=== PATIENT | male | born 1935 | race Caucasian/White ===

== ENCOUNTER 2017-04-13 10:42 | Inpatient (IN) | payer MEDICARE, OTHER ==
[2017-04-13 11:32] LABS: Lactic Acid - Sepsis 0.9 mmol/L (0.5-2.2)
[2017-04-13 11:37] LABS: Band 5 % (5-11); Hematocrit 33.8 % (42.0-52.0); Mean Platelet Volume 5.9 fL (7.4-10.4); Neutrophil 17 % (42-75); Reactive Lymphocytes 2 % (0-10); Red Blood Cell (RBC) Count 3.83 mill/uL (4.70-6.10); White Blood Cell (WBC) Count 4.5 thou/uL (4.8-10.8)
[2017-04-13 11:38] LABS: ALT (SGPT) 15 U/L (8-55); AST (SGOT) 18 U/L (5-34); Alkaline Phosphatase 76 U/L (40-150); Anion Gap 10 mmol/L (10-20); BUN (Urea Nitrogen) 19 mg/dL (8.4-25.7); Bilirubin, Total 0.4 mg/dL (0.2-1.2); CK (CPK) 60 U/L (30-200); Calc. Creatinine Clearance 0 mL/min (70-130); Calcium 9.1 mg/dL (7.8-10.44); Carbon Dioxide 27 mmol/L (23-31); Chloride 105 mmol/L (98-107); Estimated GFR-MDRD 70; Globulin 2.7 g/dL (2.4-3.5); Protein, Total 6.2 g/dL (5.8-8.1)
[2017-04-13 11:41] LABS: Troponin I Less than 0.010 ng/mL (< 0.028)
[2017-04-13] MEDS ORDERED: Furosemide 40 MG/4 ML VIAL ONE (12:07)
--- NOTE | 2017-04-13 13:02 | RAD ---
PORTABLE UPRIGHT FRONTAL CHEST RADIOGRAPH: DATE: 04/13/17. COMPARISON: 01/21/16. HISTORY: Shortness of breath and pain. FINDINGS: There has been interval development of pulmonary vascular congestion. There are increased new linear interstitial densities in bilateral perihilar regions and both lung bases. In addition, there is ne w bibasilar airspace disease and new bilateral pleural effusions. Postsurgical clips overlie the nec k on the right. Midline sternotomy wires are present. There is atherosclerotic calcification in the aortic arch. IMPRESSION: Findings most consistent with interval development of pulmonary edema. Infectious pneumonitis or asp iration in the lung bases cannot be excluded. Followup imaging following treatment advised. POS: FRANSISCA
[2017-04-13] MEDS ORDERED: HumaLOG 300 UNITS/3 ML VIAL SC PRN (14:57)
[2017-04-13] MEDS ORDERED: Calcium Carbonate 500 MG ChewTAB PO PRN (14:57)
[2017-04-13] MEDS ORDERED: HYDROcodone/Acetaminophen 5/325 mg Tablet PO PRN (14:57)
[2017-04-13] MEDS ORDERED: Bisacodyl 5 MG TAB PO PRN (14:57)
[2017-04-13] MEDS ORDERED: Nitroglycerin 0.4 MG TAB (25 Tab Bottle) SL PRN (14:57)
[2017-04-13] MEDS ORDERED: Ondansetron HCl/PF 4 MG/2 ML Vial IVP PRN (14:57)
[2017-04-13] MEDS ORDERED: cloNIDine 0.1 MG TAB PO PRN (14:57)
[2017-04-13] MEDS ORDERED: Senokot 8.6 MG TAB PO PRN (14:57)
[2017-04-13] MEDS ORDERED: Benzonatate 100 MG CAP PO PRN (14:57)
[2017-04-13] MEDS ORDERED: hydrALAZINE 20 MG/ML VIAL SLOW IVP PRN (14:57)
[2017-04-13] MEDS ORDERED: Mag-Al 1200 mg/1200 mg/30 ML UDCUP PO PRN (14:57)
[2017-04-13] MEDS ORDERED: Dextrose 50% Abboject 50 ML SYRINGE SLOW IVP PRN (14:57)
[2017-04-13] MEDS ORDERED: Dextrose 5% in Water 1,000 ML IV PRN (14:57)
[2017-04-13] MEDS ORDERED: Loratadine 10 MG TAB PO PRN (14:57)
[2017-04-13] MEDS ORDERED: Diabetic Tussin 200 MG/10 ML UDCUP PO PRN (14:57)
[2017-04-13] MEDS ORDERED: traMADol HCl 50 MG TAB PO PRN (14:57)
[2017-04-13 14:59] VITALS: BMI 25.7
[2017-04-13] MEDS ORDERED: Furosemide 40 MG/4 ML VIAL SLOW IVP SCH (15:15)
--- NOTE | 2017-04-13 16:06 | HP ---
DATE OF ADMISSION: 04/13/2017. PRIMARY CARE PHYSICIAN: SHARAD. CHIEF COMPLAINT: Shortness of breath. HISTORY OF PRESENT ILLNESS: Mr. Sanchez is a pleasant 82-year-old male with known history of acute di astolic congestive heart failure as well as coronary artery disease, diabetes, and hypertension, who presented to the ER with the above-mentioned complaints. History is mainly obtained by the patient h imself. Case has been discussed with the admitting ER physician. Electronic medical records have be en reviewed. The patient was last admitted to our facility in 01/2016, at which time, he was treated for acute hypoxic respiratory failure due to acute CHF and community-acquired pneumonia. Today, he presented to the emergency room with complaints of worsening shortness of breath starting f or the last 2 or 3 days. He tried his home medications for his asthma, but that did not help and he presented to the ER. He did not have any chest pain. He did not have any fever, chills, cough or an y other recent illnesses. He has not noticed any edema in his legs, but he reports difficulty with l gray flat. He did reveal that the Thanksgiving being 3 days ago, he did possibly eat almost 6 Thanksgiving meals . He feels that he is at least 6 pounds overweight. Upon presentation to the emergency room, he was found to be in severe respiratory distress with oxyge n saturation of 76% on room air. He was found to be tripoding with pursed lip breathing. His immedi ate chest x-ray suggested significant pulmonary congestion and his exam was also consistent with CHF. His 12-lead EKG showed sinus bradycardia at 50 with left atrial enlargement. He was found to have significant pitting edema as well. He was given one dose of IV Lasix along with nebulizer and aspiri n full dose in the ER and was started on nonrebreather, but was later transitioned down to nasal deepali michelle. He was able to maintain his oxygen saturations in the high 90s on nasal cannula. He is now being admitted with a presumptive diagnosis of acute respiratory failure secondary to acute CHF exacerbation. The patient has not followed up with his terrestrial ecologist in many years and he has stopped going to a [facility] physician as his primary care physician pass away. He is currently not on any diuretics to his knowledge. He seemed rather surprised to learn that he needs to have dietary discretion to prev ent fluid overload. PAST MEDICAL HISTORY: 1. Chronic diastolic congestive heart failure. 2. Coronary artery disease status post CABG in the past. 3. Mild persistent asthma. 4. Hypertension. 5. Chronic anemia. PAST SURGICAL HISTORY: 1. Coronary artery bypass grafting. 2. Cholecystectomy. ALLERGIES: No known medication allergies. CURRENT HOME MEDICATIONS: As listed in the emergency room record, 1. Amlodipine 10 mg daily. 2. Atorvastatin 20 mg daily. 3. Coreg 6.25 mg daily. 4. Flomax unknown dose. 5. Flonase nasal spray. 6. Albuterol inhaler. 7. Synthroid 137 mcg daily. 8. Protonix 40 mg daily. SOCIAL HISTORY: He is a former smoker. No history of drug or alcohol abuse. He is and live s with his family. FAMILY HISTORY: Significant for heart disease. REVIEW OF SYSTEMS: The following complete review of systems was negative, unless otherwise mentioned in the HPI or below: Constitutional: Weight loss or gain, ability to conduct usual activities. Skin: Rash, itching. Eyes: Double vision, pain. ENT/Mouth: Nose bleeding, neck stiffness, pain, tenderness. Cardiovascular: Palpitations, dyspnea on exertion, orthopnea. Respiratory: Wheezing, cough, hemoptysis, fever or night sweats. Shortness of breath, orthopnea, PN D. Gastrointestinal: Poor appetite, abdominal pain, heartburn, nausea, vomiting, constipation, or diarr hea. Genitourinary: Urgency, frequency, dysuria, nocturia. Musculoskeletal: Pain, swelling. Neurologic/Psychiatric: Anxiety, depression. Allergy/Immunologic: Skin rash, bleeding tendency. LABORATORY DATA: His lab examination shows CBC with WBC 4.5 with 17% neutrophils and 58% lymphocytes . Hemoglobin is 11.2, hematocrit 33.8. Serum chemistry is unremarkable. Cardiac enzymes within nor mal limits. BNP is elevated to 497.4. Chest x-ray by my review shows severe cardiomegaly and pulmon chalino vascular congestion. Infiltrate cannot be ruled out. A 12-lead EKG by my review showed sinus br adycardia with left atrial enlargement. Normal ST segment and T waves. PHYSICAL EXAMINATION: VITAL SIGNS: Most recent vital signs include temperature 98.2, pulse of 54, respirations 18, saturat ing 94% on 2 liters, blood pressure 179/84. GENERAL: No acute distress, awake, alert, oriented x3. He does get easily winded with long sentence s, but in no acute respiratory distress at this time. HEENT: Mucous membrane is moist and pink. No oropharyngeal exudate or erythema. Head is normocepha lic, atraumatic. Pupils equal, reactive to light and accommodation. Extraocular movements intact. NECK: Supple without any lymphadenopathy, JVD or bruit. CHEST: Clear to auscultation without any wheezing, rales or rhonchi. Rhythm is regular without any murmur, rubs or gallops. ABDOMEN: Soft, nontender, nondistended, obese. No guarding, rebound or rigidity. EXTREMITIES: Show pitting edema bilaterally extending from his ankle to mid wahl. NEUROLOGIC: Nonfocal. SKIN: Free of any rashes or bruises. PSYCHIATRIC: Normal affect. IMPRESSION AND PLAN: 1. Acute respiratory failure. This is secondary to acute diastolic heart failure. The patient has over eaten at the Thanksgiving meal and is resultantly is in acute fluid overload. He will be diures ed with IV Lasix and we will repeat the echocardiogram. His last echocardiogram done in our facility was in 01/2016 which showed findings consistent with diastolic dysfunction with preserved ejection f raction at 65%. He does have moderate aortic stenosis which is known to him. At this time, we will monitor his renal function with diuresis closely. We will put him on fluid restriction and check str ict I's and O's and daily weights. Heart Failure Clinic set up should be made prior to his discharge . We will also consult cardiac rehabilitation. The patient needs to be educated about heart failure disease process. We will consult dietitian for the same. We will consult his terrestrial ecologist, Dr. Yina tavarez in the morning. We will also add nebulizer on a scheduled basis given his history of asthma a nd presentation with acute dyspnea and hypoxia. Restart his home medications. 2. History of coronary artery disease, status post coronary bypass grafting. We will restart his me toprolol with monitoring of his heart rate as it is on the lower side. He will be started and contin ued on aspirin for now. Echocardiogram has been reordered for him. For some reason, the patient shaikh s not seem to be on any NANCY inhibitor. We will start him on low dose lisinopril if his renal functio n and blood pressure allows. 3. Diabetes mellitus type 2. The patient's blood sugar will be monitored. He will be started on in sulin sliding scale. We will avoid metformin while in the hospital to avoid acidosis and renal failu re. 4. Hypertension. We will restart his home medications as the dosages are confirmed. Continue amlod ipine, Coreg and clonidine for now. 5. Dyslipidemia. We will restart atorvastatin 20 mg daily. 6. Hypothyroidism. Restart Synthroid 137 mcg daily. 7. History of asthma and we will re-start his Flonase and add nebulizers unscheduled and p.r.n. basi s. 8. Chronic anemia. 9. CODE STATUS: FULL CODE. Discussed with the patient. Deep venous thrombosis and gastrointestina l prophylaxis. 10. Add p.r.n. medications. DISPOSITION: The patient is currently being admitted for acute respiratory distress and congestive h eart failure exacerbation. Further management will depend upon his clinical course. Estimated lengt h of stay is at least 2-3 midnights.
[2017-04-13] MEDS: Carvedilol 6.25 MG TAB PO SCH (16:17)
[2017-04-13] MEDS: cloNIDine 0.1 MG TAB PO SCH (20:11)
[2017-04-13] MEDS: Famotidine 20 MG TAB PO SCH (20:11)
[2017-04-13] MEDS: Atorvastatin Calcium 20 MG TAB PO SCH (20:12)
--- NOTE | 2017-04-13 20:47 | CON ---
DATE OF CONSULTATION: 04/13/2017 REASON FOR CONSULTATION: Heart failure. PRIMARY FLOOR FINISHER HELPER: Ignacio Elam M.D. HISTORY OF PRESENT ILLNESS: Mr. Sanchez is a very pleasant 82-year-old white gentleman who comes to the hospital for shortness of breath. He has a normal LV function with diastolic dysfunction. Three days ago, on , he ate a lot of food and felt he has gained about 6 pounds probably in just fluid, since then he became short of breath. He came in as his shortness of breath was severe, oxygen saturation was 76% on admission, so he was started on oxygen supplementation given a dose of IV Lasix. He has urinated about 2-3 liters so far and he is feeling much better. His breathing is much better. He also received nebulizer treatment and an aspirin. On my evaluation, he is on nasal cannula. He is comfortable. He is having dinner. PAST MEDICAL HISTORY: 1. Chronic diastolic heart failure. 2. Coronary artery disease, status post bypass grafting in the past. 3. Mild persistent asthma. 4. Hypertension. 5. Chronic anemia. PAST SURGICAL HISTORY: 1. Coronary artery disease, status post CABG as above. 2. Cholecystectomy. OUTPATIENT MEDICATIONS: 1. Metformin 500 mg twice a day. 2. Carvedilol 6.25 mg twice a day. 3. Tamsulosin 0.4 mg daily. 4. Fluticasone 50 mcg each nostril. 5. Iron 325 mg twice a day. 6. Loratadine. 7. Amlodipine 10 mg a day. 8. Simvastatin 40 mg a day. 9. Synthroid 25 mcg daily. 10. Albuterol inhaler p.r.n. 11. Clonidine 0.1 mg twice a day. 12. Hydroxyzine daily. 13. Pantoprazole 40 mg a day. SOCIAL HISTORY: Former smoker. No alcohol or drug use, no more tobacco use for some years now. FAMILY HISTORY: Noncontributory. ALLERGIES: No known drug allergies. REVIEW OF SYSTEMS: As 12-point review of systems was done and is all negative unless stated the history of present illness. PHYSICAL EXAMINATION: VITAL SIGNS: Temperature 97.7, pulse 59, respiratory rate 19, satting 92% on 2 liters, blood pressure 203/79. GENERAL: Awake, alert, oriented x3, in no distress. HEENT: Normocephalic, atraumatic. NECK: Supple. LUNGS: Have mild crackles at bilateral bases. CARDIOVASCULAR: S1, S2, no S3 or S4, no murmurs or rubs. ABDOMEN: Soft, positive bowel sounds. EXTREMITIES: 1+ edema bilaterally. SKIN: Warm and dry. LABORATORY WORK: Reviewed. White count of 4.5, hemoglobin 11, hematocrit 33, platelet count 223. Chemistries were unremarkable. Glucose of 120. Troponin is negative x1. BNP was 497, albumin of 3.5, normal BUN and creatinine. EKG was reviewed. Chest x-ray was reviewed and was consistent with heart failure. ASSESSMENT AND PLAN: 1. Acute on chronic diastolic heart failure. 2. Volume overload. 3. Hypertension emergency. PLAN: 1. We will restart his home medications for blood pressure control. I agree with p.r.n. clonidine. He needs a dose right now. We will continue IV Lasix at 40 mg IV b.i.d. should suffice, he has already put out almost a liter and a half while he has been up on the floor. 2. We will repeat echocardiogram to make sure this LV function remains the same and there is no major valvular abnormalities. Thank you for letting us participate in the care of your patient. Dr. Elam is the primary slicing machine operator. We will follow in the morning. DEIRDRE
[2017-04-13] MEDS: Melatonin 3 MG TAB PO PRN (23:06)
[2017-04-13] MEDS: Acetaminophen 325 MG TAB PO PRN (23:06)
[2017-04-14] MEDS: Levothyroxine Sodium 112 MCG TAB PO SCH (05:23)
[2017-04-14] MEDS: Furosemide 40 MG/4 ML VIAL SLOW IVP SCH ×2 (05:23→13:48)
[2017-04-14] MEDS: Levothyroxine Sodium 25 MCG TAB PO SCH (05:23)
[2017-04-14 05:42] LABS: Anion Gap 12 mmol/L (10-20); BUN (Urea Nitrogen) 18 mg/dL (8.4-25.7); Calc. Creatinine Clearance 59 mL/min (70-130); Calcium 8.8 mg/dL (7.8-10.44); Carbon Dioxide 30 mmol/L (23-31); Chloride 102 mmol/L (98-107); Estimated GFR-MDRD 72
[2017-04-14 05:49] LABS: Band 5 % (5-11); Hematocrit 32.4 % (42.0-52.0); Mean Platelet Volume 5.8 fL (7.4-10.4); Myelocyte 3 % (0-0); Neutrophil 18 % (42-75); Reactive Lymphocytes 3 % (0-10); Red Blood Cell (RBC) Count 3.66 mill/uL (4.70-6.10); White Blood Cell (WBC) Count 3.7 thou/uL (4.8-10.8)
[2017-04-14] MEDS ORDERED: Levothyroxine Sodium 125 MCG TAB PO SCH (06:00)
[2017-04-14] MEDS ORDERED: (Albuterol Sulfate [Proair Respiclick] 90 MCG) INH PRN (08:28)
[2017-04-14] MEDS: Enoxaparin Sodium 40 MG/0.4 ML SYRINGE SC SCH (08:33)
[2017-04-14] MEDS: cloNIDine 0.1 MG TAB PO SCH ×2 (08:34→20:31)
[2017-04-14] MEDS: Carvedilol 6.25 MG TAB PO SCH ×2 (08:34→18:01)
[2017-04-14] MEDS: Famotidine 20 MG TAB PO SCH ×2 (08:35→20:32)
[2017-04-14] MEDS: Aspirin 81 mg Enteric Coated Tablet PO SCH (08:35)
[2017-04-14] MEDS: Amlodipine 10 MG TAB PO SCH (08:35)
[2017-04-14] MEDS ORDERED: Lisinopril 5 MG TAB PO SCH (09:00)
[2017-04-14] MEDS ORDERED: UBIDECARENONE 10 MG PO SCH (09:00)
[2017-04-14] MEDS ORDERED: CLONIDINE HCL 0.1 MG PO SCH (09:00)
[2017-04-14] MEDS ORDERED: (Fluticasone Propionate [Flovent Diskus] 50 MCG) INH SCH (09:00)
--- NOTE | 2017-04-14 09:06 | RAD ---
PORTABLE CHEST: Date: 04/14/17 HISTORY: CHF. Pneumonia. COMPARISON: 04/13/17. FINDINGS: Bibasilar infiltrates. Mild cardiomegaly and mild vascular engorgement. Dense aortic calcification. P ostop sternotomy changes. IMPRESSION: Bibasilar infiltrates not significantly changed from yesterday. POS: RENUKA
--- NOTE | 2017-04-14 09:36 | PRG ---
DATE OF SERVICE: 04/14/2017 HISTORY: Mr. Sanchez is doing better today. He has less shortness of breath. Mr. Sanchez's last echo in the office dated 03/25/2016. His LVEF at that time was 55-60% with concent mireya LVH, moderate mitral annular calcification and mild aortic stenosis. PHYSICAL EXAMINATION: VITAL SIGNS: Blood pressure 181/81, pulse 66, temperature 97.8. LUNGS: Crackles bilaterally. CARDIAC: Regular rate and rhythm with a 2/6 systolic ejection murmur. ABDOMEN: Soft, nontender, nondistended. EXTREMITIES: No edema. IMPRESSION: Acute onset shortness of breath. RECOMMENDATIONS: Differential diagnosis includes diastolic dysfunction in addition to worsening aort ic stenosis. Echo has been ordered. At this point, would continue atorvastatin in addition to aspir in. Increase lisinopril to 10 mg q.a.m. Would consider adding low dose Norvasc if blood pressure co ntinues to be elevated.
[2017-04-14] MEDS: Ferrous Sulfate 325 MG TAB PO SCH ×2 (10:11→20:32)
[2017-04-14] MEDS: hydrOXYzine 10 MG TAB PO SCH (10:11)
[2017-04-14] MEDS: Tamsulosin HCl 0.4 MG CAP PO SCH (10:11)
[2017-04-14] MEDS: Ascorbic Acid 500 mg Chewable Tablet PO SCH (10:11)
--- NOTE | 2017-04-14 12:18 | PDOC.PN ---
- Subjective Encounter Start Date: 04/14/17 Encounter Start Time: 12:16 Subjective: feels much better. no more SOB.no chest pain -: no F/C.no cough - Objective MAR Reviewed: Yes Vital Signs & Weight: Vital Signs (12 hours) Temp Pulse Pulse Pulse Resp BP BP 04/14/17 11:40 56 L 20 04/14/17 11:10 57 L 57 L 167/73 H 04/14/17 08:35 56 L 04/14/17 08:34 181/81 H 04/14/17 07:25 97.8 F 56 L 18 04/14/17 07:07 60 14 04/14/17 04:00 98.7 F 52 L 18 BP BP Pulse Ox Pulse Ox Pulse Ox 04/14/17 11:40 164/87 H 96 04/14/17 11:10 187/87 H 95 94 L 04/14/17 08:35 04/14/17 08:34 04/14/17 07:25 181/81 H 94 L 04/14/17 07:07 04/14/17 04:00 164/74 H 94 L Weight Weight 166 lb 8 oz I&O: 04/13/17 04/14/17 04/15/17 06:59 06:59 06:59 Intake Total 490 Output Total 3955 Balance -3465 Result Diagrams: 04/14/17 04:14 04/14/17 04:14 Additional Labs: Accuchecks 04/14/17 04/14/17 04/13/17 11:14 05:48 20:19 POC Glucose 134 H 100 115 H 04/13/17 17:00 POC Glucose 135 H Microbiology 04/13/17 11:18 Venous blood - Right Hand Blood Culture - Preliminary Specimen has been received and culture in progress. No Growth to date. 04/13/17 11:05 Venous blood - Left Arm Blood Culture - Preliminary Specimen has been received and culture in progress. No Growth to date. Radiology Reviewed by me: Yes (cxr- b/l infiltrates) Phys Exam - Physical Examination Constitutional: NAD HEENT: PERRLA, moist MMs, sclera anicteric, oral pharynx no lesions Neck: no nodes, no JVD, supple, full ROM Respiratory: no wheezing, no rales, no rhonchi, clear to auscultation bilateral Cardiovascular: RRR systolic murmur Gastrointestinal: soft, non-tender, no distention, positive bowel sounds Musculoskeletal: no edema, pulses present Neurological: non-focal, normal sensation, moves all 4 limbs Dx/Plan (1) Acute hypoxemic respiratory failure Code(s): J96.01 - ACUTE RESPIRATORY FAILURE WITH HYPOXIA Status: Acute (2) Acute on chronic diastolic (congestive) heart failure Code(s): I50.33 - ACUTE ON CHRONIC DIASTOLIC (CONGESTIVE) HEART FAILURE Status : Acute (3) Pneumonia, organism unspecified Code(s): J18.9 - PNEUMONIA, UNSPECIFIED ORGANISM Status: Acute (4) Hypothyroidism Code(s): E03.9 - HYPOTHYROIDISM, UNSPECIFIED Status: Acute (5) CAD (coronary artery disease) Code(s): I25.10 - ATHSCL HEART DISEASE OF [place] CORONARY ARTERY W/O ANG PCTRS Status: Chronic (6) HLD (hyperlipidemia) Code(s): E78.5 - HYPERLIPIDEMIA, UNSPECIFIED Status: Chronic (7) HTN (hypertension) Code(s): I10 - ESSENTIAL (PRIMARY) HYPERTENSION Status: Chronic - Plan DVT proph w/SCDs symptoms much improved. cont diuresis.good repsonse. cardiology following -: cont ASA,statin,BB. not on NANCY-I.will add as BP also high. -: repeat ECHO .h/o Moderate stenosis w easy fatigue. -: pt educated multiple times about CHF,diet ,meds,F/U etc. -: CR and HF clinic f/u on DC.Herat healthy diet w fluid restriction * . Review of Systems - Review of Systems Constitutional: negative: Fever, Chills, Sweats, Weakness, Malaise, Other Respiratory: negative: Cough, Dry, Shortness of Breath, Hemoptysis, SOB with Excertion, Pleuritic Pain, Sputum, Wheezing Cardiovascular: Edema. negative: Chest Pain, Palpitations, Orthopnea, Paroxysmal Noc. Dyspnea, Light Headedness, Other Gastrointestinal: negative: Nausea, Vomiting, Abdominal Pain, Diarrhea, Constipation, Melena, Hematochezia, Other Genitourinary: negative: Dysuria, Frequency, Incontinence, Hematuria, Retention , Other Musculoskeletal: negative: Neck Pain, Shoulder Pain, Arm Pain, Back Pain, Hand Pain, Leg Pain, Foot Pain, Other Neurological: negative: Weakness, Numbness, Incoordination, Change in Speech, Confusion, Seizures, Other - Medications/Allergies Allergies/Adverse Reactions: Allergies Allergy/AdvReac Type Severity Reaction Status Date / Time Latex, Natural Rubber Allergy Verified 06/25/14 09:08 milk Allergy Verified 04/13/17 15:30 niacin Allergy Verified 04/13/17 15:30 Penicillins Allergy Verified 06/25/14 09:08 Medications: Current Medications Acetaminophen (Tylenol) 650 mg PO Q4H PRN PRN Reason: Headache/Fever or Pain Last Admin: 04/13/17 23:06 Dose: 650 mg Hydrocodone Bitart/Acetaminophen ([place] 5/325) 1 tab PO Q4H PRN PRN Reason: Moderate Pain (4-6) Al Hydroxide/Mg Hydroxide (Maalox) 30 ml PO Q6H PRN PRN Reason: Heartburn or Indigestion Albuterol/Ipratropium (Duoneb) 3 ml NEB [id number] [facility] Last Admin: 04/14/17 07:07 Dose: 3 ml Albuterol/Ipratropium (Duoneb) 3 ml NEB [id number] PRN PRN Reason: SOB &/or Wheezing Amlodipine Besylate (Norvasc) 10 mg PO DAILY [facility] Last Admin: 04/14/17 08:35 Dose: 10 mg Ascorbic Acid (Vitamin C) 500 mg PO DAILY [facility] Last Admin: 04/14/17 10:11 Dose: 500 mg Aspirin (Ecotrin) 81 mg PO DAILY [facility] Last Admin: 04/14/17 08:35 Dose: 81 mg Atorvastatin Calcium (Lipitor) 20 mg PO [facility] Last Admin: 04/13/17 20:12 Dose: 20 mg Benzonatate (Tessalon) 100 mg PO Q4H PRN PRN Reason: Cough Bisacodyl (Dulcolax) 10 mg PO DAILYPRN PRN PRN Reason: Constipation Calcium Carbonate (Tums) 1,000 mg PO Q4H PRN PRN Reason: Heartburn or Indigestion Carvedilol (Coreg) 6.25 mg PO BID-[facility] Last Admin: 04/14/17 08:34 Dose: 6.25 mg Clonidine (Catapres) 0.1 mg PO Q4H PRN PRN Reason: Systolic BP > 160 Last Admin: 04/13/17 18:49 Dose: 0.1 mg Clonidine (Catapres) 0.1 mg PO BID [facility] Last Admin: 04/14/17 08:34 Dose: 0.1 mg Dextrose/Water (Dextrose 50%) 25 gm SLOW IVP PRN PRN PRN Reason: Hypoglycemia Enoxaparin Sodium (Lovenox) 40 mg SC 0900 [facility] Last Admin: 04/14/17 08:33 Dose: 40 mg Famotidine (Pepcid) 20 mg PO BID [facility] Last Admin: 04/14/17 08:35 Dose: 20 mg Ferrous Sulfate (Feosol) 325 mg PO BID [facility] Last Admin: 04/14/17 10:11 Dose: 325 mg Furosemide (Lasix) 40 mg SLOW IVP 0600,1400 [facility] Last Admin: 04/14/17 05:23 Dose: 40 mg Glucagon (Glucagon) 1 mg IM PRN PRN PRN Reason: Hypoglycemia Guaifenesin (Robitussin Sf) 200 mg PO Q4H PRN PRN Reason: Cough Hydralazine HCl (Apresoline) 10 mg SLOW IVP Q4H PRN PRN Reason: Systolic BP > 170 Last Admin: 04/13/17 17:43 Dose: 10 mg Hydroxyzine HCl (Atarax) 10 mg PO DAILY [facility] Last Admin: 04/14/17 10:11 Dose: 10 mg Dextrose/Water (D5w) 1,000 mls @ 0 mls/hr IV .Q0M PRN; As Directed PRN Reason: Hypoglycemia Insulin Human Lispro (Humalog) 0 units SC .MODERATE SLIDING SC PRN PRN Reason: Moderate Correctional Scale Insulin Human Lispro (Humalog) 0 units SC .BEDTIME SLIDING SC PRN PRN Reason: Bedtime Correctional Scale Levothyroxine Sodium (Synthroid) 112 mcg PO 0600 [facility] Last Admin: 04/14/17 05:23 Dose: 112 mcg Levothyroxine Sodium (Synthroid) 25 mcg PO 0600 [facility] Last Admin: 04/14/17 05:23 Dose: 25 mcg Lisinopril (Zestril) 10 mg PO DAILY [facility] Loratadine (Claritin) 10 mg PO DAILYPRN PRN PRN Reason: Sinus Symptoms Melatonin (Melatonin) 3 mg PO HSPRN PRN PRN Reason: Insomnia Last Admin: 04/13/17 23:06 Dose: 3 mg Nitroglycerin (Nitrostat) 0.4 mg SL Q5MIN PRN PRN Reason: Chest Pain Ondansetron HCl (Zofran) 4 mg IVP Q6H PRN PRN Reason: Nausea/Vomiting Pantoprazole Sodium (Protonix) 40 mg PO DAILY [facility]DRA (Albuterol Sulfate [ Proair Respiclick] 90 Mcg) 0 each INH Q4H PRN PRN Reason: SOB &/or Wheezing (Clonidine Hcl [ Clonidine Hcl Er] 0. 1 Mg) 0 each PO BID SANDRA (Fluticasone Propionate [Flovent Diskus] 50 Mcg) 0 each INH BID-RT SANDRA (Ubidecarenone [ (Coenzyme Q10] 10 Mg)) 0 each PO DAILY [facility] Senna (Senokot) 2 tab PO HSPRN PRN PRN Reason: Constipation Tamsulosin HCl (Flomax) 0.4 mg PO DAILY [facility] Last Admin: 04/14/17 10:11 Dose: 0.4 mg Tramadol HCl (Ultram) 50 mg PO Q4H PRN PRN Reason: Moderate Pain (4-6)
[2017-04-14] MEDS: Atorvastatin Calcium 20 MG TAB PO SCH (20:31)
[2017-04-14] MEDS: Acetaminophen 325 MG TAB PO PRN (20:38)
[2017-04-14] MEDS: Melatonin 3 MG TAB PO PRN (20:38)
[2017-04-15] MEDS: Levothyroxine Sodium 112 MCG TAB PO SCH (05:26)
[2017-04-15] MEDS: Levothyroxine Sodium 25 MCG TAB PO SCH (05:26)
[2017-04-15] MEDS: Furosemide 40 MG/4 ML VIAL SLOW IVP SCH ×2 (05:26→12:51)
[2017-04-15] MEDS: Carvedilol 6.25 MG TAB PO SCH ×2 (08:55→16:44)
[2017-04-15] MEDS ORDERED: Lisinopril 10 MG TAB PO SCH (09:00)
[2017-04-15] MEDS: Famotidine 20 MG TAB PO SCH (09:45)
[2017-04-15] MEDS: Ascorbic Acid 500 mg Chewable Tablet PO SCH (09:45)
[2017-04-15] MEDS: Ferrous Sulfate 325 MG TAB PO SCH ×2 (09:45→21:19)
[2017-04-15] MEDS: Tamsulosin HCl 0.4 MG CAP PO SCH (09:45)
[2017-04-15] MEDS: Aspirin 81 mg Enteric Coated Tablet PO SCH (09:46)
[2017-04-15] MEDS: Amlodipine 10 MG TAB PO SCH (09:46)
[2017-04-15] MEDS: hydrOXYzine 10 MG TAB PO SCH (09:46)
[2017-04-15] MEDS: cloNIDine 0.1 MG TAB PO SCH ×2 (09:46→21:19)
[2017-04-15] MEDS: Enoxaparin Sodium 40 MG/0.4 ML SYRINGE SC SCH (09:49)
[2017-04-15] MEDS ORDERED: Polyethylene Glycol 3350 17 GM Packet PO PRN (13:27)
--- NOTE | 2017-04-15 13:29 | PDOC.PN ---
- Subjective Encounter Start Date: 04/15/17 Encounter Start Time: 13:28 Subjective: feels better. no SOB/CP/palpitations.no Cough,fever or chills. -: constipated - Objective MAR Reviewed: Yes Vital Signs & Weight: Vital Signs (12 hours) Temp Pulse Resp BP BP BP Pulse Ox 04/15/17 12:00 98.1 F 63 15 167/73 H 94 L 04/15/17 09:46 60 170/73 H 04/15/17 08:55 170/73 H 04/15/17 08:00 97.7 F 60 18 93 L 04/15/17 07:57 97.7 F 60 18 187/76 H 93 L 04/15/17 07:08 60 12 04/15/17 04:00 98.2 F 80 20 174/73 H 90 L 04/15/17 03:44 92 L Weight Weight 156 lb 9.6 oz I&O: 04/14/17 04/15/17 04/16/17 06:59 06:59 06:59 Intake Total 490 540 Output Total 3955 3025 Balance -7525 -5884 Result Diagrams: 04/14/17 04:14 04/14/17 04:14 Additional Labs: Accuchecks 04/15/17 04/15/17 04/14/17 11:50 05:09 19:57 POC Glucose 143 H 100 188 H 04/14/17 15:57 POC Glucose 105 Microbiology 04/13/17 11:18 Venous blood - Right Hand Blood Culture - Preliminary Specimen has been received and culture in progress. No Growth to date. 04/13/17 11:05 Venous blood - Left Arm Blood Culture - Preliminary Specimen has been received and culture in progress. No Growth to date. Radiology Reviewed by me: Yes (ECHO-diastolic dysfunction.EF 55%) Phys Exam - Physical Examination Constitutional: NAD HEENT: PERRLA, moist MMs, sclera anicteric, oral pharynx no lesions Neck: no nodes, no JVD, supple, full ROM Respiratory: no wheezing, no rales, no rhonchi, clear to auscultation bilateral Cardiovascular: RRR, no significant murmur Gastrointestinal: soft, non-tender, no distention, positive bowel sounds Musculoskeletal: no edema, pulses present Psychiatric: normal affect, A&O x 3 Skin: no rash Dx/Plan (1) Acute hypoxemic respiratory failure Code(s): J96.01 - ACUTE RESPIRATORY FAILURE WITH HYPOXIA Status: Acute (2) Acute on chronic diastolic (congestive) heart failure Code(s): I50.33 - ACUTE ON CHRONIC DIASTOLIC (CONGESTIVE) HEART FAILURE Status : Acute (3) Pneumonia, organism unspecified Code(s): J18.9 - PNEUMONIA, UNSPECIFIED ORGANISM Status: Acute (4) Hypothyroidism Code(s): E03.9 - HYPOTHYROIDISM, UNSPECIFIED Status: Acute (5) CAD (coronary artery disease) Code(s): I25.10 - ATHSCL HEART DISEASE OF [place] CORONARY ARTERY W/O ANG PCTRS Status: Chronic (6) HLD (hyperlipidemia) Code(s): E78.5 - HYPERLIPIDEMIA, UNSPECIFIED Status: Chronic (7) HTN (hypertension) Code(s): I10 - ESSENTIAL (PRIMARY) HYPERTENSION Status: Chronic - Plan continue antibiotics, PT/OT, respiratory therapy, incentive spirometry, out of bed/ambulate, DVT proph w/SCDs Was hypoxic this am and was put on O2 PNC.will try to wean off -: on ABx empirically for possible CAP. -: cont diuresis.10 lbs fluid weight loss.change to PO -: cont to monitor Cr.cont home meds.increase lisinopril to BID as BP high -: likley home tomorrow if O2 sats good & BP better controlled * .cardiology following.appreciate input. * am labs * CR and HF clinic f/u Review of Systems - Review of Systems Constitutional: negative: Fever, Chills, Sweats, Weakness, Malaise, Other Respiratory: negative: Cough, Dry, Shortness of Breath, Hemoptysis, SOB with Excertion, Pleuritic Pain, Sputum, Wheezing Cardiovascular: negative: Chest Pain, Palpitations, Orthopnea, Paroxysmal Noc. Dyspnea, Edema, Light Headedness, Other Gastrointestinal: Constipation. negative: Nausea, Vomiting, Abdominal Pain, Diarrhea, Melena, Hematochezia, Other Genitourinary: negative: Dysuria, Frequency, Incontinence, Hematuria, Retention , Other Musculoskeletal: negative: Neck Pain, Shoulder Pain, Arm Pain, Back Pain, Hand Pain, Leg Pain, Foot Pain, Other Neurological: negative: Weakness, Numbness, Incoordination, Change in Speech, Confusion, Seizures, Other - Medications/Allergies Allergies/Adverse Reactions: Allergies Allergy/AdvReac Type Severity Reaction Status Date / Time Latex, Natural Rubber Allergy Verified 06/25/14 09:08 milk Allergy Verified 04/13/17 15:30 niacin Allergy Verified 04/13/17 15:30 Penicillins Allergy Verified 06/25/14 09:08 Medications: Current Medications Acetaminophen (Tylenol) 650 mg PO Q4H PRN PRN Reason: Headache/Fever or Pain Last Admin: 04/14/17 20:38 Dose: 650 mg Hydrocodone Bitart/Acetaminophen ([place] 5/325) 1 tab PO Q4H PRN PRN Reason: Moderate Pain (4-6) Al Hydroxide/Mg Hydroxide (Maalox) 30 ml PO Q6H PRN PRN Reason: Heartburn or Indigestion Albuterol/Ipratropium (Duoneb) 3 ml NEB [id number] [facility] Last Admin: 04/15/17 07:08 Dose: 3 ml Albuterol/Ipratropium (Duoneb) 3 ml NEB [id number] PRN PRN Reason: SOB &/or Wheezing Amlodipine Besylate (Norvasc) 10 mg PO DAILY [facility] Last Admin: 04/15/17 09:46 Dose: 10 mg Ascorbic Acid (Vitamin C) 500 mg PO DAILY [facility] Last Admin: 04/15/17 09:45 Dose: 500 mg Aspirin (Ecotrin) 81 mg PO DAILY [facility] Last Admin: 04/15/17 09:46 Dose: 81 mg Atorvastatin Calcium (Lipitor) 20 mg PO [facility] Last Admin: 04/14/17 20:31 Dose: 20 mg Benzonatate (Tessalon) 100 mg PO Q4H PRN PRN Reason: Cough Bisacodyl (Dulcolax) 10 mg PO DAILYPRN PRN PRN Reason: Constipation Last Admin: 04/15/17 09:46 Dose: 10 mg Calcium Carbonate (Tums) 1,000 mg PO Q4H PRN PRN Reason: Heartburn or Indigestion Carvedilol (Coreg) 6.25 mg PO BID-[facility] Last Admin: 04/15/17 08:55 Dose: 6.25 mg Clonidine (Catapres) 0.1 mg PO Q4H PRN PRN Reason: Systolic BP > 160 Last Admin: 04/13/17 18:49 Dose: 0.1 mg Clonidine (Catapres) 0.1 mg PO BID [facility] Last Admin: 04/15/17 09:46 Dose: 0.1 mg Dextrose/Water (Dextrose 50%) 25 gm SLOW IVP PRN PRN PRN Reason: Hypoglycemia Enoxaparin Sodium (Lovenox) 40 mg SC 0900 [facility] Last Admin: 04/15/17 09:49 Dose: 40 mg Famotidine (Pepcid) 20 mg PO BID [facility] Last Admin: 04/15/17 09:45 Dose: 20 mg Ferrous Sulfate (Feosol) 325 mg PO BID [facility] Last Admin: 04/15/17 09:45 Dose: 325 mg Furosemide (Lasix) 40 mg PO 0900,1400 [facility] Glucagon (Glucagon) 1 mg IM PRN PRN PRN Reason: Hypoglycemia Guaifenesin (Robitussin Sf) 200 mg PO Q4H PRN PRN Reason: Cough Hydralazine HCl (Apresoline) 10 mg SLOW IVP Q4H PRN PRN Reason: Systolic BP > 170 Last Admin: 04/13/17 17:43 Dose: 10 mg Hydroxyzine HCl (Atarax) 10 mg PO DAILY [facility] Last Admin: 04/15/17 09:46 Dose: 10 mg Dextrose/Water (D5w) 1,000 mls @ 0 mls/hr IV .Q0M PRN; As Directed PRN Reason: Hypoglycemia Levofloxacin 750 mg/ Device 150 mls @ 100 mls/hr IVPB Q24HR [facility] Last Admin: 04/15/17 12:50 Dose: 150 mls Insulin Human Lispro (Humalog) 0 units SC .MODERATE SLIDING SC PRN PRN Reason: Moderate Correctional Scale Insulin Human Lispro (Humalog) 0 units SC .BEDTIME SLIDING SC PRN PRN Reason: Bedtime Correctional Scale Lisinopril (Zestril) 10 mg PO BID [facility] Loratadine (Claritin) 10 mg PO DAILYPRN PRN PRN Reason: Sinus Symptoms Melatonin (Melatonin) 3 mg PO HSPRN PRN PRN Reason: Insomnia Last Admin: 04/14/17 20:38 Dose: 3 mg Nitroglycerin (Nitrostat) 0.4 mg SL Q5MIN PRN PRN Reason: Chest Pain Ondansetron HCl (Zofran) 4 mg IVP Q6H PRN PRN Reason: Nausea/Vomiting Pantoprazole Sodium (Protonix) 40 mg PO DAILY [facility] Last Admin: 04/15/17 09:46 Dose: 40 mg (Albuterol Sulfate [ Proair Respiclick] 90 Mcg) 0 each INH Q4H PRN PRN Reason: SOB &/or Wheezing (Clonidine Hcl [ Clonidine Hcl Er] 0. 1 Mg) 0 each PO BID [facility] (Fluticasone Propionate [Flovent Diskus] 50 Mcg) 0 each INH BID-RT SANDRA (Ubidecarenone [ (Coenzyme Q10] 10 Mg)) 0 each PO DAILY [facility] Polyethylene Glycol (Miralax) 17 gm PO DAILYPRN PRN PRN Reason: Constipation Senna (Senokot) 2 tab PO HSPRN PRN PRN Reason: Constipation Sodium Chloride (Flush - Normal Saline) 10 ml IVF Q12HR [facility] Sodium Chloride (Flush - Normal Saline) 10 ml IVF PRN PRN PRN Reason: Saline Flush Tamsulosin HCl (Flomax) 0.4 mg PO DAILY [facility] Last Admin: 04/15/17 09:45 Dose: 0.4 mg Tramadol HCl (Ultram) 50 mg PO Q4H PRN PRN Reason: Moderate Pain (4-6)
[2017-04-15] MEDS: Furosemide 40 MG TAB PO SCH (13:55)
[2017-04-15] MEDS: HumaLOG 300 UNITS/3 ML VIAL SC PRN (18:06)
--- NOTE | 2017-04-15 20:14 | PRG ---
DATE OF SERVICE: 04/15/2017 SUBJECTIVE: Mr. Sanchez today feels better. He is near to his baseline. LVEF on recent echo with es timated at 45%-50%. No significant valvular dysfunction present. OBJECTIVE: VITAL SIGNS: BP 167/73, pulse 63, temperature 98.1. LUNGS: Clear to auscultation. CARDIAC: Regular rate and rhythm. ABDOMEN: Soft, nontender, nondistended. EXTREMITIES: No edema. PERTINENT LABORATORY DATA: Hemoglobin 10.6. IMPRESSION: 1. Pneumonia. 2. Acute on chronic systolic and diastolic heart failure. RECOMMENDATIONS: He has diuresed and has done very well. Continue antibiotic therapy. From a CV st andpoint, I have no further recommendations.
[2017-04-15] MEDS: Atorvastatin Calcium 20 MG TAB PO SCH (21:19)
[2017-04-15] MEDS: Lisinopril 10 MG TAB PO SCH (21:19)
[2017-04-15] MEDS: Acetaminophen 325 MG TAB PO PRN (23:07)
[2017-04-16 05:23] LABS: Anion Gap 13 mmol/L (10-20); BUN (Urea Nitrogen) 26 mg/dL (8.4-25.7); Calc. Creatinine Clearance 37 mL/min (70-130); Calcium 8.9 mg/dL (7.8-10.44); Carbon Dioxide 31 mmol/L (23-31); Chloride 98 mmol/L (98-107); Estimated GFR-MDRD 47
[2017-04-16] MEDS: Carvedilol 6.25 MG TAB PO SCH (08:12)
[2017-04-16] MEDS: Ascorbic Acid 500 mg Chewable Tablet PO SCH (08:12)
[2017-04-16] MEDS: Lisinopril 10 MG TAB PO SCH (08:13)
[2017-04-16] MEDS: hydrOXYzine 10 MG TAB PO SCH (08:13)
[2017-04-16] MEDS: Furosemide 40 MG TAB PO SCH (08:13)
[2017-04-16] MEDS: Enoxaparin Sodium 40 MG/0.4 ML SYRINGE SC SCH (08:14)
[2017-04-16] MEDS: Tamsulosin HCl 0.4 MG CAP PO SCH (08:14)
[2017-04-16] MEDS: Amlodipine 10 MG TAB PO SCH (08:14)
[2017-04-16] MEDS: Aspirin 81 mg Enteric Coated Tablet PO SCH (08:14)
[2017-04-16] MEDS: Ferrous Sulfate 325 MG TAB PO SCH (08:14)
[2017-04-16] MEDS: cloNIDine 0.1 MG TAB PO SCH (08:15)
[2017-04-16] MEDS ORDERED: guaiFENesin ER 600 MG TAB PO SCH ×2 (11:30→21:00)
[2017-04-16] MEDS: HumaLOG 300 UNITS/3 ML VIAL SC PRN (11:42)
[2017-04-16 12:16] VITALS: TEMP 98
[2017-04-16 13:55] VITALS: BP 138/63
--- NOTE | 2017-04-16 13:56 | PDOC.CTH ---
Cardiology Progress Note - Subjective Patient seen and examined. Continues with productive cough, however reports feeling much better. He currently denies any CP, pressure or SOB. Would like to go home. - Objective Vital Signs Temp Pulse Pulse Pulse Resp BP BP 04/16/17 13:27 62 16 04/16/17 12:14 98.0 F 65 16 04/16/17 10:58 70 57 L 138/63 128/56 L 04/16/17 09:05 98.3 F 63 12 04/16/17 08:43 98.3 F 63 12 04/16/17 06:55 58 L 16 04/16/17 04:00 98 F 72 20 BP Pulse Ox Pulse Ox Pulse Ox 04/16/17 13:27 96 04/16/17 12:14 133/64 100 04/16/17 10:58 91 L 94 L 04/16/17 09:05 98 04/16/17 08:43 144/67 H 98 04/16/17 06:55 98 04/16/17 04:00 160/71 H 93 L Weight 153 lb 04/15/17 04/16/17 04/17/17 06:59 06:59 06:59 Intake Total 540 1070 Output Total 3025 1625 Balance -0275 -555 - Physical Examination General/Neuro: alert & oriented x3, NAD Neck: no JVD present Lungs: unlabored respirations Heart: RRR Abdomen: soft Extremities: other: (no edema) - Telemetry Telemetry Rhythm: sinus donald, 1st deg AVB - Labs Result Diagrams: 04/14/17 04:14 04/16/17 04:41 Troponin/CKMB CK-MB (CK-2) 1.8 ng/mL (0-6.6) 04/13/17 11:05 Troponin I Less than 0.010 ng/mL (< 0.028) 04/13/17 11:05 - Assessment/Plan Assessment: 1. Pneumonia 2. A/C Diastolic Heart Failure Plan: The patient denies any SOB today. He has diuresed well and weight is down 3lbs. 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 Recommend recheck color shop helper in am or with close follow up as outpatient.Otherwise he is stable for discharge from a CV standpoint.
[2017-04-16 15:07] LABS: Bilirubin Negative (Negative); Blood, Urine Negative (Negative); Glucose, Urine (Dipstick) Negative (Negative); Ketone, Urine Negative (Negative); Nitrite Negative (Negative); Protein, Urine (Dipstick) 30 mg/dL (Neg-Trace); Urobilinogen 0.2 mg/dL (0.2-1.0)
[2017-04-16 15:12] LABS: Bacteria/HPF None Seen HPF (None Seen); Hyaline Casts/LPF 0-3 HYALINE CAST LPF (0-3 Hyaline); RBC/HPF 0-3 HPF (0-3); Squamous Epithelial None Seen HPF (0-3); WBC/HPF None Seen HPF (0-3)
[2017-04-16] MEDS ORDERED: (Fluticasone Propionate [Flovent Diskus] 50 MCG) INH SCH (18:30)
--- NOTE | 2017-04-16 21:57 | DIS ---
DATE OF ADMISSION: 04/13/2017 DATE OF DISCHARGE: 04/16/2017 CONDITION AT THE TIME OF DISCHARGE: Stable and improved. DISCHARGE DIAGNOSES: 1. Acute hypoxemic respiratory failure. 2. Acute on chronic diastolic congestive heart failure. 3. Community-acquired pneumonia. 4. Hypothyroidism. 5. Coronary artery disease. 6. Dyslipidemia. 7. Hypertension. DISCHARGE MEDICATIONS: Clonidine 0.1 mg p.o. b.i.d., Flovent Diskus 50 mcg daily, Coreg 6.25 b.i.d., atorvastatin 20 mg daily, amlodipine 10 mg daily, metformin 500 b.i.d., hydroxyzine as needed, CoQ10 daily, Flomax 0.4 mg daily, Protonix 40 mg daily, levothyroxine unknown dose restarted the home dosa ges, ferrous sulfate 325 mg p.o. b.i.d., ascorbic acid 500 mg daily, albuterol as needed, Mucinex 600 mg p.o. b.i.d., Florastor 250 mg daily for 7 days, nebulizers, DuoNebs as needed q.4 hours, lisinopr il 10 mg p.o. b.i.d., this is a new medication for the patient, levofloxacin 500 mg p.o. daily for 7 days. PRIMARY CARE PHYSICIAN: Dr. Hilliard at [facility] DISCHARGE FOLLOWUP: With Cardiology and primary care physician in [facility]. DISCHARGE DISPOSITION: Home with home health. PROCEDURES DONE IN THE HOSPITAL: Include transthoracic echocardiogram which showed EF of 60% to 65% and flow reversal consistent with diastolic dysfunction. Mild to moderate mitral regurgitation, raul rely thickened trileaflet aortic valve seen. CONSULTATION: Cardiology. ADMISSION HISTORY: Mr. Sanchez is an 82-year-old, very pleasant male with past medical hist ory of chronic diastolic congestive heart failure and coronary artery disease, hypertension, asthma a nd anemia, who presented to the emergency room with complaints of acute shortness of breath. He also gave a history of 6-pound weight gain after having a heavy Thanksgiving meal. He was found to be in acute hypoxic respiratory distress with oxygen saturation of 79% on room air upon presentation. He was found to be in close fluid overload and was started on IV diuretics and was admitted to the telem etry unit for further evaluation and care. Please see admission history and physical dictated by marcela medina for further details. HOSPITAL COURSE: The patient was diuresed with very good response. Echocardiogram was done with the above-mentioned results. 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 Cardiology was consulted in-house as well as Dr. [place] and Omid Elam saw the patient. He was continued with diuresis, which was eventually stopped and his r enal function started to worsen. By the time of discharge, his oxygenation has improved to the point where he was not using any supplemental oxygen. His chest x-ray was repeated and was consistent with possible infiltrate, so he was started empirical ly on antibiotics. He will finish the course of oral antibiotics as an outpatient. His cultures wer e obtained and blood cultures remain till date. He has a urinalysis that was collected, but the culture is pending and he is instructed to follow up with his primary care physician with the results of the same. He was seen and examined on the day of discharge and is feeling very well and is eager to go home. e is cleared by Cardiology for discharge as well. PHYSICAL EXAMINATION: This morning include, VITAL SIGNS: Temperature 98, pulse of 62, respirations 16, saturating 100% on room air, blood pressu re 133/64. GENERAL: No acute distress, awake, alert, oriented x3. CHEST: Clear to auscultation without any wheezing, rales or rhonchi. Rate and rhythm is regular wit hout any murmur, rubs or gallops. He was started on lisinopril as he was found to have some uncontrolled hypertension while in the hosp ital. It was initially started 10 mg daily, which was increased to 10 mg b.i.d. with improved blood pressure control. Otherwise, he will resume his home medications as above. He did have some mild worsening of his renal function with creatinine of 1.44 prior to discharge due to diuresis. Diuretics have been discontinued and he is instructed to follow [facility] with repeat BMP in 3 days of time. He verbalized understanding. Total time spent in the discharge of this patient 32 minutes.
== END 2017-04-16 16:24 | disposition home health service (06) | DRG 291 ==
LOC: ERS 10:42 → 2NO 14:54
PROVIDERS: ADMIT Internal Medicine; ATTEND Internal Medicine
DX: I11.0 Hypertensive heart disease with heart failure (principal); J18.9 Pneumonia, unspecified organism; J96.01 Acute respiratory failure with hypoxia; E11.9 Type 2 diabetes mellitus without complications; D64.9 Anemia, unspecified; I16.1 Hypertensive emergency; Z95.1 Presence of aortocoronary bypass graft; I50.43 Acute on chronic combined systolic (congestive) and diastolic (congestive) heart failure; F32.9 Major depressive disorder, single episode, unspecified; E78.5 Hyperlipidemia, unspecified; E03.9 Hypothyroidism, unspecified; I25.10 Atherosclerotic heart disease of native coronary artery without angina pectoris; J45.30 Mild persistent asthma, uncomplicated; F41.9 Anxiety disorder, unspecified; Z87.891 Personal history of nicotine dependence; Z82.49 Family history of ischemic heart disease and other diseases of the circulatory system
CPT/HCPCS: 36415; 36416; 71010; 80048; 80053; 81003; 81015; 82553; 83605; 83880; 84484; 85025; 87040; 87086; 93005; 93306; 93798; 94760; 96374; A4216; J0360; J1650; J1940; J1956; J7620

== ENCOUNTER 2017-04-21 10:53 | Observation (INO) | payer MEDICARE, OTHER ==
--- NOTE | 2017-04-21 12:44 | ULT ---
DOPPLER VENOUS ULTRASOUND OF THE LEFT LOWER EXTREMITY: INDICATIONS: Left lower extremity pain. TECHNIQUE: Bates scale, color Doppler, and vascular duplex with spectral analysis was performed of the deep venou s structures of both lower extremities. The common femoral vein, superficial femoral vein, popliteal vein, posterior tibial vein, proximal greater saphenous, and proximal profunda veins were assessed bi laterally. FINDINGS: There is normal compression, flow, and augmentation seen within the deep venous structures of the lef t lower extremity. IMPRESSION: No evidence of deep venous thrombosis within the left lower extremity. POS: [facility]
--- NOTE | 2017-04-21 12:59 | RAD ---
LEFT ANKLE THREE VIEWS: HISTORY: Left ankle pain and swelling. FINDINGS: The ankle mortise is maintained. No acute fracture, dislocation, or bony destruction is seen. Vascu lar calcifications are present. POS: [facility]
--- NOTE | 2017-04-21 13:03 | RAD ---
THREE VIEWS OF THE LEFT FOOT: INDICATION: Left foot pain. IMPRESSION: No acute fracture or subluxation is evident. There is scattered full-thickness mid foot osteoarthros is. Lisfranc alignment is preserved. Enthesopathic change is seen off the calcaneus. [place] ca lcifications are seen within the soft tissues. POS: [facility]
[2017-04-21 14:04] LABS: Hematocrit 34.9 % (42.0-52.0); Mean Platelet Volume 6.7 fL (7.4-10.4); Red Blood Cell (RBC) Count 3.96 mill/uL (4.70-6.10); White Blood Cell (WBC) Count 3.4 thou/uL (4.8-10.8)
[2017-04-21 14:29] LABS: ALT (SGPT) 14 U/L (8-55); AST (SGOT) 16 U/L (5-34); Alkaline Phosphatase 68 U/L (40-150); Anion Gap 10 mmol/L (10-20); BUN (Urea Nitrogen) 31 mg/dL (8.4-25.7); Bilirubin, Total 0.5 mg/dL (0.2-1.2); Calc. Creatinine Clearance 0 mL/min (70-130); Calcium 10.4 mg/dL (7.8-10.44); Carbon Dioxide 28 mmol/L (23-31); Chloride 102 mmol/L (98-107); Estimated GFR-MDRD 37; Globulin 2.6 g/dL (2.4-3.5); Protein, Total 6.2 g/dL (5.8-8.1); Uric Acid 14.4 mg/dL (3.5-7.2)
[2017-04-21 14:45] LABS: Band 8 % (5-11); Neutrophil 29 % (42-75); Ovalocytes SLIGHT = 2-5 cells (100X) (0-1/hpf); Polychromasia SLIGHT = 2-3 cells (100X) (0-2/hpf); Reactive Lymphocytes 19 % (0-10)
[2017-04-21] MEDS ORDERED: Insulin Regular 300 UNITS/3 ML VIAL ONE (15:53)
[2017-04-21] MEDS ORDERED: Dextrose 50% Abboject 50 ML SYRINGE ONE (15:53)
[2017-04-21] MEDS ORDERED: Acetaminophen 500 MG TAB ONE (15:53)
[2017-04-21] MEDS ORDERED: Calcium Gluc 4.6 MEQ/10 ML (100 MG/ML) ONE (15:55)
[2017-04-21] MEDS ORDERED: Ondansetron HCl/PF 4 MG/2 ML Vial IVP PRN (20:38)
[2017-04-21] MEDS ORDERED: Acetaminophen 325 MG TAB PO PRN (20:38)
[2017-04-21] MEDS ORDERED: Ondansetron ODT 4 MG TAB SL PRN (20:38)
[2017-04-21 23:43] VITALS: BMI 23.0
--- NOTE | 2017-04-22 01:45 | PDOC.EVN ---
Event Note - Event Note Event Note: [id number] 1. Left foot pain, possible gout flare up 2. HTN 3. nish 4. Asthma plan: see orders
[2017-04-22] MEDS ORDERED: PROVENTIL INHALER 6.7 G (200 INHALATIONS) INH PRN (01:51)
[2017-04-22] MEDS ORDERED: Colchicine 0.3 MG TAB PO SCH ×2 (02:00→09:00)
[2017-04-22] MEDS ORDERED: methylPREDNISolone 4 mg Tablet PO SCH ×5 (02:00→08:00)
[2017-04-22] MEDS: HYDROcodone/Acetaminophen 5/325 mg Tablet PO PRN ×2 (02:16→14:25)
[2017-04-22 05:22] LABS: ALT (SGPT) 13 U/L (8-55); AST (SGOT) 14 U/L (5-34); Alkaline Phosphatase 64 U/L (40-150); Anion Gap 11 mmol/L (10-20); BUN (Urea Nitrogen) 29 mg/dL (8.4-25.7); Bilirubin, Total 0.3 mg/dL (0.2-1.2); Calc. Creatinine Clearance 34 mL/min (70-130); Carbon Dioxide 29 mmol/L (23-31); Chloride 102 mmol/L (98-107); Estimated GFR-MDRD 41; Globulin 2.5 g/dL (2.4-3.5); Protein, Total 5.9 g/dL (5.8-8.1)
[2017-04-22 05:29] LABS: Band 1 % (5-11); Hematocrit 34.2 % (42.0-52.0); Mean Platelet Volume 6.6 fL (7.4-10.4); Neutrophil 31 % (42-75); Red Blood Cell (RBC) Count 3.89 mill/uL (4.70-6.10); White Blood Cell (WBC) Count 3.5 thou/uL (4.8-10.8)
[2017-04-22] MEDS ORDERED: Levothyroxine Sodium 25 MCG TAB PO SCH (06:00)
[2017-04-22] MEDS ORDERED: Levothyroxine Sodium 112 MCG TAB PO SCH (06:00)
[2017-04-22] MEDS ORDERED: CONFIRM ALL DAY 1 DOSES ARE TIMED FOR DAY 1 FS SCH (07:30)
[2017-04-22] MEDS: Ferrous Sulfate 325 MG TAB PO SCH ×2 (08:40→16:23)
[2017-04-22] MEDS: Heparin 5,000 UNITS/ML VIAL SC SCH ×2 (08:42→15:07)
--- NOTE | 2017-04-22 08:53 | HP ---
DATE OF ADMISSION: 04/22/2017 CHIEF COMPLAINT: Left foot pain. HISTORY OF PRESENT ILLNESS: The patient is 82 years old male with past medical history of diastolic heart failure, congestive heart failure, coronary artery disease, hypertension, anemia, asthma, just got discharged from the hospital on last week now came to the ER because of left foot pain. The rashel ent said he woke up on Friday morning and started having fever and left foot pain. Pain is mainly at the left ankle, worsens with movement, 10/10, moderate in intensity. Denies any fever, denies any chills, denies any radiation. Denies any nausea, denies any vomiting, denies any chest pain. The p atient's pain got persisted that is why he came to the ER. Denies any other complaints at this time. PAST MEDICAL HISTORY: As above. PAST SURGICAL HISTORY: CABG, cholecystectomy. SOCIAL HISTORY: Positive for smoking, denies alcohol, denies any drugs. MEDICATIONS: Reviewed. ALLERGIES: Reviewed. REVIEW OF SYSTEMS: Constitutional: Denies any fever, denies any chills. Eyes: Denies any vision p roblems. Ears: Denies any hearing loss. Neck: Denies any neck pain. Cardiovascular system: Mahin es any chest pain. Respiratory system: Denies any cough, denies any sputum production. Gastrointes tinal: Denies any nausea, vomiting. Musculoskeletal: Positive for left ankle pain. Cranial nerve system: Denies syncope. Psychiatric: Denies anxiety. Integument: Denies any rash. All other rev iew of systems are reviewed and are negative. PHYSICAL EXAMINATION: CONSTITUTIONAL/VITAL SIGNS: At the time of H and P performed, temperature 98.3, heart rate 54, respi rations 16, blood pressure is 154/69. GENERAL: The patient appears comfortable. HEENT: Pupils equal, round, and reactive to light. Anterior nares patent. Teeth intact. Tongue is moist. NECK: Supple, no JVD. CARDIOVASCULAR SYSTEM: S1, S2 present. Regular rate and rhythm. RESPIRATORY SYSTEM: No wheezing, no rhonchi. Breath sounds bilaterally. GASTROINTESTINAL: Abdomen is soft, nontender, no guarding, no organomegaly, no masses felt. MUSCULOSKELETAL: Left ankle , warm to touch. CRANIAL NERVE SYSTEM: Intact, follows commands. PSYCHIATRIC: Mood is appropriate at this time. GENITOURINARY: No suprapubic tenderness. No angle tenderness. LABORATORY DATA: At the time of H and P performed, sodium of 135, potassium 5.3, chloride 102, CO2 o f 28, BUN of 31, creatinine 1.77, baseline creatinine is around 0.9, creatinine at the time of discha rge is 1.4. Uric acid 14.4, calcium 10.5. White count 3.4, hemoglobin 11.6, platelet count 161. ASSESSMENT AND PLAN: The patient is an 82 years old male. 1. Left foot pain, possibly . Plan to start patient on Medrol Dosepak. Plan to start patient on colchicine p.o. daily and we will follow the patient. 2. Acute kidney injury. Baseline creatinine is around 1.9 . We will hold diuretics. Repeat B MP in a.m. If creatinine trend, we will start IV fluids. 3. Hypertension. Monitor blood pressures. Continue home blood pressure medications. 4. Chronic congestive heart failure. Continue strict I's and O's. Hold diuretics for now. 5. Diabetes type 2. Monitor blood sugars. 6. History of anemia and asthma. Monitor hemoglobin closely. Continue breathing treatments. The case was discussed in detail with the patient.
[2017-04-22] MEDS ORDERED: Tamsulosin HCl 0.4 MG CAP PO SCH (09:00)
[2017-04-22] MEDS ORDERED: Carvedilol 6.25 MG TAB PO SCH (09:00)
[2017-04-22] MEDS ORDERED: cloNIDine 0.1 MG TAB PO SCH (09:00)
[2017-04-22] MEDS ORDERED: Furosemide 20 MG TAB PO SCH (09:00)
[2017-04-22] MEDS ORDERED: Famotidine 20 MG TAB PO SCH ×2 (09:00)
[2017-04-22] MEDS ORDERED: Amlodipine 10 MG TAB PO SCH (09:00)
[2017-04-22] MEDS: methylPREDNISolone 4 mg Tablet PO SCH ×2 (12:03→16:22)
[2017-04-22 12:42] VITALS: TEMP 98.4
[2017-04-22 16:37] VITALS: BP 166/72
[2017-04-22] MEDS ORDERED: Mometasone Furoate 120 PUFF 220 MCG INH SCH (18:30)
[2017-04-22] MEDS ORDERED: Atorvastatin Calcium 20 MG TAB PO SCH (21:00)
[2017-04-23] MEDS ORDERED: methylPREDNISolone 4 mg Tablet PO SCH ×4 (08:00→21:00)
[2017-04-24] MEDS ORDERED: methylPREDNISolone 4 mg Tablet PO SCH (08:00)
[2017-04-25] MEDS ORDERED: methylPREDNISolone 4 mg Tablet PO SCH (08:00)
[2017-04-26] MEDS ORDERED: methylPREDNISolone 4 mg Tablet PO SCH (08:00)
[2017-04-27] MEDS ORDERED: methylPREDNISolone 4 mg Tablet PO SCH ×2 (08:00)
== END 2017-04-22 17:09 | disposition home or self-care (01) ==
LOC: ERS 10:53 → ERHOLD 16:26 → 2SW 20:13
PROVIDERS: ADMIT Internal Medicine; ATTEND Internal Medicine
DX: M79.672 Pain in left foot (principal); N17.9 Acute kidney failure, unspecified; I11.0 Hypertensive heart disease with heart failure; I50.32 Chronic diastolic (congestive) heart failure; I25.10 Atherosclerotic heart disease of native coronary artery without angina pectoris; D64.9 Anemia, unspecified; F17.200 Nicotine dependence, unspecified, uncomplicated; J45.909 Unspecified asthma, uncomplicated; Z79.899 Other long term (current) drug therapy; Z79.52 Long term (current) use of systemic steroids; Z79.51 Long term (current) use of inhaled steroids; Z79.84 Long term (current) use of oral hypoglycemic drugs; Z88.0 Allergy status to penicillin; Z91.040 Latex allergy status; Z91.011 Allergy to milk products; Z95.1 Presence of aortocoronary bypass graft; Z90.49 Acquired absence of other specified parts of digestive tract
CPT/HCPCS: 73610; 73630; 80053 ×2; 82962 ×2; 84550; 85025 ×2; 93005; 93971; 96374; 96375; 99285; G0378; 36415; 36416; J1644; J1815

== ENCOUNTER 2017-07-18 09:19 | Emergency (ER) | payer MEDICARE, OTHER ==
[2017-07-18 10:31] LABS: Hemoglobin 11.9 g/dL (14.0-18.0); Mean Corpuscular Hemoglobin 29.6 pg (27.0-31.0); Mean Corpuscular Volume 87.2 fl (80.0-94.0); Mean Platelet Volume 5.9 fL (7.4-10.4); Platelet Count 170 thou/uL (130-400); RBC Distribution Width 13.7 % (11.5-14.5); White Blood Cell (WBC) Count 2.9 thou/uL (4.8-10.8)
[2017-07-18 10:48] LABS: Band 16 % (5-11); Eosinophils 7 % (0-10); Lymphocytes 24 % (21-51); MDiff Complete? YES; Metamyelocyte 1 % (0-0); Monocytes 24 % (0-10); Neutrophil 14 % (42-75); PLT Morphology Comment Appears Adequate; Polychromasia SLIGHT = 2-3 cells (100X) (0-2/hpf); Reactive Lymphocytes 12 % (0-10)
[2017-07-18 10:49] LABS: ALT (SGPT) 13 U/L (8-55); AST (SGOT) 14 U/L (5-34); Albumin 3.7 g/dL (3.4-4.8); Alkaline Phosphatase 81 U/L (40-150); Anion Gap 11 mmol/L (10-20); BUN (Urea Nitrogen) 32 mg/dL (8.4-25.7); Bilirubin, Total 0.6 mg/dL (0.2-1.2); Calc. Creatinine Clearance 0 mL/min (70-130); Calcium 9.4 mg/dL (7.8-10.44); Carbon Dioxide 29 mmol/L (23-31); Chloride 99 mmol/L (98-107); Estimated GFR-MDRD 53; Globulin 2.7 g/dL (2.4-3.5); Glucose 206 mg/dL (83-110); Potassium 4.3 mmol/L (3.5-5.1); Protein, Total 6.4 g/dL (5.8-8.1); Sodium 135 mmol/L (136-145)
[2017-07-18 10:56] LABS: Bilirubin Negative (Negative); Blood, Urine Negative (Negative); Clarity CLEAR (Clear); Glucose, Urine (Dipstick) Negative (Negative); Leukocyte Negative (Negative); Nitrite Negative (Negative); Protein, Urine (Dipstick) 100 mg/dL (Neg-Trace); Specific Gravity, Urine 1.021 (1.002-1.036); Urobilinogen 0.2 mg/dL (0.2-1.0); pH, Urine 5.5 (5.0-9.0)
[2017-07-18 10:59] LABS: Bacteria/HPF None Seen HPF (None Seen); Hyaline Casts/LPF 0-3 HYALINE CAST LPF (0-3 Hyaline); RBC/HPF 0-3 HPF (0-3); Squamous Epithelial 0-3 HPF (0-3); WBC/HPF None Seen HPF (0-3)
--- NOTE | 2017-07-18 11:21 | RAD ---
CHEST 1 VIEW: HISTORY: Fever. COMPARISON: 07/18/07. FINDINGS: Cardiac silhouette is magnified by projection. Pulmonary vasculature is unremarkable. Mediastinum i s midline with aortic calcification and postoperative changes. No lobar consolidation or evidence of pneumothorax. Minimal scarring is present at the left base. per diem physical therapist assistant leads overlie the ches t. IMPRESSION: Chronic-type findings. No active cardiopulmonary abnormalities are demonstrated. POS: [facility]
== END 2017-07-18 11:45 | disposition home or self-care (01) ==
LOC: ERS 09:19
DX: R50.9 Fever, unspecified (principal); E86.0 Dehydration; E11.9 Type 2 diabetes mellitus without complications; I25.10 Atherosclerotic heart disease of native coronary artery without angina pectoris; E78.5 Hyperlipidemia, unspecified; I10 Essential (primary) hypertension; J45.909 Unspecified asthma, uncomplicated; Z87.891 Personal history of nicotine dependence; Z79.84 Long term (current) use of oral hypoglycemic drugs; Z79.899 Other long term (current) drug therapy
CPT/HCPCS: 36415; 71045; 80053; 81003; 81015; 83605; 85025; 87040; 93005; 96360

== ENCOUNTER 2018-05-28 15:59 | Inpatient (IN) | payer MEDICARE, OTHER ==
[~2018-05-28 15:59] MED LIST: ISOVUE-370 76%-LOCM 1 ML ONE
[2018-05-28 16:43] LABS: Hemoglobin 11.2 g/dL (14.0-18.0); Mean Corpuscular HGB CONC 32.8 g/dL (32.0-36.0); Mean Corpuscular Volume 88.4 fL (78.0-98.0); Mean Platelet Volume 6.4 fL (7.4-10.4); Platelet Count 130 thou/uL (130-400); RBC Distribution Width 12.9 % (11.5-14.5); Red Blood Cell (RBC) Count 3.88 mill/uL (4.70-6.10); White Blood Cell (WBC) Count 4.7 thou/uL (4.8-10.8)
[2018-05-28 16:58] LABS: ALT (SGPT) 17 U/L (8-55); AST (SGOT) 21 U/L (5-34); Albumin 3.8 g/dL (3.4-4.8); Alkaline Phosphatase 98 U/L (40-150); Anion Gap 14 mmol/L (10-20); BUN (Urea Nitrogen) 23 mg/dL (8.4-25.7); Bilirubin, Total 0.4 mg/dL (0.2-1.2); Calc. Creatinine Clearance 0 mL/min (70-130); Calcium 8.6 mg/dL (7.8-10.44); Carbon Dioxide 24 mmol/L (23-31); Chloride 101 mmol/L (98-107); Estimated GFR-MDRD 59; Globulin 2.5 g/dL (2.4-3.5); Glucose 111 mg/dL (83-110); Lipase 31 U/L (8-78); Potassium 4.4 mmol/L (3.5-5.1); Protein, Total 6.3 g/dL (5.8-8.1); Sodium 135 mmol/L (136-145)
[2018-05-28 17:08] LABS: Band 2 % (5-11); Eosinophils 1 % (0-10); Lymphocytes 63 % (21-51); MDiff Complete? YES; Monocytes 7 % (0-10); Neutrophil 7 % (42-75); Ovalocytes SLIGHT = 2-5 cells (100X) (0-1/hpf); Platelet Morphology Comment Appears Adequate; Polychromasia SLIGHT = 2-3 cells (100X) (0-2/hpf); Reactive Lymphocytes 20 % (0-10)
--- NOTE | 2018-05-28 17:47 | RAD ---
AP CHEST: 05/28/18 HISTORY: Chest pain. COMPARISON: 07/18/17. Lungs appear clear. Heart size is upper normal with postop sternotomy change. Aortic calcifications a gain noted. Vascular markings within normal range. Scattered tiny pulmonary nodular density appears s table and may represent small granuloma. IMPRESSION: No acute abnormality. POS: [facility]
--- NOTE | 2018-05-28 19:23 | CT ---
CT PULMONARY ANGIOGRAM WITH IV CONTRAST AND 3D MIP RECONSTRUCTIONS 05/28/18 PROVIDED CLINICAL HISTORY: Hemoptysis. FINDINGS: There is a 1.6 cm spiculated pulmonary nodule in the right lower lobe posteriorly. This is adjacent t o a 2.6 cm peribronchial vascular mass. This larger mass mildly narrows the associated bronchial. Thi s narrows an adjacent pulmonary arterial branch. The lungs are otherwise free of significant parenchymal opacity. The airway appears otherwise patent and of normal caliber. There is a small left pleural effusion. There is no evidence for thoracic lymph node enlargement. Extensive vascular calcification including coronary calcium is noted. There is no evidence for central or segmental pulmonary embolus. There is potentially hemodynamically significant calcified stenosis involving the proximal left common carotid artery. The visualized portions of the upper abdomen demonstrate partially visualized splenomegaly with a tra nsverse dimension of the spleen measuring at least 18.6 cm. Mildly prominent gastrosplenic lymph node . The osseous structures demonstrate no concerning lytic or blastic lesions. IMPRESSION: 1. No evidence for central or segmental pulmonary embolus. 2. Right lower lobe pulmonary nodule suspicious for neoplasm. 3. Small left pleural effusions. 4. Conspicuous atherosclerosis as above. 5. Partially visualized splenomegaly. POS: [facility]
[2018-05-28 20:37] LABS: Troponin I Less than 0.010 ng/mL (< 0.028)
[2018-05-28] MEDS ORDERED: Dextrose 5% in Water 1,000 ML IV PRN (21:10)
[2018-05-28] MEDS ORDERED: Acetaminophen 650 MG Suppository PR PRN (21:10)
[2018-05-28] MEDS ORDERED: Ondansetron ODT 4 MG TAB PO PRN (21:10)
[2018-05-28] MEDS ORDERED: Ondansetron PF 4 MG/2 ML Vial IVP PRN (21:10)
[2018-05-28] MEDS ORDERED: Senokot S 8.6-50 MG TAB PO PRN (21:10)
[2018-05-28] MEDS ORDERED: HumaLOG 300 UNITS/3 ML VIAL SC PRN (21:10)
[2018-05-28] MEDS ORDERED: Dextrose 50% Abboject 50 ML SYRINGE SLOW IVP PRN (21:10)
[2018-05-28] MEDS: cloNIDine 0.1 MG TAB PO SCH (21:58)
[2018-05-28] MEDS: Famotidine 20 MG TAB PO SCH (21:58)
[2018-05-28] MEDS: Atorvastatin Calcium 20 MG TAB PO SCH (21:58)
[2018-05-28] MEDS: Carvedilol 6.25 MG TAB PO SCH (21:59)
[2018-05-28 23:13] LABS: Troponin I Less than 0.010 ng/mL (< 0.028)
[2018-05-28] MEDS: Acetaminophen 325 MG TAB PO PRN (23:59)
--- NOTE | 2018-05-29 02:52 | HP ---
PRIMARY CARE PHYSICIAN: Jason Betancourt DO CHIEF COMPLAINT: Hemoptysis. HISTORY OF PRESENT ILLNESS: This is an 83-year-old white male with a known history of congestive heart failure, on unknown blood thinner, who reports that he was in his normal state of health until about 2 or 3 o'clock this afternoon. At that time, he laid down and he started to feel something in the back of his throat. He started coughing, had multiple violent coughing fits, and then coughed up about a half of a cup of bright red blood. The coughing persisted for a while and then eventually it calmed down about the time he got to the emergency room. He has had no more coughing since. The patient has never had this symptom before. He has had no other associated symptoms. In the emergency room, there was a CT angio done, which showed a spiculated lung mass, 1.6 cm in the right lower posterior lobe and a 2.6 cm peribronchiolar vascular mass, which is narrowing the associated bronchial. The patient was typed and screened in the emergency room. He is is being admitted for stabilization and further workup of this mass. PAST MEDICAL HISTORY: 1. Chronic diastolic congestive heart failure. 2. Coronary artery disease, status post CABG in the past. 3. Mild persistent asthma. 4. Hypertension. 5. Chronic anemia. PAST SURGICAL HISTORY: 1. Coronary artery bypass grafting. 2. Cholecystectomy. SOCIAL HISTORY: The patient is a former smoker, quit 30 years ago. No history of drug or alcohol abuse. He is . His about 3 months ago. 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 FAMILY HISTORY: Father had diabetes and emphysema. Mom had multiple medical problems including hypertension and there is heart disease in the family. ALLERGIES: 1. PENICILLIN CAUSES RASH. 2. LATEX. CURRENT MEDICATIONS: 1. Amlodipine 10 mg daily. 2. Atorvastatin 20 mg at nighttime. 3. Carvedilol 6.25 mg twice a day. 4. Clonidine 0.1 mg twice a day. 5. Metformin 500 mg daily. 6. Pantoprazole 40 mg daily. 7. Tamsulosin 0.4 mg daily. 8. Unknown blood thinner once a day. REVIEW OF SYSTEMS: CONSTITUTIONAL: No fevers, no chills. EYES: No double vision or blurred vision. ENT: No congestion, drainage, or sore throat. PULMONARY: See HPI. CARDIOVASCULAR: No chest pain. No palpitations or racing heart. GASTROINTESTINAL: No abdominal pain. No nausea or vomiting. No diarrhea or constipation. GENITOURINARY: No dysuria or hematuria. MUSCULOSKELETAL: No muscle aches or joint pain. The patient has some chronic pain in his left knee and foot that has progressed over the last 5-6 years and give him trouble walking. SKIN: No rashes or lesions noted. 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 He said it feels like he is walking on mush all the time, but no other neurologic symptoms. PHYSICAL EXAMINATION: VITAL SIGNS: Blood pressure 193/93, pulse 63, respirations 18, temperature 98.7, O2 saturation 94% on room air. GENERAL: This is a well-developed, well-nourished male, who appears his stated age and development. No acute distress. HEENT: Pupils equal, round, and reactive to light. Oropharynx clear without lesions, erythema, or exudate. No blood visible. NECK: Supple. No lymphadenopathy. No thyroid nodules or enlargement. No JVD. HEART: Regular rate and rhythm. No murmurs, rubs, or gallops. LUNGS: He has some mild crackles at his left base. Lungs are otherwise clear to auscultation. No increased work of breathing. ABDOMEN: Soft, nontender to palpation. Normoactive bowel sounds. No hepatosplenomegaly or other masses. EXTREMITIES: No clubbing, cyanosis, or edema. SKIN: No rashes or lesions noted. NEUROLOGIC: Intact strength and sensation in all extremities. No facial droop. DIAGNOSTIC STUDIES: Lab; CBC with a white blood cell count of 4.7, hemoglobin of 11.2, hematocrit 34.3, platelet count 130. He actually has a neutropenia, neutrophils are only 7% giving him only about 300 neutrophils. Coagulation profile has a normal PT normal and normal INR. Complete metabolic panel was notable for a sodium of 135 and a glucose of 111. His troponin was negative x1. X-ray; I did review the chest x-ray along with the radiologist's report. This shows scattered tiny pulmonary nodular density, which appear stable and may represent small granuloma. CTA of chest and thorax reveals no evidence for pulmonary embolism, but he has a right lower lobe pulmonary nodule suspicious for neoplasm and small left pleural effusion, and partially visualized splenomegaly. ASSESSMENT: 1. Hemoptysis with a spiculated lung mass and vascular mass, peribronchiolar mass. This is suspicious for lung cancer. The patient has not been vomiting or coughing up any more blood. Hopefully, the bleeding has stopped. He has been typed and screened. We will only watch him watching closely for any evidence of massive hemoptysis. We will hold his blood thinners for now. We will consult Dr. Rodriguez in the morning and the patient will likely need a biopsy to diagnose what type a cancer this is, so he can formulate a plan of action for treatment. 2. Neutropenia, uncertain source at this time; however, looking back for his previous records, it looks like he has had neutropenia for sometime now and specifically bad over the last couple of years. No evidence of infection at this point. 3. Diastolic congestive heart failure. Currently not in exacerbation. We will resume the patient's diuretics and blood pressure medications, and we will put him on a fluid-restricted diet. 4. Diabetes mellitus type 2. The patient states that his blood sugar is well controlled and he actually is weaned down to just 1 metformin a day since he has had a significant weight loss years ago when he was diagnosed with diabetes and told that it would get worse if he did not lose weight. We will check fingerstick blood sugars and put him on light insulin sliding scale while he is in the hospital. 5. Hypertension, currently elevated. We will resume the patient's home blood pressure medications and give him p.r.n. hydralazine. 6. Gastrointestinal prophylaxis. We will put the patient on Pepcid twice a day. 7. Deep venous thrombosis prophylaxis. We will put the patient on SCDs while in bed. We cannot give him any blood thinners with his bleeding at this point. 8. Code status. I did discuss this with the patient. He is a full code. Should he be incapacitated, he states that his son would be his medical decision maker; his name is Thomas Sanchez. Job ID: [id number]
[2018-05-29] MEDS: hydrALAZINE 20 MG/ML VIAL SLOW IVP PRN (03:06)
[2018-05-29] MEDS ORDERED: LEVOTHYROXINE SODIUM 13 MCG PO SCH (06:00)
[2018-05-29 06:49] LABS: Anion Gap 13 mmol/L (10-20); BUN (Urea Nitrogen) 24 mg/dL (8.4-25.7); Calc. Creatinine Clearance 53 mL/min (70-130); Calcium 8.7 mg/dL (7.8-10.44); Carbon Dioxide 25 mmol/L (23-31); Chloride 104 mmol/L (98-107); Estimated GFR-MDRD 69; Glucose 109 mg/dL (83-110); Potassium 4.5 mmol/L (3.5-5.1); Sodium 137 mmol/L (136-145)
[2018-05-29 06:59] LABS: Hemoglobin 10.3 g/dL (14.0-18.0); Mean Corpuscular HGB CONC 33.6 g/dL (32.0-36.0); Mean Corpuscular Hemoglobin 29.4 pg (27.0-31.0); Mean Corpuscular Volume 87.4 fL (78.0-98.0); Mean Platelet Volume 6.6 fL (7.4-10.4); Platelet Count 126 thou/uL (130-400); RBC Distribution Width 12.8 % (11.5-14.5); Red Blood Cell (RBC) Count 3.52 mill/uL (4.70-6.10); White Blood Cell (WBC) Count 4.6 thou/uL (4.8-10.8)
[2018-05-29 08:38] LABS: Band 4 % (5-11); Eosinophils 1 % (0-10); Lymphocytes 73 % (21-51); MDiff Complete? YES; Monocytes 8 % (0-10); Neutrophil 2 % (42-75); Platelet Morphology Comment Appears Decreased; Polychromasia SLIGHT = 2-3 cells (100X) (0-2/hpf); Reactive Lymphocytes 12 % (0-10)
[2018-05-29] MEDS: cloNIDine 0.1 MG TAB PO SCH ×2 (09:17→21:05)
[2018-05-29] MEDS: metFORMIN 500 MG TAB PO SCH (09:17)
[2018-05-29] MEDS: Amlodipine 10 MG TAB PO SCH (09:18)
[2018-05-29] MEDS: Tamsulosin HCl 0.4 MG CAP PO SCH (09:18)
[2018-05-29] MEDS: Furosemide 20 MG TAB PO SCH (09:18)
[2018-05-29] MEDS: Carvedilol 6.25 MG TAB PO SCH ×2 (09:18→21:06)
[2018-05-29] MEDS: Famotidine 20 MG TAB PO SCH ×2 (09:18→21:06)
[2018-05-29] MEDS ORDERED: Lidocaine 4% PF 5 ML AMP NEB SCH (11:30)
--- NOTE | 2018-05-29 12:47 | CON ---
DATE OF CONSULTATION: HISTORY OF PRESENT ILLNESS: Alberto Sanchez is an 83-year-old gentleman, who presented with hemoptysis. He says he coughed about 2 cups of bright red/dark blood. This morning, he is still coughing some blood according to his son. He is a former smoker, 2 packs a day for 30 years, quit smoking many years ago. Denies any previous history of TB, pneumonia, or bronchial asthma. PAST MEDICAL HISTORY: Pertinent for apparently CHF, diabetes, hypertension, carotid disease, hyperlipidemia, presumed asthma. PAST SURGICAL HISTORY: Appendix, bypass in 2003, cholecystectomy, cardiac stents, renal failure, diastolic dysfunction. HOME MEDICATIONS: Include: 1. Prednisone. 2. Metformin 500. 3. Atarax. 4. Guaifenesin. 5. Clonidine 0.1 twice a day. 6. CoQ10. 7. Flomax 0.4. 8. Protonix 40. 9. Synthroid . 10. DuoNeb. 11. Lasix 20. 12. Coreg 6.25. 13. Norvasc 10. ALLERGIES: PENICILLIN. SOCIAL HISTORY: Tobacco as noted. Alcohol, minimal. REVIEW OF SYSTEMS: Otherwise, 10-point negative. PHYSICAL EXAMINATION: VITAL SIGNS: Sats are 96% on 2 L, temperature 99, blood pressure 152/69, respiratory rate 18. CHEST: Decreased breath sounds. No wheezing. CARDIAC: Normal S1 and S2. ABDOMEN: No masses. LABORATORY DATA: White count 4.6, H and H 10 and 30, platelets 126,000, and 73 segs. His lytes are normal. Glucose 188. Initial chest x-ray did not show any acute infiltrates, but CT scan of his chest shows what appears to be a right lower lung nodule or density without any obvious masses. No evidence of pulmonary emboli. IMPRESSION: Moderate hemoptysis in a former smoker, abnormal CT, hypertension, coronary artery disease, congestive heart failure, presumed asthma. PLAN: Continue present treatment. Empiric antibiotics, neb treatments, supportive care. Diagnostic bronchoscopy will be performed. Consultation note, 70 minutes, 50% direct patient care. Job ID: [id number]
[2018-05-29] MEDS: Sodium Chloride 0.9% 1,000 ML IV SCH (12:48)
[2018-05-29] MEDS ORDERED: Midazolam HCl 2 mg/2 ml Vial ONE (14:33)
[2018-05-29] MEDS ORDERED: Benzocaine 20% Spray 60 ML CAN ONE (14:33)
[2018-05-29] MEDS ORDERED: Lidocaine 2% Jelly 5 ML TUBE ONE ×2 (14:33→16:24)
[2018-05-29] MEDS ORDERED: Lidocaine 1% (PF) 30 ML VIAL ONE (14:33)
[2018-05-29] MEDS ORDERED: Fentanyl 100 MCG/2 ML VIAL ONE (14:33)
[2018-05-29] MEDS ORDERED: EPINEPHrine 1 MG/ML AMP ONE (14:36)
[2018-05-29] MEDS ORDERED: EPINEPHrine 1 MG/10 ML Abboject SYRINGE ONE (14:36)
--- NOTE | 2018-05-29 18:11 | PDOC.PN ---
- Subjective Encounter Start Date: 05/29/18 Encounter Start Time: 17:45 Patient now back from bronchoscopy. States he felt a little woozy during anesthesia induction and just after, but is generally feeling better now. Intermittent low volume hemotysis throughout the day today. Denies pain/nausea/ dizziness presently - Objective Resuscitation Status - Order Detail: 05/28/18 20:10 Resuscitation Status Routine Resuscitation Status: FULL: Full Resuscitation Discussed with: Patient Vital Signs & Weight: Vital Signs (12 hours) Temp Pulse Pulse Pulse Resp BP BP 05/29/18 16:06 89 16 05/29/18 15:08 99.1 F 68 16 05/29/18 14:47 64 68 183/75 H 145/64 H 05/29/18 13:39 91 16 05/29/18 11:33 99.7 F H 60 18 05/29/18 09:53 94 79 166/72 H 183/76 H 05/29/18 08:50 05/29/18 07:35 99.0 F 74 16 BP Pulse Ox Pulse Ox Pulse Ox 05/29/18 16:06 97 05/29/18 15:08 145/64 H 96 05/29/18 14:47 93 L 96 05/29/18 13:39 96 05/29/18 11:33 134/63 96 05/29/18 09:53 74 L 95 05/29/18 08:50 96 05/29/18 07:35 152/69 H 96 Weight Weight 155 lb 8 oz I&O: 05/28/18 05/29/18 05/30/18 06:59 06:59 06:59 Intake Total 400 Output Total 225 Balance 175 Result Diagrams: 05/29/18 06:10 05/29/18 06:10 Additional Labs: Accuchecks 05/29/18 05/29/18 10:31 05:22 POC Glucose 189 H 112 H Phys Exam - Physical Examination Constitutional: NAD Sitting up, speaking in full sentences HEENT: PERRLA, moist MMs Neck: supple, full ROM Mlid basilar wheeze present Cardiovascular: RRR Gastrointestinal: soft, non-tender Musculoskeletal: no edema Neurological: non-focal, moves all 4 limbs Poor hearing, does not have hearing aids in presently Psychiatric: normal affect, A&O x 3 Skin: no rash Dx/Plan (1) Hemoptysis Code(s): R04.2 - HEMOPTYSIS Status: Acute Comment: s/p bronchoscopy, blood thinners on hold. Solumedrol/levaquin added per Dr Geller care appreciated (2) Lung mass Code(s): R91.8 - OTHER NONSPECIFIC ABNORMAL FINDING OF LUNG FIELD Status: Acute Comment: f/u path (3) Neutropenia Code(s): D70.9 - NEUTROPENIA, UNSPECIFIED Status: Chronic Comment: Chronic, unchanged, mild (4) Acute on chronic diastolic (congestive) heart failure Code(s): I50.33 - ACUTE ON CHRONIC DIASTOLIC (CONGESTIVE) HEART FAILURE Status : Chronic Comment: Compensated presently (5) HTN (hypertension) Code(s): I10 - ESSENTIAL (PRIMARY) HYPERTENSION Status: Chronic (6) Normocytic anemia Code(s): D64.9 - ANEMIA, UNSPECIFIED Status: Chronic (7) Diabetes mellitus Code(s): E11.9 - TYPE 2 DIABETES MELLITUS WITHOUT COMPLICATIONS Status: Acute Qualifiers: Diabetes mellitus type: type 2 Diabetes mellitus complication status: without complication Comment: Controlled - Plan cont current plan of care, continue antibiotics * Please see above for specifics * Disposition will pend clinical course as remains at risk for hemorrhage * Appreciate pulmonary care * Am lab and watchful waiting
[2018-05-29] MEDS: Atorvastatin Calcium 20 MG TAB PO SCH (21:05)
[2018-05-29] MEDS: Acetaminophen 325 MG TAB PO PRN (21:10)
[2018-05-30] MEDS: Acetaminophen 325 MG TAB PO PRN ×2 (04:52→10:18)
[2018-05-30] MEDS ORDERED: TIROSINT 13 MCG PO SCH (06:00)
[2018-05-30 06:47] LABS: Anion Gap 12 mmol/L (10-20); BUN (Urea Nitrogen) 31 mg/dL (8.4-25.7); Calc. Creatinine Clearance 46 mL/min (70-130); Calcium 8.9 mg/dL (7.8-10.44); Carbon Dioxide 24 mmol/L (23-31); Chloride 103 mmol/L (98-107); Estimated GFR-MDRD 59; Glucose 182 mg/dL (83-110); Potassium 4.3 mmol/L (3.5-5.1); Sodium 135 mmol/L (136-145)
[2018-05-30 06:59] LABS: Hemoglobin 10.2 g/dL (14.0-18.0); Hypochromia SLIGHT = 6-15 cells (100X) (0-5/hpf); Lymphocytes 56 % (21-51); MDiff Complete? YES; Mean Corpuscular HGB CONC 33.9 g/dL (32.0-36.0); Mean Corpuscular Hemoglobin 29.9 pg (27.0-31.0); Mean Corpuscular Volume 88.1 fL (78.0-98.0); Mean Platelet Volume 6.9 fL (7.4-10.4); Monocytes 8 % (0-10); Neutrophil 28 % (42-75); Platelet Count 110 thou/uL (130-400); Platelet Morphology Comment Appears Decreased; RBC Distribution Width 12.7 % (11.5-14.5); Reactive Lymphocytes 8 % (0-10); Red Blood Cell (RBC) Count 3.43 mill/uL (4.70-6.10); White Blood Cell (WBC) Count 2.9 thou/uL (4.8-10.8)
[2018-05-30] MEDS: Sodium Chloride 0.9% 1,000 ML IV SCH (08:06)
[2018-05-30] MEDS: Carvedilol 6.25 MG TAB PO SCH (08:12)
[2018-05-30] MEDS: Amlodipine 10 MG TAB PO SCH (08:12)
[2018-05-30] MEDS: cloNIDine 0.1 MG TAB PO SCH (08:12)
[2018-05-30] MEDS: Tamsulosin HCl 0.4 MG CAP PO SCH (08:13)
[2018-05-30] MEDS: metFORMIN 500 MG TAB PO SCH (08:13)
[2018-05-30] MEDS: Famotidine 20 MG TAB PO SCH (08:13)
[2018-05-30] MEDS: Furosemide 20 MG TAB PO SCH (08:13)
--- NOTE | 2018-05-30 09:46 | PDOC.PN ---
- Subjective Encounter Start Date: 05/30/18 (f/u DM) Encounter Start Time: 09:45 Subjective: Pt c/o chest tightness, pain and small amounts of hemoptysis. He is -: requesting Cardiology evaluation here - sees Dr. Elam as an OP. -: Was NPO from procedure yesterday - this was changed, has not received bkfst - Objective Resuscitation Status - Order Detail: 05/28/18 20:10 Resuscitation Status Routine Resuscitation Status: FULL: Full Resuscitation Discussed with: Patient Vital Signs & Weight: Vital Signs (12 hours) Temp Pulse Resp BP Pulse Ox 05/30/18 08:00 98.2 F 71 16 168/79 H 96 05/30/18 06:23 65 16 98 05/30/18 04:02 94 L 05/30/18 04:00 98.0 F 73 18 176/74 H 94 L 05/30/18 00:05 97 05/29/18 23:45 61 16 96 05/29/18 23:25 98.8 F 64 18 168/77 H 97 Weight Weight 155 lb 8 oz I&O: 05/29/18 05/30/18 05/31/18 06:59 06:59 06:59 Intake Total 400 900 Output Total 225 275 Balance 175 625 Result Diagrams: 05/30/18 05:49 05/30/18 05:49 Additional Labs: Accuchecks 05/30/18 05/29/18 05/29/18 00:00 20:17 10:31 POC Glucose 240 H 219 H 189 H 05/29/18 05:22 POC Glucose 112 H EKG Reviewed by me: Yes (tele - sinus 70's) Phys Exam - Physical Examination Constitutional: NAD Respiratory: no wheezing, no rales, no rhonchi fair air movement Cardiovascular: RRR 3/6 MICHELL Gastrointestinal: soft, non-tender, no distention, positive bowel sounds Neurological: non-focal, moves all 4 limbs Psychiatric: normal affect, A&O x 3 Skin: no rash Dx/Plan (1) Pancytopenia Code(s): D61.818 - OTHER PANCYTOPENIA Status: Acute (2) Chronic diastolic heart failure Code(s): I50.32 - CHRONIC DIASTOLIC (CONGESTIVE) HEART FAILURE Status: Acute (3) Anemia Code(s): D64.9 - ANEMIA, UNSPECIFIED Status: Acute Qualifiers: Anemia type: unspecified type Qualified Code(s): D64.9 - Anemia, unspecified (4) Diabetes mellitus Code(s): E11.9 - TYPE 2 DIABETES MELLITUS WITHOUT COMPLICATIONS Status: Acute Qualifiers: Diabetes mellitus type: type 2 Diabetes mellitus complication status: without complication Comment: Controlled (5) Hemoptysis Code(s): R04.2 - HEMOPTYSIS Status: Acute Comment: s/p bronchoscopy 05/29, blood thinners on hold. (6) Lung mass Code(s): R91.8 - OTHER NONSPECIFIC ABNORMAL FINDING OF LUNG FIELD Status: Acute Comment: f/u path (7) HTN (hypertension) Code(s): I10 - ESSENTIAL (PRIMARY) HYPERTENSION Status: Chronic Qualifiers: Hypertension type: essential hypertension Qualified Code(s): I10 - Essential (primary) hypertension - Plan * Appreciate Pulm consult - s/p bronch yesteday and on steroids, nebs, and antibiotics. Will add albuterol prn * wean oxygen as tolerated * continue to hold oral anticoagulant that pt takes at home - [facility] * DM - controlled - continue SSI and metformin * htn - continue home meds * D/c IVF as pt can take PO * pancytopenia - worse today. Pt is on a PPi at home, will d/c pepcid and continue to monitor. If worsening, anticipate hematology consult * cardiology consult placed per patient request - diastolic HF hx appears compensated. Pt advised that due to cardiology patient volume, he may not be seen today. * * dvt prophy - scd's * gi prophy - not indicated, pt on ppi at home which is ordered * code status full * * reviewed plan of care with patient, no qeustions or further needs at end of eval
[2018-05-30] MEDS ORDERED: Albuterol Sulfate 1.25 MG/3 ML NEB NEB PRN (10:03)
[2018-05-30] MEDS ORDERED: Albuterol Sulfate 1.25 MG/3 ML NEB NEB SCH (11:00)
--- NOTE | 2018-05-30 12:52 | PRG ---
DATE OF SERVICE: 05/30/2018 SUBJECTIVE: This morning, he is awake, alert, responsive, and doing better. He has had some more bloody cough. OBJECTIVE: VITAL SIGNS: Saturations are 91% on 1 L, temperature 98, pulse 80, respiratory rate 18, and blood pressure 174/81. CHEST: Crackles in the right base, otherwise unremarkable. CARDIAC: Normal S1 and S2. No gallops. ABDOMEN: No masses. LABORATORY DATA: H and H are 10 and 30 and white count 2.9. Lytes are normal. IMPRESSION: Right lower lung nodule, hemoptysis, and status post bronchoscopy. PLAN: The patient would like to go home. We will switch him over to oral antibiotics and steroids. Follow up in the office. Job ID: [id number]
[2018-05-30] MEDS: hydrALAZINE 20 MG/ML VIAL SLOW IVP PRN (13:44)
[2018-05-30 14:48] VITALS: BMI 24.3
[2018-05-30 15:27] VITALS: TEMP 98.5
[2018-05-30 15:31] VITALS: BP 171/73
--- NOTE | 2018-05-31 04:02 | DIS ---
DATE OF ADMISSION: 05/28/2018 DATE OF DISCHARGE: 05/30/2018 CONSULTS: Dr. Geller of Pulmonology. MEDICATIONS: Medications are reconciled at discharge. New medications; 1. Prednisone 10 mg one p.o. daily for 5 days. 2. Levaquin 500 mg one p.o. daily for 5 days. Prescriptions both provided by Dr. Geller. Medications to continue; 1. Albuterol 1 inhalation every 4 hours as needed. 2. Amlodipine 10 mg daily. 3. Atorvastatin 20 mg at bedtime. 4. Carvedilol 6.25 mg b.i.d. 5. Ferrous sulfate 325 mg b.i.d. 6. Flovent 50 mcg inhaled b.i.d. 7. Lasix 20 mg daily. 8. DuoNeb 4 times daily as needed. 9. Levothyroxine 13 mcg daily. 10. Pantoprazole 40 mg daily. 11. Florastor 250 mg daily. 12. Flomax 0.4 mg daily. 13. Coenzyme Q10 of 10 mg daily. 14. Clonidine 0.1 mg 1 tablet twice daily. 15. Mucinex 600 mg b.i.d. 16. Hydroxyzine 10 mg daily. 17. Metformin 500 mg b.i.d. with meals. FINAL DIAGNOSES: 1. Hemoptysis, resolved with new diagnosis of lung mass, status post bronchoscopy. 2. Pancytopenia of uncertain etiology. SECONDARY DIAGNOSES: 1. Diastolic congestive heart failure, stable. 2. Diabetes mellitus type 2. 3. Hypertension. 4. BPH. 5. Mild persistent asthma, stable. 6. Coronary artery disease with history of coronary artery bypass grafting. HISTORY OF PRESENT ILLNESS: Mr. Sanchez is an 83-year-old male with the above medical problems, who presented to the emergency room with a complaint of coughing up blood. He was evaluated there, found to have a new 1.6 cm spiculated lung mass and a 2.6 cm vascular mass and was admitted to the hospital. HOSPITAL COURSE: The patient was admitted, and underwent bronchoscopy with Dr. Geller yesterday. The patient has remained stable, very small amounts of hemoptysis since then. He has been weaned off oxygen, and is overall feeling well. During this hospitalization, he was managed with steroids and antibiotics by IV which are transitioned to oral antibiotics for discharge to home. The patient is overall feeling well and does meet criteria for discharge to home. His usual medications will be continued. Of note, the patient reports that he is on a blood thinner, but is unable to tell us which one. We contacted the pharmacy he thinks that he fills it at ([facility] in [place]) however, they have no record of this. I discussed with him as well as his daughter and son-in -law that there are no blood thinners until he receives his results from Dr. Geller and follows up with the prescriber of that blood thinner. The patient [facility] that [facility] is [facility], and we will direct him to the [facility] for discussion. In the meantime, no blood thinners and no aspirin. The patient is also advised to follow up with Dr. Elam if needed. On admission, the patient with neutropenia and anemia, both mild. On day of discharge, his white blood cell count is 2.9, and the anemia is stable compared to yesterday. He has also developed a very mild thrombocytopenia. I am uncertain of the etiology of this, and we will direct the patient to follow up with Dr. Betancourt in 2 days for re-evaluation. The patient is again advised to avoid any aspirin or blood thinners. His platelet level at discharge is 110. He was on Pepcid while here and this was discontinued prior to discharge, which may be contributing. PHYSICAL EXAMINATION: On the day of discharge, please see daily note. MUSE FINDINGS AND TEST RESULTS: CBC today 2.9, 10.2, 30.2, 110. On admission, CBC; 4.7, 11.2, 130. INR 1.0. Chemistry; 135, 4.3, 103, 24, 31, 1.18, 182. Blood sugars have ranged from [address] angiogram on May 28 shows no evidence for PE, right lower lobe pulmonary nodule suspicious for neoplasm, 1.6 cm spiculated nodule, and 2.6 cm vascular mass which narrows the associated bronchial, small left pleural effusion, conspicuous atherosclerosis, and partially visualized splenomegaly. Bronchial washing for AFB is negative, the AFB culture is pending. Bronchial washing with respiratory culture, rare white blood cells, many red blood cells, no epithelial cells, and culture is pending. Blood type is A positive. Antibody negative. Chest x-ray on May 28, no acute abnormality. DIET: Heart healthy, diabetic, consistent carbohydrate. ACTIVITY: As tolerated. Reviewed with the patient, his daughter and son-in-law at this hospitalization, the need for followup and specifics for each one, the importance of avoiding any blood thinners including aspirin for now, and return for care precautions. They demonstrate understanding. Total time coordinating discharge is 40 minutes. Job ID: [id number] [email or web address]
--- NOTE | 2018-06-01 07:12 | OP ---
DATE OF PROCEDURE: 05/29/2018 INDICATIONS: Persistent hemoptysis, right lower lung mass. Rule out TB, fungus, malignancy. PROCEDURE: Emergency bronchoscopy, diagnostic. POSTBRONCHOSCOPY DIAGNOSES: Persistent hemoptysis, right lower lung mass. Rule out TB, fungus, malignancy. DESCRIPTION OF PROCEDURE: After informed consent from the patient, he was given DuoNeb with 4 mL of 4% lidocaine. He has been monitored. His posterior pharynx was sprayed with Cetacaine spray. His left nostril was prepped with lidocaine jelly. The flexible video Olympus bronchoscope was then passed via the left nostril. Pharynx and hypopharynx and vocal cords were visualized, which were normal. Entering the trachea, this was normal. Tina was sharp. There was fresh bright red blood coming from the right lower lung, which was suction lavaged with normal saline. The anterior lateral basal segment had blood oozing out from that area. A total of 10 mL of 1:10,000 epinephrine was instilled to decrease the quantity of pulmonary hemorrhage. Thereafter, we were able to visualize the mucosa to the anterolateral basilar segments, some were nodular thickened, but no obvious endobronchial disease was seen. His air was lavaged. The rest of the basilar segments. The right middle lobe and right upper lobe were normal. The left lung was inspected thereafter, some blood spillover from the right side, but no endobronchial obstruction or any bleeding was seen. The area of the right lung was lavaged numerous times. Thereafter, a brush was passed corresponding to the nodular infiltrate in the right lower lung anterolateral basilar segment. Further bleeding required additional 6 mL of 1:10,000 epinephrine to control the bleeding. The patient otherwise tolerated the procedure well. Washings were sent for cytology, AFB smear and culture, fungal smear and culture, routine Gram stain, C and S. Several brushing slices were obtained from the same area. The patient tolerated the procedure. Job ID: [id number]
[2018-06-02 09:21] LABS: Fungus Stain Final report (.)
== END 2018-05-30 16:43 | disposition home or self-care (01) | DRG 204 ==
LOC: ERS 15:59 → ERHOLD 19:03 → 2NO 19:03
PROVIDERS: ADMIT Emergency Medicine; ATTEND Emergency Medicine
PROC: 0BJ08ZZ Inspection of Tracheobronchial Tree, Via Natural or Artificial Opening Endoscopic (ICD-10-PCS; principal; 2018-05-28)
DX: R04.2 Hemoptysis (principal); I50.33 Acute on chronic diastolic (congestive) heart failure; D61.818 Other pancytopenia; D70.9 Neutropenia, unspecified; I11.0 Hypertensive heart disease with heart failure; I25.10 Atherosclerotic heart disease of native coronary artery without angina pectoris; Z95.1 Presence of aortocoronary bypass graft; J45.30 Mild persistent asthma, uncomplicated; Z87.891 Personal history of nicotine dependence; N40.0 Benign prostatic hyperplasia without lower urinary tract symptoms
CPT/HCPCS: 36415; 36416; 71045; 71275; 80048; 80053; 83690; 84484; 85025; 85610; 86850; 86900; 86901; 87070; 87102; 87116; 87205; 87206; 88104; 88112; 88305; 93005; 94640; 99152; 99213; G0463; J0171; J0360; J1956; J2001; J2250; J2920; J3010; J7620

== ENCOUNTER 2018-08-26 13:19 | Outpatient (CLI) | payer MEDICARE, OTHER ==
--- NOTE | 2018-08-26 14:06 | CT ---
EXAM: CT Chest W Con PROVIDED CLINICAL HISTORY: Pulmonary nodule COMPARISON: 05/28/2018 FINDINGS: The previously described peribronchovascular mass involving the right lower lobe is redemonstrated, a ppearing enlarged with respect to the prior examination. On the current study, this measures about 3. 7 x 3.5 x 3.1 cm in transverse by AP by cc (as compared with 1.7 x 2.6 x 1.6 cm on the prior study). Adjacent spiculated mass is also again seen, increased in size from 1.6 cm on the prior examination t o 2.1 cm on the current study. The peribronchovascular mass infiltrates the inferior hilar blood vess els and produces attenuation of several segmental pulmonary vessels and subsegmental bronchi. The heart, pericardium and great vessels demonstrate a stable CT appearance. No evidence for thoracic lymph node enlargement. Trace left pleural fluid. No evidence for pneumothorax. The airway appears patent. The visualized por tions of the upper abdomen redemonstrates splenomegaly. The osseous structures demonstrate no concern ing lytic or blastic lesions. IMPRESSION: 1. Interval increase in size of right infrahilar peribronchial mass and adjacent spiculated nodule, s uspicious for malignancy. 2. Other findings as above.
== END 2018-08-26 13:20 | disposition home or self-care (01) ==
LOC: BICCT 13:19
PROVIDERS: ATTEND Internal Medicine Pulmonary Disease
DX: R91.1 Solitary pulmonary nodule (principal); R16.1 Splenomegaly, not elsewhere classified
CPT/HCPCS: 71260; 82565

== ENCOUNTER 2018-08-28 07:15 | Day surgery (SDC) | payer MEDICARE, OTHER ==
[2018-08-27 13:15] VITALS: BMI 25.0
[~2018-08-28 07:15] MED LIST changes: +Fentanyl 100 MCG/2 ML VIAL ONE; -ISOVUE-370 76%-LOCM 1 ML ONE; +Lidocaine 1% (PF) 30 ML VIAL ONE; +Midazolam HCl 2 mg/2 ml Vial ONE
[2018-08-28] MEDS ORDERED: Benzocaine 20% Spray 60 ML CAN ONE (07:19)
[2018-08-28] MEDS ORDERED: EPINEPHrine 1 MG/10 ML Abboject SYRINGE ONE (08:38)
--- NOTE | 2018-08-28 08:58 | HP ---
SUBJECTIVE: Alberto Sanchez is an 83-year-old gentleman who was seen in the office on 08/26/[address] of his chest. He had a previous CT done two months ago, which showed a small right lung nodule. Surprisingly, CT now showed the lesion substantially bigger, measuring at 3 cm x 7 cm x 3.5 cm in the right lower lobe. He is coughing some blood. He has lost some weight. He feels poorly. He denies any chest pain, chills, or sweats. During his previous admissions, he was admitted for hemoptysis. Bronchoscopy showed atypical cells. PAST MEDICAL HISTORY: Pertinent otherwise for COPD, CHF, diabetes, hypertension, peripheral vascular disease, asthma, and lipidemia. PAST SURGICAL HISTORY: Bypass 2004, cholecystectomy, multiple stents, renal failure, diastolic dysfunction, and appendix. HOME MEDICATIONS: Includes metformin 500, guaifenesin, Catapres 0.1 twice a day, Flomax 0.4, Protonix 40, Synthroid 1000 mcg, Lasix 20, Coreg 6.25 and Norvasc. ALLERGIES: PENICILLIN. SOCIAL HISTORY: Tobacco, as noted. Alcohol, none. REVIEW OF SYSTEMS: Ten-point negative. PHYSICAL EXAMINATION: VITAL SIGNS: His saturations 98% on room air, pulse 80, respiratory rate 18, blood pressure 130/80. CHEST: Decreased breath sounds. No wheezing. CARDIAC: Normal S1, S2. No gallops. ABDOMEN: No masses. IMPRESSION: Enlarging right lower lung mass, hemoptysis, former smoker, heart disease, and mild azotemia. PLAN: Outpatient bronchoscopy is performed today. Further recommendations as above. Job ID: [id number]
--- NOTE | 2018-08-28 09:41 | OP ---
DATE OF PROCEDURE: 08/28/2018 PROCEDURE PERFORMED: Bronchoscopy with biopsy. INDICATIONS: Hemoptysis, right lower lung mass. POSTBRONCHOSCOPY DIAGNOSES: Marked narrowing and rugosity disease involving the right lower lobe bronchus, not able to visualize much of the subsegments. Finding consistent with right lower lobe carcinoma. DESCRIPTION OF PROCEDURE: After informed consent, the patient received DuoNeb with 4 mL of 4% lidocaine. Left nostril was prepped with lidocaine. Cetacaine spray was used. During the procedure, he received 2 of Versed and 50 of fentanyl. The flexible video bronchoscope was then passed via the left nostril. Pharynx and hypopharynx and vocal cords were visualized and unremarkable. Entering the trachea, this was normal. Tina was sharp. The left lung was inspected initially. Left upper and left lower lobe visualized. No endobronchial obstruction or blood was seen. Entering the left lung, left upper lung was normal. The bronchus intermedius was unremarkable. Entering the right lower lobe, there was marked narrowing of the entire right lower lobe bronchus. The middle lobe appeared to be normal. There were thickening and nodularity of the mucosa to the right lower lobe bronchus. The subsegments were not clearly delineated. Endobronchial nodular mass was seen in the lateral anteroposterior segment. This was bleeding to touch. This area was lavaged with normal saline. Multiple biopsies x4 and brushings were obtained from the same area, requiring 12 mL of 1:10,000 epinephrine to be instilled into the area to control the bleeding. The patient otherwise tolerated the procedure well. The biopsy will be sent for histopathology. Brushing was sent for cytology. Washing was sent for AFB smear and culture, fungal smear and culture, routine Gram stain, C and S. The patient tolerated the bronchoscopy well. Results of the bronchoscopy and biopsy will be available to the patient's family. Further recommendations as above. Job ID: [id number]
[2018-09-01 09:15] LABS: Fungus Stain Final report (.)
== END 2018-08-28 10:08 | disposition home or self-care (01) ==
LOC: SDC 07:15
PROVIDERS: ATTEND Internal Medicine Pulmonary Disease
PROC: 0B9F8ZX Drainage of Right Lower Lung Lobe, Via Natural or Artificial Opening Endoscopic, Diagnostic (ICD-10-PCS; principal; 2018-08-28)
PROC: 0BB38ZX Excision of Right Main Bronchus, Via Natural or Artificial Opening Endoscopic, Diagnostic (ICD-10-PCS; 2018-08-28)
PROC: 0BD38ZX Extraction of Right Main Bronchus, Via Natural or Artificial Opening Endoscopic, Diagnostic (ICD-10-PCS; 2018-08-28)
DX: C34.31 Malignant neoplasm of lower lobe, right bronchus or lung (principal); J44.9 Chronic obstructive pulmonary disease, unspecified; I25.10 Atherosclerotic heart disease of native coronary artery without angina pectoris; I11.0 Hypertensive heart disease with heart failure; I50.9 Heart failure, unspecified; E11.51 Type 2 diabetes mellitus with diabetic peripheral angiopathy without gangrene; Z87.891 Personal history of nicotine dependence; Z79.51 Long term (current) use of inhaled steroids; Z79.52 Long term (current) use of systemic steroids; Z79.84 Long term (current) use of oral hypoglycemic drugs; Z79.899 Other long term (current) drug therapy; Z88.0 Allergy status to penicillin; Z91.011 Allergy to milk products; Z91.040 Latex allergy status; Z95.1 Presence of aortocoronary bypass graft; Z95.5 Presence of coronary angioplasty implant and graft
CPT/HCPCS: 87070; 87102; 87116; 87205; 87206; 88104; 88112; 88305; 88313; 88341; 88342; 99152; 99153; J0171; J2001; J2250; J3010; J7620

== ENCOUNTER 2018-08-31 14:12 | Emergency (ER) | payer MEDICARE, OTHER ==
--- NOTE | 2018-08-31 15:01 | RAD ---
PORTABLE CHEST 1 VIEW: Date: 08/31/18 Time: 1440 hours HISTORY: Cough, shortness of breath. FINDINGS/IMPRESSION: Comparison made with exam of 06/18/18. Changes of median sternotomy are again seen. The heart size is normal. The lungs are well expanded wi thout lobar consolidation, pneumothoraces, or pleural effusions. Right infrahilar mass appears more p rominent than the previous study. This would be better evaluated with CT scan. POS: [facility]
[2018-08-31 15:04] LABS: Hemoglobin 11.6 g/dL (14.0-18.0); Mean Corpuscular HGB CONC 32.9 g/dL (32.0-36.0); Mean Corpuscular Hemoglobin 28.2 pg (27.0-31.0); Mean Corpuscular Volume 85.8 fL (78.0-98.0); Platelet Count 155 thou/uL (130-400); RBC Distribution Width 13.7 % (11.5-14.5); Red Blood Cell (RBC) Count 4.11 mill/uL (4.70-6.10); White Blood Cell (WBC) Count 6.3 thou/uL (4.8-10.8)
[2018-08-31 15:14] LABS: ALT (SGPT) 12 U/L (8-55); AST (SGOT) 21 U/L (5-34); Albumin 3.8 g/dL (3.4-4.8); Alkaline Phosphatase 92 U/L (40-150); Anion Gap 13 mmol/L (10-20); BUN (Urea Nitrogen) 23 mg/dL (8.4-25.7); Bilirubin, Total 0.5 mg/dL (0.2-1.2); Calc. Creatinine Clearance 0 mL/min (70-130); Calcium 9.5 mg/dL (7.8-10.44); Carbon Dioxide 28 mmol/L (23-31); Chloride 93 mmol/L (98-107); Estimated GFR-MDRD 66; Globulin 2.7 g/dL (2.4-3.5); Glucose 103 mg/dL (83-110); Potassium 4.7 mmol/L (3.5-5.1); Protein, Total 6.5 g/dL (5.8-8.1); Sodium 129 mmol/L (136-145)
[2018-08-31] MEDS ORDERED: Magnesium 2 GM/50 ML BAG (IN WATER) ONE (15:16)
[2018-08-31] MEDS ORDERED: Dexamethasone 10 MG/ML VIAL ONE (15:16)
[2018-08-31] MEDS ORDERED: Albuterol Sulfate 2.5 mg/0.5 ml Neb ONE ×2 (15:17)
[2018-08-31 15:26] LABS: Actual Bicarbonate (HCO3a) 28.9 mEq/L (22-28); Analyzer IN Cardio ER; Base Excess (BEa) 3.3 mEq/L (-2.0 to +3.0); CO2 Tension 48.1 mmHg (35.0-45.0); Calcium, Ionized 1.19 mmol/L (1.12-1.30); Carboxyhemoglobin (COHb) 0.8 gm% (0.0-3.0); Hemoglobin (Hb) 11.7 g/dL (14.0-18.0); O2 Tension (PaO2) 62.7 mmHg (> 60.0)
[2018-08-31 15:28] LABS: Puncture Site RRA
[2018-08-31 15:29] LABS: Band 6 % (5-11); Differential Comment Immature Cell(s); Eosinophils 1 % (0-10); Lymphocytes 69 % (21-51); MDiff Complete? YES; Metamyelocyte 1 % (0-0); Monocytes 4 % (0-10); Neutrophil 4 % (42-75); Platelet Morphology Comment Appears Adequate; Reactive Lymphocytes 8 % (0-10)
[2018-08-31 15:29] LABS: ALV-art Gradient 26.905 (0-20)
[2018-08-31 15:57] LABS: CK (CPK) 64 U/L (30-200); Lipase 18 U/L (8-78)
== END 2018-08-31 17:05 | disposition home or self-care (01) ==
LOC: ERS 14:12
DX: J44.1 Chronic obstructive pulmonary disease with (acute) exacerbation (principal); E11.9 Type 2 diabetes mellitus without complications; I25.10 Atherosclerotic heart disease of native coronary artery without angina pectoris; E78.5 Hyperlipidemia, unspecified; I10 Essential (primary) hypertension; Z87.891 Personal history of nicotine dependence
CPT/HCPCS: 36415; 71045; 80053; 82550; 82805; 83605; 83690; 83880; 84484; 85025; 85060; 87040; 88184; 93005; 94640; 96365; 96375; J1100; J3475; J7611; J7620

== ENCOUNTER 2018-09-03 07:38 | Outpatient (CLI) | payer MEDICARE, OTHER ==
--- NOTE | 2018-09-03 10:07 | PET ---
EXAM: PET/CT HISTORY: Right lung mass TECHNIQUE: PET scanning with CT attenuation correction was performed from the base of the brain to the proximal thighs following the intravenous administration of 10.8 millicuries [id number]. COMPARISON: CT of the thorax dated August 26, 2018 and CTA examination of the thorax dated May 28, 2018 CORRELATION: None FINDINGS: Bilateral distribution:The biodistribution for the exam appears acceptable. Head and neck: There is appropriate background activity within the brain. No hypermetabolic lymphaden opathy or masses identified. There is increased metabolic activity involving the anterior to mid aspect of the tongue which is lik vinh related to muscular contraction. The peak activity associated with this region is 5.99 and a mean activity level of 5.48. Thorax: The 3.7 cm right infrahilar mass is again demonstrated on this PET/CT with a peak activity at 27.5 and a mean activity of 16.65. There is an adjacent intraparenchymal pulmonary nodule within the superior segment of the right lower lobe measuring 2.2 cm that has a peak activity is 9.27 and a mean activity of 8.33. No additional hypermetabolic lymph node or pulmonary nodules demonstrated. No hypermetabolic pleural effusion is noted. Abdomen and pelvis: There is expected background activity within the GI and systems. No hypermetab olic mass, lymphadenopathy or ascites is present. There is moderate splenomegaly measuring 18.37 cm. Osseous structures and skin: No hypermetabolic skin or osseous lesion is identified. IMPRESSION: Abnormal PET scan 1. There is a hyper metabolic lung mass seen within the right infrahilar region consistent with malig daniel. There is regional metastatic nodule seen within the superior segment of the right lower lobe adjacent to the right infrahilar mass. 2. No distant metastatic disease demonstrated. 3. Hypermetabolic activity within the tongue is likely related to muscular contraction. Recommend cor relation with the clinical examination and direct visualization for possible tongue lesion.
== END 2018-09-03 07:39 | disposition home or self-care (01) ==
LOC: PET 07:38
PROVIDERS: ATTEND Internal Medicine Pulmonary Disease
DX: R91.8 Other nonspecific abnormal finding of lung field (principal)
CPT/HCPCS: 78815; A9552

== ENCOUNTER 2018-09-16 09:08 | Outpatient (CLI) | payer MEDICARE, OTHER ==
--- NOTE | 2018-09-16 11:04 | MRI ---
Exam: Brain MRI with and without contrast HISTORY: Malignant neoplasm of the upper lobe. Right bronchus/lung. Monocytosis. COMPARISON: None FINDINGS: Gradient echo sequence: No hemorrhage Calvarium: Appropriate T1 marrow signal intensity Midline brain parenchyma: Unremarkable Cerebrum:No parenchymal mass, mass effect or midline shift. Age-appropriate atrophy. Cortical horn-wh ite matter differentiation is preserved. T2 and FLAIR white matter hyperintensities, compatible with chronic small vessel ischemic change. Ventricles: No evidence of hydrocephalus. Sinuses and mastoid air cells: Adequate aeration Diffusion: Central arterial flow is maintained. Absent restricted diffusion. Postcontrast images: No pathologic enhancement of the brain parenchyma. IMPRESSION: 1. No pathologic enhancement the brain parenchyma 2. Age-appropriate atrophy. 3. Chronic small vessel ischemic changes white matter.
[2018-09-16] MEDS ORDERED: Gadobenate Dimeglumine 529 MG/1 ML (20ML VIAL) ONE (14:42)
== END 2018-09-16 09:09 | disposition home or self-care (01) ==
LOC: MRI 09:08
PROVIDERS: ATTEND Internal Medicine Hematology & Oncology
DX: D72.821 Monocytosis (symptomatic) (principal); C34.11 Malignant neoplasm of upper lobe, right bronchus or lung; I67.82 Cerebral ischemia
CPT/HCPCS: 70553; A9577

== ENCOUNTER 2018-09-18 10:41 | Day surgery (SDC) | payer MEDICARE, OTHER ==
[2018-09-17 14:07] VITALS: BMI 24.3
--- NOTE | 2018-09-18 07:25 | HP ---
SERVICE: Pulmonary Medicine. REASON FOR VISIT: Mediastinal lymphadenopathy. HISTORY OF PRESENT ILLNESS: The patient is an 83-year-old white male with past medical history significant for recently diagnosed squamous cell lung cancer. He underwent a PET scan. There was no distal metastatic disease, though he did have mediastinal lymphadenopathy. He has been having cough and sputum production. He is fairly easy for him to get the phlegm up. Once he does, his breathing improves a little bit. He denies any current fevers, chills, nausea, or vomiting. He is currently in his usual state of health. He was referred initially for a mediastinoscopy. That being said, because of his frailty and other comorbidities, it was felt that it perhaps was more appropriate for us to proceed with an endoscopic bronchial ultrasound prior to putting him through a slightly more invasive procedure. As such, he is here for evaluation for this procedure. PAST MEDICAL HISTORY: 1. COPD. 2. Chronic diastolic heart failure. 3. Type 2 diabetes mellitus. 4. Hypertension. 5. Peripheral vascular disease. 6. Asthma. 7. Dyslipidemia. PAST SURGICAL HISTORY: 1. Coronary artery bypass graft in 2003. 2. Cholecystectomy. 3. Percutaneous coronary interventions. 4. Appendectomy. ALLERGIES: PENICILLIN. MEDICATIONS: List of his medications are reviewed. Of note, he takes: 1. Metformin. 2. Guaifenesin. 3. Catapres. 4. Flomax. 5. Synthroid. 6. Protonix. 7. Lasix. 8. Coreg. 9. Norvasc. SOCIAL HISTORY: Negative for alcohol, tobacco, or illicit drug use. He has a remote history of smoking. He has no exposure to chemicals, dust, asbestos, or tuberculosis otherwise. FAMILY HISTORY: Noncontributory. REVIEW OF SYSTEMS: General, head, ears, eyes, nose, throat, cardiovascular, respiratory, GI, , musculoskeletal, neurologic, and skin are negative, except as mentioned in the HPI. PHYSICAL EXAMINATION: VITAL SIGNS: Afebrile. Pulse 80, respirations 14, and saturation 97% on room air. GENERAL: The patient is awake and alert, in no apparent distress. LUNGS: Excellent air entry. There is no prolonged expiratory phase, wheezing, crackles, or rhonchi present. HEART: Normal rate and regular. ABDOMEN: Soft, nontender, and nondistended. Bowel sounds are positive. MUSCULOSKELETAL: No cyanosis or clubbing. No pitting in the bilateral lower extremities. NEUROLOGIC: Grossly nonfocal. LABORATORY DATA: Recent pathology on bronchoscopy was consistent with squamous cell carcinoma. This was moderately to poorly differentiated. Recent white count was normal, hemoglobin 11.6, and platelets 155,000. The pH of 7.40, with pCO2 of 48 , pO2 is 62, corresponding to saturation 91% on room air. Comprehensive metabolic profile was completely unremarkable. IMAGING STUDIES: MRI of the brain demonstrates no evidence of metastatic disease to the brain. PET scan demonstrates no acute abnormality outside of the thoracic region. Hypermetabolic lung mass is identified as well as a separate hypermetabolic nodule. The mediastinal lymphadenopathy identified was not overtly hypermetabolic. ASSESSMENT: 1. Squamous cell carcinoma of the lung. 2. Mediastinal lymphadenopathy. 3. Chronic diastolic heart failure. 4. Peripheral vascular disease. DISCUSSION AND PLAN: We will proceed with endoscopic bronchial sampling of the mediastinal lymph nodes. We will start at level [address] our way down to 7 and 10 and even 11, if we can identify those lymph nodes. If along the way, we have positive cytology, we will abort our procedure. The patient will follow up with Dr. Yuen on Friday as already scheduled. He will return to clinic with Dr. Geller as previously directed. Job ID: [id number] [facility]
[2018-09-18] MEDS ORDERED: Fentanyl 100 MCG/2 ML VIAL ONE (12:35)
[2018-09-18] MEDS ORDERED: Rocuronium Bromide 10 MG/ML (10ML VIAL) ONE (16:00)
[2018-09-18] MEDS ORDERED: Lidocaine 1% PF 5 ML VIAL ONE (16:00)
[2018-09-18] MEDS ORDERED: Ondansetron PF 4 MG/2 ML Vial ONE (16:00)
[2018-09-18] MEDS ORDERED: PROPOFOL 200 MG/20 ML VIAL ONE (16:00)
[2018-09-18] MEDS ORDERED: Glycopyrrolate 0.2 MG/ML 5 ML SYRINGE ONE (16:00)
--- NOTE | 2018-09-18 16:52 | OP ---
DATE OF PROCEDURE: 09/18/2018 SERVICE: Pulmonary Medicine. PROCEDURE PERFORMED: Fiberoptic bronchoscopy with, 1. Limited airway evaluation. 2. Endoscopic bronchial ultrasound-guided transbronchial needle aspiration of station R4, 7, R10. PREPROCEDURE DIAGNOSES: 1. Squamous cell lung cancer. 2. Mediastinal lymphadenopathy. POSTPROCEDURE DIAGNOSES: 1. Squamous cell lung cancer. 2. Mediastinal lymphadenopathy. STAFF PHYSICIAN: Moisés Balderas MD. PREANESTHESIA ASSESSMENT: Please refer to Anesthesia documentation for list of medications administered during this procedure. H and P had been performed. The patient's medications and allergies were reviewed. Informed consent was obtained after discussing the rationale, benefits, and risks of the procedure. Alternative options for sample collection were discussed. TIME-OUT: The patient was positively identified with name and date of . The proposed procedure was verified. DESCRIPTION OF PROCEDURE: After induction of anesthesia, the curvilinear endoscopic bronchial ultrasound Olympus bronchoscope was introduced through the 8.0 endotracheal tube and into the tracheobronchial tree. Limited visual airway inspection was performed and no obvious abnormality was identified in the trachea or mainstem bronchi. The bronchoscope was then withdrawn into the trachea and a roseline survey was performed. Endoscopic bronchial ultrasound-guided transbronchial needle aspiration of R4, 7, and R10 was completed. There was no significant postop bleeding. The patient had stable vital signs throughout the entire procedure without significant desaturation. FINDINGS: 1. No obvious endobronchial disease of the trachea or proximal right or left mainstem bronchus. 2. Tina appeared blunted. 3. Mediastinal lymphadenopathy of R4 (sub-centimeter), 7 (2 centimeters), and R10 (1.5 centimeter) 3. Rapid on-site pathology was negative for obvious malignancy, though the high-powered lens on the portable microscope was not functioning correctly. A separate conical for cell block on station 7 is currently pending. SPECIMENS OBTAINED: 1. Fine-needle aspiration of R4 at 2 separate nodes for cytology. 2. Fine-needle aspiration of 7 for cytology and cell block. 3. Fine-needle aspiration of R10 at 2 separate nodes for cytology. COMPLICATIONS: None. ESTIMATED BLOOD LOSS: 2 mL. DISPOSITION: The patient will be discharged home once he meets criteria in postanesthesia care unit. Job ID: [id number] [facility]
== END 2018-09-18 15:55 | disposition home or self-care (01) ==
LOC: SDC 10:41
PROVIDERS: ATTEND Internal Medicine
PROC: 07D78ZX Extraction of Thorax Lymphatic, Via Natural or Artificial Opening Endoscopic, Diagnostic (ICD-10-PCS; principal; 2018-09-18)
DX: C34.90 Malignant neoplasm of unspecified part of unspecified bronchus or lung (principal); R59.0 Localized enlarged lymph nodes; J44.9 Chronic obstructive pulmonary disease, unspecified; I11.0 Hypertensive heart disease with heart failure; I50.32 Chronic diastolic (congestive) heart failure; E78.5 Hyperlipidemia, unspecified; E11.51 Type 2 diabetes mellitus with diabetic peripheral angiopathy without gangrene; Z79.84 Long term (current) use of oral hypoglycemic drugs; Z79.899 Other long term (current) drug therapy; Z88.0 Allergy status to penicillin; Z91.040 Latex allergy status; Z91.011 Allergy to milk products; Z95.1 Presence of aortocoronary bypass graft; Z95.5 Presence of coronary angioplasty implant and graft
CPT/HCPCS: 88172; 88173; 88177; 88305; J2001; J2405; J2704; J3010; J7620

== ENCOUNTER 2018-09-24 16:03 | Emergency (ER) | payer MEDICARE, OTHER ==
[2018-09-24 16:44] LABS: Hemoglobin 10.7 g/dL (14.0-18.0); Mean Corpuscular HGB CONC 32.4 g/dL (32.0-36.0); Mean Corpuscular Hemoglobin 28.2 pg (27.0-31.0); Mean Platelet Volume 5.9 fL (7.4-10.4); Platelet Count 210 thou/uL (130-400); RBC Distribution Width 14.3 % (11.5-14.5); Red Blood Cell (RBC) Count 3.79 mill/uL (4.70-6.10)
--- NOTE | 2018-09-24 16:58 | RAD ---
TWO VIEW CHEST: 09/24/18 INDICATIONS: Dyspnea. Shortness of breath. COMPARISON: Comparison made to two view chest of 06/18/18 and a portable chest of 08/31/18. Correlation to CT chest of 08/26/18. A right infrahilar mass has been described. FINDINGS: The mass density in the right infrahilar region is again noted, this appears more prominent when comp ared to 08/31/18. The lungs are otherwise clear. Vasculature is normal. Heart size is upper normal and stable. Aortic calcifications are prominent. Postop sternotomy change. IMPRESSION: The right infrahilar mass lesion appears more prominent. No acute infiltrate identified. POS: [facility]
[2018-09-24 17:06] LABS: ALT (SGPT) 10 U/L (8-55); AST (SGOT) 16 U/L (5-34); Albumin 3.5 g/dL (3.4-4.8); Alkaline Phosphatase 94 U/L (40-150); Anion Gap 14 mmol/L (10-20); BUN (Urea Nitrogen) 29 mg/dL (8.4-25.7); Bilirubin, Total 0.4 mg/dL (0.2-1.2); CK (CPK) 27 U/L (30-200); Calc. Creatinine Clearance 0 mL/min (70-130); Calcium 9.6 mg/dL (7.8-10.44); Carbon Dioxide 30 mmol/L (23-31); Chloride 98 mmol/L (98-107); Estimated GFR-MDRD 42; Globulin 2.8 g/dL (2.4-3.5); Glucose 110 mg/dL (83-110); Lipase 20 U/L (8-78); Potassium 5.8 mmol/L (3.5-5.1); Protein, Total 6.3 g/dL (5.8-8.1); Sodium 136 mmol/L (136-145)
[2018-09-24 17:11] LABS: Band 1 % (5-11); Eosinophils 1 % (0-10); Lymphocytes 95 % (21-51); MDiff Complete? YES; Monocytes 1 % (0-10); Neutrophil 1 % (42-75); Platelet Morphology Comment Appears Adequate; Reactive Lymphocytes 1 % (0-10)
== END 2018-09-24 20:35 | disposition home or self-care (01) ==
LOC: ERS 16:03
DX: J20.9 Acute bronchitis, unspecified (principal); E86.0 Dehydration; J45.909 Unspecified asthma, uncomplicated; E78.5 Hyperlipidemia, unspecified; E11.9 Type 2 diabetes mellitus without complications; I25.10 Atherosclerotic heart disease of native coronary artery without angina pectoris; I10 Essential (primary) hypertension; Z87.891 Personal history of nicotine dependence
CPT/HCPCS: 36415; 71046; 80053; 82550; 83690; 83880; 84484; 85025; 93005; 96360; 99213; G0463; J7620

== ENCOUNTER 2018-09-29 21:06 | Inpatient (IN) | payer MEDICARE, OTHER ==
[2018-09-29] MEDS ORDERED: Acetaminophen 500 MG TAB ONE (21:22)
[2018-09-29 21:52] LABS: Hemoglobin 10.1 g/dL (14.0-18.0); Mean Corpuscular HGB CONC 33.8 g/dL (32.0-36.0); Mean Corpuscular Hemoglobin 28.1 pg (27.0-31.0); Mean Corpuscular Volume 83.3 fL (78.0-98.0); Mean Platelet Volume 6.2 fL (7.4-10.4); Platelet Count 173 thou/uL (130-400); RBC Distribution Width 14.3 % (11.5-14.5); Red Blood Cell (RBC) Count 3.58 mill/uL (4.70-6.10); White Blood Cell (WBC) Count 4.5 thou/uL (4.8-10.8)
--- NOTE | 2018-09-29 21:52 | RAD ---
RADIOGRAPH CHEST 1 VIEW: DATE: 09/29/2018 TIME: 9:41 PM HISTORY: 83-year-old male with cough and fever COMPARISON: 09/24/2018 FINDINGS: The previously demonstrated right infrahilar infiltrate has become much broader involving a greater p ortion of the right lower lobe. The right hemidiaphragm has become slightly indistinct. Minimal blunting of the right lateral costophrenic angle. No consolidation visualized The rest of the lung ryan bilaterally. Sternotomy wires. No cardiomegaly. IMPRESSION: Interval worsening of right lower lobe pneumonia. Questionable new right small parapneumonic pleural effusion
[2018-09-29 22:09] LABS: Band 8 % (5-11); Eosinophils 3 % (0-10); Lymphocytes 50 % (21-51); MDiff Complete? YES; Monocytes 15 % (0-10); Myelocyte 1 % (0-0); Neutrophil 15 % (42-75); Platelet Morphology Comment Appears Adequate; Reactive Lymphocytes 8 % (0-10)
[2018-09-29 22:12] LABS: ALT (SGPT) 11 U/L (8-55); AST (SGOT) 19 U/L (5-34); Albumin 3.2 g/dL (3.4-4.8); Alkaline Phosphatase 85 U/L (40-150); Anion Gap 11 mmol/L (10-20); BUN (Urea Nitrogen) 21 mg/dL (8.4-25.7); Bilirubin, Total 0.4 mg/dL (0.2-1.2); Calc. Creatinine Clearance 0 mL/min (70-130); Calcium 9.1 mg/dL (7.8-10.44); Carbon Dioxide 30 mmol/L (23-31); Chloride 90 mmol/L (98-107); Estimated GFR-MDRD 64; Globulin 2.9 g/dL (2.4-3.5); Glucose 118 mg/dL (83-110); Potassium 4.9 mmol/L (3.5-5.1); Protein, Total 6.1 g/dL (5.8-8.1); Sodium 126 mmol/L (136-145)
[2018-09-29 22:19] LABS: Bilirubin Negative (Negative); Blood, Urine Negative (Negative); Clarity CLEAR (Clear); Glucose, Urine (Dipstick) Negative (Negative); Leukocyte Negative (Negative); Nitrite Negative (Negative); Protein, Urine (Dipstick) 300 mg/dL (Neg-Trace); Specific Gravity, Urine 1.014 (1.002-1.036); pH, Urine 6.5 (5.0-9.0)
[2018-09-29 22:21] LABS: Bacteria/HPF None Seen HPF (None Seen); Hyaline Casts/LPF 0-3 HYALINE CAST LPF (0-3 Hyaline); Pathc Cast-AUWi Flag 0.13 (0-2.49); RBC/HPF 0-3 HPF (0-3); Squamous Epithelial None Seen HPF (0-3); WBC/HPF None Seen HPF (0-3)
[2018-09-29] MEDS ORDERED: Cefepime 2 GM VIAL ONE (23:53)
[2018-09-30] MEDS ORDERED: Sodium Chloride 0.9% 1,000 ML IV SCH (00:48)
[2018-09-30] MEDS ORDERED: Ondansetron ODT 4 MG TAB SL PRN (00:48)
[2018-09-30] MEDS ORDERED: Acetaminophen 325 MG TAB PO PRN (00:48)
[2018-09-30] MEDS ORDERED: Ondansetron PF 4 MG/2 ML Vial IVP PRN (00:48)
[2018-09-30 01:18] VITALS: BMI 23.3
[2018-09-30] MEDS ORDERED: Melatonin 3 MG TAB PO SCH (04:00)
[2018-09-30] MEDS ORDERED: Dextrose 50% Abboject 50 ML SYRINGE SLOW IVP PRN (05:09)
[2018-09-30] MEDS ORDERED: Dextrose 5% in Water 1,000 ML IV PRN (05:09)
[2018-09-30] MEDS ORDERED: Non-Formulary Item 1 EACH (Nebulizer Accessories [Aeroneb Go] 1 EACH) MC SCH (05:15)
[2018-09-30] MEDS: Sodium Chloride 0.9% 1,000 ML IV SCH ×2 (05:25→18:29)
--- NOTE | 2018-09-30 06:19 | HP ---
PRIMARY CARE DOCTOR: The patient has no reported PCP. CODE STATUS: DNR/DNI as stated by himself. TIME OF EVALUATION: 5:00 a.m. CHIEF COMPLAINT: Fever and cough. HISTORY OF PRESENT ILLNESS: This is an 83-year-old male patient with past medical history of recently diagnosed lung cancer. The patient presented with fever of 103, cough productive of green sputum. The patient reported he has been getting antibiotics in the past few weeks due to symptoms of "bronchitis" associated with generalized weakness. Dr. Yuen has been following this patient. There is plan for cancer treatment, also probably is going to be chemoradiation, not surgical. REVIEW OF SYSTEMS: CONSTITUTIONAL: The patient had fever, chills, generalized weakness. RESPIRATORY: Cough, sputum production, shortness of breath. CARDIOVASCULAR: No chest pain or palpitation. GASTROINTESTINAL: No nausea, no vomiting, diarrhea, or abdominal pain. 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 GENITOURINARY: No burning on urination. EXTREMITIES: No leg swelling. All other systems were reviewed and negative except for the findings mentioned above. PAST MEDICAL HISTORY: Positive for diabetes type 2, hyperlipidemia, hypertension, lung cancer diagnosed in August. FAMILY HISTORY: Reviewed, noncontributory for current presentation. PAST SURGICAL HISTORY: Appendectomy, coronary artery bypass graft surgery, cholecystectomy. No previous psych history. SOCIAL HISTORY: The patient lives at home alone. No alcohol. No drugs. No smoking history. Quit smoking more than 10 years ago. ALLERGIES: TO LATEX, NATURAL RUBBER, PENICILLIN. REPORTED MEDICATIONS: Zithromax. PHYSICAL EXAMINATION: VITAL SIGNS: On presentation, blood pressure 179/66, heart rate 95, respiratory rate was 24, temperature 103.1, oxygen saturation 94%. GENERAL APPEARANCE: The patient is alert, in mild distress due to fever, oriented. HEENT: Eyes, normal conjunctiva. Moist oral mucosa. Anicteric. NECK: No JVD, hyperthermic. RESPIRATORY: Bilateral air entry is decreased. No rales. No wheezes. Symmetric expansion. CARDIOVASCULAR: The patient is tachycardic, hypertensive, regular rhythm. No murmurs. No gallop. No edema. ABDOMEN: Soft. Normal bowel sounds. MUSCULOSKELETAL: Baseline range of motion and strength. No tenderness. SKIN: Warm, intact. No pallor. No rash. No redness. Patient is hyperthermic. Peripheral pulses are present. Capillary refill seems to be intact. NEUROLOGIC: No evidence of any new focal weakness. Baseline speech. Cranial nerves seem to be intact. PSYCHIATRIC: Patient is in good mood. No anxiety. Optimal judgment. EKG was reviewed. The patient has complete RBBB, sinus rhythm with a rate of 87. The patient was given cefepime and vancomycin in ER, to continue for now. Chest x-ray was done. The patient has interval worsening of the right lower lobe pneumonia, questionable new right small parapneumonic pleural effusion. LABORATORY DATA: Reviewed. The patient has white count 4.5, hemoglobin 10.1, platelet count 273 with bands of 8, neutrophils 15. Chemistry; sodium 126, potassium 4.9, chloride 90, carbon dioxide 30, anion gap 11, BUN 21, creatinine 1.1, GFR 64, glucose 118. Lactic acid 0.8. LFTs were negative. Beta-natriuretic peptide 243. Serum total protein 6.1, albumin 3.2, globulin 2.9, albumin to globulin ratio is 1.1. UA was done and was negative. ASSESSMENT AND PLAN: The patient will be placed in the hospital with following medical problems: 1. Sepsis. The patient has neutropenia. The patient has pneumonia. The patient has fever, tachycardia. The patient will be placed on broad-spectrum antibiotics, especially because the patient was in the hospital recently and there is a risk for healthcare-associated pneumonia. We will follow cultures. We will adjust treatment as per sensitivity. Also, the patient was seen recently by Dr. Geller. Pulmonary might need to be consulted in case bronch is indicated in this patient. 2. Normocytic anemia. Hemoglobin around 10. Several values seem less than before. We will monitor. No need for any acute intervention at this point. 3. Hyponatremia with sodium 126, initially was 129. The patient will receive some hydration, could be a case of SIADH. We will order electrolytes. If sodium decrease after hydration, then fluid restriction is to be started since might be a case of SIADH secondary to malignancy and Nephro consultation if no improvement. 4. Controlled diabetes which was 118. We will place the patient on sliding scale, low carb diet. 5. Deep venous thrombosis prophylaxis. 6. Hyperlipidemia. Low-cholesterol diet is advised. 7. History of coronary artery disease, status post coronary artery bypass graft. This problem is chronic, seems to be stable, reconcile home medications. 8. Uncontrolled hypertension. We will reconcile home medications. We will not treat aggressively since patient is septic and high risk of hemodynamic instability and hypotension. Job ID: [id number]
[2018-09-30] MEDS: Levothyroxine Sodium 25 MCG TAB PO SCH (07:34)
[2018-09-30 07:46] LABS: Creatinine, Urine 62.62 mg/dL (63-166); Potassium, Urine 23.8 mmol/L
[2018-09-30] MEDS: Ferrous Sulfate 325 MG TAB PO SCH ×2 (08:57→18:21)
[2018-09-30] MEDS: Ubidecarenone 50 MG CAP PO SCH (08:57)
[2018-09-30] MEDS: hydrOXYzine 10 MG TAB PO SCH (08:57)
[2018-09-30] MEDS: guaiFENesin ER 600 MG TAB PO SCH ×2 (08:57→20:42)
[2018-09-30] MEDS: Tamsulosin HCl 0.4 MG CAP PO SCH (08:57)
[2018-09-30] MEDS: Saccharomyces boulardii 250 MG CAP PO SCH (08:57)
[2018-09-30] MEDS: Cefepime 1 GM in Sodium Chloride 0.9% 100 ML IVPB SCH ×2 (12:08→23:51)
[2018-09-30] MEDS: methylPREDNISolone Sod Succ 40 MG VIAL IVP SCH ×3 (12:09→23:49)
--- NOTE | 2018-09-30 12:12 | CON ---
DATE OF CONSULTATION: HISTORY OF PRESENT ILLNESS: An 83-year-old gentleman admitted to the hospital after he felt markedly weak. He underwent an ultrasound-guided fine-needle aspiration of lymph node on 09/18/2018. Pathology was negative. He is due to start chemo and radiation, but because he was markedly weak, he called 911, came to the hospital. He got a cough productive of relatively clear sputum. He denies any chills or sweats. His temperature was 103 in the ER. He has squamous cell carcinoma involving the right lower lung, which in the PET scan was pretty much localized to the right chest. He is a former smoker. He has lost considerable weight since the loss of his . PAST MEDICAL HISTORY: Pertinent for COPD, asthma, diabetes, coronary artery disease, high cholesterol, hypertension. PAST SURGICAL HISTORY: Appendix, bypass, cholecystectomy. HOME MEDICATIONS: Includes, 1. Albuterol. 2. Flovent. 3. Coreg 6.25. 4. Atorvastatin. 5. Amlodipine 10. 6. Synthroid (Tirosint) 13. 7. Neb treatment. 8. Lasix 20. 9. Protonix 40. 10. Catapres 0.1. 11. Flomax. 12. Metformin 500 a day. 13. Atarax p.r.n. 14. He is now started on vancomycin and Maxipime. ALLERGIES: PENICILLIN. REVIEW OF SYSTEMS: Otherwise 10-point negative. PHYSICAL EXAMINATION: VITAL SIGNS: His O2 saturation is 97 on 2 L, 24, temperature 99, blood pressure 173/76. CHEST: Decreased breath sounds without any wheezing. CARDIAC: Normal S1 and S2. No gallops. ABDOMEN: No masses. LABORATORY DATA: White count 4000, H and H 10 and 29, platelet count is normal. Lytes are normal. Sodium 126. BNP is mildly elevated. IMAGING STUDIES: X-ray shows right lower lung mass. IMPRESSION: 1. Squamous cell carcinoma, right lung. 2. Chronic obstructive pulmonary disease. 3. Coronary artery disease. 4. Hyponatremia. PLAN: Hold diuretics. Continue antibiotics. Steroids are initiated, deescalate when I get cultures back. We will follow. Consultation note, 70 minutes, 50% direct patient care. Job ID: [id number]
--- NOTE | 2018-09-30 13:24 | PDOC.PN ---
- Subjective Encounter Start Date: 09/30/18 Encounter Start Time: 12:00 Subjective: awake, feels weak and tired -: son at bedside -: has sob - Objective Resuscitation Status - Order Detail: 09/30/18 05:13 Resuscitation Status Routine Resuscitation Status: DNAR: NO Resuscitation Discussed with: as stated by pt MAR Reviewed: Yes Vital Signs & Weight: Vital Signs (12 hours) Temp Pulse Resp BP Pulse Ox 09/30/18 12:15 99.2 F 85 22 H 188/79 H 98 09/30/18 12:07 24 H 2 L 09/30/18 07:51 99.3 F 91 24 H 173/76 H 97 09/30/18 04:00 101.8 F H 92 20 178/74 H 95 Weight Weight 149 lb 7 oz I&O: 09/29/18 09/30/18 10/01/18 06:59 06:59 06:59 Intake Total 550 Balance 550 Result Diagrams: 09/29/18 21:26 09/29/18 21:26 Additional Labs: Accuchecks 09/30/18 09/30/18 12:11 05:25 POC Glucose 131 H 180 H Phys Exam - Physical Examination HEENT: PERRLA, moist MMs Neck: no JVD, supple Respiratory: no rales, wheezing present Cardiovascular: RRR, no significant murmur Gastrointestinal: soft, non-tender, no distention, positive bowel sounds Musculoskeletal: no edema, pulses present Neurological: non-focal, moves all 4 limbs Dx/Plan (1) Squamous cell carcinoma of lung Code(s): C34.90 - MALIGNANT NEOPLASM OF UNSP PART OF UNSP BRONCHUS OR LUNG Status: Acute Qualifiers: Laterality: right Qualified Code(s): C34.91 - Malignant neoplasm of unspecified part of right bronchus or lung (2) PNA (pneumonia) Code(s): J18.9 - PNEUMONIA, UNSPECIFIED ORGANISM Status: Acute Qualifiers: Laterality: right Lung location: lower lobe of lung (3) Anemia Code(s): D64.9 - ANEMIA, UNSPECIFIED Status: Chronic Qualifiers: Anemia type: unspecified type (4) Chronic diastolic heart failure Code(s): I50.32 - CHRONIC DIASTOLIC (CONGESTIVE) HEART FAILURE Status: Chronic (5) CAD (coronary artery disease) Code(s): I25.10 - ATHSCL HEART DISEASE OF [place] CORONARY ARTERY W/O ANG PCTRS Status: Chronic Qualifiers: Coronary Disease-Associated Artery/Lesion type: bypass graft Tribe vs. transplanted heart: [place] heart Associated angina: without angina Qualified Code(s): I25.810 - Atherosclerosis of coronary artery bypass graft(s) without angina pectoris (6) HLD (hyperlipidemia) Code(s): E78.5 - HYPERLIPIDEMIA, UNSPECIFIED Status: Chronic Qualifiers: Hyperlipidemia type: unspecified Qualified Code(s): E78.5 - Hyperlipidemia , unspecified (7) HTN (hypertension) Code(s): I10 - ESSENTIAL (PRIMARY) HYPERTENSION Status: Chronic Qualifiers: - Plan is on cefepime and vanc, nebs -: for mediport in am, to initiate chemo and rad therapy -: d/w son and pt at bedside -: continue gentle iv hydration, flomax, lipitor, levothyroxine -: to mobilize from am, PT eval in am * . Review of Systems - Medications/Allergies Allergies/Adverse Reactions: Allergies Allergy/AdvReac Type Severity Reaction Status Date / Time Latex, Natural Rubber Allergy Verified 09/17/18 14:02 milk Allergy Verified 09/17/18 14:02 Penicillins Allergy Verified 09/30/18 02:11 Medications: Current Medications Albuterol/Ipratropium (Duoneb) 3 ml NEB [id number] [facility] Last Admin: 09/30/18 12:07 Dose: 3 ml Albuterol/Ipratropium (Duoneb) 3 ml NEB [id number] PRN PRN Reason: SOB &/or Wheezing Atorvastatin Calcium (Lipitor) 20 mg PO [facility] Coenzyme Q10 (Coenzyme Q10) 50 mg PO DAILY [facility] Last Admin: 09/30/18 08:57 Dose: 50 mg Dextrose/Water (Dextrose 50%) 25 gm SLOW IVP PRN PRN PRN Reason: Hypoglycemia Ferrous Sulfate (Feosol) 325 mg PO BID-[facility] Last Admin: 09/30/18 08:57 Dose: 325 mg Glucagon (Glucagon) 1 mg IM PRN PRN PRN Reason: Hypoglycemia Guaifenesin (Mucinex) 600 mg PO BID [facility] Last Admin: 09/30/18 08:57 Dose: 600 mg Hydroxyzine HCl (Atarax) 10 mg PO DAILY [facility] Last Admin: 09/30/18 08:57 Dose: 10 mg Cefepime HCl 1 gm/ Sodium (Chloride) 100 mls @ 200 mls/hr IVPB 1200,2359 [facility] Last Admin: 09/30/18 12:08 Dose: 100 mls Dextrose/Water (D5w) 1,000 mls @ 0 mls/hr IV .Q0M PRN PRN Reason: Hypoglycemia Vancomycin HCl 1.25 gm/ Sodium (Chloride) 250 mls @ 166.667 mls/hr IVPB 2100 [facility] Sodium Chloride (Normal Saline 0.9%) 1,000 mls @ 75 mls/hr IV .[id number] [facility] Stop: 10/04/18 10:50 Last Admin: 09/30/18 05:25 Dose: Not Given Insulin Human Lispro (Humalog) 0 units SC .MILD SLIDING SCALE PRN PRN Reason: Mild Correctional Scale Levothyroxine Sodium (Synthroid) 12.5 mcg PO 0600 [facility] Last Admin: 09/30/18 07:34 Dose: 12.5 mcg Melatonin (Melatonin) 6 mg PO HS [facility] Methylprednisolone Sodium Succinate (Solu-Medrol) 40 mg IVP Q6HR [facility] Last Admin: 09/30/18 12:09 Dose: 40 mg Miscellaneous Medication (Pharmacy To Dose) 1 each IVPB ONE [facility] Stop: 10/30/18 05:31 Mometasone Furoate/Formoterol Fumar (Dulera 200 Mcg/5 Mcg Inhaler) 2 puff INH BID-RT [facility] Ondansetron HCl (Zofran) 4 mg IVP Q6H PRN PRN Reason: Nausea/Vomiting Stop: 10/04/18 10:50 Pantoprazole Sodium (Protonix) 40 mg PO DAILY [facility] Last Admin: 09/30/18 08:57 Dose: 40 mg Saccharomyces Boulardii (Florastor) 250 mg PO DAILY [facility] Last Admin: 09/30/18 08:57 Dose: 250 mg Tamsulosin HCl (Flomax) 0.4 mg PO DAILY [facility] Last Admin: 09/30/18 08:57 Dose: 0.4 mg
--- NOTE | 2018-09-30 16:47 | CON ---
DATE OF CONSULTATION: REASON FOR CONSULT: Lung cancer. HISTORY OF PRESENT ILLNESS: Mr. 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 He has a history of COPD and a [id number] of smoking. He was diagnosed in August. He has a solitary mass, so was referred to Dr. Tomlin for possible surgery. Unfortunately, due to his poor pulmonary function, he was not a surgical candidate. It was discussed at the Tumor Board and the decision was made to have a combined modality treatment with chemotherapy and radiation. He has an appointment with Dr. Hunt this week. He has been treated for bronchitis and has been on antibiotics for several days. He presented last night to the emergency room with complaints of a fever of 103. He had a chest x-ray done, which showed right lower lobe pneumonia. He was admitted for sepsis and started on antibiotics. The patient has a history of anemia, neutropenia, and monocytosis, felt likely secondary to a myelodysplastic syndrome, although he has never had a bone marrow. His white count on admission was 4.5. He had 15% neutrophils, 8% bands, 50% lymphocytes, and 15% monocytes. Currently, he complains of weakness and fatigue. No chest pain, shortness of breath, abdominal discomfort, or diarrhea. PAST MEDICAL HISTORY: 1. 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 2. 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 3. Type 2 diabetes. 4. Hypertension. 5. Coronary artery disease. 6. Congestive heart failure. 7. Hyperlipidemia. 8. Arthritis. 9. Asthma. 10. Hypothyroidism. 11. Peptic ulcer disease. 12. Degenerative disk disease. 13. Lumbar spondylosis. 14. Gout. 15. BPH. PAST SURGICAL HISTORY: 1. Appendectomy. 2. CABG. 3. Cholecystectomy. 4. Knee replacement. 5. Carotid endarterectomy. 6. Stents in his lower extremities. 7. TURP. ALLERGIES: TO LATEX, RUBBER MAT, AND PENICILLIN. HOME MEDICATIONS: 1. Amlodipine 10 mg daily. 2. Atorvastatin 10 mg daily. 3. Coreg 6.25 mg b.i.d. 4. Clonidine 0.1 mg daily. 5. Iron. 6. Hydroxyzine 10 mg p.r.n. 7. Levothyroxine 137 mcg tablet. 8. Metformin ER 500 mg daily. 9. Protonix 40 mg daily. 10. Flomax 0.4 mg daily. FAMILY HISTORY: No family history of blood disorder or malignancy. SOCIAL HISTORY: , has 4 children. Former smoker, quit in 1990. No alcohol or illicit drug use. REVIEW OF SYSTEMS: Ten-point review of systems is negative except for noted in HPI. PHYSICAL EXAMINATION: VITAL SIGNS: Temperature is 99.3 with a T-max of 101.8, heart rate is 91, respiratory rate 24, and blood pressure is 173/76. He is 97% on 2 L. GENERAL: This is a chronically ill-appearing male, in no acute distress. HEENT: Normocephalic and atraumatic. Pupils are equal and reactive to light. He has poor dentition. NECK: Supple. CARDIOVASCULAR: regular rate and rhythm. Does have a 2/6 murmur. LUNGS: Clear anterior. ABDOMEN: Soft and nontender. Bowel sounds are positive. EXTREMITIES: No clubbing, cyanosis, or edema. SKIN: No rash. HEMATOLOGICAL: No petechiae or purpura. NEUROLOGIC: Nonfocal. PSYCH: He is alert and oriented. PERTINENT LABORATORY AND X-RAYS: Current WBCs are 4.5, hemoglobin 10.1, hematocrit 29.9, platelet count is 273,000, 15% neutrophils, 8% bands, 50% lymphocytes, 8% reactive lymphocytes, and 15% monocytes. Sodium is 126, potassium 4.9, chloride 90, CO2 is 30, BUN is 21, creatinine 1.1, lactic acid 0.8, calcium 9.1, bilirubin is 0.4, AST is 19, ALT is 11, alkaline phosphatase is 85. BNP is 243. Serum total protein 6.1, albumin 3.2, and globulin 2.9. ASSESSMENT: 1. Stage II squamous cell carcinoma of the right lung. 2. Fever with bronchitis versus pneumonia. 3. Probable myelodysplastic syndrome. 4. Chronic obstructive pulmonary disease. DISCUSSION: The patient has been started on empiric antibiotics. Dr. Geller has seen the patient. This morning, the plan was for combined chemoradiation. We will ask Dr. Hunt to see the patient while he is in the hospital. He has a MediPort scheduled with Dr. Tomlin tomorrow. We will continue supportive care. Dr. Yuen will follow. The case was discussed with her. Thank you for the consult. Job ID: [id number]
[2018-09-30] MEDS ORDERED: Mometasone Furoate 120 PUFF 220 MCG INH SCH (18:30)
[2018-09-30] MEDS: Mometasone/Formoterol 120 PUFF INHALER INH SCH (18:55)
[2018-09-30] MEDS: Melatonin 3 MG TAB PO SCH (20:42)
[2018-09-30] MEDS: Atorvastatin Calcium 20 MG TAB PO SCH (20:42)
[2018-09-30] MEDS: Vancomycin HCl 1.25 GM in Sodium Chloride 0.9% 250 ML 250 ML IVPB SCH (20:43)
[2018-09-30] MEDS ORDERED: Vancomycin HCl 1.25 GM in Sodium Chloride 0.9% 250 ML 250 ML IVPB SCH (21:00)
[2018-09-30] MEDS: HumaLOG 300 UNITS/3 ML VIAL SC PRN (21:37)
[2018-10-01 04:39] LABS: Anion Gap 12 mmol/L (10-20); BUN (Urea Nitrogen) 18 mg/dL (8.4-25.7); Calc. Creatinine Clearance 52 mL/min (70-130); Calcium 8.9 mg/dL (7.8-10.44); Carbon Dioxide 24 mmol/L (23-31); Chloride 100 mmol/L (98-107); Estimated GFR-MDRD 71; Glucose 182 mg/dL (83-110); Potassium 4.4 mmol/L (3.5-5.1); Sodium 132 mmol/L (136-145)
[2018-10-01 05:02] LABS: Band 11 % (5-11); Hemoglobin 9.2 g/dL (14.0-18.0); Lymphocytes 51 % (21-51); MDiff Complete? YES; Mean Corpuscular HGB CONC 31.4 g/dL (32.0-36.0); Mean Corpuscular Hemoglobin 26.9 pg (27.0-31.0); Mean Corpuscular Volume 85.7 fL (78.0-98.0); Mean Platelet Volume 5.9 fL (7.4-10.4); Metamyelocyte 1 % (0-0); Monocytes 11 % (0-10); Myelocyte 1 % (0-0); Neutrophil 25 % (42-75); Platelet Count 177 thou/uL (130-400); RBC Distribution Width 14.3 % (11.5-14.5); Red Blood Cell (RBC) Count 3.42 mill/uL (4.70-6.10); White Blood Cell (WBC) Count 3.8 thou/uL (4.8-10.8)
[2018-10-01] MEDS: Carvedilol 6.25 MG TAB PO SCH ×2 (05:25→15:49)
[2018-10-01] MEDS: Levothyroxine Sodium 25 MCG TAB PO SCH (05:25)
[2018-10-01] MEDS: methylPREDNISolone Sod Succ 40 MG VIAL IVP SCH ×3 (05:26→20:26)
[2018-10-01] MEDS: Mometasone/Formoterol 120 PUFF INHALER INH SCH ×2 (07:08→19:41)
[2018-10-01] MEDS: Ubidecarenone 50 MG CAP PO SCH (07:55)
[2018-10-01] MEDS: Saccharomyces boulardii 250 MG CAP PO SCH (07:55)
[2018-10-01] MEDS: hydrOXYzine 10 MG TAB PO SCH (07:55)
[2018-10-01] MEDS: Amlodipine 10 MG TAB PO SCH (07:55)
[2018-10-01] MEDS ORDERED: cloNIDine 0.1 MG TAB PO SCH (09:00)
[2018-10-01] MEDS ORDERED: Lidocaine 1% w/Epinephrine 1:100K 20 ML VIAL ONE (10:00)
[2018-10-01] MEDS ORDERED: Midazolam HCl 2 mg/2 ml Vial ONE (10:24)
[2018-10-01] MEDS ORDERED: Fentanyl 100 MCG/2 ML VIAL ONE (10:24)
[2018-10-01] MEDS ORDERED: Ondansetron HCl/PF 4 MG/2 ML Vial IVP PRN (11:18)
[2018-10-01] MEDS: Ferrous Sulfate 325 MG TAB PO SCH ×2 (11:20→15:50)
[2018-10-01] MEDS ORDERED: Ibuprofen 600 MG TAB PO PRN (12:28)
[2018-10-01] MEDS ORDERED: traMADol HCl 50 MG TAB PO PRN (12:28)
[2018-10-01] MEDS: Enoxaparin Sodium 40 MG/0.4 ML SYRINGE SC SCH (12:30)
[2018-10-01] MEDS: Cefepime 1 GM in Sodium Chloride 0.9% 100 ML IVPB SCH (12:30)
[2018-10-01] MEDS: Sodium Chloride 0.9% 1,000 ML IV SCH (12:33)
[2018-10-01] MEDS ORDERED: Morphine 2 MG/ML SYRINGE SLOW IVP PRN (12:37)
[2018-10-01] MEDS ORDERED: Ibuprofen 200 MG TAB PO PRN (12:37)
[2018-10-01] MEDS: guaiFENesin ER 600 MG TAB PO SCH ×2 (12:38→20:27)
--- NOTE | 2018-10-01 13:07 | PRG ---
DATE OF SERVICE: 10/01/2018 SUBJECTIVE: He is back from the MediPort insertion. His cough is better. Still short of breath. He is weak. OBJECTIVE: VITAL SIGNS: Temperature 97, pulse 66, respirations 16, saturations are 96% on 1 L, blood pressure 171/74. CHEST: No wheezing, crackles. CARDIAC: Normal S1, S2. No gallops. ABDOMEN: No masses. LABORATORY DATA: His white count 3.8, platelet count is normal. He had some abnormal smear, which shows metamyelocytes. He is due for a bone marrow as per Oncology. His chest x-ray post MediPort insertion shows stable findings with the right mid chest density and infiltrate. IMPRESSION: Chronic obstructive pulmonary disease, small-cell carcinoma, neutropenia, abnormal cells, severe deconditioning, weight loss. PLAN: Await input from oncology. Otherwise, continue antibiotics, neb treatment. If cultures are negative, would discontinue vancomycin. Continue Maxipime. Deescalate antibiotics. We will follow. Job ID: [id number]
[2018-10-01 13:08] LABS: INR-International Normal Ratio 1.1; PTT 30.6 SEC (22.9-36.1); Prothrombin Time 14.4 SEC (12.0-14.7)
--- NOTE | 2018-10-01 13:17 | RAD ---
PORTABLE CHEST: Date: 10/01/18 PROVIDED CLINICAL HISTORY: MediPort placement. COMPARISON: 09/29/18. FINDINGS: Interval placement of left IJ implanted port, the tip of which projects over the expected location of the right atrium. Additional significant interval change with respect to the prior examination is no t apparent. IMPRESSION: As above. POS: OFF
--- NOTE | 2018-10-01 13:45 | OP ---
DATE OF PROCEDURE: 10/01/2018 PREOPERATIVE DIAGNOSIS: Lung cancer. POSTOPERATIVE DIAGNOSIS: Lung cancer. PROCEDURE PERFORMED: Insertion of MediPort, left internal jugular vein. ANESTHESIA: Sedation with local. FLUOROSCOPY TIME: 1 minute and 2 seconds. DESCRIPTION OF PROCEDURE: After adequate sedation, the patient was prepped and draped. Lidocaine was used to infiltrate the neck, where ultrasound-guided puncture of the internal jugular vein was performed and a walker was inserted and confirmed by fluoroscopy. Following this, a separate incision was made on the anterior chest wall after lidocaine administration and then a tunnel created bringing the catheter through the tunnel. Tunnel was then passed through the peel-away sheath, which had been inserted over the wire and fluoroscopy and the catheter positioned in the superior vena cava. Peel-away sheath was removed, and catheter connected to the port, which was then placed in its tunnel. It was then flushed through the can and the wound closed in layers. The patient tolerated the procedure. Job ID: [id number]
[2018-10-01] MEDS ORDERED: Sodium Bicarbonate 2.5 MEQ/5 ML VIAL ONE (13:46)
--- NOTE | 2018-10-01 14:30 | CT ---
CT Deep Bone Perc Biopsy History: [Pancytopenia and neutropenia] Comparison: None. Findings: Patient was brought to the CT suite. All questions were answered. Informed consent was obta ined. Timeout performed. The patient's posterior pelvis was prepped and draped in normal sterile fashion. 20 mL of lidocaine w as instilled into the superficial and deep soft tissues. Using a drill kit, 10 mL of bone marrow was aspirated and a 2 cm core was obtained of the right iliac bone. Patient tolerated the procedure well without complication. Impression: Technically successful CT-guided bone marrow biopsy.
[2018-10-01] MEDS: Tamsulosin HCl 0.4 MG CAP PO SCH (15:46)
[2018-10-01] MEDS ORDERED: PROPOFOL 200 MG/20 ML VIAL ONE (17:09)
[2018-10-01] MEDS: HumaLOG 300 UNITS/3 ML VIAL SC PRN ×2 (17:40→20:25)
[2018-10-01] MEDS ORDERED: Fleet Enema 133 ML BOT PR PRN (18:00)
[2018-10-01] MEDS: cloNIDine 0.1 MG TAB PO SCH (20:26)
[2018-10-01] MEDS: Melatonin 3 MG TAB PO SCH (20:27)
[2018-10-01] MEDS: Atorvastatin Calcium 20 MG TAB PO SCH (20:27)
[2018-10-01] MEDS: Docusate 100 MG CAP PO SCH (20:27)
[2018-10-01 20:35] LABS: Vancomycin, Trough 7.7 ug/mL
[2018-10-01] MEDS: Vancomycin HCl 1.25 GM in Sodium Chloride 0.9% 250 ML 250 ML IVPB SCH (22:01)
[2018-10-01] MEDS: Vancomycin HCl 750 MG in Sodium Chloride 0.9% 250 ML 250 ML IVPB SCH (22:02)
--- NOTE | 2018-10-02 00:16 | CON ---
DATE OF CONSULTATION: 10/01/2018 REASON FOR CONSULTATION: Mr. Sanchez is an 83-year-old gentleman, who has been diagnosed with what appears to be a clinical stage IIB, T1 N1 M0 squamous cell carcinoma of the right lower lobe of the lung. HISTORY OF PRESENT ILLNESS: Mr. Vergara apparently came to the emergency room in May for not feeling well and shortness of breath. A CT angiogram which suggested a mass in the right lower lobe with the lung and infrahilar area. The nodule in the right lower lobe measures 1.6 cm and the peribronchial vascular mass measured 2.6 cm. There was no evidence of mediastinal lymphadenopathy. He had a repeat CT scan of the chest on 08/26/[address] Geller and it showed that the right lower lobe nodule has increased to 2.1 cm and the perivascular mass had increased to 3.7 cm. Subsequently, he underwent bronchoscopy, which returned a diagnosis of squamous cell carcinoma. He had a PET scan which showed hypermetabolic activity in the right lower lobe lung mass and in the perivascular mass, which were adjacent to each other. There was no evidence of mediastinal adenopathy or distant metastatic disease. He had some activity on the tongue of unknown significance, although muscle contraction could not be ruled out. He then underwent an endobronchial ultrasound and had fine-needle aspirate of an R4 lymph node, station 7 lymph node, and R10 lymph node. These were all negative for metastatic disease. He did see Dr. Tomlin, who initially felt he might be a candidate for resection, but then ultimately decided because of his age and pulmonary function status that he was not a candidate for surgical resection. He has seen Dr. Yuen and his case was discussed at our Multimodality Cancer Conference. We were considering performing chemotherapy and radiation. However, yesterday, the patient was admitted to the hospital because of increased problems with his breathing and fever and was felt to have a right lower lobe pneumonia. He has been started on antibiotics and feels much improved. He had a pretty significant cough, which has also improved in the past 24 hours. He has no hemoptysis. I have been asked to see the patient for consideration of radiation therapy. It was noted on admission that he had a decreased white blood cell count as well as anemia and therefore earlier today, he underwent bone marrow biopsy. The results of this are currently pending. He has had an MRI of the brain, which was negative. Again, he is feeling much improved since his hospitalization with improvement in his breathing and less cough. He does report about 5 pounds weight loss here in the last several months. He has no trouble with sore throat or swallowing prior to admission, although today he is feeling some sore throat since undergoing his procedure and MediPort placement. He denies any pain and voices no other complaints. PAST MEDICAL HISTORY: 1. Lung cancer as mentioned above. 2. Chronic obstructive pulmonary disease. 3. Diabetes. 4. Coronary artery disease status post CABG and status post stent placement. 5. Hypertension. 6. Hypercholesterolemia. 7. Peripheral vascular disease with stent placement in his legs. 8. Status post appendectomy. 9. Status post cholecystectomy. MEDICATIONS: 1. Albuterol. 2. Norvasc. 3. Lipitor. 4. Coreg. 5. Cefepime. 6. Lovenox. 7. Synthroid. 8. Solu-Medrol. 9. Pantoprazole. 10. Flomax. 11. Insulin. 12. Tramadol. ALLERGIES: PENICILLIN AND LATEX GLOVES. SOCIAL HISTORY: He lives in [facility] by himself. He is a recent with his passing away in May. He has not smoked cigarettes for 27 years. Prior to that, he smoked up to two packs per day. He has no alcohol use at the present time. FAMILY HISTORY: His mother at age 78 from heart disease. His father at age 76 from diabetes and COPD. There is no family history of lung cancer. REVIEW OF SYSTEMS: A 12-system review of systems is otherwise negative. PHYSICAL EXAMINATION: VITAL SIGNS: Height 5 feet 7 inches, weight 149 pounds. Blood pressure is 172/76, pulse is 66, respirations are 18, temperature is 97.6, and O2 saturation is 95% on room air. CONSTITUTIONAL: He is alert and oriented, and in no apparent distress. He is well developed and well nourished. He does appear stated age. Karnofsky performance status is 80%. EYES: Pupils equal, round, and reactive to light. Extraocular movements are intact. ENT: Oral cavity and oropharynx revealed no lesion or erythema. Palate elevates symmetrically. 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 Gingiva is intact. I see no lesion on the oral tongue. NECK: Supple without preauricular, submandibular, cervical, supraclavicular adenopathy. No thyromegaly. Larynx midline. LUNGS: Breathing nonlabored. Clear to auscultation and percussion. CARDIOVASCULAR: Heart, regular rate and rhythm without murmur. No lower extremity edema. BACK: No tenderness on fist percussion of the spine. LYMPHATIC: No axillary inguinal adenopathy. ABDOMEN: Soft, nontender, and nondistended without mass or hepatosplenomegaly. Liver percusses to normal size. SKIN: Without rash or purpura. NEUROLOGIC: Cranial nerves 2 through 12 are grossly intact. Motor strength is 5/5 in both upper and lower extremities in all muscle groups tested. Reflexes are normal and symmetrical. Gait was not tested. LABORATORY DATA: Pathology from his lung biopsy showed squamous cell carcinoma. His fine-needle aspirate from lymph nodes from R4, station 7, and R10 were all negative. CBC reveals a white blood cell count of 3800 with a hemoglobin of 9.2, hematocrit of 29.3, and platelet count 177,000. Chemistry group showed sodium 132. Creatinine was 1.0. GFR was 71. Calcium was 8.9. Liver function tests were normal. BNP was elevated at 243. Albumin was 3.2. Blood sugar is elevated at 241. RADIOLOGY DATA: Chest x-ray on admission showed infiltrate in the right lower lobe consistent with pneumonia. I did personally review a CT scan of the chest from August, PET scan from August, and CT angiogram from May. Again, he has a right lower lobe nodule with an adjacent perivascular mass, which is possibly hilar adenopathy. These have increased in size since May. They now measure 2.1 cm in size and 3.7 cm in size. These were the only areas of hypermetabolic activity. There was no evidence of distant metastatic disease. He had some hypermetabolic activity on the tongue of unknown significance. ASSESSMENT: Mr. Vergara is an 83-year-old gentleman, who has a clinical stage IIB, T1 N1 M0 squamous cell carcinoma of the right lower lobe of the lung. He was felt by Dr. Tomlin not to be a surgical candidate. PLAN: His case was discussed for multimodality cancer conference. I did have a discussion today with Mr. Vergara regarding his diagnosis, prognosis, prognostic factors, treatment options. Dr. Yuen and I are in agreement that we should treat him with chemotherapy and radiation to try and control his disease and potentially cure his lung cancer. The logistics of radiation, as well as the benefits and risk of treatment were discussed. The simulation and daily treatment procedure were discussed. Side effects would include but not be limited to skin reaction, fatigue, lower blood counts, difficulty or pain with swallowing, weight loss, possible need for PEG tube for nutritional support, small risk of radiation pneumonitis, and small risk of damage to any other structure which receives radiation therapy. He is tentatively agreeable to proceed with radiations recommended to him. He does understand that he will need to recover from his pneumonia before we can start his treatment. Hopefully, we will be able to do a simulation next week and begin his treatment shortly thereafter. I will coordinate the delivery of his radiation therapy with Dr. Yuen and I have discussed the case with her. We are waiting the results of his bone marrow biopsy. This could impact his decision in regard to chemotherapy. Thank you for this interesting consultation. Sincerely, Job ID: [id number]
[2018-10-02] MEDS: Cefepime 1 GM in Sodium Chloride 0.9% 100 ML IVPB SCH (00:29)
[2018-10-02] MEDS: HumaLOG 300 UNITS/3 ML VIAL SC PRN ×3 (05:45→21:09)
[2018-10-02] MEDS: Levothyroxine Sodium 25 MCG TAB PO SCH (05:45)
[2018-10-02] MEDS: Mometasone/Formoterol 120 PUFF INHALER INH SCH ×2 (08:00→18:56)
[2018-10-02] MEDS: methylPREDNISolone Sod Succ 40 MG VIAL IVP SCH (08:35)
[2018-10-02] MEDS: Amlodipine 10 MG TAB PO SCH (08:35)
[2018-10-02] MEDS: guaiFENesin ER 600 MG TAB PO SCH ×2 (08:35→21:09)
[2018-10-02] MEDS: Enoxaparin Sodium 40 MG/0.4 ML SYRINGE SC SCH (08:35)
[2018-10-02] MEDS: cloNIDine 0.1 MG TAB PO SCH ×3 (08:36→21:08)
[2018-10-02] MEDS: Furosemide 20 MG TAB PO SCH (08:36)
[2018-10-02] MEDS: Ferrous Sulfate 325 MG TAB PO SCH ×2 (08:36→16:09)
[2018-10-02] MEDS: Ubidecarenone 50 MG CAP PO SCH (08:36)
[2018-10-02] MEDS: Tamsulosin HCl 0.4 MG CAP PO SCH (08:37)
[2018-10-02] MEDS: Saccharomyces boulardii 250 MG CAP PO SCH (08:37)
[2018-10-02] MEDS: Carvedilol 6.25 MG TAB PO SCH ×2 (08:37→16:08)
[2018-10-02] MEDS: Docusate 100 MG CAP PO SCH ×2 (08:37→21:08)
[2018-10-02] MEDS: Polyethylene Glycol 3350 17 GM Packet PO SCH (08:38)
[2018-10-02] MEDS: hydrOXYzine 10 MG TAB PO SCH (08:45)
--- NOTE | 2018-10-02 09:24 | PRG ---
DATE OF SERVICE: 10/02/2018 SUBJECTIVE: This morning, he is doing better. He is weak. OBJECTIVE: VITAL SIGNS: His blood pressure is 172/73, pulse 75, saturations 98% on 1 L, respirations 18. CHEST: Reveals no wheezing. CARDIAC: Normal S1 and S2. No gallop. ABDOMEN: No masses. IMPRESSION: Chronic obstructive pulmonary disease, right lung squamous cell carcinoma, neutropenia, status post bone marrow. PLAN: Await information regarding the bone marrow. Continue PT, supportive care. Disposition as per Oncology. Job ID: [id number]
[2018-10-02] MEDS: Vancomycin HCl 750 MG in Sodium Chloride 0.9% 250 ML 250 ML IVPB SCH (09:59)
--- NOTE | 2018-10-02 11:30 | PDOC.PN ---
- Subjective Encounter Start Date: 10/02/18 Encounter Start Time: 11:15 Subjective: feels better, is eating better as well -: no sob but feels weak - Objective Resuscitation Status - Order Detail: 09/30/18 05:13 Resuscitation Status Routine Resuscitation Status: DNAR: NO Resuscitation Discussed with: as stated by pt MAR Reviewed: Yes Vital Signs & Weight: Vital Signs (12 hours) Temp Pulse Resp BP BP BP Pulse Ox 10/02/18 08:37 172/73 H 10/02/18 08:36 172/73 H 10/02/18 08:35 75 10/02/18 08:20 98.0 F 85 20 182/77 H 92 L 10/02/18 08:04 94 L 10/02/18 08:03 75 16 92 L 10/02/18 08:00 75 16 92 L 10/02/18 05:30 172/60 H 10/02/18 04:42 97.4 F L 86 18 188/79 H 95 10/02/18 01:35 95 10/02/18 00:38 97.7 F 72 18 179/70 H 95 Weight Admit Weight 149 lb 7 oz Weight 149 lb 7 oz I&O: 10/01/18 10/02/18 10/03/18 06:59 06:59 06:59 Intake Total 8 1959 Output Total 250 Balance 1668 1959 Result Diagrams: 10/01/18 04:06 10/01/18 04:06 Additional Labs: Accuchecks 10/02/18 10/02/18 10/01/18 11:04 05:44 20:04 POC Glucose 278 H 210 H 246 H 10/01/18 16:56 POC Glucose 241 H Phys Exam - Physical Examination HEENT: PERRLA, moist MMs Neck: no JVD, supple Respiratory: no wheezing, no rales Cardiovascular: RRR, no significant murmur Gastrointestinal: soft, non-tender, positive bowel sounds Musculoskeletal: no edema, pulses present Neurological: non-focal, moves all 4 limbs Psychiatric: normal affect, A&O x 3 Dx/Plan (1) Squamous cell carcinoma of lung Code(s): C34.90 - MALIGNANT NEOPLASM OF UNSP PART OF UNSP BRONCHUS OR LUNG Status: Acute Qualifiers: Laterality: right Qualified Code(s): C34.91 - Malignant neoplasm of unspecified part of right bronchus or lung (2) PNA (pneumonia) Code(s): J18.9 - PNEUMONIA, UNSPECIFIED ORGANISM Status: Acute Qualifiers: Laterality: right Lung location: lower lobe of lung (3) Anemia Code(s): D64.9 - ANEMIA, UNSPECIFIED Status: Chronic Qualifiers: Anemia type: unspecified type (4) Chronic diastolic heart failure Code(s): I50.32 - CHRONIC DIASTOLIC (CONGESTIVE) HEART FAILURE Status: Chronic (5) CAD (coronary artery disease) Code(s): I25.10 - ATHSCL HEART DISEASE OF [place] CORONARY ARTERY W/O ANG PCTRS Status: Chronic Qualifiers: Coronary Disease-Associated Artery/Lesion type: bypass graft [place] vs. transplanted heart: [place] heart Associated angina: without angina Qualified Code(s): I25.810 - Atherosclerosis of coronary artery bypass graft(s) without angina pectoris (6) HLD (hyperlipidemia) Code(s): E78.5 - HYPERLIPIDEMIA, UNSPECIFIED Status: Chronic Qualifiers: Hyperlipidemia type: unspecified Qualified Code(s): E78.5 - Hyperlipidemia , unspecified (7) HTN (hypertension) Code(s): I10 - ESSENTIAL (PRIMARY) HYPERTENSION Status: Chronic Qualifiers: - Plan switch antibiotics to omnicef, cultures are -ve -: nebs, steroids -: has been afebrile since admission -: is on coreg and clonidine increased dose now, norvasc, lasix -: PT to mobilize as tolerated. * . Review of Systems - Medications/Allergies Allergies/Adverse Reactions: Allergies Allergy/AdvReac Type Severity Reaction Status Date / Time Latex, Natural Rubber Allergy Verified 09/17/18 14:02 milk Allergy Verified 09/17/18 14:02 Penicillins Allergy Verified 09/30/18 02:11 Medications: Current Medications Acetaminophen (Tylenol) 650 mg PO Q4H PRN PRN Reason: Headache/Fever or Pain Albuterol/Ipratropium (Duoneb) 3 ml NEB [id number] [facility] Last Admin: 10/02/18 08:03 Dose: 3 ml Albuterol/Ipratropium (Duoneb) 3 ml NEB [id number] PRN PRN Reason: SOB &/or Wheezing Amlodipine Besylate (Norvasc) 10 mg PO DAILY [facility] Last Admin: 10/02/18 08:35 Dose: 10 mg Atorvastatin Calcium (Lipitor) 20 mg PO [facility] Last Admin: 10/01/18 20:27 Dose: 20 mg [facility] ([facility] Last Admin: 10/02/18 08:37 Dose: 12.5 mg Cefdinir (Omnicef) 300 mg PO BID [facility] Clonidine (Catapres) 0.1 mg PO TID [facility] Last Admin: 10/02/18 08:36 Dose: 0.1 mg Coenzyme Q10 (Coenzyme Q10) 50 mg PO DAILY [facility] Last Admin: 10/02/18 08:36 Dose: 50 mg Dextrose/Water (Dextrose 50%) 25 gm SLOW IVP PRN PRN PRN Reason: Hypoglycemia Docusate Sodium (Colace) 100 mg PO BID [facility] Last Admin: 10/02/18 08:37 Dose: 100 mg Enoxaparin Sodium (Lovenox) 40 mg SC 0900 [facility] Last Admin: 10/02/18 08:35 Dose: 40 mg Ferrous Sulfate (Feosol) [facility] Last Admin: 10/02/18 08:36 Dose: 325 mg Furosemide (Lasix) 20 mg PO DAILY [facility] Last Admin: 10/02/18 08:36 Dose: 20 mg Glucagon (Glucagon) 1 mg IM PRN PRN PRN Reason: Hypoglycemia Guaifenesin (Mucinex) 600 mg PO BID [facility] Last Admin: 10/02/18 08:35 Dose: 600 mg Hydroxyzine HCl (Atarax) 10 mg PO DAILY [facility] Last Admin: 10/02/18 08:45 Dose: 10 mg Dextrose/Water (D5w) 1,000 mls @ 0 mls/hr IV .Q0M PRN PRN Reason: Hypoglycemia Ibuprofen (Motrin) 400 mg PO Q6H PRN PRN Reason: Pain Insulin Human Lispro (Humalog) 0 units SC .MILD SLIDING SCALE PRN PRN Reason: Mild Correctional Scale Last Admin: 10/02/18 05:45 Dose: 3 unit Levothyroxine Sodium (Synthroid) 12.5 mcg PO 0600 [facility] Last Admin: 10/02/18 05:45 Dose: 12.5 mcg Melatonin (Melatonin) 6 mg PO [facility] Last Admin: 10/01/18 20:27 Dose: 6 mg Miscellaneous Medication (Pharmacy To Dose) 1 each IVPB ONE [facility] Stop: 10/30/18 05:31 Mometasone Furoate/Formoterol Fumar (Dulera 200 Mcg/5 Mcg Inhaler) 2 puff INH BID-RT [facility] Last Admin: 10/02/18 08:00 Dose: 2 puff Morphine Sulfate (Morphine) 2 mg SLOW IVP Q4H PRN PRN Reason: Severe Pain (7-10) Ondansetron HCl (Zofran) 4 mg IVP Q6H PRN PRN Reason: Nausea/Vomiting Stop: 10/04/18 10:50 Pantoprazole Sodium (Protonix) 40 mg PO DAILY [facility] Last Admin: 10/02/18 08:37 Dose: 40 mg Polyethylene Glycol (Miralax) 17 gm PO DAILY [facility] Last Admin: 10/02/18 08:38 Dose: 17 gm Prednisone (Prednisone) 20 mg PO [facility] Saccharomyces Boulardii (Florastor) 250 mg PO DAILY [facility] Last Admin: 10/02/18 08:37 Dose: 250 mg Sodium Biphosphate/Sodium Phosphate (Fleet Enema) 133 ml [place] 1800 PRN PRN Reason: Constipation Sodium Chloride (Flush - Normal Saline) 10 ml IVF Q12HR [facility] Last Admin: 10/02/18 08:38 Dose: 10 ml Sodium Chloride (Flush - Normal Saline) 10 ml IVF PRN PRN PRN Reason: Saline Flush Last Admin: 10/02/18 00:29 Dose: 10 ml Tamsulosin HCl (Flomax) 0.4 mg PO DAILY [facility] Last Admin: 10/02/18 08:37 Dose: 0.4 mg Tramadol HCl (Ultram) 100 mg PO Q6H PRN PRN Reason: Pain
[2018-10-02] MEDS: Melatonin 3 MG TAB PO SCH (21:07)
[2018-10-02] MEDS: Atorvastatin Calcium 20 MG TAB PO SCH (21:09)
[2018-10-02] MEDS: Cefdinir 300 MG CAP PO SCH (21:09)
[2018-10-03] MEDS: Levothyroxine Sodium 25 MCG TAB PO SCH (06:20)
[2018-10-03] MEDS: Mometasone/Formoterol 120 PUFF INHALER INH SCH ×2 (08:01→19:28)
[2018-10-03] MEDS ORDERED: cloNIDine 0.1 MG TAB PO SCH (08:15)
[2018-10-03] MEDS: Ferrous Sulfate 325 MG TAB PO SCH ×2 (08:32→16:38)
[2018-10-03] MEDS: Tamsulosin HCl 0.4 MG CAP PO SCH (08:32)
[2018-10-03] MEDS: guaiFENesin ER 600 MG TAB PO SCH ×2 (08:32→21:07)
[2018-10-03] MEDS: Polyethylene Glycol 3350 17 GM Packet PO SCH (08:32)
[2018-10-03] MEDS: Docusate 100 MG CAP PO SCH ×2 (08:32→21:07)
[2018-10-03] MEDS: Ubidecarenone 50 MG CAP PO SCH (08:32)
[2018-10-03] MEDS: Saccharomyces boulardii 250 MG CAP PO SCH (08:32)
[2018-10-03] MEDS: Enoxaparin Sodium 40 MG/0.4 ML SYRINGE SC SCH (08:32)
[2018-10-03] MEDS: Furosemide 20 MG TAB PO SCH (08:32)
[2018-10-03] MEDS: Cefdinir 300 MG CAP PO SCH ×2 (08:33→21:08)
[2018-10-03] MEDS: predniSONE 20 MG TAB PO SCH (08:33)
[2018-10-03] MEDS: Amlodipine 10 MG TAB PO SCH (08:34)
[2018-10-03] MEDS: cloNIDine 0.1 MG TAB PO SCH ×2 (08:35→21:07)
[2018-10-03] MEDS: Carvedilol 6.25 MG TAB PO SCH ×3 (08:37→21:08)
[2018-10-03] MEDS: hydrOXYzine 10 MG TAB PO SCH (08:38)
[2018-10-03] MEDS ORDERED: CLONIDINE HCL 0.1 MG PO SCH (09:00)
--- NOTE | 2018-10-03 10:34 | EKG ---
Test Reason : SEPSIS Blood Pressure : / mmHG Vent. Rate : 087 BPM Atrial Rate : 087 BPM P-R Int : 180 ms QRS Dur : 140 ms QT Int : 372 ms P-R-T Axes : 068 099 028 degrees QTc Int : 447 ms Normal sinus rhythm Possible Left atrial enlargement Right bundle branch block Abnormal ECG Confirmed by CARTER ORTIZ ([id number]), editor book ALBERT KURTZ ([id number]) on 10/03/2018 10:34:04 AM Referred By: Confirmed By:CARTER ORTIZ
--- NOTE | 2018-10-03 11:19 | PDOC.PN ---
- Subjective Encounter Start Date: 10/03/18 Encounter Start Time: 11:17 Patient seen and examined, no new issues or complaints. All questions answered. - Objective Resuscitation Status - Order Detail: 09/30/18 05:13 Resuscitation Status Routine Resuscitation Status: DNAR: NO Resuscitation Discussed with: as stated by pt Vital Signs & Weight: Vital Signs (12 hours) Temp Pulse Resp BP BP BP Pulse Ox 10/03/18 09:30 175/65 H 10/03/18 08:37 190/77 H 10/03/18 08:35 190/77 H 10/03/18 08:34 64 190/77 H 10/03/18 08:33 190/77 H 10/03/18 08:04 91 L 10/03/18 08:01 66 18 91 L 10/03/18 08:00 93 L 10/03/18 07:59 62 20 91 L 10/03/18 07:35 97.4 F L 64 20 190/77 H 93 L 10/03/18 00:57 97.6 F 93 L Weight Admit Weight 149 lb 7 oz Weight 149 lb 7 oz I&O: 10/02/18 10/03/18 10/04/18 06:59 06:59 06:59 Intake Total 1960 630 Balance 1960 630 Result Diagrams: 10/01/18 04:06 10/01/18 04:06 Additional Labs: Accuchecks 10/03/18 10/02/18 10/02/18 05:45 20:18 16:04 POC Glucose 151 H 266 H 197 H 10/02/18 11:04 POC Glucose 278 H Phys Exam - Physical Examination Constitutional: NAD HEENT: PERRLA, moist MMs, sclera anicteric Neck: no nodes, no JVD, supple Respiratory: no wheezing, no rales, no rhonchi Cardiovascular: RRR, no significant murmur, no rub Gastrointestinal: soft, non-tender, no distention Musculoskeletal: no edema, pulses present Dx/Plan (1) Squamous cell carcinoma of lung Code(s): C34.90 - MALIGNANT NEOPLASM OF UNSP PART OF UNSP BRONCHUS OR LUNG Status: Acute Qualifiers: Laterality: right Qualified Code(s): C34.91 - Malignant neoplasm of unspecified part of right bronchus or lung (2) SONIYA (acute kidney injury) Code(s): N17.9 - ACUTE KIDNEY FAILURE, UNSPECIFIED Status: Acute (3) Diabetes mellitus Code(s): E11.9 - TYPE 2 DIABETES MELLITUS WITHOUT COMPLICATIONS Status: Acute Qualifiers: Diabetes mellitus type: type 2 Diabetes mellitus complication status: without complication Comment: Controlled (4) Hypothyroidism Code(s): E03.9 - HYPOTHYROIDISM, UNSPECIFIED Status: Acute (5) Anemia Code(s): D64.9 - ANEMIA, UNSPECIFIED Status: Chronic Qualifiers: Anemia type: unspecified type (6) CAD (coronary artery disease) Code(s): I25.10 - ATHSCL HEART DISEASE OF [place] CORONARY ARTERY W/O ANG PCTRS Status: Chronic Qualifiers: Coronary Disease-Associated Artery/Lesion type: bypass graft [place] vs. transplanted heart: [place] heart Associated angina: without angina Qualified Code(s): I25.810 - Atherosclerosis of coronary artery bypass graft(s) without angina pectoris (7) HLD (hyperlipidemia) Code(s): E78.5 - HYPERLIPIDEMIA, UNSPECIFIED Status: Chronic Qualifiers: Hyperlipidemia type: unspecified Qualified Code(s): E78.5 - Hyperlipidemia , unspecified - Plan * Pending bone marrow bx results * radiation + chemo depending on bx results * cont current plan of care for now * oncology and radiation oncology following * labs in AM * case and plan d/w patient at length, he understood and agreed with this plan.
[2018-10-03] MEDS: HumaLOG 300 UNITS/3 ML VIAL SC PRN ×2 (11:52→16:38)
--- NOTE | 2018-10-03 13:18 | PRG ---
DATE OF SERVICE: 10/03/2018 SUBJECTIVE: The patient is having difficulty with cough, and congestion. OBJECTIVE: VITAL SIGNS: On exam; temperature 97.5, pulse 61, respirations 20, O2 saturation 95% on 2 L, and blood pressure 166/50. HEENT: Unremarkable. NECK: No JVD. LUNGS: He has diminished breath sounds at both bases, more so on the left than the right. CARDIAC: Regular. ABDOMEN: Soft. EXTREMITIES: No edema. DIAGNOSTIC DATA: His chest x-ray from several days ago showed a right pleural effusion. LABORATORY DATA: White blood cell count 3.8, hemoglobin 9.2, hematocrit 29.3, and platelet count 177 with 25% neutrophils. Chemistry was not done. ASSESSMENT: 1. Chronic obstructive pulmonary disease. 2. Right lung squamous cell carcinoma. 3. Neutropenia. 4. Small left effusion by exam. PLAN: Awaiting biopsy results. Pulmonary status seems stable at this time. Increase activity as tolerated. Job ID: [id number]
[2018-10-03] MEDS: hydrALAZINE 20 MG/ML VIAL SLOW IVP PRN (17:15)
[2018-10-03] MEDS: Atorvastatin Calcium 20 MG TAB PO SCH (21:07)
[2018-10-03] MEDS: Melatonin 3 MG TAB PO SCH (21:08)
[2018-10-03] MEDS: Acetaminophen 325 MG TAB PO PRN (23:53)
[2018-10-04] MEDS: Levothyroxine Sodium 25 MCG TAB PO SCH (05:47)
[2018-10-04] MEDS: Mometasone/Formoterol 120 PUFF INHALER INH SCH ×2 (08:30→19:35)
[2018-10-04] MEDS: Enoxaparin Sodium 40 MG/0.4 ML SYRINGE SC SCH (08:30)
[2018-10-04] MEDS: Carvedilol 6.25 MG TAB PO SCH ×2 (08:31→21:11)
[2018-10-04] MEDS: cloNIDine 0.1 MG TAB PO SCH ×2 (08:31→21:10)
[2018-10-04] MEDS: Cefdinir 300 MG CAP PO SCH ×2 (08:31→21:10)
[2018-10-04] MEDS: hydrOXYzine 10 MG TAB PO SCH (08:31)
[2018-10-04] MEDS: Saccharomyces boulardii 250 MG CAP PO SCH (08:31)
[2018-10-04] MEDS: Tamsulosin HCl 0.4 MG CAP PO SCH (08:31)
[2018-10-04] MEDS: guaiFENesin ER 600 MG TAB PO SCH (08:32)
[2018-10-04] MEDS: Docusate 100 MG CAP PO SCH ×2 (08:32→21:11)
[2018-10-04] MEDS: Ubidecarenone 50 MG CAP PO SCH (08:33)
[2018-10-04] MEDS: Amlodipine 10 MG TAB PO SCH (08:33)
[2018-10-04] MEDS: Furosemide 20 MG TAB PO SCH (08:33)
[2018-10-04] MEDS: Ferrous Sulfate 325 MG TAB PO SCH ×2 (08:33→16:45)
[2018-10-04] MEDS: predniSONE 20 MG TAB PO SCH (08:33)
[2018-10-04] MEDS: Polyethylene Glycol 3350 17 GM Packet PO SCH (08:34)
--- NOTE | 2018-10-04 13:17 | PRG ---
DATE OF SERVICE: 10/04/2018 SUBJECTIVE: The patient is in good spirits. No complaints. OBJECTIVE: VITAL SIGNS: Temperature 97.7, pulse 66, blood pressure 182/83, and O2 saturation 96%. HEENT: Unremarkable. NECK: No JVD. CHEST: Clear to auscultation. CARDIAC: S1 and S2. Regular. ABDOMEN: Soft. EXTREMITIES: No edema. LABORATORY DATA: No labs were obtained today. ASSESSMENT: 1. Chronic obstructive pulmonary disease - clinically stable. 2. Right lung squamous cell carcinoma. 3. Neutropenia. 4. Small left pleural effusion. PLAN: Awaiting biopsy results. His pulmonary status is currently stable. Job ID: [id number]
--- NOTE | 2018-10-04 14:10 | PDOC.PN ---
- Subjective Encounter Start Date: 10/04/18 Encounter Start Time: 14:04 Patient seen and examined, no new issues or complaints. - Objective Resuscitation Status - Order Detail: 09/30/18 05:13 Resuscitation Status Routine Resuscitation Status: DNAR: NO Resuscitation Discussed with: as stated by pt Vital Signs & Weight: Vital Signs (12 hours) Temp Pulse Pulse Pulse Resp BP BP 10/04/18 12:00 98.3 F 68 16 10/04/18 10:24 76 72 182/83 H 10/04/18 08:33 66 10/04/18 08:31 168/64 H 10/04/18 08:30 66 16 10/04/18 08:00 10/04/18 07:50 97.7 F 70 16 BP BP BP BP Pulse Ox Pulse Ox Pulse Ox 10/04/18 12:00 172/58 H 91 L 10/04/18 10:24 160/73 H 182/72 H 95 88 L 10/04/18 08:33 10/04/18 08:31 10/04/18 08:30 92 L 10/04/18 08:00 90 L 10/04/18 07:50 180/58 H 90 L Pulse Ox 10/04/18 12:00 10/04/18 10:24 96 10/04/18 08:33 10/04/18 08:31 10/04/18 08:30 10/04/18 08:00 10/04/18 07:50 Weight Admit Weight 149 lb 7 oz Weight 149 lb 7 oz I&O: 10/03/18 10/04/18 10/05/18 06:59 06:59 06:59 Intake Total 630 610 Balance 630 610 Result Diagrams: 10/01/18 04:06 10/01/18 04:06 Additional Labs: Accuchecks 10/04/18 10/04/18 10/03/18 10:59 05:48 21:07 POC Glucose 192 H 114 H 179 H 10/03/18 16:10 POC Glucose 210 H Phys Exam - Physical Examination Constitutional: NAD HEENT: PERRLA, moist MMs Neck: no nodes, no JVD, supple Respiratory: no wheezing, no rales, no rhonchi Cardiovascular: RRR, no significant murmur, no rub Gastrointestinal: soft, non-tender, no distention Musculoskeletal: no edema, pulses present Dx/Plan (1) Squamous cell carcinoma of lung Code(s): C34.90 - MALIGNANT NEOPLASM OF UNSP PART OF UNSP BRONCHUS OR LUNG Status: Acute Qualifiers: Laterality: right Qualified Code(s): C34.91 - Malignant neoplasm of unspecified part of right bronchus or lung (2) SONIYA (acute kidney injury) Code(s): N17.9 - ACUTE KIDNEY FAILURE, UNSPECIFIED Status: Acute (3) Diabetes mellitus Code(s): E11.9 - TYPE 2 DIABETES MELLITUS WITHOUT COMPLICATIONS Status: Acute Qualifiers: Diabetes mellitus type: type 2 Diabetes mellitus complication status: without complication Comment: Controlled (4) Hypothyroidism Code(s): E03.9 - HYPOTHYROIDISM, UNSPECIFIED Status: Acute (5) Anemia Code(s): D64.9 - ANEMIA, UNSPECIFIED Status: Chronic Qualifiers: Anemia type: unspecified type (6) CAD (coronary artery disease) Code(s): I25.10 - ATHSCL HEART DISEASE OF [place] CORONARY ARTERY W/O ANG PCTRS Status: Chronic Qualifiers: Coronary Disease-Associated Artery/Lesion type: bypass graft [place] vs. transplanted heart: [place] heart Associated angina: without angina Qualified Code(s): I25.810 - Atherosclerosis of coronary artery bypass graft(s) without angina pectoris (7) HLD (hyperlipidemia) Code(s): E78.5 - HYPERLIPIDEMIA, UNSPECIFIED Status: Chronic Qualifiers: Hyperlipidemia type: unspecified Qualified Code(s): E78.5 - Hyperlipidemia , unspecified - Plan * Awaiting bone marrow bx * radiation + chemo will be determined based on bone marrow bx results * patient wants his mucinex stopped, will oblige * labs in AM * pulmonary and oncology following * case and plan d/w patient at length, he understood and agreed with this plan.
[2018-10-04] MEDS: HumaLOG 300 UNITS/3 ML VIAL SC PRN ×2 (16:44→21:11)
[2018-10-04] MEDS: Melatonin 3 MG TAB PO SCH (21:09)
[2018-10-04] MEDS: Atorvastatin Calcium 20 MG TAB PO SCH (21:10)
[2018-10-05] MEDS: Acetaminophen 325 MG TAB PO PRN (02:07)
[2018-10-05] MEDS: hydrALAZINE 20 MG/ML VIAL SLOW IVP PRN (04:06)
[2018-10-05] MEDS: Levothyroxine Sodium 25 MCG TAB PO SCH (05:13)
[2018-10-05] MEDS: Mometasone/Formoterol 120 PUFF INHALER INH SCH ×2 (07:49→19:19)
[2018-10-05] MEDS: Ferrous Sulfate 325 MG TAB PO SCH ×2 (08:47→17:05)
[2018-10-05] MEDS: Carvedilol 6.25 MG TAB PO SCH ×2 (08:47→20:05)
[2018-10-05] MEDS: Amlodipine 10 MG TAB PO SCH (08:47)
[2018-10-05] MEDS: Cefdinir 300 MG CAP PO SCH ×2 (08:47→20:05)
[2018-10-05] MEDS: predniSONE 20 MG TAB PO SCH (08:47)
[2018-10-05] MEDS: cloNIDine 0.1 MG TAB PO SCH ×2 (08:48→20:05)
[2018-10-05] MEDS: Docusate 100 MG CAP PO SCH ×2 (08:48→20:05)
[2018-10-05] MEDS: hydrOXYzine 10 MG TAB PO SCH (08:48)
[2018-10-05] MEDS: Enoxaparin Sodium 40 MG/0.4 ML SYRINGE SC SCH (08:48)
[2018-10-05] MEDS: Furosemide 20 MG TAB PO SCH (08:48)
[2018-10-05] MEDS: Ubidecarenone 50 MG CAP PO SCH (08:49)
[2018-10-05] MEDS: Polyethylene Glycol 3350 17 GM Packet PO SCH (08:49)
[2018-10-05] MEDS: Tamsulosin HCl 0.4 MG CAP PO SCH (08:49)
[2018-10-05] MEDS: Saccharomyces boulardii 250 MG CAP PO SCH (08:49)
--- NOTE | 2018-10-05 10:43 | PRG ---
DATE OF SERVICE: 10/05/2018 SUBJECTIVE: This morning he is better. OBJECTIVE: VITAL SIGNS: Blood pressure 170/56, pulse 65, sats 95%_ respiratory rate 18. CHEST: Minimal wheezing, right greater than left. CARDIAC: Normal S1 and S2. No gallops. ABDOMEN: No masses. IMPRESSION: 1. Right lung squamous cell carcinoma with marked narrowing. 2. Chronic obstructive pulmonary disease. 3. Severe deconditioning. 4. Abnormal WBC. Awaiting final bone marrow results. Disposition as per Oncology. Probably, he is going to need home health following his discharge. Continue PT, supportive care. We will follow. Job ID: [id number] MTDD
--- NOTE | 2018-10-05 15:32 | PDOC.PN ---
- Subjective Encounter Start Date: 10/05/18 Encounter Start Time: 15:31 Subjective: feels weak and SOB w minimal exertion - Objective Resuscitation Status - Order Detail: 09/30/18 05:13 Resuscitation Status Routine Resuscitation Status: DNAR: NO Resuscitation Discussed with: as stated by pt MAR Reviewed: Yes Vital Signs & Weight: Vital Signs (12 hours) Temp Pulse Resp BP BP BP Pulse Ox 10/05/18 13:16 65 16 90 L 10/05/18 11:45 98.3 F 70 18 168/54 H 93 L 10/05/18 10:17 93 L 10/05/18 10:15 84 L 10/05/18 08:48 170/56 H 10/05/18 08:47 65 170/56 H 10/05/18 08:00 92 L 10/05/18 07:52 92 L 10/05/18 07:51 65 16 92 L 10/05/18 07:50 97.6 F 65 20 170/56 H 92 L 10/05/18 07:49 65 6 L 92 L 10/05/18 05:18 66 16 166/52 H 10/05/18 04:06 65 195/81 H 10/05/18 03:56 98.2 F 69 20 186/60 H 91 L Weight Admit Weight 149 lb 7 oz Weight 149 lb I&O: 10/04/18 10/05/18 10/06/18 06:59 06:59 06:59 Intake Total 610 160 Balance 610 160 Result Diagrams: 10/01/18 04:06 10/01/18 04:06 Additional Labs: Accuchecks 10/05/18 10/05/18 10/04/18 11:21 05:42 19:28 POC Glucose 117 H 98 264 H 10/04/18 15:52 POC Glucose 195 H Microbiology 09/30/18 17:39 Sputum - Natural Respiratory Culture - Final 09/29/18 22:02 Urine Straight Catheter Urine Culture - Final NO GROWTH AT 36 HOURS 09/29/18 21:26 Venous blood - Right Arm Blood Culture - Final NO GROWTH IN 5 DAYS 09/29/18 21:26 Venous blood - Left Arm Blood Culture - Final Coagulase Neg Staphylococcus Laboratory Tests 04/13/17 04/14/17 04/16/17 11:05 04:14 04:41 Creatinine 1.02 0.99 1.44 H Phys Exam - Physical Examination Constitutional: NAD HEENT: PERRLA, moist MMs, sclera anicteric, oral pharynx no lesions Neck: no nodes, no JVD, supple, full ROM Respiratory: no wheezing, no rales, no rhonchi, clear to auscultation bilateral Cardiovascular: RRR, no significant murmur Gastrointestinal: soft, non-tender, no distention, positive bowel sounds Musculoskeletal: no edema, pulses present Neurological: non-focal, normal sensation, moves all 4 limbs Psychiatric: normal affect, A&O x 3 Skin: no rash Dx/Plan (1) PNA (pneumonia) Code(s): J18.9 - PNEUMONIA, UNSPECIFIED ORGANISM Status: Acute Qualifiers: Laterality: right Lung location: lower lobe of lung Comment: on Omnicef now. s/p IV ABx.al Cx negative (2) Squamous cell carcinoma of lung Code(s): C34.90 - MALIGNANT NEOPLASM OF UNSP PART OF UNSP BRONCHUS OR LUNG Status: Acute Qualifiers: Laterality: right Qualified Code(s): C34.91 - Malignant neoplasm of unspecified part of right bronchus or lung Comment: Awaiting BM Bx results to plan Rx for [place].Oncology and Rad Onc following (3) Diabetes mellitus Code(s): E11.9 - TYPE 2 DIABETES MELLITUS WITHOUT COMPLICATIONS Status: Chronic Qualifiers: Diabetes mellitus type: type 2 Diabetes mellitus complication status: without complication Comment: Controlled.metformin on hold. cont IS. accuchecks (4) Hypothyroidism Code(s): E03.9 - HYPOTHYROIDISM, UNSPECIFIED Status: Chronic Comment: cont levothyroxine (5) CAD (coronary artery disease) Code(s): I25.10 - ATHSCL HEART DISEASE OF [place] CORONARY ARTERY W/O ANG PCTRS Status: Chronic Qualifiers: Coronary Disease-Associated Artery/Lesion type: bypass graft [place] vs. transplanted heart: [place] heart Associated angina: without angina Qualified Code(s): I25.810 - Atherosclerosis of coronary artery bypass graft(s) without angina pectoris Comment: cont Coreg,statin,lasix (6) Chronic diastolic heart failure Code(s): I50.32 - CHRONIC DIASTOLIC (CONGESTIVE) HEART FAILURE Status: Chronic Comment: compensated. cont lasix,BB,ASA (7) HLD (hyperlipidemia) Code(s): E78.5 - HYPERLIPIDEMIA, UNSPECIFIED Status: Chronic Qualifiers: Hyperlipidemia type: unspecified Qualified Code(s): E78.5 - Hyperlipidemia , unspecified Comment: cont statin.stable (8) HTN (hypertension) Code(s): I10 - ESSENTIAL (PRIMARY) HYPERTENSION Status: Chronic Qualifiers: Comment: uncontrolled. Increase Clonidine to TID today.monitor - Plan cont current plan of care, continue antibiotics, PT/OT, DVT proph w/SCDs BM Flow ZCytometry shows ? CLL. Pathology poending -: Hd stable but feels poorly. will monitor Inpt -: cont Po Abx and PO steroids -: BM uncontrolled. increae clinidine.cont amlodipine, coreg -: am labs * . Review of Systems - Review of Systems Constitutional: weakness, malaise. negative: fever, chills, sweats, other Respiratory: Cough, Dry, Shortness of Breath, SOB with Excertion Cardiovascular: negative: chest pain, palpitations, orthopnea, paroxysmal nocturnal dyspnea, edema, light headedness, other Gastrointestinal: negative: Nausea, Vomiting, Abdominal Pain, Diarrhea, Constipation, Melena, Hematochezia, Other Genitourinary: negative: Dysuria, Frequency, Incontinence, Hematuria, Retention , Other Musculoskeletal: negative: Neck Pain, Shoulder Pain, Arm Pain, Back Pain, Hand Pain, Leg Pain, Foot Pain, Other Neurological: negative: Weakness, Numbness, Incoordination, Change in Speech, Confusion, Seizures, Other - Medications/Allergies Allergies/Adverse Reactions: Allergies Allergy/AdvReac Type Severity Reaction Status Date / Time Latex, Natural Rubber Allergy Verified 09/17/18 14:02 milk Allergy Verified 09/17/18 14:02 Penicillins Allergy Verified 09/30/18 02:11 Medications: Current Medications Acetaminophen (Tylenol) 650 mg PO Q4H PRN PRN Reason: Headache/Fever or Pain Last Admin: 10/05/18 02:07 Dose: 650 mg Albuterol/Ipratropium (Duoneb) 3 ml NEB [id number] Last Admin: 10/05/18 13:16 Dose: 3 ml Albuterol/Ipratropium (Duoneb) 3 ml NEB [id number] PRN PRN Reason: SOB &/or Wheezing Amlodipine Besylate (Norvasc) 10 mg PO DAILY [facility] Last Admin: 10/05/18 08:47 Dose: 10 mg Atorvastatin Calcium (Lipitor) 20 mg PO [facility] Last Admin: 10/04/18 21:10 Dose: 20 mg Carvedilol (Coreg) 6.25 mg PO BID [facility] Last Admin: 10/05/18 08:47 Dose: 6.25 mg Cefdinir (Omnicef) 300 mg PO BID [facility] Last Admin: 10/05/18 08:47 Dose: 300 mg Clonidine (Catapres) 0.1 mg PO BID [facility] Last Admin: 10/05/18 08:48 Dose: 0.1 mg Coenzyme Q10 (Coenzyme Q10) 50 mg PO DAILY [facility] Last Admin: 10/05/18 08:49 Dose: 50 mg Dextrose/Water (Dextrose 50%) 25 gm SLOW IVP PRN PRN PRN Reason: Hypoglycemia Docusate Sodium (Colace) 100 mg PO BID [facility] Last Admin: 10/05/18 08:48 Dose: 100 mg Enoxaparin Sodium (Lovenox) 40 mg SC 0900 [facility] Last Admin: 10/05/18 08:48 Dose: 40 mg Ferrous Sulfate (Feosol) 325 mg PO BID-[facility] Last Admin: 10/05/18 08:47 Dose: 325 mg Furosemide (Lasix) 20 mg PO DAILY [facility] Last Admin: 10/05/18 08:48 Dose: 20 mg Glucagon (Glucagon) 1 mg IM PRN PRN PRN Reason: Hypoglycemia Hydralazine HCl (Apresoline) 5 mg SLOW IVP Q15MIN PRN PRN Reason: FOR SBP > 170mmHg Last Admin: 10/05/18 04:06 Dose: 5 mg Hydroxyzine HCl (Atarax) 10 mg PO DAILY [facility] Last Admin: 10/05/18 08:48 Dose: 10 mg Dextrose/Water (D5w) 1,000 mls @ 0 mls/hr IV .Q0M PRN PRN Reason: Hypoglycemia Insulin Human Lispro (Humalog) 0 units SC .MILD SLIDING SCALE PRN PRN Reason: Mild Correctional Scale Last Admin: 10/04/18 21:11 Dose: 4 unit Levothyroxine Sodium (Synthroid) 12.5 mcg PO 0600 [facility] Last Admin: 10/05/18 05:13 Dose: 12.5 mcg Melatonin (Melatonin) 6 mg PO [facility] Last Admin: 10/04/18 21:09 Dose: 6 mg Mometasone Furoate/Formoterol Fumar (Dulera 200 Mcg/5 Mcg Inhaler) 2 puff INH BID-RT [facility] Last Admin: 10/05/18 07:49 Dose: 2 puff Morphine Sulfate (Morphine) 2 mg SLOW IVP Q4H PRN PRN Reason: Severe Pain (7-10) Pantoprazole Sodium (Protonix) 40 mg PO DAILY [facility] Last Admin: 10/05/18 08:49 Dose: 40 mg Polyethylene Glycol (Miralax) 17 gm PO DAILY [facility] Last Admin: 10/05/18 08:49 Dose: Not Given Prednisone (Prednisone) 20 mg PO QAM-WM [facility] Last Admin: 10/05/18 08:47 Dose: 20 mg Saccharomyces Boulardii (Florastor) 250 mg PO DAILY [facility] Last Admin: 10/05/18 08:49 Dose: 250 mg Sodium Biphosphate/Sodium Phosphate (Fleet Enema) 133 ml [place] 1800 PRN PRN Reason: Constipation Sodium Chloride (Flush - Normal Saline) 10 ml IVF Q12HR [facility] Last Admin: 10/05/18 08:49 Dose: 10 ml Sodium Chloride (Flush - Normal Saline) 10 ml IVF PRN PRN PRN Reason: Saline Flush Last Admin: 10/05/18 04:06 Dose: 10 ml Tamsulosin HCl (Flomax) 0.4 mg PO DAILY [facility] Last Admin: 10/05/18 08:49 Dose: 0.4 mg Tramadol HCl (Ultram) 100 mg PO Q6H PRN PRN Reason: Pain
[2018-10-05] MEDS: HumaLOG 300 UNITS/3 ML VIAL SC PRN (17:03)
[2018-10-05] MEDS: Melatonin 3 MG TAB PO SCH (20:04)
[2018-10-05] MEDS: Atorvastatin Calcium 20 MG TAB PO SCH (20:05)
[2018-10-06] MEDS: Levothyroxine Sodium 25 MCG TAB PO SCH (04:59)
[2018-10-06 05:30] LABS: Anion Gap 11 mmol/L (10-20); BUN (Urea Nitrogen) 31 mg/dL (8.4-25.7); Calc. Creatinine Clearance 62 mL/min (70-130); Calcium 8.7 mg/dL (7.8-10.44); Carbon Dioxide 30 mmol/L (23-31); Chloride 97 mmol/L (98-107); Estimated GFR-MDRD 88; Glucose 100 mg/dL (83-110); Potassium 5.4 mmol/L (3.5-5.1); Sodium 133 mmol/L (136-145)
[2018-10-06 05:47] LABS: Band 1 % (5-11); Hemoglobin 8.7 g/dL (14.0-18.0); Hypochromia SLIGHT = 6-15 cells (100X) (0-5/hpf); Lymphocytes 46 % (21-51); MDiff Complete? YES; Mean Corpuscular HGB CONC 31.6 g/dL (32.0-36.0); Mean Corpuscular Volume 85.6 fL (78.0-98.0); Mean Platelet Volume 5.7 fL (7.4-10.4); Metamyelocyte 3 % (0-0); Monocytes 8 % (0-10); Neutrophil 40 % (42-75); Platelet Count 209 thou/uL (130-400); Platelet Morphology Comment Appears Adequate; RBC Distribution Width 14.7 % (11.5-14.5); Reactive Lymphocytes 2 % (0-10); White Blood Cell (WBC) Count 20.8 thou/uL (4.8-10.8)
[2018-10-06] MEDS: Mometasone/Formoterol 120 PUFF INHALER INH SCH ×2 (07:49→18:10)
[2018-10-06] MEDS: Ferrous Sulfate 325 MG TAB PO SCH ×2 (08:57→16:39)
[2018-10-06] MEDS: Cefdinir 300 MG CAP PO SCH ×2 (08:58→20:13)
[2018-10-06] MEDS: Amlodipine 10 MG TAB PO SCH (08:58)
[2018-10-06] MEDS: predniSONE 20 MG TAB PO SCH (08:58)
[2018-10-06] MEDS: Enoxaparin Sodium 40 MG/0.4 ML SYRINGE SC SCH (08:59)
[2018-10-06] MEDS: Docusate 100 MG CAP PO SCH ×2 (08:59→20:13)
[2018-10-06] MEDS: cloNIDine 0.1 MG TAB PO SCH ×3 (08:59→20:13)
[2018-10-06] MEDS: Furosemide 20 MG TAB PO SCH (09:00)
[2018-10-06] MEDS: hydrOXYzine 10 MG TAB PO SCH (09:00)
[2018-10-06] MEDS: Sodium Chloride 0.9% 1,000 ML IV SCH ×2 (09:00→21:51)
[2018-10-06] MEDS: Polyethylene Glycol 3350 17 GM Packet PO SCH (09:01)
[2018-10-06] MEDS: Ubidecarenone 50 MG CAP PO SCH (09:01)
[2018-10-06] MEDS: Tamsulosin HCl 0.4 MG CAP PO SCH (09:01)
[2018-10-06] MEDS: Saccharomyces boulardii 250 MG CAP PO SCH (09:01)
--- NOTE | 2018-10-06 09:54 | PRG ---
DATE OF SERVICE: 10/06/2018 SUBJECTIVE: This morning, he is awake, alert, and responsive. He is weak. There was still short of breath. His bone marrow showed presumably some form of lymphoma. OBJECTIVE: VITAL SIGNS: Blood pressure 170/62, pulse 68, sats are 92% on 2 L, and respirations 18. CHEST: Decreased breath sounds. No wheezing. CARDIAC: Normal S1 and S2. No gallops. ABDOMEN: No masses. LABORATORY DATA: Creatinine is normal. Sodium 133, white count 20,000. IMPRESSION: 1. Squamous cell carcinoma, right chest. 2. No evidence of pneumonia. 3. Presumed lymphoma. 4. Hypertension, severe deconditioning, weight loss, chronic obstructive pulmonary disease, and hypoxemia. PLAN: Low-flow O2, portable nocturnal was given at 2 L per minute. Disposition as per Oncology. Start treatment as soon as possible. We will follow. Job ID: [id number]
[2018-10-06] MEDS: Carvedilol 6.25 MG TAB PO SCH ×2 (10:00→20:13)
[2018-10-06] MEDS: HumaLOG 300 UNITS/3 ML VIAL SC PRN ×2 (12:25→16:33)
[2018-10-06] MEDS: hydrALAZINE 20 MG/ML VIAL SLOW IVP PRN (12:26)
--- NOTE | 2018-10-06 13:47 | PDOC.PN ---
- Subjective Encounter Start Date: 10/06/18 Encounter Start Time: 13:45 Subjective: better but still considerable SOB w exertion - Objective Resuscitation Status - Order Detail: 09/30/18 05:13 Resuscitation Status Routine Resuscitation Status: DNAR: NO Resuscitation Discussed with: as stated by pt MAR Reviewed: Yes Vital Signs & Weight: Vital Signs (12 hours) Temp Pulse Resp BP BP BP Pulse Ox 10/06/18 12:26 62 175/60 H 10/06/18 12:10 97.7 F 62 18 175/60 H 92 L 10/06/18 10:00 170/62 H 10/06/18 08:59 170/62 H 10/06/18 08:58 68 170/62 H 10/06/18 08:00 91 L 10/06/18 07:52 92 L 10/06/18 07:51 68 16 91 L 10/06/18 07:49 68 16 91 L 10/06/18 07:37 97.6 F 75 20 170/62 H 91 L Weight Admit Weight 149 lb 7 oz Weight 149 lb I&O: 10/05/18 10/06/18 10/07/18 06:59 06:59 06:59 Intake Total 160 1260 Balance 160 1260 Result Diagrams: 10/06/18 05:00 10/06/18 03:30 Additional Labs: Accuchecks 10/06/18 10/05/18 10/05/18 05:01 20:19 17:04 POC Glucose 109 236 H 180 H Laboratory Tests 09/29/18 09/29/18 10/01/18 21:26 21:26 04:06 WBC 4.5 L Neutrophils % (Manual) 15 L BUN 21 18 10/01/18 10/06/18 10/06/18 04:06 03:30 05:00 WBC 3.8 L 20.8 H Neutrophils % (Manual) 25 L 40 L BUN 31 H Radiology Reviewed by me: Yes (BM pathology-Small B cell lymphoma) Phys Exam - Physical Examination Constitutional: NAD HEENT: PERRLA, moist MMs, sclera anicteric, oral pharynx no lesions Neck: no nodes, no JVD, supple, full ROM Respiratory: no wheezing, no rales, no rhonchi, clear to auscultation bilateral Cardiovascular: RRR, no significant murmur Gastrointestinal: soft, non-tender, no distention, positive bowel sounds Musculoskeletal: no edema, pulses present Neurological: non-focal, normal sensation, moves all 4 limbs Psychiatric: normal affect, A&O x 3 Skin: no rash Dx/Plan (1) PNA (pneumonia) Code(s): J18.9 - PNEUMONIA, UNSPECIFIED ORGANISM Status: Acute Qualifiers: Laterality: right Lung location: lower lobe of lung Comment: on Omnicef now. s/p IV ABx.al Cx negative (2) Squamous cell carcinoma of lung Code(s): C34.90 - MALIGNANT NEOPLASM OF UNSP PART OF UNSP BRONCHUS OR LUNG Status: Acute Qualifiers: Laterality: right Qualified Code(s): C34.91 - Malignant neoplasm of unspecified part of right bronchus or lung Comment: BM Bx results show B cell lymphoma. plan Rx for Lung CA per Oncology and Rad Onc Plans for markings for XRT tomorrow (3) SONIYA (acute kidney injury) Code(s): N17.9 - ACUTE KIDNEY FAILURE, UNSPECIFIED Status: Acute (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 - SMALL CELL B-CELL LYMPHOMA, UNSPECIFIED SITE Status: Acute Qualifiers: Lymphoma site: unspecified region Qualified Code(s): C83.00 - Small cell B- cell lymphoma, unspecified site Comment: New finding. (5) Diabetes mellitus Code(s): E11.9 - TYPE 2 DIABETES MELLITUS WITHOUT COMPLICATIONS Status: Chronic Qualifiers: Diabetes mellitus type: type 2 Diabetes mellitus complication status: without complication Comment: Controlled.metformin on hold. cont IS. accuchecks (6) Hypothyroidism Code(s): E03.9 - HYPOTHYROIDISM, UNSPECIFIED Status: Chronic Comment: cont levothyroxine (7) CAD (coronary artery disease) Code(s): I25.10 - ATHSCL HEART DISEASE OF [place] CORONARY ARTERY W/O ANG PCTRS Status: Chronic Qualifiers: Coronary Disease-Associated Artery/Lesion type: bypass graft [place] vs. transplanted heart: [place] heart Associated angina: without angina Qualified Code(s): I25.810 - Atherosclerosis of coronary artery bypass graft(s) without angina pectoris Comment: cont Coreg,statin,lasix (8) Chronic diastolic heart failure Code(s): I50.32 - CHRONIC DIASTOLIC (CONGESTIVE) HEART FAILURE Status: Chronic Comment: compensated. cont lasix,BB,ASA (9) HLD (hyperlipidemia) Code(s): E78.5 - HYPERLIPIDEMIA, UNSPECIFIED Status: Chronic Qualifiers: Hyperlipidemia type: unspecified Qualified Code(s): E78.5 - Hyperlipidemia , unspecified Comment: cont statin.stable (10) HTN (hypertension) Code(s): I10 - ESSENTIAL (PRIMARY) HYPERTENSION Status: Chronic Qualifiers: Comment: uncontrolled. Increase Clonidine to TID today.monitor - Plan plan discussed w/ family, PT/OT, social work administrator, DVT proph w/SCDs care discussed w son at bedside. -: Home O2 eval.SNIF/rehab eval -: Cancer care ,treatment plan per Onc and rad Onc. -: leucopenia improved post Granix yesterday.monitor -: BUN higher w low sodium/chloride-deydartion.start gentle IVF * . HD stable am labs Review of Systems - Review of Systems Constitutional: weakness, malaise. negative: fever, chills, sweats, other ENT: negative: Ear Pain, Ear Discharge, Nose Pain, Nose Discharge, Nose Congestion, Mouth Pain, Mouth Swelling, Throat Pain, Throat Swelling, Other Respiratory: negative: Cough, Dry, Shortness of Breath, Hemoptysis, SOB with Excertion, Pleuritic Pain, Sputum, Wheezing Cardiovascular: negative: chest pain, palpitations, orthopnea, paroxysmal nocturnal dyspnea, edema, light headedness, other Gastrointestinal: negative: Nausea, Vomiting, Abdominal Pain, Diarrhea, Constipation, Melena, Hematochezia, Other Genitourinary: negative: Dysuria, Frequency, Incontinence, Hematuria, Retention , Other Musculoskeletal: negative: Neck Pain, Shoulder Pain, Arm Pain, Back Pain, Hand Pain, Leg Pain, Foot Pain, Other Neurological: negative: Weakness, Numbness, Incoordination, Change in Speech, Confusion, Seizures, Other - Medications/Allergies Allergies/Adverse Reactions: Allergies Allergy/AdvReac Type Severity Reaction Status Date / Time Latex, Natural Rubber Allergy Verified 09/17/18 14:02 milk Allergy Verified 09/17/18 14:02 Penicillins Allergy Verified 09/30/18 02:11 Medications: Current Medications Acetaminophen (Tylenol) 650 mg PO Q4H PRN PRN Reason: Headache/Fever or Pain Last Admin: 10/05/18 02:07 Dose: 650 mg Albuterol/Ipratropium (Duoneb) 3 ml NEB [id number] [facility] Last Admin: 10/06/18 07:51 Dose: 3 ml Albuterol/Ipratropium (Duoneb) 3 ml NEB [id number] PRN PRN Reason: SOB &/or Wheezing Amlodipine Besylate (Norvasc) 10 mg PO DAILY [facility] Last Admin: 10/06/18 08:58 Dose: 10 mg Atorvastatin Calcium (Lipitor) 20 mg PO HS [facility] Last Admin: 10/05/18 20:05 Dose: 20 mg Carvedilol (Coreg) 12.5 mg PO BID [facility] Last Admin: 10/06/18 10:00 Dose: 12.5 mg Cefdinir (Omnicef) 300 mg PO BID [facility] Last Admin: 10/06/18 08:58 Dose: 300 mg Clonidine (Catapres) 0.1 mg PO TID [facility] Last Admin: 10/06/18 08:59 Dose: 0.1 mg Coenzyme Q10 (Coenzyme Q10) 50 mg PO DAILY [facility] Last Admin: 10/06/18 09:01 Dose: 50 mg Dextrose/Water (Dextrose 50%) 25 gm SLOW IVP PRN PRN PRN Reason: Hypoglycemia Docusate Sodium (Colace) 100 mg PO BID [facility] Last Admin: 10/06/18 08:59 Dose: 100 mg Enoxaparin Sodium (Lovenox) 40 mg SC 0900 [facility] Last Admin: 10/06/18 08:59 Dose: 40 mg Ferrous Sulfate (Feosol) 325 mg PO BID-[facility] Last Admin: 10/06/18 08:57 Dose: 325 mg Furosemide (Lasix) 20 mg PO DAILY [facility] Last Admin: 10/06/18 09:00 Dose: 20 mg Glucagon (Glucagon) 1 mg IM PRN PRN PRN Reason: Hypoglycemia Hydralazine HCl (Apresoline) 5 mg SLOW IVP Q15MIN PRN PRN Reason: FOR SBP > 170mmHg Last Admin: 10/06/18 12:26 Dose: 5 mg Hydroxyzine HCl (Atarax) 10 mg PO DAILY [facility] Last Admin: 10/06/18 09:00 Dose: 10 mg Dextrose/Water (D5w) 1,000 mls @ 0 mls/hr IV .Q0M PRN PRN Reason: Hypoglycemia Sodium Chloride (Normal Saline 0.9%) 1,000 mls @ 70 mls/hr IV .[id number] [facility] Last Admin: 10/06/18 09:00 Dose: 1,000 mls Insulin Human Lispro (Humalog) 0 units SC .MILD SLIDING SCALE PRN PRN Reason: Mild Correctional Scale Last Admin: 10/06/18 12:25 Dose: 3 unit Levothyroxine Sodium (Synthroid) 12.5 mcg PO 0600 [facility] Last Admin: 10/06/18 04:59 Dose: 12.5 mcg Melatonin (Melatonin) 6 mg PO HS [facility] Last Admin: 10/05/18 20:04 Dose: 6 mg Mometasone Furoate/Formoterol Fumar (Dulera 200 Mcg/5 Mcg Inhaler) 2 puff INH BID-RT [facility] Last Admin: 10/06/18 07:49 Dose: 2 puff Morphine Sulfate (Morphine) 2 mg SLOW IVP Q4H PRN PRN Reason: Severe Pain (7-10) Pantoprazole Sodium (Protonix) 40 mg PO DAILY [facility] Last Admin: 10/06/18 09:00 Dose: 40 mg Polyethylene Glycol (Miralax) 17 gm PO DAILY [facility] Last Admin: 10/06/18 09:01 Dose: Not Given Prednisone (Prednisone) 20 mg PO QAM-WM [facility] Last Admin: 10/06/18 08:58 Dose: 20 mg Saccharomyces Boulardii (Florastor) 250 mg PO DAILY [facility] Last Admin: 10/06/18 09:01 Dose: 250 mg Sodium Biphosphate/Sodium Phosphate (Fleet Enema) 133 ml [place] 1800 PRN PRN Reason: Constipation Sodium Chloride (Flush - Normal Saline) 10 ml IVF Q12HR [facility] Last Admin: 10/06/18 09:01 Dose: 10 ml Sodium Chloride (Flush - Normal Saline) 10 ml IVF PRN PRN PRN Reason: Saline Flush Last Admin: 10/05/18 04:06 Dose: 10 ml Tamsulosin HCl (Flomax) 0.4 mg PO DAILY [facility] Last Admin: 10/06/18 09:01 Dose: 0.4 mg Tramadol HCl (Ultram) 100 mg PO Q6H PRN PRN Reason: Pain
[2018-10-06] MEDS: Melatonin 3 MG TAB PO SCH (20:13)
[2018-10-06] MEDS: Atorvastatin Calcium 20 MG TAB PO SCH (20:13)
[2018-10-07] MEDS: Levothyroxine Sodium 25 MCG TAB PO SCH (05:19)
[2018-10-07 06:00] LABS: #Eosinphils 0.1 thou/uL (0.0-0.7); #Lymphocytes 5.6 thou/uL (1.20-3.40); #Monocytes 0.6 thou/uL (0.11-0.59); #Neutrophils 6.6 thou/uL (1.40-6.50); %Basophils 0.3 % (0.0-1.0); %Eosinophils 0.7 % (0.0-10.0); %Lymphocytes 43.4 % (21.0-51.0); %Monocytes 4.5 % (0.0-10.0); %Neutrophils 51.1 % (42.0-75.0); Hemoglobin 8.2 g/dL (14.0-18.0); Mean Corpuscular HGB CONC 32.3 g/dL (32.0-36.0); Mean Corpuscular Hemoglobin 27.6 pg (27.0-31.0); Mean Corpuscular Volume 85.6 fL (78.0-98.0); Mean Platelet Volume 5.9 fL (7.4-10.4); Platelet Count 192 thou/uL (130-400); RBC Distribution Width 15.1 % (11.5-14.5); Red Blood Cell (RBC) Count 2.96 mill/uL (4.70-6.10); White Blood Cell (WBC) Count 12.8 thou/uL (4.8-10.8)
[2018-10-07] MEDS: Mometasone/Formoterol 120 PUFF INHALER INH SCH ×2 (07:42→18:44)
--- NOTE | 2018-10-07 09:46 | PRG ---
DATE OF SERVICE: 10/07/2018 SUBJECTIVE: This morning, he is awake, alert, responsive, doing better, less short of breath, walking in the halls without difficulty breathing. His white count 13710, hemoglobin and hematocrit 8 and 25, platelet count is normal. OBJECTIVE: VITAL SIGNS: His sats were 92 on 2 L, respiratory rate 18, pulse 72, blood pressure 130/80. CHEST: Decreased breath sounds. No wheezing. CARDIAC: Normal S1 and S2. No gallops. ABDOMEN: No masses. IMPRESSION: 1. Right lower lung squamous cell carcinoma. 2. Lymphoma. 3. Chronic obstructive pulmonary disease. 4. Respiratory failure. 5. Severe deconditioning. 6. Weight loss. PLAN: I understand the patient is going to an assisted living from the hospital after he had chemo. He has O2 neb treatments and low-dose steroids as prescribed. Job ID: [id number]
[2018-10-07] MEDS: Enoxaparin Sodium 40 MG/0.4 ML SYRINGE SC SCH (10:02)
[2018-10-07] MEDS: Tamsulosin HCl 0.4 MG CAP PO SCH (10:03)
[2018-10-07] MEDS: Polyethylene Glycol 3350 17 GM Packet PO SCH (10:03)
[2018-10-07] MEDS: Carvedilol 6.25 MG TAB PO SCH ×2 (10:03→20:41)
[2018-10-07] MEDS: Cefdinir 300 MG CAP PO SCH ×2 (10:04→20:42)
[2018-10-07] MEDS: cloNIDine 0.1 MG TAB PO SCH ×3 (10:04→20:45)
[2018-10-07] MEDS: Docusate 100 MG CAP PO SCH ×2 (10:04→20:42)
[2018-10-07] MEDS: Saccharomyces boulardii 250 MG CAP PO SCH (10:04)
[2018-10-07] MEDS: Ferrous Sulfate 325 MG TAB PO SCH ×2 (10:04→16:14)
[2018-10-07] MEDS: Ubidecarenone 50 MG CAP PO SCH (10:04)
[2018-10-07] MEDS: Amlodipine 10 MG TAB PO SCH (10:04)
[2018-10-07] MEDS: predniSONE 20 MG TAB PO SCH (10:05)
[2018-10-07] MEDS: Furosemide 20 MG TAB PO SCH (10:05)
[2018-10-07] MEDS: hydrOXYzine 10 MG TAB PO SCH (10:21)
[2018-10-07 10:57] LABS: Anion Gap 9 mmol/L (10-20); BUN (Urea Nitrogen) 24 mg/dL (8.4-25.7); Calc. Creatinine Clearance 61 mL/min (70-130); Calcium 8.4 mg/dL (7.8-10.44); Carbon Dioxide 31 mmol/L (23-31); Chloride 100 mmol/L (98-107); Estimated GFR-MDRD 86; Glucose 147 mg/dL (83-110); Potassium 4.8 mmol/L (3.5-5.1); Sodium 135 mmol/L (136-145)
[2018-10-07] MEDS ORDERED: Iopamidol 370 76% 100 ML VIAL ONE (11:42)
--- NOTE | 2018-10-07 11:58 | PDOC.PN ---
- Subjective Encounter Start Date: 10/07/18 Encounter Start Time: 11:56 Subjective: feels well. no new complaints -: care discussed w son Mr Guzman at bedside - Objective Resuscitation Status - Order Detail: 09/30/18 05:13 Resuscitation Status Routine Resuscitation Status: DNAR: NO Resuscitation Discussed with: as stated by pt MAR Reviewed: Yes Vital Signs & Weight: Vital Signs (12 hours) Temp Pulse Resp BP BP Pulse Ox 10/07/18 10:04 58 L 10/07/18 10:03 168/50 H 10/07/18 08:00 98.3 F 58 L 18 168/50 H 94 L 10/07/18 07:46 72 18 92 L 10/07/18 07:42 72 16 92 L 10/07/18 00:17 16 Weight Admit Weight 149 lb 7 oz Weight 149 lb I&O: 10/06/18 10/07/18 10/08/18 06:59 06:59 06:59 Intake Total 1260 2790 Output Total 650 Balance 1260 2140 Result Diagrams: 10/07/18 05:24 10/07/18 10:10 Additional Labs: Accuchecks 10/07/18 10/07/18 10/06/18 10:59 05:24 20:24 POC Glucose 173 H 99 283 H 10/06/18 10/06/18 16:20 12:13 POC Glucose 259 H 219 H Phys Exam - Physical Examination Constitutional: NAD HEENT: PERRLA, moist MMs, sclera anicteric, oral pharynx no lesions Neck: no nodes, no JVD, supple, full ROM Respiratory: no wheezing, no rales, no rhonchi, clear to auscultation bilateral Cardiovascular: RRR, no significant murmur, no rub Gastrointestinal: soft, non-tender, no distention, positive bowel sounds Musculoskeletal: no edema, pulses present Neurological: non-focal, normal sensation, moves all 4 limbs Psychiatric: normal affect, A&O x 3 Dx/Plan (1) PNA (pneumonia) Code(s): J18.9 - PNEUMONIA, UNSPECIFIED ORGANISM Status: Acute Qualifiers: Laterality: right Lung location: lower lobe of lung Comment: on Omnicef now. s/p IV ABx.al Cx negative (2) Squamous cell carcinoma of lung Code(s): C34.90 - MALIGNANT NEOPLASM OF UNSP PART OF UNSP BRONCHUS OR LUNG Status: Acute Qualifiers: Laterality: right Qualified Code(s): C34.91 - Malignant neoplasm of unspecified part of right bronchus or lung Comment: BM Bx results show B cell lymphoma. plan Rx for Lung CA per Oncology and Rad Onc Plans for markings for XRT tomorrow (3) SONIYA (acute kidney injury) Code(s): N17.9 - ACUTE KIDNEY FAILURE, UNSPECIFIED Status: Acute (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 - SMALL CELL B-CELL LYMPHOMA, UNSPECIFIED SITE Status: Acute Qualifiers: Lymphoma site: unspecified region Qualified Code(s): C83.00 - Small cell B- cell lymphoma, unspecified site Comment: New finding.Defer to Oncology (5) Diabetes mellitus Code(s): E11.9 - TYPE 2 DIABETES MELLITUS WITHOUT COMPLICATIONS Status: Chronic Qualifiers: Diabetes mellitus type: type 2 Diabetes mellitus complication status: without complication Comment: Controlled.metformin on hold. cont IS. accuchecks (6) Hypothyroidism Code(s): E03.9 - HYPOTHYROIDISM, UNSPECIFIED Status: Chronic Comment: cont levothyroxine (7) CAD (coronary artery disease) Code(s): I25.10 - ATHSCL HEART DISEASE OF [place] CORONARY ARTERY W/O ANG PCTRS Status: Chronic Qualifiers: Coronary Disease-Associated Artery/Lesion type: bypass graft [place] vs. transplanted heart: [place] heart Associated angina: without angina Qualified Code(s): I25.810 - Atherosclerosis of coronary artery bypass graft(s) without angina pectoris Comment: cont Coreg,statin,lasix (8) Chronic diastolic heart failure Code(s): I50.32 - CHRONIC DIASTOLIC (CONGESTIVE) HEART FAILURE Status: Chronic Comment: compensated. cont lasix,BB,ASA (9) HLD (hyperlipidemia) Code(s): E78.5 - HYPERLIPIDEMIA, UNSPECIFIED Status: Chronic Qualifiers: Hyperlipidemia type: unspecified Qualified Code(s): E78.5 - Hyperlipidemia , unspecified Comment: cont statin.stable (10) HTN (hypertension) Code(s): I10 - ESSENTIAL (PRIMARY) HYPERTENSION Status: Chronic Qualifiers: Comment: uncontrolled. Increase Clonidine to TID today.monitor - Plan respiratory therapy, incentive spirometry, DVT proph w/SCDs XRT markings to be done today -: home O2 eval.still dyspneic when ambulates -: HD stable. -: Rehab eval in process. -: DC when cleared by Oncology and Rad Onc.Unsure about Rx plan * .Blood sugar better controlled. cont ISS w acucellens Review of Systems - Review of Systems Constitutional: weakness, malaise. negative: fever, chills, sweats, other Respiratory: SOB with Excertion. negative: Cough, Dry, Shortness of Breath, Hemoptysis, Pleuritic Pain, Sputum, Wheezing Cardiovascular: negative: chest pain, palpitations, orthopnea, paroxysmal nocturnal dyspnea, edema, light headedness, other Gastrointestinal: negative: Nausea, Vomiting, Abdominal Pain, Diarrhea, Constipation, Melena, Hematochezia, Other Genitourinary: negative: Dysuria, Frequency, Incontinence, Hematuria, Retention , Other Musculoskeletal: negative: Neck Pain, Shoulder Pain, Arm Pain, Back Pain, Hand Pain, Leg Pain, Foot Pain, Other Skin: negative: Rash, Lesions, Jmaes, Bruising, Other Neurological: negative: Weakness, Numbness, Incoordination, Change in Speech, Confusion, Seizures, Other - Medications/Allergies Allergies/Adverse Reactions: Allergies Allergy/AdvReac Type Severity Reaction Status Date / Time Latex, Natural Rubber Allergy Verified 09/17/18 14:02 milk Allergy Verified 09/17/18 14:02 Penicillins Allergy Verified 09/30/18 02:11 Medications: Current Medications Acetaminophen (Tylenol) 650 mg PO Q4H PRN PRN Reason: Headache/Fever or Pain Last Admin: 10/05/18 02:07 Dose: 650 mg Albuterol/Ipratropium (Duoneb) 3 ml NEB [id number] [facility] Last Admin: 10/07/18 07:46 Dose: 3 ml Albuterol/Ipratropium (Duoneb) 3 ml NEB [id number] PRN PRN Reason: SOB &/or Wheezing Amlodipine Besylate (Norvasc) 10 mg PO DAILY [facility] Last Admin: 10/07/18 10:04 Dose: 10 mg Atorvastatin Calcium (Lipitor) 20 mg PO HS [facility] Last Admin: 10/06/18 20:13 Dose: 20 mg Carvedilol (Coreg) 12.5 mg PO BID [facility] Last Admin: 10/07/18 10:03 Dose: 12.5 mg Cefdinir (Omnicef) 300 mg PO BID [facility] Last Admin: 10/07/18 10:04 Dose: 300 mg Clonidine (Catapres) 0.1 mg PO TID [facility] Last Admin: 10/07/18 10:04 Dose: 0.1 mg Coenzyme Q10 (Coenzyme Q10) 50 mg PO DAILY [facility] Last Admin: 10/07/18 10:04 Dose: 50 mg Dextrose/Water (Dextrose 50%) 25 gm SLOW IVP PRN PRN PRN Reason: Hypoglycemia Docusate Sodium (Colace) 100 mg PO BID [facility] Last Admin: 10/07/18 10:04 Dose: 100 mg Enoxaparin Sodium (Lovenox) 40 mg SC 0900 [facility] Last Admin: 10/07/18 10:02 Dose: 40 mg Ferrous Sulfate (Feosol) 325 mg PO BID-[facility] Last Admin: 10/07/18 10:04 Dose: 325 mg Furosemide (Lasix) 20 mg PO DAILY [facility] Last Admin: 10/07/18 10:05 Dose: 20 mg Glucagon (Glucagon) 1 mg IM PRN PRN PRN Reason: Hypoglycemia Hydralazine HCl (Apresoline) 5 mg SLOW IVP Q15MIN PRN PRN Reason: FOR SBP > 170mmHg Last Admin: 10/06/18 12:26 Dose: 5 mg Hydroxyzine HCl (Atarax) 10 mg PO DAILY [facility] Last Admin: 10/07/18 10:21 Dose: 10 mg Dextrose/Water (D5w) 1,000 mls @ 0 mls/hr IV .Q0M PRN PRN Reason: Hypoglycemia Sodium Chloride (Normal Saline 0.9%) 1,000 mls @ 70 mls/hr IV .[id number] [facility] Last Admin: 10/06/18 21:51 Dose: Not Given Insulin Human Lispro (Humalog) 0 units SC .MILD SLIDING SCALE PRN PRN Reason: Mild Correctional Scale Last Admin: 10/06/18 16:33 Dose: 4 unit Levothyroxine Sodium (Synthroid) 12.5 mcg PO 0600 [facility] Last Admin: 10/07/18 05:19 Dose: 12.5 mcg Melatonin (Melatonin) 6 mg PO HS [facility] Last Admin: 10/06/18 20:13 Dose: 6 mg Mometasone Furoate/Formoterol Fumar (Dulera 200 Mcg/5 Mcg Inhaler) 2 puff INH BID-RT [facility] Last Admin: 10/07/18 07:42 Dose: 2 puff Morphine Sulfate (Morphine) 2 mg SLOW IVP Q4H PRN PRN Reason: Severe Pain (7-10) Pantoprazole Sodium (Protonix) 40 mg PO DAILY [facility] Last Admin: 10/07/18 10:04 Dose: 40 mg Polyethylene Glycol (Miralax) 17 gm PO DAILY [facility] Last Admin: 10/07/18 10:03 Dose: 17 gm Prednisone (Prednisone) 20 mg PO QAM-WM [facility] Last Admin: 10/07/18 10:05 Dose: 20 mg Saccharomyces Boulardii (Florastor) 250 mg PO DAILY [facility] Last Admin: 10/07/18 10:04 Dose: 250 mg Sodium Biphosphate/Sodium Phosphate (Fleet Enema) 133 ml [place] 1800 PRN PRN Reason: Constipation Sodium Chloride (Flush - Normal Saline) 10 ml IVF Q12HR [facility] Last Admin: 10/07/18 10:05 Dose: 10 ml Sodium Chloride (Flush - Normal Saline) 10 ml IVF PRN PRN PRN Reason: Saline Flush Last Admin: 10/05/18 04:06 Dose: 10 ml Tamsulosin HCl (Flomax) 0.4 mg PO DAILY [facility] Last Admin: 10/07/18 10:03 Dose: 0.4 mg Tramadol HCl (Ultram) 100 mg PO Q6H PRN PRN Reason: Pain
[2018-10-07] MEDS: Sodium Chloride 0.9% 1,000 ML IV SCH (13:02)
[2018-10-07] MEDS: hydrALAZINE 20 MG/ML VIAL SLOW IVP PRN (13:02)
[2018-10-07] MEDS: Atorvastatin Calcium 20 MG TAB PO SCH (20:41)
[2018-10-07] MEDS: Melatonin 3 MG TAB PO SCH (20:42)
[2018-10-07] MEDS: HumaLOG 300 UNITS/3 ML VIAL SC PRN (20:57)
[2018-10-08] MEDS: Sodium Chloride 0.9% 1,000 ML IV SCH (04:47)
[2018-10-08] MEDS: Levothyroxine Sodium 25 MCG TAB PO SCH (05:58)
[2018-10-08] MEDS: Mometasone/Formoterol 120 PUFF INHALER INH SCH ×2 (06:20→18:02)
[2018-10-08] MEDS: Polyethylene Glycol 3350 17 GM Packet PO SCH (09:02)
[2018-10-08] MEDS: Enoxaparin Sodium 40 MG/0.4 ML SYRINGE SC SCH (09:02)
[2018-10-08] MEDS: Docusate 100 MG CAP PO SCH ×2 (09:03→21:34)
[2018-10-08] MEDS: Ferrous Sulfate 325 MG TAB PO SCH ×2 (09:03→17:10)
[2018-10-08] MEDS: cloNIDine 0.1 MG TAB PO SCH ×3 (09:03→21:25)
[2018-10-08] MEDS: hydrOXYzine 10 MG TAB PO SCH (09:03)
[2018-10-08] MEDS: Carvedilol 6.25 MG TAB PO SCH ×2 (09:03→21:25)
[2018-10-08] MEDS: Cefdinir 300 MG CAP PO SCH ×2 (09:04→21:31)
[2018-10-08] MEDS: Furosemide 20 MG TAB PO SCH ×2 (09:04→21:31)
[2018-10-08] MEDS: Ubidecarenone 50 MG CAP PO SCH (09:04)
[2018-10-08] MEDS: predniSONE 20 MG TAB PO SCH (09:04)
[2018-10-08] MEDS: Amlodipine 10 MG TAB PO SCH ×2 (09:04→21:30)
[2018-10-08] MEDS: Saccharomyces boulardii 250 MG CAP PO SCH (09:04)
[2018-10-08] MEDS: Tamsulosin HCl 0.4 MG CAP PO SCH (09:04)
--- NOTE | 2018-10-08 09:15 | PRG ---
DATE OF SERVICE: 10/08/2018 SUBJECTIVE: This morning, he is awake, alert, and responsive. I was told that he had pleural effusion on his imaging study yesterday in the process of trying to get a regular chest x-ray, PA and lateral, to assess whether he has significant effusion. If he has, he will undergo thoracentesis. OBJECTIVE: VITAL SIGNS: His sats are 95% on 2 L, respiratory rate 18, temperature 98, pulse 68, and blood pressure 160/58. CHEST: Decreased breath sounds in right lung. Left unremarkable. CARDIAC: Normal S1 and S2. No gallops. ABDOMEN: No masses. IMPRESSION: Squamous cell carcinoma, lymphoma, possibly pleural effusion, coronary artery disease, hypertension, and weight loss. PLAN: Disposition as per Oncology. We will try and get an x-ray. Further disposition thereafter. Job ID: [id number]
--- NOTE | 2018-10-08 09:47 | RAD ---
Exam: Chest 2 views: HISTORY: Lung cancer COMPARISON: 10/01/2018 Postop midline sternotomy. Left central line injection port. Pleural and parenchymal opacity changes in the right base more focally dense than when compared study. Left chest remains stable. IMPRESSION: Abnormal pleural and parenchymal opacity changes in the right base becoming somewhat more dense and m ore well-defined than on the prior study. No significant new process.
--- NOTE | 2018-10-08 11:37 | OP ---
DATE OF PROCEDURE: 10/08/2018 PROCEDURE PERFORMED: Thoracentesis. INDICATIONS: Pleural effusion. DESCRIPTION OF PROCEDURE: After informed consent, the left posterior thorax was cleaned with chlorhexidine, and 1% lidocaine was infiltrated into the right 9th intercostal space in the midscapular area. The pleural cavity was entered in and about 20 mL of slightly turbid yellow fluid was removed. Thereafter, using 8-Vincentian catheter, a total of 1400 mL was removed without any difficulty. Pleural effusion was sent for appropriate studies including cytology and culture. Job ID: [id number]
--- NOTE | 2018-10-08 12:02 | RAD ---
Upright portable chest one view: HISTORY: Follow-up pleural effusion COMPARISON: 10/01/2018. Stable appearing right pleural effusion and bilateral vascular congestion. Postop midline sternotomy and left central line. IMPRESSION: Overall stable appearing right pleural effusion and bilateral vascular congestion. Continued short-te rm follow-up.
[2018-10-08 12:29] LABS: BF Color Yellow; BF RBC Count - Manual 308 /cumm; BF WBC/Nonhematics Ct. - Manua 148 /cumm; Body Fluid Source Thoracentesis Fluid; Clarity Hazy (Clear); Tube # 3
[2018-10-08 12:36] LABS: Pleural Fluid, Amylase Less than 30 U/L (Not Available)
[2018-10-08 12:38] LABS: Pleural Fluid, Glucose 125 mg/dL
[2018-10-08 12:39] LABS: Fluid, Triglycerides Less than 11 mg/dL (Not Available)
[2018-10-08 12:42] LABS: Pleural Fluid, LDH 97 U/L (Not Available)
[2018-10-08 13:17] LABS: BF Segmented Neutrophils 11 %; Cell Count Non Hematic 23 %; Lymphocytes 66 %
--- NOTE | 2018-10-08 14:13 | PDOC.PN ---
- Subjective Encounter Start Date: 10/08/18 Encounter Start Time: 14:11 Subjective: feels well. no chest pain or SOB. still quite weak - Objective Resuscitation Status - Order Detail: 09/30/18 05:13 Resuscitation Status Routine Resuscitation Status: DNAR: NO Resuscitation Discussed with: as stated by pt MAR Reviewed: Yes Vital Signs & Weight: Vital Signs (12 hours) Temp Pulse Resp BP BP BP Pulse Ox 10/08/18 12:10 96.7 F L 61 18 164/55 H 91 L 10/08/18 11:42 58 L 20 94 L 10/08/18 09:04 68 10/08/18 09:03 161/58 H 10/08/18 08:00 92 L 10/08/18 07:55 98.4 F 68 18 161/58 H 92 L 10/08/18 06:19 64 20 94 L Weight Admit Weight 149 lb 7 oz Weight 149 lb I&O: 10/07/18 10/08/18 10/09/18 06:59 06:59 06:59 Intake Total 2790 240 770 Output Total 650 800 Balance 2140 -560 770 Result Diagrams: 10/07/18 05:24 10/07/18 10:10 Additional Labs: Accuchecks 10/08/18 10/07/18 10/07/18 06:01 20:49 16:05 POC Glucose 113 H 254 H 169 H Microbiology 09/30/18 17:39 Sputum - Natural Respiratory Culture - Final 09/29/18 22:02 Urine Straight Catheter Urine Culture - Final NO GROWTH AT 36 HOURS 09/29/18 21:26 Venous blood - Right Arm Blood Culture - Final NO GROWTH IN 5 DAYS 09/29/18 21:26 Venous blood - Left Arm Blood Culture - Final Coagulase Neg Staphylococcus 10/08/18 11:21 Pleural fluid Body Fluid Culture - Preliminary Phys Exam - Physical Examination Constitutional: NAD HEENT: PERRLA, moist MMs, sclera anicteric, oral pharynx no lesions Neck: no nodes, no JVD, supple, full ROM Respiratory: no wheezing, no rales, no rhonchi, clear to auscultation bilateral Cardiovascular: RRR, no significant murmur, no rub Gastrointestinal: soft, non-tender, no distention, positive bowel sounds Musculoskeletal: no edema, pulses present Neurological: non-focal, normal sensation, moves all 4 limbs Psychiatric: normal affect, A&O x 3 Skin: no rash Dx/Plan (1) PNA (pneumonia) Code(s): J18.9 - PNEUMONIA, UNSPECIFIED ORGANISM Status: Acute Qualifiers: Laterality: right Lung location: lower lobe of lung Comment: on Omnicef now. s/p IV ABx.al Cx negative (2) Pleural effusion Code(s): J90 - PLEURAL EFFUSION, NOT ELSEWHERE CLASSIFIED Status: Acute Comment: s/p left thoracentesis with removal of 1400 ml .Fluid sent for ytology and Cx (3) Squamous cell carcinoma of lung Code(s): C34.90 - MALIGNANT NEOPLASM OF UNSP PART OF UNSP BRONCHUS OR LUNG Status: Acute Qualifiers: Laterality: right Qualified Code(s): C34.91 - Malignant neoplasm of unspecified part of right bronchus or lung Comment: BM Bx results show B cell lymphoma. plan Rx for Lung CA per Oncology and Rad Onc Plans for markings for XRT tomorrow (4) SONIYA (acute kidney injury) Code(s): N17.9 - ACUTE KIDNEY FAILURE, UNSPECIFIED Status: Acute Comment: Improved. stop IVF (5) Small B-cell lymphoma Code(s): C83.00 - SMALL CELL B-CELL LYMPHOMA, UNSPECIFIED SITE Status: Acute Qualifiers: Lymphoma site: unspecified region Qualified Code(s): C83.00 - Small cell B- cell lymphoma, unspecified site Comment: New finding.Defer to Oncology (6) Diabetes mellitus Code(s): E11.9 - TYPE 2 DIABETES MELLITUS WITHOUT COMPLICATIONS Status: Chronic Qualifiers: Diabetes mellitus type: type 2 Diabetes mellitus complication status: without complication Comment: Controlled.metformin on hold. cont IS. accuchecks (7) Hypothyroidism Code(s): E03.9 - HYPOTHYROIDISM, UNSPECIFIED Status: Chronic Comment: cont levothyroxine (8) CAD (coronary artery disease) Code(s): I25.10 - ATHSCL HEART DISEASE OF [place] CORONARY ARTERY W/O ANG PCTRS Status: Chronic Qualifiers: Coronary Disease-Associated Artery/Lesion type: bypass graft [place] vs. transplanted heart: [place] heart Associated angina: without angina Qualified Code(s): I25.810 - Atherosclerosis of coronary artery bypass graft(s) without angina pectoris Comment: cont Coreg,statin,lasix (9) Chronic diastolic heart failure Code(s): I50.32 - CHRONIC DIASTOLIC (CONGESTIVE) HEART FAILURE Status: Chronic Comment: compensated. cont lasix,BB,ASA (10) HLD (hyperlipidemia) Code(s): E78.5 - HYPERLIPIDEMIA, UNSPECIFIED Status: Chronic Qualifiers: Hyperlipidemia type: unspecified Qualified Code(s): E78.5 - Hyperlipidemia , unspecified Comment: cont statin.stable (11) HTN (hypertension) Code(s): I10 - ESSENTIAL (PRIMARY) HYPERTENSION Status: Chronic Qualifiers: Comment: uncontrolled. Increase Clonidine to TID today.monitor - Plan PT/OT, respiratory therapy, incentive spirometry, out of bed/ambulate, DVT proph w/SCDs Discussed w Oncology.OK to DC w OP set up for Chemo and XRT -: Rehab placement pending -: .follow Fluid Cx and cytology. -: DC when Ok w PCCM -: am labs.BP still high-increase amlodipine to BID & monitor * . Review of Systems - Review of Systems Constitutional: weakness, malaise. negative: fever, chills, sweats, other ENT: negative: Ear Pain, Ear Discharge, Nose Pain, Nose Discharge, Nose Congestion, Mouth Pain, Mouth Swelling, Throat Pain, Throat Swelling, Other Respiratory: SOB with Excertion. negative: Cough, Dry, Shortness of Breath, Hemoptysis, Pleuritic Pain, Sputum, Wheezing Cardiovascular: negative: chest pain, palpitations, orthopnea, paroxysmal nocturnal dyspnea, edema, light headedness, other Gastrointestinal: negative: Nausea, Vomiting, Abdominal Pain, Diarrhea, Constipation, Melena, Hematochezia, Other Genitourinary: negative: Dysuria, Frequency, Incontinence, Hematuria, Retention , Other Musculoskeletal: negative: Neck Pain, Shoulder Pain, Arm Pain, Back Pain, Hand Pain, Leg Pain, Foot Pain, Other Neurological: negative: Weakness, Numbness, Incoordination, Change in Speech, Confusion, Seizures, Other - Medications/Allergies Allergies/Adverse Reactions: Allergies Allergy/AdvReac Type Severity Reaction Status Date / Time Latex, Natural Rubber Allergy Verified 09/17/18 14:02 milk Allergy Verified 09/17/18 14:02 Penicillins Allergy Verified 09/30/18 02:11 Medications: Current Medications Acetaminophen (Tylenol) 650 mg PO Q4H PRN PRN Reason: Headache/Fever or Pain Last Admin: 10/05/18 02:07 Dose: 650 mg Albuterol/Ipratropium (Duoneb) 3 ml NEB [id number] [facility] Last Admin: 10/08/18 11:42 Dose: 3 ml Albuterol/Ipratropium (Duoneb) 3 ml NEB [id number] PRN PRN Reason: SOB &/or Wheezing Amlodipine Besylate (Norvasc) 10 mg PO BID [facility] Atorvastatin Calcium (Lipitor) 20 mg PO HS [facility] Last Admin: 10/07/18 20:41 Dose: 20 mg Carvedilol (Coreg) 12.5 mg PO BID [facility] Last Admin: 10/08/18 09:03 Dose: 12.5 mg Cefdinir (Omnicef) 300 mg PO BID [facility] Last Admin: 10/08/18 09:04 Dose: 300 mg Clonidine (Catapres) 0.1 mg PO TID [facility] Last Admin: 10/08/18 09:03 Dose: 0.1 mg Coenzyme Q10 (Coenzyme Q10) 50 mg PO DAILY [facility] Last Admin: 10/08/18 09:04 Dose: 50 mg Dextrose/Water (Dextrose 50%) 25 gm SLOW IVP PRN PRN PRN Reason: Hypoglycemia Docusate Sodium (Colace) 100 mg PO BID [facility] Last Admin: 10/08/18 09:03 Dose: 100 mg Enoxaparin Sodium (Lovenox) 40 mg SC 0900 [facility] Last Admin: 10/08/18 09:02 Dose: 40 mg Ferrous Sulfate (Feosol) 325 mg PO BID[facility] Last Admin: 10/08/18 09:03 Dose: 325 mg Furosemide (Lasix) 20 mg PO DAILY [facility] Last Admin: 10/08/18 09:04 Dose: 20 mg Glucagon (Glucagon) 1 mg IM PRN PRN PRN Reason: Hypoglycemia Hydralazine HCl (Apresoline) 5 mg SLOW IVP Q15MIN PRN PRN Reason: FOR SBP > 170mmHg Last Admin: 10/07/18 13:02 Dose: 5 mg Hydroxyzine HCl (Atarax) 10 mg PO DAILY [facility] Last Admin: 10/08/18 09:03 Dose: 10 mg Dextrose/Water (D5w) 1,000 mls @ 0 mls/hr IV .Q0M PRN PRN Reason: Hypoglycemia Insulin Human Lispro (Humalog) 0 units SC .MILD SLIDING SCALE PRN PRN Reason: Mild Correctional Scale Last Admin: 10/07/18 20:57 Dose: 4 unit Levothyroxine Sodium (Synthroid) 12.5 mcg PO 0600 [facility] Last Admin: 10/08/18 05:58 Dose: 12.5 mcg Melatonin (Melatonin) 6 mg PO HS [facility] Last Admin: 10/07/18 20:42 Dose: 6 mg Mometasone Furoate/Formoterol Fumar (Dulera 200 Mcg/5 Mcg Inhaler) 2 puff INH BID-RT [facility] Last Admin: 10/08/18 06:20 Dose: 2 puff Morphine Sulfate (Morphine) 2 mg SLOW IVP Q4H PRN PRN Reason: Severe Pain (7-10) Pantoprazole Sodium (Protonix) 40 mg PO DAILY [facility] Last Admin: 10/08/18 09:03 Dose: 40 mg Polyethylene Glycol (Miralax) 17 gm PO DAILY [facility] Last Admin: 10/08/18 09:02 Dose: 17 gm Prednisone (Prednisone) 20 mg PO QAM-WM [facility] Last Admin: 10/08/18 09:04 Dose: 20 mg Saccharomyces Boulardii (Florastor) 250 mg PO DAILY [facility] Last Admin: 10/08/18 09:04 Dose: 250 mg Sodium Biphosphate/Sodium Phosphate (Fleet Enema) 133 ml HI 1800 PRN PRN Reason: Constipation Sodium Chloride (Flush - Normal Saline) 10 ml IVF Q12HR [facility] Last Admin: 10/08/18 09:04 Dose: 10 ml Sodium Chloride (Flush - Normal Saline) 10 ml IVF PRN PRN PRN Reason: Saline Flush Last Admin: 10/05/18 04:06 Dose: 10 ml Tamsulosin HCl (Flomax) 0.4 mg PO DAILY [facility] Last Admin: 10/08/18 09:04 Dose: 0.4 mg Tramadol HCl (Ultram) 100 mg PO Q6H PRN PRN Reason: Pain
[2018-10-08] MEDS: Melatonin 3 MG TAB PO SCH (21:30)
[2018-10-08] MEDS: Atorvastatin Calcium 20 MG TAB PO SCH (21:31)
[2018-10-09 04:24] LABS: Anion Gap 8 mmol/L (10-20); BUN (Urea Nitrogen) 27 mg/dL (8.4-25.7); Calc. Creatinine Clearance 63 mL/min (70-130); Calcium 8.5 mg/dL (7.8-10.44); Carbon Dioxide 32 mmol/L (23-31); Chloride 99 mmol/L (98-107); Estimated GFR-MDRD 89; Glucose 105 mg/dL (83-110); Potassium 4.9 mmol/L (3.5-5.1); Sodium 134 mmol/L (136-145)
[2018-10-09 05:08] LABS: Band 4 % (5-11); Hemoglobin 7.8 g/dL (14.0-18.0); Lymphocytes 54 % (21-51); MDiff Complete? YES; Mean Corpuscular HGB CONC 31.4 g/dL (32.0-36.0); Mean Corpuscular Hemoglobin 27.6 pg (27.0-31.0); Mean Corpuscular Volume 87.9 fL (78.0-98.0); Monocytes 4 % (0-10); Neutrophil 38 % (42-75); Platelet Count 183 thou/uL (130-400); RBC Distribution Width 15.2 % (11.5-14.5); Red Blood Cell (RBC) Count 2.82 mill/uL (4.70-6.10); White Blood Cell (WBC) Count 8.4 thou/uL (4.8-10.8)
[2018-10-09] MEDS: Levothyroxine Sodium 25 MCG TAB PO SCH (06:24)
[2018-10-09] MEDS: Mometasone/Formoterol 120 PUFF INHALER INH SCH ×2 (08:00→19:15)
--- NOTE | 2018-10-09 08:10 | PDOC.PN ---
- Subjective Encounter Start Date: 10/09/18 Encounter Start Time: 08:10 Subjective: feels good. no ne wcomplinats -: mild LEWIS.no CP - Objective Resuscitation Status - Order Detail: 09/30/18 05:13 Resuscitation Status Routine Resuscitation Status: DNAR: NO Resuscitation Discussed with: as stated by pt MAR Reviewed: Yes Vital Signs & Weight: Vital Signs (12 hours) Temp Pulse Resp BP BP BP Pulse Ox 10/09/18 04:19 97.5 F L 64 18 173/58 H 97 10/09/18 00:08 98.0 F 67 20 160/52 H 98 10/08/18 23:00 62 16 97 10/08/18 21:30 58 L 160/66 H 10/08/18 21:25 160/66 H Weight Admit Weight 149 lb 7 oz Weight 149 lb I&O: 10/08/18 10/09/18 10/10/18 06:59 06:59 06:59 Intake Total 240 2390 Output Total 800 400 Balance -560 1989 Result Diagrams: 10/09/18 03:40 10/09/18 03:40 Additional Labs: Accuchecks 10/09/18 10/08/18 10/08/18 05:27 20:20 16:58 POC Glucose 102 200 H 185 H 10/08/18 12:11 POC Glucose 205 H Microbiology 10/08/18 11:21 Pleural fluid Acid Fast Bacilli Smear - Final 09/30/18 17:39 Sputum - Natural Respiratory Culture - Final 09/29/18 22:02 Urine Straight Catheter Urine Culture - Final NO GROWTH AT 36 HOURS 09/29/18 21:26 Venous blood - Right Arm Blood Culture - Final NO GROWTH IN 5 DAYS 09/29/18 21:26 Venous blood - Left Arm Blood Culture - Final Coagulase Neg Staphylococcus 10/08/18 11:21 Pleural fluid Body Fluid Culture - Preliminary Phys Exam - Physical Examination Constitutional: NAD HEENT: PERRLA, moist MMs, sclera anicteric, oral pharynx no lesions Neck: no nodes, no JVD, supple, full ROM Respiratory: no wheezing, no rales, no rhonchi, clear to auscultation bilateral reduced at bases Cardiovascular: RRR, no significant murmur Gastrointestinal: soft, non-tender, no distention, positive bowel sounds Musculoskeletal: no edema, pulses present Neurological: non-focal, normal sensation, moves all 4 limbs Psychiatric: normal affect, A&O x 3 Skin: no rash Dx/Plan (1) PNA (pneumonia) Code(s): J18.9 - PNEUMONIA, UNSPECIFIED ORGANISM Status: Acute Qualifiers: Laterality: right Lung location: lower lobe of lung Comment: on Omnicef now. s/p IV ABx.al Cx negative (2) Pleural effusion Code(s): J90 - PLEURAL EFFUSION, NOT ELSEWHERE CLASSIFIED Status: Acute Comment: s/p left thoracentesis with removal of 1400 ml .Fluid sent for Cytology and Cx (3) Squamous cell carcinoma of lung Code(s): C34.90 - MALIGNANT NEOPLASM OF UNSP PART OF UNSP BRONCHUS OR LUNG Status: Acute Qualifiers: Laterality: right Qualified Code(s): C34.91 - Malignant neoplasm of unspecified part of right bronchus or lung Comment: BM Bx results show B cell lymphoma. plan Rx for Lung CA per Oncology and Rad Onc Plans for markings for XRT tomorrow (4) SONIYA (acute kidney injury) Code(s): N17.9 - ACUTE KIDNEY FAILURE, UNSPECIFIED Status: Acute Comment: Improved. stop IVF (5) Small B-cell lymphoma Code(s): C83.00 - SMALL CELL B-CELL LYMPHOMA, UNSPECIFIED SITE Status: Acute Qualifiers: Lymphoma site: unspecified region Qualified Code(s): C83.00 - Small cell B- cell lymphoma, unspecified site Comment: New finding.Defer to Oncology (6) Diabetes mellitus Code(s): E11.9 - TYPE 2 DIABETES MELLITUS WITHOUT COMPLICATIONS Status: Chronic Qualifiers: Diabetes mellitus type: type 2 Diabetes mellitus complication status: without complication Comment: Controlled.metformin on hold. cont IS. accuchecks (7) Hypothyroidism Code(s): E03.9 - HYPOTHYROIDISM, UNSPECIFIED Status: Chronic Comment: cont levothyroxine (8) CAD (coronary artery disease) Code(s): I25.10 - ATHSCL HEART DISEASE OF [place] CORONARY ARTERY W/O ANG PCTRS Status: Chronic Qualifiers: Coronary Disease-Associated Artery/Lesion type: bypass graft [place] vs. transplanted heart: [place] heart Associated angina: without angina Qualified Code(s): I25.810 - Atherosclerosis of coronary artery bypass graft(s) without angina pectoris Comment: cont Coreg,statin,lasix (9) Chronic diastolic heart failure Code(s): I50.32 - CHRONIC DIASTOLIC (CONGESTIVE) HEART FAILURE Status: Chronic Comment: compensated. cont lasix,BB,ASA (10) HLD (hyperlipidemia) Code(s): E78.5 - HYPERLIPIDEMIA, UNSPECIFIED Status: Chronic Qualifiers: Hyperlipidemia type: unspecified Qualified Code(s): E78.5 - Hyperlipidemia , unspecified Comment: cont statin.stable (11) HTN (hypertension) Code(s): I10 - ESSENTIAL (PRIMARY) HYPERTENSION Status: Chronic Qualifiers: Comment: uncontrolled. Increase Clonidine to TID today.monitor - Plan continue antibiotics, PT/OT, respiratory therapy, incentive spirometry, out of bed/ambulate, DVT proph w/SCDs Bp still high.monitor. -: BNP high w pleural effusion.Will check ECHO.last in 2017 had diastolic dysf -: Awaiting rehab placement. -: Likley DC over the weekend if ECHO stable and BP better -: Discussed w Oncology yesterday & cleared for DC .HD stable * . Review of Systems - Medications/Allergies Allergies/Adverse Reactions: Allergies Allergy/AdvReac Type Severity Reaction Status Date / Time Latex, Natural Rubber Allergy Verified 09/17/18 14:02 milk Allergy Verified 09/17/18 14:02 Penicillins Allergy Verified 09/30/18 02:11 Medications: Current Medications Acetaminophen (Tylenol) 650 mg PO Q4H PRN PRN Reason: Headache/Fever or Pain Last Admin: 10/05/18 02:07 Dose: 650 mg Albuterol/Ipratropium (Duoneb) 3 ml NEB [id number] [facility] Last Admin: 10/08/18 23:00 Dose: 3 ml Albuterol/Ipratropium (Duoneb) 3 ml NEB [id number] PRN PRN Reason: SOB &/or Wheezing Amlodipine Besylate (Norvasc) 10 mg PO BID [facility] Last Admin: 10/08/18 21:30 Dose: 10 mg Atorvastatin Calcium (Lipitor) 20 mg PO HS [facility] Last Admin: 10/08/18 21:31 Dose: 20 mg Carvedilol (Coreg) 12.5 mg PO BID [facility] Last Admin: 10/08/18 21:25 Dose: Not Given Cefdinir (Omnicef) 300 mg PO BID [facility] Last Admin: 10/08/18 21:31 Dose: 300 mg Clonidine (Catapres) 0.1 mg PO TID [facility] Last Admin: 10/08/18 21:25 Dose: Not Given Coenzyme Q10 (Coenzyme Q10) 50 mg PO DAILY [facility] Last Admin: 10/08/18 09:04 Dose: 50 mg Dextrose/Water (Dextrose 50%) 25 gm SLOW IVP PRN PRN PRN Reason: Hypoglycemia Docusate Sodium (Colace) 100 mg PO BID [facility] Last Admin: 10/08/18 21:34 Dose: Not Given Enoxaparin Sodium (Lovenox) 40 mg SC 0900 [facility] Last Admin: 10/08/18 09:02 Dose: 40 mg Ferrous Sulfate (Feosol) 325 mg PO BID-WM [facility] Last Admin: 10/08/18 17:10 Dose: 325 mg Furosemide (Lasix) 20 mg PO BID [facility] Last Admin: 10/08/18 21:31 Dose: 20 mg Glucagon (Glucagon) 1 mg IM PRN PRN PRN Reason: Hypoglycemia Hydralazine HCl (Apresoline) 5 mg SLOW IVP Q15MIN PRN PRN Reason: FOR SBP > 170mmHg Last Admin: 10/07/18 13:02 Dose: 5 mg Hydroxyzine HCl (Atarax) 10 mg PO DAILY [facility] Last Admin: 10/08/18 09:03 Dose: 10 mg Dextrose/Water (D5w) 1,000 mls @ 0 mls/hr IV .Q0M PRN PRN Reason: Hypoglycemia Insulin Human Lispro (Humalog) 0 units SC .MILD SLIDING SCALE PRN PRN Reason: Mild Correctional Scale Last Admin: 10/07/18 20:57 Dose: 4 unit Levothyroxine Sodium (Synthroid) 12.5 mcg PO 0600 [facility] Last Admin: 10/09/18 06:24 Dose: 12.5 mcg Melatonin (Melatonin) 6 mg PO HS [facility] Last Admin: 10/08/18 21:30 Dose: 6 mg Mometasone Furoate/Formoterol Fumar (Dulera 200 Mcg/5 Mcg Inhaler) 2 puff INH BID-RT [facility] Last Admin: 10/08/18 18:02 Dose: 2 puff Morphine Sulfate (Morphine) 2 mg SLOW IVP Q4H PRN PRN Reason: Severe Pain (7-10) Pantoprazole Sodium (Protonix) 40 mg PO DAILY [facility] Last Admin: 10/08/18 09:03 Dose: 40 mg Polyethylene Glycol (Miralax) 17 gm PO DAILY [facility] Last Admin: 10/08/18 09:02 Dose: 17 gm Prednisone (Prednisone) 20 mg PO QAM-WM [facility] Last Admin: 10/08/18 09:04 Dose: 20 mg Saccharomyces Boulardii (Florastor) 250 mg PO DAILY [facility] Last Admin: 10/08/18 09:04 Dose: 250 mg Sodium Biphosphate/Sodium Phosphate (Fleet Enema) 133 ml ME 1800 PRN PRN Reason: Constipation Sodium Chloride (Flush - Normal Saline) 10 ml IVF Q12HR [facility] Last Admin: 10/08/18 21:31 Dose: 10 ml Sodium Chloride (Flush - Normal Saline) 10 ml IVF PRN PRN PRN Reason: Saline Flush Last Admin: 10/05/18 04:06 Dose: 10 ml Tamsulosin HCl (Flomax) 0.4 mg PO DAILY [facility] Last Admin: 10/08/18 09:04 Dose: 0.4 mg Tramadol HCl (Ultram) 100 mg PO Q6H PRN PRN Reason: Pain
--- NOTE | 2018-10-09 09:01 | PRG ---
DATE OF SERVICE: 10/09/2018 SUBJECTIVE: This morning, he is doing better. OBJECTIVE: VITAL SIGNS: Saturations are 95% on 2 L, respiratory rate 18, temperature 97, blood pressure 180/62. CHEST: Bilateral crackles without any wheezing. CARDIAC: Normal S1, S2. No gallops. ABDOMEN: No masses. LABORATORY DATA: Unremarkable. IMPRESSIONS: 1. Squamous cell carcinoma, right lower lung. 2. Pleural effusion, maybe a transudate from congestive heart failure. BNP was elevated at 621. 3. Chronic obstructive pulmonary disease. 4. Severe deconditioning. 5. Lymphoma. PLAN: Disposition as per Oncology. Await cytology. Job ID: [id number]
[2018-10-09] MEDS: Furosemide 20 MG TAB PO SCH ×2 (09:42→21:38)
[2018-10-09] MEDS: Saccharomyces boulardii 250 MG CAP PO SCH (09:42)
[2018-10-09] MEDS: Carvedilol 6.25 MG TAB PO SCH ×2 (09:42→21:37)
[2018-10-09] MEDS: Ubidecarenone 50 MG CAP PO SCH (09:42)
[2018-10-09] MEDS: Cefdinir 300 MG CAP PO SCH ×2 (09:42→21:35)
[2018-10-09] MEDS: Amlodipine 10 MG TAB PO SCH ×2 (09:42→21:36)
[2018-10-09] MEDS: Tamsulosin HCl 0.4 MG CAP PO SCH (09:42)
[2018-10-09] MEDS: cloNIDine 0.1 MG TAB PO SCH ×3 (09:42→21:38)
[2018-10-09] MEDS: predniSONE 20 MG TAB PO SCH (09:43)
[2018-10-09] MEDS: Polyethylene Glycol 3350 17 GM Packet PO SCH (09:43)
[2018-10-09] MEDS: Docusate 100 MG CAP PO SCH ×2 (09:43→21:41)
[2018-10-09] MEDS: Enoxaparin Sodium 40 MG/0.4 ML SYRINGE SC SCH (09:43)
[2018-10-09] MEDS: Ferrous Sulfate 325 MG TAB PO SCH ×2 (09:43→16:36)
[2018-10-09] MEDS: hydrOXYzine 10 MG TAB PO SCH (10:46)
[2018-10-09] MEDS: HumaLOG 300 UNITS/3 ML VIAL SC PRN (16:36)
[2018-10-09] MEDS: Melatonin 3 MG TAB PO SCH (21:35)
[2018-10-09] MEDS: Atorvastatin Calcium 20 MG TAB PO SCH (21:37)
[2018-10-10] MEDS: Levothyroxine Sodium 25 MCG TAB PO SCH (05:32)
[2018-10-10] MEDS: Mometasone/Formoterol 120 PUFF INHALER INH SCH ×2 (06:45→18:54)
[2018-10-10] MEDS: Polyethylene Glycol 3350 17 GM Packet PO SCH (09:07)
[2018-10-10] MEDS: Enoxaparin Sodium 40 MG/0.4 ML SYRINGE SC SCH (09:08)
[2018-10-10] MEDS: Carvedilol 6.25 MG TAB PO SCH ×2 (09:08→20:56)
[2018-10-10] MEDS: Docusate 100 MG CAP PO SCH ×2 (09:09→20:57)
[2018-10-10] MEDS: Amlodipine 10 MG TAB PO SCH ×2 (09:09→20:57)
[2018-10-10] MEDS: Tamsulosin HCl 0.4 MG CAP PO SCH (09:09)
[2018-10-10] MEDS: Furosemide 20 MG TAB PO SCH (09:09)
[2018-10-10] MEDS: Saccharomyces boulardii 250 MG CAP PO SCH (09:09)
[2018-10-10] MEDS: Ferrous Sulfate 325 MG TAB PO SCH ×2 (09:10→18:02)
[2018-10-10] MEDS: predniSONE 20 MG TAB PO SCH (09:10)
[2018-10-10] MEDS: cloNIDine 0.1 MG TAB PO SCH ×3 (09:10→20:57)
[2018-10-10] MEDS: hydrOXYzine 10 MG TAB PO SCH (09:11)
[2018-10-10] MEDS: Ubidecarenone 50 MG CAP PO SCH (09:11)
[2018-10-10] MEDS: Cefdinir 300 MG CAP PO SCH ×2 (09:11→20:57)
--- NOTE | 2018-10-10 10:50 | PDOC.PN ---
- Subjective Encounter Start Date: 10/10/18 Encounter Start Time: 10:50 Patient seen and examined, no new issues or complaints. - Objective Resuscitation Status - Order Detail: 09/30/18 05:13 Resuscitation Status Routine Resuscitation Status: DNAR: NO Resuscitation Discussed with: as stated by pt Vital Signs & Weight: Vital Signs (12 hours) Temp Pulse Resp BP BP Pulse Ox 10/10/18 09:10 140/68 10/10/18 09:09 62 10/10/18 09:08 140/68 10/10/18 08:11 92 L 10/10/18 07:21 97.8 F 62 16 165/55 H 96 10/10/18 06:47 64 16 92 L 10/10/18 06:45 65 20 94 L 10/10/18 00:47 57 L 16 97 Weight Admit Weight 149 lb 7 oz Weight 149 lb I&O: 10/09/18 10/10/18 10/11/18 06:59 06:59 06:59 Intake Total 2390 Output Total 400 Balance 1989 Result Diagrams: 10/10/18 05:38 10/09/18 03:40 Additional Labs: Accuchecks 10/10/18 10/09/18 10/09/18 05:37 20:38 16:20 POC Glucose 110 250 H 262 H 10/09/18 12:15 POC Glucose 122 H Phys Exam - Physical Examination Constitutional: NAD HEENT: PERRLA, moist MMs Neck: no nodes, no JVD, supple Respiratory: no wheezing, no rales, no rhonchi Cardiovascular: RRR, no significant murmur, no rub Gastrointestinal: soft, non-tender, no distention Dx/Plan (1) Squamous cell carcinoma of lung Code(s): C34.90 - MALIGNANT NEOPLASM OF UNSP PART OF UNSP BRONCHUS OR LUNG Status: Acute Qualifiers: Laterality: right Qualified Code(s): C34.91 - Malignant neoplasm of unspecified part of right bronchus or lung Comment: BM Bx results show B cell lymphoma. plan Rx for Lung CA per Oncology and Rad Onc Plans for markings for XRT tomorrow (2) SONIYA (acute kidney injury) Code(s): N17.9 - ACUTE KIDNEY FAILURE, UNSPECIFIED Status: Acute Comment: Improved. stop IVF (3) Diabetes mellitus Code(s): E11.9 - TYPE 2 DIABETES MELL[place]US WITHOUT COMPLICATIONS Status: Chronic Qualifiers: Diabetes mellitus type: type 2 Diabetes mellitus complication status: without complication Comment: Controlled.metformin on hold. cont IS. accuchecks (4) Hypothyroidism Code(s): E03.9 - HYPOTHYROIDISM, UNSPECIFIED Status: Chronic Comment: cont levothyroxine (5) Anemia Code(s): D64.9 - ANEMIA, UNSPECIFIED Status: Chronic Qualifiers: Anemia type: unspecified type (6) CAD (coronary artery disease) Code(s): I25.10 - ATHSCL HEART DISEASE OF [place] CORONARY ARTERY W/O ANG PCTRS Status: Chronic Qualifiers: Coronary Disease-Associated Artery/Lesion type: bypass graft [place] vs. transplanted heart: [place] heart Associated angina: without angina Qualified Code(s): I25.810 - Atherosclerosis of coronary artery bypass graft(s) without angina pectoris Comment: cont Coreg,statin,lasix (7) HLD (hyperlipidemia) Code(s): E78.5 - HYPERLIPIDEMIA, UNSPECIFIED Status: Chronic Qualifiers: Hyperlipidemia type: unspecified Qualified Code(s): E78.5 - Hyperlipidemia , unspecified Comment: cont statin.stable - Plan * Pending placement * DC to rehab once placement done * continue current plan of care * case and plan d/w patient at length, he understood and agreed with this plan
[2018-10-10] MEDS: HumaLOG 300 UNITS/3 ML VIAL SC PRN (16:16)
[2018-10-10] MEDS ORDERED: Furosemide 40 MG/4 ML VIAL SLOW IVP SCH (17:15)
--- NOTE | 2018-10-10 17:55 | PRG ---
DATE OF SERVICE: 10/10/2018 INTERVAL HISTORY: The patient is doing really well from respiratory standpoint. He is breathing comfortably. His respirations are little bit tighter than they were yesterday. He woke up from a nap today, acutely dyspneic. He was able to catch his breath after sitting on the side of the bed for 10 to 15 minutes. Other than that, he had not had any events. He denies any fevers. He is coughing and bringing up a little bit of white phlegm, but nothing with color to it and certainly no blood. He is not have any chest pain, nausea, vomiting, or diarrhea. His appetite seems to not be great. PHYSICAL EXAMINATION: VITAL SIGNS: Afebrile, pulse 59, blood pressure 140/68, respirations 20, and saturation 97% on 2 L nasal cannula. GENERAL: The patient is awake and alert, in no apparent distress. LUNGS: Decent air entry on the left. There is decreased air entry at the right base. Dependent crackles are present, bibasilar regions. HEART: Normal rate and regular. ABDOMEN: Soft, nontender, and nondistended. Bowel sounds are positive. MUSCULOSKELETAL: No cyanosis or clubbing. No pitting in the bilateral lower extremities. NEUROLOGIC: Grossly nonfocal. LABORATORY DATA: Hemoglobin 8.0. INR 1.0. Blood sugar ranges from 110 to 232. Urinalysis is previously unremarkable. Thoracentesis fluid was reviewed. This is clearly a transudate. Cultures are all negative to date except for 1/2 blood cultures that was positive for contaminant. IMAGING DATA: Echocardiogram shows normal ejection fraction. There is left concentric hypertrophy. Significant valvular abnormalities including aortic valve and tricuspid valves are present. Aortic valve is severely thickened with quite reduced excursion. ASSESSMENT: 1. Acute hypoxic respiratory failure. 2. Pleural effusion, transudate based on thoracentesis studies. 3. [id number] valvular heart failure. 4. Lymphoma, about to start therapy. 5. Squamous cell carcinoma of the right lower lobe. 6. Chronic obstructive pulmonary disease without current exacerbation. DISCUSSION AND PLAN: We will continue our supportive measures. I will escalate the diuretics to get him closer to euvolemia. Pulmonary/Critical Care will continue to follow along while the patient remains in the hospital. Job ID: [id number] [facility]
[2018-10-10] MEDS: Melatonin 3 MG TAB PO SCH (20:56)
[2018-10-10] MEDS: Atorvastatin Calcium 20 MG TAB PO SCH (20:57)
[2018-10-11] MEDS: Levothyroxine Sodium 25 MCG TAB PO SCH (05:48)
[2018-10-11 06:13] LABS: Hemoglobin 7.6 g/dL (14.0-18.0)
[2018-10-11 06:19] LABS: Anion Gap 9 mmol/L (10-20); BUN (Urea Nitrogen) 32 mg/dL (8.4-25.7); Calc. Creatinine Clearance 53 mL/min (70-130); Calcium 8.7 mg/dL (7.8-10.44); Carbon Dioxide 35 mmol/L (23-31); Chloride 95 mmol/L (98-107); Estimated GFR-MDRD 74; Glucose 98 mg/dL (83-110); Magnesium 1.8 mg/dL (1.6-2.6); Potassium 5.5 mmol/L (3.5-5.1); Sodium 133 mmol/L (136-145)
[2018-10-11] MEDS: Mometasone/Formoterol 120 PUFF INHALER INH SCH ×2 (07:00→18:38)
--- NOTE | 2018-10-11 08:50 | PDOC.PN ---
- Subjective Encounter Start Date: 10/11/18 Encounter Start Time: 08:49 Patient seen and examined, no new issues. - Objective Resuscitation Status - Order Detail: 09/30/18 05:13 Resuscitation Status Routine Resuscitation Status: DNAR: NO Resuscitation Discussed with: as stated by pt Vital Signs & Weight: Vital Signs (12 hours) Pulse Resp BP Pulse Ox 10/11/18 07:34 94 L 10/11/18 07:05 64 16 94 L 10/11/18 07:00 64 16 94 L 10/11/18 00:41 61 16 10/10/18 20:57 58 L 150/50 H 10/10/18 20:56 150/50 H Weight Admit Weight 149 lb 7 oz Weight 149 lb I&O: 10/10/18 10/11/18 10/12/18 06:59 06:59 06:59 Intake Total 480 Balance 480 Result Diagrams: 10/11/18 05:45 10/11/18 05:45 Additional Labs: Accuchecks 10/11/18 10/10/18 10/10/18 05:44 20:52 15:41 POC Glucose 102 250 H 232 H 10/10/18 10:58 POC Glucose 172 H Phys Exam - Physical Examination Constitutional: NAD HEENT: PERRLA, moist MMs Neck: no nodes, no JVD Respiratory: no wheezing, no rales, no rhonchi Cardiovascular: RRR, no significant murmur, no rub Gastrointestinal: soft, non-tender, no distention Musculoskeletal: no edema, pulses present Dx/Plan (1) Squamous cell carcinoma of lung Code(s): C34.90 - MALIGNANT NEOPLASM OF UNSP PART OF UNSP BRONCHUS OR LUNG Status: Acute Qualifiers: Laterality: right Qualified Code(s): C34.91 - Malignant neoplasm of unspecified part of right bronchus or lung Comment: BM Bx results show B cell lymphoma. plan Rx for Lung CA per Oncology and Rad Onc Plans for markings for XRT tomorrow (2) SONIYA (acute kidney injury) Code(s): N17.9 - ACUTE KIDNEY FAILURE, UNSPECIFIED Status: Acute Comment: Improved. stop IVF (3) Diabetes mellitus Code(s): E11.9 - TYPE 2 DIABETES MELLITUS WITHOUT COMPLICATIONS Status: Chronic Qualifiers: Diabetes mellitus type: type 2 Diabetes mellitus complication status: without complication Comment: Controlled.metformin on hold. cont IS. accuchecks (4) Hypothyroidism Code(s): E03.9 - HYPOTHYROIDISM, UNSPECIFIED Status: Chronic Comment: cont levothyroxine (5) Anemia Code(s): D64.9 - ANEMIA, UNSPECIFIED Status: Chronic Qualifiers: Anemia type: unspecified type (6) CAD (coronary artery disease) Code(s): I25.10 - ATHSCL HEART DISEASE OF [place] CORONARY ARTERY W/O ANG PCTRS Status: Chronic Qualifiers: Coronary Disease-Associated Artery/Lesion type: bypass graft [place] vs. transplanted heart: [place] heart Associated angina: without angina Qualified Code(s): I25.810 - Atherosclerosis of coronary artery bypass graft(s) without angina pectoris Comment: cont Coreg,statin,lasix (7) HLD (hyperlipidemia) Code(s): E78.5 - HYPERLIPIDEMIA, UNSPECIFIED Status: Chronic Qualifiers: Hyperlipidemia type: unspecified Qualified Code(s): E78.5 - Hyperlipidemia , unspecified Comment: cont statin.stable - Plan * pending rehab placement * cont current plan of care * DC once arrangements made
[2018-10-11] MEDS ORDERED: Furosemide 40 MG/4 ML VIAL SLOW IVP SCH (09:00)
[2018-10-11] MEDS: Polyethylene Glycol 3350 17 GM Packet PO SCH (09:06)
[2018-10-11] MEDS: Ferrous Sulfate 325 MG TAB PO SCH ×2 (09:06→16:33)
[2018-10-11] MEDS: cloNIDine 0.1 MG TAB PO SCH ×3 (09:06→21:28)
[2018-10-11] MEDS: hydrOXYzine 10 MG TAB PO SCH (09:06)
[2018-10-11] MEDS: Docusate 100 MG CAP PO SCH ×2 (09:07→21:27)
[2018-10-11] MEDS: Amlodipine 10 MG TAB PO SCH ×2 (09:07→21:27)
[2018-10-11] MEDS: Carvedilol 6.25 MG TAB PO SCH ×2 (09:07→21:28)
[2018-10-11] MEDS: Cefdinir 300 MG CAP PO SCH ×2 (09:07→21:27)
[2018-10-11] MEDS: Ubidecarenone 50 MG CAP PO SCH (09:07)
[2018-10-11] MEDS: Saccharomyces boulardii 250 MG CAP PO SCH (09:08)
[2018-10-11] MEDS: Tamsulosin HCl 0.4 MG CAP PO SCH (09:08)
[2018-10-11] MEDS: Enoxaparin Sodium 40 MG/0.4 ML SYRINGE SC SCH (09:08)
[2018-10-11] MEDS: predniSONE 20 MG TAB PO SCH (09:08)
[2018-10-11] MEDS: HumaLOG 300 UNITS/3 ML VIAL SC PRN (16:33)
--- NOTE | 2018-10-11 17:16 | PRG ---
DATE OF SERVICE: 10/11/2018 SERVICE: Pulmonary Medicine. INTERVAL HISTORY: The patient is doing really well from respiratory standpoint. He made a significant amount of urine yesterday. With that, he had improved sleep last night, he did not have any dyspnea that woke him up in the middle of night. He denies any fevers or chills. He is coughing intermittently and bringing up white phlegm. PHYSICAL EXAMINATION: VITAL SIGNS: Afebrile. Pulse 50, blood pressure 150/50, respirations 20, and saturation 95% on 2 L nasal cannula. GENERAL: The patient is awake and alert, in no apparent distress. LUNGS: Much improved air entry. There is a prolonged expiratory phase and dependent crackles noted. With forced exhalation, wheezing is appreciated. HEART: Normal rate, regular. ABDOMEN: Soft, nontender, nondistended. Bowel sounds are positive. MUSCULOSKELETAL: No cyanosis or clubbing. There is 1 to 2+ pitting in the bilateral lower extremities, but it has improved. : No [place]. NEUROLOGIC: Grossly nonfocal. LABORATORY DATA: Hemoglobin 7.6. Bicarb 35, sodium and chloride are gently downtrending, potassium 5.5. Magnesium 1.8, phosphorus 4.0. ASSESSMENT: 1. Acute hypoxic respiratory failure. 2. Pleural effusion, transudative based on thoracentesis studies. 3. Bozkm-oi-wesmiaw valvular heart failure. 4. Lymphoma. 5. 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 6. Chronic obstructive pulmonary disease without current exacerbation. DISCUSSION AND PLAN: We will continue supportive measures. His bicarb has jumped up, suggesting that intravascularly, he may be a little dry, though he remains a touch volume overloaded. I will back off his Lasix to once daily and switch him over to a p.o. medication. Dr. Geller will resume care in the morning. Job ID: [id number] [facility]
[2018-10-11] MEDS: Atorvastatin Calcium 20 MG TAB PO SCH (21:27)
[2018-10-11] MEDS: Melatonin 3 MG TAB PO SCH (21:27)
[2018-10-12 05:49] LABS: Hemoglobin 7.5 g/dL (14.0-18.0)
[2018-10-12] MEDS: Levothyroxine Sodium 25 MCG TAB PO SCH (05:53)
[2018-10-12 06:02] LABS: Anion Gap 9 mmol/L (10-20); BUN (Urea Nitrogen) 33 mg/dL (8.4-25.7); Calc. Creatinine Clearance 49 mL/min (70-130); Calcium 8.4 mg/dL (7.8-10.44); Carbon Dioxide 34 mmol/L (23-31); Chloride 95 mmol/L (98-107); Estimated GFR-MDRD 67; Glucose 95 mg/dL (83-110); Potassium 5.5 mmol/L (3.5-5.1); Sodium 132 mmol/L (136-145)
[2018-10-12] MEDS: Mometasone/Formoterol 120 PUFF INHALER INH SCH ×2 (07:25→18:53)
--- NOTE | 2018-10-12 08:13 | PDOC.PN ---
- Subjective Encounter Start Date: 10/12/18 Encounter Start Time: 11:30 Subjective: Patient reports some improvement in shortness of breath. Still -: weak. Would like SNF due to weakness, worried he will decompensate -: at home by himself. - Objective Resuscitation Status - Order Detail: 09/30/18 05:13 Resuscitation Status Routine Resuscitation Status: DNAR: NO Resuscitation Discussed with: as stated by pt MAR Reviewed: Yes Vital Signs & Weight: Vital Signs (12 hours) Pulse Resp BP Pulse Ox 10/12/18 07:33 92 L 10/12/18 07:25 60 20 92 L 10/11/18 21:28 132/60 10/11/18 21:27 53 L 132/60 Weight Admit Weight 149 lb 7 oz Weight 149 lb I&O: 10/11/18 10/12/18 10/13/18 06:59 06:59 06:59 Intake Total 480 480 Balance 480 480 Result Diagrams: 10/12/18 05:34 10/12/18 05:34 Additional Labs: Accuchecks 10/12/18 10/11/18 10/11/18 05:31 20:44 16:01 POC Glucose 104 249 H 219 H 10/11/18 11:20 POC Glucose 141 H Phys Exam - Physical Examination Constitutional: NAD HEENT: moist MMs Respiratory: no wheezing, no rales, no rhonchi Cardiovascular: RRR Gastrointestinal: soft, positive bowel sounds Neurological: non-focal Psychiatric: normal affect, A&O x 3 Dx/Plan (1) Acute respiratory failure with hypoxia Code(s): J96.01 - ACUTE RESPIRATORY FAILURE WITH HYPOXIA Status: Acute Comment: stable on 2L NC O2 (2) Squamous cell carcinoma of lung Code(s): C34.90 - MALIGNANT NEOPLASM OF UNSP PART OF UNSP BRONCHUS OR LUNG Status: Acute Qualifiers: Laterality: right Qualified Code(s): C34.91 - Malignant neoplasm of unspecified part of right bronchus or lung (3) Small B-cell lymphoma Code(s): C83.00 - SMALL CELL B-CELL LYMPHOMA, UNSPECIFIED SITE Status: Acute Qualifiers: Lymphoma site: unspecified region Qualified Code(s): C83.00 - Small cell B- cell lymphoma, unspecified site Comment: New finding on Bone Marrow Bx. Defer to Oncology (4) Acute on chronic diastolic (congestive) heart failure Code(s): I50.33 - ACUTE ON CHRONIC DIASTOLIC (CONGESTIVE) HEART FAILURE Status : Acute Comment: Improved with diuresis (5) Aortic stenosis Code(s): I35.0 - NONRHEUMATIC AORTIC (VALVE) STENOSIS Status: Chronic Comment: mild to moderate, with mild to moderate aortic regurgitation (6) Pleural effusion Code(s): J90 - PLEURAL EFFUSION, NOT ELSEWHERE CLASSIFIED Status: Acute Comment: s/p left thoracentesis with removal of 1400 ml, transudative (7) COPD (chronic obstructive pulmonary disease) Status: Chronic Comment: stable (8) CAD (coronary artery disease) Code(s): I25.10 - ATHSCL HEART DISEASE OF [place] CORONARY ARTERY W/O ANG PCTRS Status: Chronic Qualifiers: Coronary Disease-Associated Artery/Lesion type: bypass graft [place] vs. transplanted heart: [place] heart Associated angina: without angina Qualified Code(s): I25.810 - Atherosclerosis of coronary artery bypass graft(s) without angina pectoris Comment: cont Coreg,statin,lasix (9) Diabetes mellitus Code(s): E11.9 - TYPE 2 DIABETES MELLITUS WITHOUT COMPLICATIONS Status: Chronic Qualifiers: Diabetes mellitus type: type 2 Diabetes mellitus complication status: without complication Comment: Controlled.metformin on hold. cont IS. accuchecks (10) Hypothyroidism Code(s): E03.9 - HYPOTHYROIDISM, UNSPECIFIED Status: Chronic Comment: cont levothyroxine (11) Hyperkalemia Code(s): E87.5 - HYPERKALEMIA Status: Acute Comment: mild, persistent (12) Anemia Code(s): D64.9 - ANEMIA, UNSPECIFIED Status: Chronic Qualifiers: Anemia type: unspecified type Qualified Code(s): D64.9 - Anemia, unspecified (13) HLD (hyperlipidemia) Code(s): E78.5 - HYPERLIPIDEMIA, UNSPECIFIED Status: Chronic Qualifiers: Hyperlipidemia type: unspecified Qualified Code(s): E78.5 - Hyperlipidemia , unspecified Comment: cont statin.stable - Plan cont current plan of care pending rehab/SNF placement- likely to [place] tomorrow * . - Discharge Day Encounter end time: 11:45
[2018-10-12] MEDS ORDERED: Furosemide 40 MG/4 ML VIAL ONE (08:28)
[2018-10-12] MEDS: hydrOXYzine 10 MG TAB PO SCH (08:31)
[2018-10-12] MEDS: Polyethylene Glycol 3350 17 GM Packet PO SCH (08:32)
[2018-10-12] MEDS: Amlodipine 10 MG TAB PO SCH ×2 (08:34→21:53)
[2018-10-12] MEDS: Cefdinir 300 MG CAP PO SCH ×2 (08:34→21:40)
[2018-10-12] MEDS: Carvedilol 6.25 MG TAB PO SCH (08:34)
[2018-10-12] MEDS: Tamsulosin HCl 0.4 MG CAP PO SCH (08:35)
[2018-10-12] MEDS: Ubidecarenone 50 MG CAP PO SCH (08:35)
[2018-10-12] MEDS: Saccharomyces boulardii 250 MG CAP PO SCH (08:35)
[2018-10-12] MEDS: Docusate 100 MG CAP PO SCH ×2 (08:35→21:40)
[2018-10-12] MEDS: predniSONE 20 MG TAB PO SCH (08:35)
[2018-10-12] MEDS: Ferrous Sulfate 325 MG TAB PO SCH ×2 (08:36→16:08)
[2018-10-12] MEDS: cloNIDine 0.1 MG TAB PO SCH ×2 (08:36→16:05)
[2018-10-12] MEDS: Furosemide 40 MG TAB PO SCH (08:37)
[2018-10-12] MEDS: Enoxaparin Sodium 40 MG/0.4 ML SYRINGE SC SCH (08:37)
--- NOTE | 2018-10-12 12:57 | PRG ---
DATE OF SERVICE: 10/12/2018 SUBJECTIVE: This morning, he is better. He is less short of breath, less cough, trying to get into home. OBJECTIVE: VITAL SIGNS: Saturations are still low 85% on room air, blood pressure 130/60, respiratory rate 18, and pulse 80. CHEST: Decreased breath sounds. No wheezing. CARDIAC: Normal S1 and S2. No gallops. ABDOMEN: No masses. IMPRESSION AND PLAN: Congestive heart failure, right pleural effusion, squamous cell carcinoma, severe deconditioning, and lymphoma. He can be discharged back home. Still awaiting results of his pleural fluid cytology. Disposition eventually as per Oncology. Job ID: [id number]
[2018-10-12] MEDS: HumaLOG 300 UNITS/3 ML VIAL SC PRN (16:13)
[2018-10-12] MEDS: Atorvastatin Calcium 20 MG TAB PO SCH (21:40)
[2018-10-12] MEDS: Melatonin 3 MG TAB PO SCH (21:41)
[2018-10-13] MEDS: Carvedilol 6.25 MG TAB PO SCH ×3 (00:33→20:05)
[2018-10-13] MEDS: cloNIDine 0.1 MG TAB PO SCH ×4 (00:34→20:04)
[2018-10-13 06:25] LABS: Hemoglobin 7.8 g/dL (14.0-18.0)
[2018-10-13] MEDS: Levothyroxine Sodium 25 MCG TAB PO SCH (06:39)
[2018-10-13 06:54] LABS: Anion Gap 9 mmol/L (10-20); BUN (Urea Nitrogen) 33 mg/dL (8.4-25.7); Calc. Creatinine Clearance 49 mL/min (70-130); Calcium 8.6 mg/dL (7.8-10.44); Carbon Dioxide 34 mmol/L (23-31); Chloride 95 mmol/L (98-107); Estimated GFR-MDRD 66; Glucose 88 mg/dL (83-110); Potassium 5.6 mmol/L (3.5-5.1); Sodium 132 mmol/L (136-145)
[2018-10-13] MEDS: Polyethylene Glycol 3350 17 GM Packet PO SCH (07:56)
[2018-10-13] MEDS: hydrOXYzine 10 MG TAB PO SCH (07:57)
[2018-10-13] MEDS: Furosemide 40 MG TAB PO SCH (07:57)
[2018-10-13] MEDS: predniSONE 20 MG TAB PO SCH (07:57)
[2018-10-13] MEDS: Ferrous Sulfate 325 MG TAB PO SCH ×2 (07:57→16:45)
[2018-10-13] MEDS: Tamsulosin HCl 0.4 MG CAP PO SCH (07:58)
[2018-10-13] MEDS: Docusate 100 MG CAP PO SCH ×2 (07:58→20:04)
[2018-10-13] MEDS: Ubidecarenone 50 MG CAP PO SCH (07:58)
[2018-10-13] MEDS: Saccharomyces boulardii 250 MG CAP PO SCH (07:58)
[2018-10-13] MEDS: Enoxaparin Sodium 40 MG/0.4 ML SYRINGE SC SCH (08:02)
--- NOTE | 2018-10-13 08:23 | PDOC.PN ---
- Subjective Encounter Start Date: 10/13/18 Encounter Start Time: 10:15 Subjective: Patient without complaint this morning. Awaiting blood transfusion -: and scheduled for radiation therapy this afternoon after transfusion. - Objective Resuscitation Status - Order Detail: 09/30/18 05:13 Resuscitation Status Routine Resuscitation Status: DNAR: NO Resuscitation Discussed with: as stated by pt MAR Reviewed: Yes Vital Signs & Weight: Vital Signs (12 hours) Temp Pulse Resp BP BP Pulse Ox 10/13/18 07:58 162/52 H 10/13/18 07:50 98.7 F 60 18 161/56 H 93 L 10/13/18 00:34 162/52 H 10/13/18 00:33 162/52 H 10/12/18 21:53 55 L 162/52 H 95 Weight Admit Weight 149 lb 7 oz Weight 149 lb I&O: 10/12/18 10/13/18 10/14/18 06:59 06:59 06:59 Intake Total 1480 Balance 1480 Result Diagrams: 10/13/18 05:50 10/13/18 05:50 Additional Labs: Accuchecks 10/13/18 10/12/18 10/12/18 05:24 20:10 16:13 POC Glucose 130 H 250 H 305 H 10/12/18 11:11 POC Glucose 153 H Phys Exam - Physical Examination Constitutional: NAD HEENT: moist MMs Respiratory: no wheezing, no rales, no rhonchi Cardiovascular: RRR Gastrointestinal: soft, positive bowel sounds Neurological: non-focal, moves all 4 limbs Psychiatric: normal affect, A&O x 3 Dx/Plan (1) Acute respiratory failure with hypoxia Code(s): J96.01 - ACUTE RESPIRATORY FAILURE WITH HYPOXIA Status: Acute Comment: stable on 2L NC O2 (2) Squamous cell carcinoma of lung Code(s): C34.90 - MALIGNANT NEOPLASM OF UNSP PART OF UNSP BRONCHUS OR LUNG Status: Acute Qualifiers: Laterality: right Qualified Code(s): C34.91 - Malignant neoplasm of unspecified part of right bronchus or lung (3) Small B-cell lymphoma Code(s): C83.00 - SMALL CELL B-CELL LYMPHOMA, UNSPECIFIED SITE Status: Acute Qualifiers: Lymphoma site: unspecified region Qualified Code(s): C83.00 - Small cell B- cell lymphoma, unspecified site Comment: New finding on Bone Marrow Bx. Defer to Oncology (4) Acute on chronic diastolic (congestive) heart failure Code(s): I50.33 - ACUTE ON CHRONIC DIASTOLIC (CONGESTIVE) HEART FAILURE Status : Acute Comment: Improved with diuresis (5) Aortic stenosis Code(s): I35.0 - NONRHEUMATIC AORTIC (VALVE) STENOSIS Status: Chronic Comment: mild to moderate, with mild to moderate aortic regurgitation (6) Pleural effusion Code(s): J90 - PLEURAL EFFUSION, NOT ELSEWHERE CLASSIFIED Status: Acute Comment: s/p left thoracentesis with removal of 1400 ml, transudative (7) COPD (chronic obstructive pulmonary disease) Status: Chronic Comment: stable (8) CAD (coronary artery disease) Code(s): I25.10 - ATHSCL HEART DISEASE OF [place] CORONARY ARTERY W/O ANG PCTRS Status: Chronic Qualifiers: Coronary Disease-Associated Artery/Lesion type: bypass graft [place] vs. transplanted heart: [place] heart Associated angina: without angina Qualified Code(s): I25.810 - Atherosclerosis of coronary artery bypass graft(s) without angina pectoris Comment: cont Coreg,statin,lasix (9) Diabetes mellitus Code(s): E11.9 - TYPE 2 DIABETES MELLITUS WITHOUT COMPLICATIONS Status: Chronic Qualifiers: Diabetes mellitus type: type 2 Diabetes mellitus complication status: without complication Comment: Controlled.metformin on hold. cont IS. accuchecks (10) Hypothyroidism Code(s): E03.9 - HYPOTHYROIDISM, UNSPECIFIED Status: Chronic Comment: cont levothyroxine (11) Hyperkalemia Code(s): E87.5 - HYPERKALEMIA Status: Acute Comment: mild, persistent, not on NANCY-I/ARB or spironolactone, will put on low potassium diet, possibly related to poor access with hemolysis of samples (12) Anemia Code(s): D64.9 - ANEMIA, UNSPECIFIED Status: Chronic Qualifiers: Anemia type: unspecified type Qualified Code(s): D64.9 - Anemia, unspecified (13) HLD (hyperlipidemia) Code(s): E78.5 - HYPERLIPIDEMIA, UNSPECIFIED Status: Chronic Qualifiers: Hyperlipidemia type: unspecified Qualified Code(s): E78.5 - Hyperlipidemia , unspecified Comment: cont statin.stable - Plan cont current plan of care, PT/OT to [place] today or tomorrow * . - Discharge Day Encounter end time: 10:30
[2018-10-13] MEDS: Mometasone/Formoterol 120 PUFF INHALER INH SCH ×2 (08:28→18:17)
--- NOTE | 2018-10-13 09:19 | PRG ---
DATE OF SERVICE: SUBJECTIVE: Alberto Sanchez, this morning, is better, less short of breath. OBJECTIVE: VITAL SIGNS: Blood pressure 162/52, temperature 97, saturations respiratory rate 18. I's and O's have been good, negative. CHEST: Decreased breath sounds. No wheezing. CARDIAC: Normal S1, S2. No gallops. ABDOMEN: No masses. IMPRESSION: Right pleural effusion, still awaiting cytology, may be congestive heart failure related; chronic obstructive pulmonary disease; squamous-cell carcinoma; lymphoma; and weight loss. PLAN: Disposition as per Oncology. Decrease steroids and taper over to a course of a week. Job ID: [id number]
[2018-10-13] MEDS ORDERED: Acetaminophen 500 MG TAB PO SCH (09:45)
[2018-10-13] MEDS: Amlodipine 10 MG TAB PO SCH ×2 (10:21→20:04)
[2018-10-13] MEDS: HumaLOG 300 UNITS/3 ML VIAL SC PRN ×2 (11:45→17:13)
[2018-10-13 16:15] LABS: Mean Corpuscular HGB CONC 31.9 g/dL (32.0-36.0); Mean Corpuscular Volume 87.9 fL (78.0-98.0); Mean Platelet Volume 6.3 fL (7.4-10.4); Platelet Count 127 thou/uL (130-400); RBC Distribution Width 15.9 % (11.5-14.5); Red Blood Cell (RBC) Count 3.21 mill/uL (4.70-6.10); White Blood Cell (WBC) Count 4.3 thou/uL (4.8-10.8)
[2018-10-13 16:59] LABS: Anisocytosis SLIGHT = 6-15 cells (100X) (0-5/hpf); Band 3 % (5-11); Lymphocytes 67 % (21-51); MDiff Complete? YES; Monocytes 5 % (0-10); Neutrophil 21 % (42-75); Platelet Morphology Comment Appears Decreased; Reactive Lymphocytes 4 % (0-10)
[2018-10-13] MEDS: Atorvastatin Calcium 20 MG TAB PO SCH (20:05)
[2018-10-13] MEDS: Acetaminophen 325 MG TAB PO PRN (20:06)
[2018-10-13] MEDS: Melatonin 3 MG TAB PO SCH (20:52)
[2018-10-14 03:15] LABS: Hemoglobin 8.4 g/dL (14.0-18.0)
[2018-10-14 03:55] LABS: Anion Gap 9 mmol/L (10-20); BUN (Urea Nitrogen) 32 mg/dL (8.4-25.7); Calc. Creatinine Clearance 50 mL/min (70-130); Calcium 8.6 mg/dL (7.8-10.44); Carbon Dioxide 32 mmol/L (23-31); Chloride 95 mmol/L (98-107); Estimated GFR-MDRD 68; Glucose 100 mg/dL (83-110); Potassium 5.3 mmol/L (3.5-5.1); Sodium 131 mmol/L (136-145)
[2018-10-14] MEDS: Levothyroxine Sodium 25 MCG TAB PO SCH (05:50)
[2018-10-14] MEDS: Mometasone/Formoterol 120 PUFF INHALER INH SCH (07:21)
[2018-10-14 07:53] VITALS: BP 159/71; TEMP 98.3
[2018-10-14] MEDS ORDERED: predniSONE 5 MG TAB PO SCH (08:00)
--- NOTE | 2018-10-14 08:34 | PDOC.PN ---
- Subjective Encounter Start Date: 10/14/18 Encounter Start Time: 11:30 Subjective: Patient without complaints this morning. Had blood transfusion yesterday -: and then X-ray therapy in the afternoon, too late to go to SNF then, so -: going today. - Objective Resuscitation Status - Order Detail: 09/30/18 05:13 Resuscitation Status Routine Resuscitation Status: DNAR: NO Resuscitation Discussed with: as stated by pt MAR Reviewed: Yes Vital Signs & Weight: Vital Signs (12 hours) Temp Pulse Resp BP Pulse Ox 10/14/18 07:48 98.3 F 61 18 159/71 H 93 L 10/14/18 07:24 63 16 91 L 10/14/18 07:21 63 18 91 L Weight Admit Weight 149 lb 7 oz Weight 149 lb I&O: 10/13/18 10/14/18 10/15/18 06:59 06:59 06:59 Intake Total 1480 1550 Balance 1480 1550 Result Diagrams: 10/14/18 02:59 10/14/18 02:59 Additional Labs: Accuchecks 10/14/18 10/13/18 10/13/18 05:22 20:20 16:01 POC Glucose 102 201 H 181 H 10/13/18 11:41 POC Glucose 182 H Phys Exam - Physical Examination Constitutional: NAD HEENT: moist MMs Respiratory: no wheezing, no rales, no rhonchi Cardiovascular: RRR Gastrointestinal: soft, positive bowel sounds Neurological: non-focal Psychiatric: normal affect, A&O x 3 Dx/Plan (1) Acute respiratory failure with hypoxia Code(s): J96.01 - ACUTE RESPIRATORY FAILURE WITH HYPOXIA Status: Acute Comment: stable on 2L NC O2 (2) Squamous cell carcinoma of lung Code(s): C34.90 - MALIGNANT NEOPLASM OF UNSP PART OF UNSP BRONCHUS OR LUNG Status: Acute Qualifiers: Laterality: right Qualified Code(s): C34.91 - Malignant neoplasm of unspecified part of right bronchus or lung (3) Small B-cell lymphoma Code(s): C83.00 - SMALL CELL B-CELL LYMPHOMA, UNSPECIFIED SITE Status: Acute Qualifiers: Lymphoma site: unspecified region Qualified Code(s): C83.00 - Small cell B- cell lymphoma, unspecified site Comment: New finding on Bone Marrow Bx. Defer to Oncology (4) Acute on chronic diastolic (congestive) heart failure Code(s): I50.33 - ACUTE ON CHRONIC DIASTOLIC (CONGESTIVE) HEART FAILURE Status : Acute Comment: Improved with diuresis (5) Aortic stenosis Code(s): I35.0 - NONRHEUMATIC AORTIC (VALVE) STENOSIS Status: Chronic Comment: mild to moderate, with mild to moderate aortic regurgitation (6) Pleural effusion Code(s): J90 - PLEURAL EFFUSION, NOT ELSEWHERE CLASSIFIED Status: Acute Comment: s/p left thoracentesis with removal of 1400 ml, transudative (7) COPD (chronic obstructive pulmonary disease) Status: Chronic Comment: stable (8) CAD (coronary artery disease) Code(s): I25.10 - ATHSCL HEART DISEASE OF [place] CORONARY ARTERY W/O ANG PCTRS Status: Chronic Qualifiers: Coronary Disease-Associated Artery/Lesion type: bypass graft [place] vs. transplanted heart: [place] heart Associated angina: without angina Qualified Code(s): I25.810 - Atherosclerosis of coronary artery bypass graft(s) without angina pectoris Comment: cont Coreg,statin,lasix (9) Diabetes mellitus Code(s): E11.9 - TYPE 2 DIABETES MELLITUS WITHOUT COMPLICATIONS Status: Chronic Qualifiers: Diabetes mellitus type: type 2 Diabetes mellitus complication status: without complication Comment: Controlled.metformin on hold. cont IS. accuchecks (10) Hypothyroidism Code(s): E03.9 - HYPOTHYROIDISM, UNSPECIFIED Status: Chronic Comment: cont levothyroxine (11) Hyperkalemia Code(s): E87.5 - HYPERKALEMIA Status: Acute Comment: mild, persistent, not on NANCY-I/ARB or spironolactone, will put on low potassium diet, possibly related to poor access with hemolysis of samples (12) Anemia Code(s): D64.9 - ANEMIA, UNSPECIFIED Status: Chronic Qualifiers: Anemia type: unspecified type Qualified Code(s): D64.9 - Anemia, unspecified (13) HLD (hyperlipidemia) Code(s): E78.5 - HYPERLIPIDEMIA, UNSPECIFIED Status: Chronic Qualifiers: Hyperlipidemia type: unspecified Qualified Code(s): E78.5 - Hyperlipidemia , unspecified Comment: cont statin.stable - Plan cont current plan of care finished antibiotics, weaning steroids, stable to go to SNF today * . - Discharge Day Encounter end time: 11:45
[2018-10-14] MEDS ORDERED: Amlodipine 10 MG TAB PO SCH (09:00)
[2018-10-14] MEDS: Ferrous Sulfate 325 MG TAB PO SCH (09:16)
[2018-10-14] MEDS: Carvedilol 6.25 MG TAB PO SCH (09:17)
[2018-10-14] MEDS: Furosemide 40 MG TAB PO SCH (09:17)
[2018-10-14] MEDS: Ubidecarenone 50 MG CAP PO SCH (09:17)
[2018-10-14] MEDS: Tamsulosin HCl 0.4 MG CAP PO SCH (09:18)
[2018-10-14] MEDS: cloNIDine 0.1 MG TAB PO SCH (09:18)
[2018-10-14] MEDS: Saccharomyces boulardii 250 MG CAP PO SCH (09:18)
[2018-10-14] MEDS: Polyethylene Glycol 3350 17 GM Packet PO SCH (09:18)
[2018-10-14] MEDS: Docusate 100 MG CAP PO SCH (09:19)
[2018-10-14] MEDS: Enoxaparin Sodium 40 MG/0.4 ML SYRINGE SC SCH (09:19)
[2018-10-14] MEDS: hydrOXYzine 10 MG TAB PO SCH (09:27)
--- NOTE | 2018-10-14 09:54 | PRG ---
DATE OF SERVICE: 10/14/2018 SUBJECTIVE: He is doing well. Feels stronger today. Transfused unit of packed cells. OBJECTIVE: VITAL SIGNS: Saturations are 92% on 2 L, respiratory rate 18, temperature 98, pulse 61, blood pressure 159/71. CHEST: Decreased breath sounds. No wheezing. CARDIAC: Normal S1 and S2. No gallops. ABDOMEN: No masses. LABORATORY DATA: H and H are 8.4 and 25. Lytes are normal. IMPRESSION: Congestive heart failure; pleural effusion, transudate, no evidence of malignancy; chronic obstructive pulmonary disease; squamous cell carcinoma; lymphoma. Disposition as per Oncology. Continue pulmonary corral neb treatment. Taper steroids over a week. 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 Job ID: [id number]
--- NOTE | 2018-10-15 00:21 | DIS ---
DATE OF ADMISSION: 09/29/2018 DATE OF DISCHARGE: 10/14/2018 PRIMARY CARE PHYSICIAN: Gio Summers. REASON FOR ADMISSION: Sepsis. DIAGNOSES AT DISCHARGE: 1. Acute respiratory failure with hypoxia. 2. Squamous cell carcinoma of the lung. 3. Small B-cell lymphoma. 4. Sepsis, resolved. 5. Acute on chronic diastolic congestive heart failure, improved. 6. Aortic stenosis. 7. Pleural effusion, transudative. 8. Chronic obstructive pulmonary disease. 9. Coronary artery disease. 10. Diabetes mellitus type 2. 11. Hypothyroidism. 12. Hyperkalemia, mild. 13. Anemia. 14. Hyperlipidemia. PROCEDURES: 1. CT scan for deep bone percutaneous biopsy of the right iliac bone. 2. Thoracentesis with removal of 1400 mL of slightly turbid yellow fluid. 3. Echocardiogram showing ejection fraction of 60% to 65%. Moderate left ventricular hypertrophy, mild to moderate aortic stenosis, mild to moderate aortic regurgitation. CONSULTATIONS: 1. Pulmonology, Dr. Geller. 2. Heme Oncology, [place] L[place] for Dr. Yuen. 3. CT surgery, Dr. Tomlin. 4. Radiation Oncology, Dr. Hunt. SUMMARY OF HOSPITAL COURSE: This is an 83-year-old white male with past medical history of recently diagnosed small-cell lung cancer, presented with a fever to 103 and green sputum. He was noted to have some neutropenia and sepsis. He was started on broad-spectrum antibiotics. Dr. Geller was consulted. The patient did have a thoracentesis, which showed a noninfected transudative effusion, likely secondary to CHF. He did have an echocardiogram done as above and was diuresed with good improvement in his symptoms. The patient also had a bone marrow biopsy which showed B-cell lymphoma. The patient improved during his hospitalization. He eventually started receiving radiation therapy treatment for his lung cancer. He was weaned off the antibiotics. He was on steroids for his COPD and respiratory difficulty, and those are being weaned down. He was concerned about his weakness and requested placement, so we are sending him to a senior care facility for further physical therapy before going home. DISCHARGE MANAGEMENT: Discharged to [facility]. ACTIVITY: As tolerated. DIET: Low-potassium diet. THERAPY: Physical and occupational therapy. FOLLOWUP: Follow up with Dr. Hunt as directed Friday through Friday at 3:00 pm for radiation therapy. DISCHARGE MEDICATIONS: 1. Prednisone 5 mg tablets, 2 tablets daily for 3 days followed by 1 tablet daily for another 3 days and then off. 2. Amlodipine 10 mg daily. 3. Atorvastatin 20 mg at night. 4. Carvedilol 6.25 mg twice a day. 5. Clonidine 0.1 mg twice a day. 6. Ferrous sulfate 325 mg twice a day. 7. Furosemide 40 mg daily. 8. Atarax 10 mg daily. 9. DuoNeb as needed. 10. Levothyroxine 13 mcg daily. 11. Protonix 40 mg daily. 12. Florastor 250 mg daily. 13. Tamsulosin 0.4 mg daily. 14. Coenzyme Q10 10 mg daily. 15. Albuterol as needed. 16. Flovent 50 mcg inhaled twice a day. 17. Guaifenesin ER 600 mg twice a day. 18. Metformin 500 mg each night. Job ID: [id number]
== END 2018-10-14 14:08 | DRG 853 ==
LOC: ERS 21:06 → ONC 22:50
PROVIDERS: ADMIT Hospitalist; ATTEND Hospitalist
PROC: 0JH60WZ Insertion of Totally Implantable Vascular Access Device into Chest Subcutaneous Tissue and Fascia, Open Approach (ICD-10-PCS; 2018-10-01)
PROC: 02HV33Z Insertion of Infusion Device into Superior Vena Cava, Percutaneous Approach (ICD-10-PCS; 2018-10-01)
PROC: B548ZZA Ultrasonography of Superior Vena Cava, Guidance (ICD-10-PCS; 2018-10-01)
PROC: 07DR3ZX Extraction of Iliac Bone Marrow, Percutaneous Approach, Diagnostic (ICD-10-PCS; 2018-10-01)
PROC: 0W9B3ZZ Drainage of Left Pleural Cavity, Percutaneous Approach (ICD-10-PCS; principal; 2018-10-08)
DX: A41.9 Sepsis, unspecified organism (principal); J96.01 Acute respiratory failure with hypoxia; I50.33 Acute on chronic diastolic (congestive) heart failure; J18.9 Pneumonia, unspecified organism; C34.90 Malignant neoplasm of unspecified part of unspecified bronchus or lung; C83.00 Small cell B-cell lymphoma, unspecified site; N17.9 Acute kidney failure, unspecified; I35.0 Nonrheumatic aortic (valve) stenosis; J44.9 Chronic obstructive pulmonary disease, unspecified; I25.10 Atherosclerotic heart disease of native coronary artery without angina pectoris; E11.9 Type 2 diabetes mellitus without complications; E03.9 Hypothyroidism, unspecified; E87.5 Hyperkalemia; D64.9 Anemia, unspecified; E78.5 Hyperlipidemia, unspecified; M10.9 Gout, unspecified; N40.0 Benign prostatic hyperplasia without lower urinary tract symptoms; Z95.1 Presence of aortocoronary bypass graft; Z87.891 Personal history of nicotine dependence
CPT/HCPCS: 20225; 36415; 36416; 36430; 51701; 71045; 71046; 77002; 77014; 77280; 77290; 77293; 77295; 77300; 77334; 77412; 80048; 80053; 80202; 81003; 81015; 82150; 82436; 82570; 82945; 83605; 83615; 83735; 83880; 83930; 83935; 83986; 84100; 84133; 84157; 84300; 84478; 85014; 85018; 85025; 85060; 85097; 85610; 85730; 86850; 86900; 86901; 87040; 87070; 87086; 87116; 87205; 87206; 88112; 88184; 88237; 88264; 88280; 88305; 88311; 88313; 88341; 88342; 89051; 93005; 93306; 94640; 96361; 96365; 96367; C1788; J0360; J0692; J1447; J1642; J1650; J1940; J2001; J2250; J2704; J2920; J3010; J3370; J3490; J7050; J7512; J7620; P9016; Q9967

== ENCOUNTER 2018-10-19 08:36 | Day surgery (SDC) | payer MEDICARE, OTHER | END 2018-10-19 09:48 | LOC: ONC/OP 08:36 | PROVIDERS: ATTEND Internal Medicine Hematology & Oncology | DX: D72.821 Monocytosis (symptomatic) (principal); C34.11 Malignant neoplasm of upper lobe, right bronchus or lung; Z91.040 Latex allergy status; Z91.011 Allergy to milk products; Z88.0 Allergy status to penicillin; Z91.048 Other nonmedicinal substance allergy status; Z79.84 Long term (current) use of oral hypoglycemic drugs; Z79.51 Long term (current) use of inhaled steroids; Z79.899 Other long term (current) drug therapy | CPT/HCPCS: 77014; 77412; 85025; 96372; J1447 ==

== ENCOUNTER 2018-10-20 10:56 | Day surgery (SDC) | payer MEDICARE, OTHER ==
[~2018-10-20 10:56] MED LIST changes: +CARBOPLATIN IVPB SCH; +DEXAMETHASONE SOD PHOSPHATE IVPB SCH; -Fentanyl 100 MCG/2 ML VIAL ONE; -Lidocaine 1% (PF) 30 ML VIAL ONE; -Midazolam HCl 2 mg/2 ml Vial ONE; +ONDANSETRON IVPB SCH; +PACLitaxel 90 MG in Sodium Chloride 0.9% 250 ML 250 ML IVPB SCH; +SODIUM CHLORIDE 0.9% IVPB SCH; +[UNRECOGNIZED DRUG - OTHER] IVPB SCH
[2018-10-20] MEDS ORDERED: Sodium Chloride 0.9% 20 ML ONE (11:10)
[2018-10-20 11:26] VITALS: BP 154/65; TEMP 98.1
== END 2018-10-20 13:55 | disposition home or self-care (01) ==
LOC: ONC/OP 10:56
PROVIDERS: ATTEND Internal Medicine Hematology & Oncology
DX: Z51.11 Encounter for antineoplastic chemotherapy (principal); C34.11 Malignant neoplasm of upper lobe, right bronchus or lung; D72.821 Monocytosis (symptomatic); Z88.0 Allergy status to penicillin; Z91.040 Latex allergy status
CPT/HCPCS: 77014; 77412; 96375; 96413; 96417; J1100; J1642; J2405; J7050; J9045; J9267

== ENCOUNTER 2018-10-24 03:00 | Inpatient (IN) | payer MEDICARE, OTHER ==
[2018-10-24 03:21] LABS: Hemoglobin 9.3 g/dL (14.0-18.0); Mean Corpuscular HGB CONC 32.4 g/dL (32.0-36.0); Mean Corpuscular Hemoglobin 28.5 pg (27.0-31.0); RBC Distribution Width 15.9 % (11.5-14.5); Red Blood Cell (RBC) Count 3.26 mill/uL (4.70-6.10); White Blood Cell (WBC) Count 1.3 thou/uL (4.8-10.8)
[2018-10-24] MEDS ORDERED: Nitroglycerin 2% Ointment 1 INCH/1 GM Packet ONE (03:29)
[2018-10-24 03:39] LABS: ALT (SGPT) 14 U/L (8-55); AST (SGOT) 21 U/L (5-34); Albumin 3.3 g/dL (3.4-4.8); Alkaline Phosphatase 59 U/L (40-150); Anion Gap 13 mmol/L (10-20); BUN (Urea Nitrogen) 43 mg/dL (8.4-25.7); Bilirubin, Total 0.5 mg/dL (0.2-1.2); CK (CPK) 29 U/L (30-200); Calc. Creatinine Clearance 0 mL/min (70-130); Calcium 8.9 mg/dL (7.8-10.44); Carbon Dioxide 29 mmol/L (23-31); Chloride 94 mmol/L (98-107); Estimated GFR-MDRD 46; Globulin 2.8 g/dL (2.4-3.5); Glucose 112 mg/dL (83-110); Potassium 5.5 mmol/L (3.5-5.1); Protein, Total 6.1 g/dL (5.8-8.1); Sodium 130 mmol/L (136-145)
[2018-10-24 03:44] LABS: Band 2 % (5-11); Eosinophils 3 % (0-10); Lymphocytes 67 % (21-51); MDiff Complete? YES; Mean Platelet Volume 7.3 fL (7.4-10.4); Monocytes 10 % (0-10); Neutrophil 11 % (42-75); Platelet Count 95 thou/uL (130-400); Platelet Morphology Comment Appears Decreased; Reactive Lymphocytes 7 % (0-10)
[2018-10-24] MEDS ORDERED: Ondansetron PF 4 MG/2 ML Vial IVP PRN (05:40)
[2018-10-24] MEDS ORDERED: Ondansetron ODT 4 MG TAB SL PRN (05:40)
[2018-10-24 05:54] VITALS: BMI 24.8
--- NOTE | 2018-10-24 07:57 | RAD ---
XR Chest 1 View Portable History: [Dyspnea] Comparison: Radiograph October 08, 2018 Findings: Enlarging right layering pleural effusion. Port catheter similar position. Abnormal fullnes s of the right hilum. Bilateral rotator cuff arthropathy. Severe degenerative disease right glenohumeral joint. No pneumoth orax. Impression: Large right pleural effusion and fullness of the right hilar concerning for underlying ma ss. This may be worsening malignant process.
[2018-10-24] MEDS ORDERED: Bisacodyl 10 MG SUPP PR PRN (12:06)
[2018-10-24] MEDS: Vancomycin HCl 1 GM in Premix Bag 1 BAG IVPB SCH (12:24)
[2018-10-24] MEDS: Acetaminophen 325 MG TAB PO PRN ×2 (13:15→17:28)
[2018-10-24] MEDS ORDERED: Dextrose 5% in Water 1,000 ML IV PRN (14:05)
[2018-10-24] MEDS ORDERED: Dextrose 50% Abboject 50 ML SYRINGE SLOW IVP PRN (14:05)
[2018-10-24] MEDS ORDERED: MEROPENEM 1 GM/50 ML 1 GM in Premix Bag 1 BAG IVPB SCH (14:15)
--- NOTE | 2018-10-24 14:27 | HP ---
PRIMARY CARE PROVIDER: Jason Betancourt DO. CHIEF COMPLAINT: Cough. HISTORY OF PRESENT ILLNESS: Mr. Sanchez is a pleasant 83-year-old gentleman, who was seen at [facility] on October 24, 2018. He was hospitalized at this facility from the to of this year. Prior to that admission, he was recently diagnosed with lung cancer. During that hospitalization, he was also diagnosed with small B-cell lymphoma. He was discharged to [facility] for senior care. He has been coming to [facility] for chemotherapy and radiation therapy. His last chemotherapy was 4 days ago. His last radiation therapy was yesterday. He reports that he has had a chronic cough that has slightly worsened over the last few days. Today, he started having yellow sputum. He also reports that he had temperature of 102 degrees Fahrenheit 4 days ago. Over the last couple of nights, he reports being confused and unable to sleep. He was sent to the emergency room because of fever and the above symptoms. He denies any urinary symptoms. He denies any diarrhea. He denies any nausea or vomiting. REVIEW OF SYSTEMS: All other systems reviewed and found to be negative. PAST MEDICAL HISTORY: Small B-cell lymphoma, diabetes mellitus type 2, dyslipidemia, hypertension, and lung cancer. PAST SURGICAL HISTORY: Appendectomy, coronary artery bypass graft surgery, cholecystectomy. FAMILY HISTORY: The patient denies any family history of premature coronary artery disease. SOCIAL HISTORY: The patient denies tobacco use, alcohol use, or recreational drug use. CODE STATUS: I discussed his code status. During his prior admission, he was DNAR. During this hospitalization, he wishes to be full code. ALLERGIES: LATEX, PENICILLIN, AND NATURAL RUBBER. HOME MEDICATIONS: As dictated by Dr. Torres in his discharge summary dated October 14, 2018. PHYSICAL EXAMINATION: GENERAL: On examination, Mr. Sanchez is awake and alert, not in acute distress. VITAL SIGNS: Temperature is 100.7 degrees Fahrenheit, pulse 88, respiratory rate 22, and oxygen saturation 93% on 3 L of oxygen. BMI is 24.8. EYES: No scleral icterus, no conjunctival pallor. ENT: Moist mucosal membranes. No oropharyngeal erythema or exudates. NECK: Supple, nontender, trachea is midline. RESPIRATORY: Accessory muscles of breathing are not active. Chest wall movements are symmetric bilaterally. He has absent breath sounds over the right base. CARDIOVASCULAR: S1 and S2 are heard, regular. Peripheral pulses palpable. No carotid bruit. No pericardial rub. ABDOMEN: Soft, nontender, bowel sounds heard. NEUROLOGIC: Cranial nerves 2 through 12 are intact. MUSCULOSKELETAL: Power is 5/5 in all 4 extremities. SKIN: No rashes or subcutaneous nodules. LYMPHATIC: No cervical lymphadenopathy. PSYCHIATRIC: Normal mood, normal affect. The patient is oriented to person, place, and time. LABORATORY DATA: Mr. Sanchez's labs and investigations were reviewed. I reviewed his electrocardiogram, which shows normal sinus rhythm, right bundle-branch block, no ST changes to suggest an acute coronary syndrome. I also reviewed his chest x-ray, which shows right-sided pleural effusion with possible infiltrate/atelectasis of the right base. He is pancytopenic, with white count of 1300, hemoglobin 9.3, and platelet count of 95,000. He has 11% neutrophils and 2% band neutrophils. He is hyponatremic with a sodium of 130, hyperkalemic with potassium 4.5, has elevated creatinine of 1.46, last known creatinine 1.10 on October 16, 2018, unremarkable liver profile, normal troponin-I, and elevated BNP of 518. ASSESSMENT AND PLAN: Mr. Sanchez is a pleasant 83-year-old gentleman, who was seen at [facility] on October 24, 2018. His problem list includes: 1. Sepsis: Mr. Sanchez's presentation meets the criteria for sepsis, most likely source of infection in the lung. He will be admitted to the hospital for further management. We will also check urine studies to rule out urinary tract infection. We will await blood culture results, these have already been sent. 2. Pneumonia: The patient has been started on vancomycin and levofloxacin, which I will continue. We will consult Pulmonology Service for opinion and help with management of both pneumonia as well as pleural effusion. 3. Febrile neutropenia: This is in the context of chemotherapy. As mentioned, the patient will be treated with intravenous antibiotics. Oncology Service will also be consulted for opinion and help with management of neutropenia. 4. Acute kidney injury: We will hold nephrotoxic medications, provide gentle intravenous hydration and recheck creatinine. 5. Diabetes mellitus type 2: We will start the patient on Accu-Cheks and insulin sliding scale. 6. Hypothyroidism: We will continue thyroid replacement therapy. 7. Hypertension: We will continue the patient's home medications, monitor vital signs and titrate antihypertensives as needed. 8. Benign prostate hypertrophy: Stable, continue Flomax. 9. Coronary artery disease: Appears to be stable at this time. 10. Dyslipidemia: Continue Lipitor. Many thanks for allowing me to participate in your patient's care. Please feel free to contact me with any questions or concerns. LEVEL OF RISK: High. LEVEL OF COMPLEXITY: High. Job ID: [id number]
[2018-10-24] MEDS: hydrALAZINE 25 MG TAB PO SCH ×2 (15:11→20:03)
[2018-10-24] MEDS: Sodium Chloride 0.9% 1,000 ML IV SCH (15:15)
[2018-10-24] MEDS ORDERED: Mometasone Furoate 120 PUFF 220 MCG INH SCH (18:30)
[2018-10-24] MEDS: Mometasone Furoate 30 PUFF 220 MCG INH SCH ×2 (19:32→19:36)
[2018-10-24] MEDS: Atorvastatin Calcium 20 MG TAB PO SCH (19:52)
[2018-10-24] MEDS: Carvedilol 6.25 MG TAB PO SCH (19:56)
[2018-10-24] MEDS: guaiFENesin ER 600 MG TAB PO SCH (19:57)
[2018-10-24] MEDS: cloNIDine 0.1 MG TAB PO SCH (20:03)
[2018-10-24] MEDS: Ferrous Sulfate 325 MG TAB PO SCH (20:04)
[2018-10-24] MEDS ORDERED: Ubidecarenone 50 MG CAP PO SCH (21:00)
[2018-10-24] MEDS: MEROPENEM 1 GM/50 ML 1 GM in Premix Bag 1 BAG IVPB SCH (21:38)
--- NOTE | 2018-10-24 22:09 | CON ---
DATE OF CONSULTATION: 10/24/2018 HISTORY OF PRESENT ILLNESS: Mr. Sanchez is very pleasant gentleman who is 83-year-old. He is diagnosed with lung cancer recently. He had a thoracentesis which did not show malignant cells at the end of September. He underwent bronchoscopy on September [address] Balderas for endobronchial ultrasound. Needle aspirates were all negative for malignancy. He underwent bronchoscopy by Dr. Geller at the beginning of August which showed narrowing involving the right lower lobe bronchus. Biopsies and washings as well as brushing showed squamous cell carcinoma. He has apparently undergone chemotherapy. He was just released from the hospital on the 14 of October. He said he felt great. Today, he received his chemo, but started feeling poorly after that. Apparently, he also has a B-cell lymphoma. He presented with fever. He has a right lower lobe infiltrate. He subsequently has been admitted for IV antibiotics. PAST MEDICAL HISTORY: Remarkable for diabetes, squamous cell lung cancer, hypertension, lipid disorder, and lymphoma. PAST SURGICAL HISTORY: Remarkable for coronary artery bypass grafting, cholecystectomy, appendectomy, and insertion of a Mediport. FAMILY HISTORY: Negative for lung disease in early age. SOCIAL HISTORY: Nonsmoker, nondrinker, and nondrug user. REVIEW OF SYSTEMS: 10 point review of systems completed, remarkable only for fever. ALLERGIES: REPORTS PENICILLIN AND LATEX ALLERGY. PHYSICAL EXAMINATION: GENERAL: He is in no distress. VITAL SIGNS: His temperature is 100.7, heart rate is in the 80s, blood pressure 163/61, respiratory rate is 20, and oximetry is 94% on 4 L. HEENT: Pupils are equal. Sclerae are anicteric. Extraocular movements full. NECK: I do not palpate any cervical lymphadenopathy. Trachea is in midline. Carotids symmetrical. LUNGS: Remarkable for crackles at his right base. HEART: Regular rhythm. S1, S2 are normal. ABDOMEN: Soft and nontender. No masses. EXTREMITIES: Without clubbing, cyanosis, or edema. NEUROLOGIC: Grossly nonfocal. LABORATORY DATA: White count 1.3, was 2.7 five days ago; hemoglobin 9.3; platelets 95; he has 11% neutrophils; 67% lymphocytes; 10% monocytes; and 2% bands. IMPRESSION: Pneumonia in an immunocompromised host. He clinically does not appear septic. We will continue the antibiotics. He really was not in any distress when I was in the room and would not coughing much if at all. Once his neutropenia resolves, his antibiotics can be simplified. We will follow the other physicians who are caring for him. TIME SPENT: This is a 70-minute consult, 50% time spent on the unit coordinating care. ADDENDUM: Problem list includes: 1. In addition to pneumonia, squamous cell carcinoma. 2. B-cell lymphoma. 3. Diabetes. 4. Deconditioning. 5. Hypertension. 6. Lipid disorder. 7. History of coronary artery disease. He has no history of chronic obstructive pulmonary disease from reviewing old records. He appears to be stable at this time. Job ID: [id number] MTDD
[2018-10-24 22:19] LABS: Bilirubin Negative (Negative); Blood, Urine Negative (Negative); Clarity CLEAR (Clear); Glucose, Urine (Dipstick) Negative (Negative); Leukocyte Negative (Negative); Nitrite Negative (Negative); Protein, Urine (Dipstick) 100 mg/dL (Neg-Trace); Specific Gravity, Urine 1.016 (1.002-1.036); Urobilinogen 0.2 mg/dL (0.2-1.0); pH, Urine 5.5 (5.0-9.0)
[2018-10-24 22:22] LABS: Bacteria/HPF None Seen HPF (None Seen); Hyaline Casts/LPF 0-3 HYALINE CAST LPF (0-3 Hyaline); RBC/HPF 0-3 HPF (0-3); Squamous Epithelial 0-3 HPF (0-3); WBC/HPF 0-3 HPF (0-3)
[2018-10-24 22:24] LABS: Yeast-AUWi Flag 33.1 (0-25.0)
[2018-10-24 22:34] LABS: Yeast-All Forms None Seen HPF (None Seen)
[2018-10-24 22:36] LABS: Urine Culture Reflex No No
[2018-10-25] MEDS: MEROPENEM 1 GM/50 ML 1 GM in Premix Bag 1 BAG IVPB SCH ×3 (05:01→22:14)
[2018-10-25] MEDS: Levothyroxine Sodium 25 MCG TAB PO SCH (05:01)
[2018-10-25] MEDS: Sodium Chloride 0.9% 1,000 ML IV SCH ×2 (05:02→20:26)
[2018-10-25 05:55] LABS: Anion Gap 10 mmol/L (10-20); BUN (Urea Nitrogen) 32 mg/dL (8.4-25.7); Calc. Creatinine Clearance 47 mL/min (70-130); Calcium 8.6 mg/dL (7.8-10.44); Carbon Dioxide 29 mmol/L (23-31); Chloride 94 mmol/L (98-107); Estimated GFR-MDRD 59; Glucose 90 mg/dL (83-110); Potassium 4.7 mmol/L (3.5-5.1); Sodium 128 mmol/L (136-145)
[2018-10-25 05:56] LABS: White Blood Cell (WBC) Count 0.6 thou/uL (4.8-10.8)
[2018-10-25] MEDS ORDERED: Bacteriostatic Water 30 ML VIAL FS PRN (06:38)
[2018-10-25] MEDS ORDERED: methylPREDNISolone Sod Succ 40 MG VIAL IVP SCH ×2 (06:45→12:00)
[2018-10-25 06:50] LABS: Anisocytosis SLIGHT = 6-15 cells (100X) (0-5/hpf); Elliptocytes SLIGHT = 2-5 cells (100X) (0-1/hpf); Eosinophils 2 % (0-10); Hemoglobin 8.1 g/dL (14.0-18.0); Lymphocytes 82 % (21-51); MDiff Complete? YES; Mean Corpuscular HGB CONC 32.2 g/dL (32.0-36.0); Mean Corpuscular Hemoglobin 28.4 pg (27.0-31.0); Mean Corpuscular Volume 88.3 fL (78.0-98.0); Mean Platelet Volume 6.7 fL (7.4-10.4); Monocytes 4 % (0-10); Neutrophil 12 % (42-75); Platelet Count 90 thou/uL (130-400); Platelet Morphology Comment Appears Decreased; RBC Distribution Width 15.9 % (11.5-14.5); Red Blood Cell (RBC) Count 2.84 mill/uL (4.70-6.10)
[2018-10-25] MEDS: Tamsulosin HCl 0.4 MG CAP PO SCH (08:22)
[2018-10-25] MEDS: cloNIDine 0.1 MG TAB PO SCH ×2 (08:22→20:30)
[2018-10-25] MEDS: Amlodipine 10 MG TAB PO SCH (08:22)
[2018-10-25] MEDS: Saccharomyces boulardii 250 MG CAP PO SCH (08:22)
[2018-10-25] MEDS: Loratadine 10 MG TAB PO SCH (08:22)
[2018-10-25] MEDS: Ferrous Sulfate 325 MG TAB PO SCH ×2 (08:22→20:29)
[2018-10-25] MEDS: Carvedilol 6.25 MG TAB PO SCH ×2 (08:23→20:29)
[2018-10-25] MEDS: hydrALAZINE 25 MG TAB PO SCH ×3 (08:23→20:30)
[2018-10-25] MEDS: guaiFENesin ER 600 MG TAB PO SCH ×2 (08:23→20:29)
[2018-10-25] MEDS ORDERED: ALPRAZolam 0.25 MG TAB PO SCH (09:15)
[2018-10-25] MEDS: methylPREDNISolone Sod Succ 40 MG VIAL IVP SCH ×3 (11:29→23:04)
[2018-10-25] MEDS: Vancomycin HCl 1 GM in Premix Bag 1 BAG IVPB SCH (11:30)
--- NOTE | 2018-10-25 16:59 | PDOC.PN ---
- Subjective Encounter Start Date: 10/25/18 Encounter Start Time: 10:20 Pt seen for followup re; sepsis. c/o cough, SOBOE. - Objective Resuscitation Status - Order Detail: 10/24/18 12:06 Resuscitation Status Routine Resuscitation Status: FULL: Full Resuscitation Discussed with: patient Vital Signs & Weight: Vital Signs (12 hours) Temp Pulse Pulse Pulse Resp BP BP 10/25/18 14:53 79 18 10/25/18 14:45 96 121/65 10/25/18 10:43 77 81 144/63 H 10/25/18 10:09 83 18 10/25/18 08:23 102 H 144/63 H 10/25/18 08:22 144/63 H 10/25/18 07:56 98.4 F 102 H 20 10/25/18 06:43 88 20 10/25/18 05:00 99.3 F BP BP Pulse Ox Pulse Ox Pulse Ox 10/25/18 14:53 98 10/25/18 14:45 10/25/18 10:43 121/65 96 96 10/25/18 10:09 96 10/25/18 08:23 10/25/18 08:22 10/25/18 07:56 144/63 H 93 L 10/25/18 06:43 94 L 10/25/18 05:00 Weight Weight 158 lb 8.198 oz Result Diagrams: 10/25/18 05:03 10/25/18 05:03 Additional Labs: Accuchecks 10/25/18 10/25/18 10/24/18 11:29 04:58 19:54 POC Glucose 150 H 96 114 H 10/24/18 16:26 POC Glucose 139 H Phys Exam - Physical Examination Constitutional: NAD HEENT: moist MMs Neck: supple Respiratory: wheezing present Cardiovascular: RRR Gastrointestinal: soft Neurological: moves all 4 limbs Psychiatric: normal affect Dx/Plan (1) Sepsis Code(s): A41.9 - SEPSIS, UNSPECIFIED ORGANISM Status: Acute Comment: secondary to pneumonia (2) Pneumonia Code(s): J18.9 - PNEUMONIA, UNSPECIFIED ORGANISM Status: Acute Comment: continue IV meropenem, levofloxacin and vancomycin (3) COPD (chronic obstructive pulmonary disease) Status: Chronic Comment: continue Duonebs PRN (4) Diabetes mellitus Code(s): E11.9 - TYPE 2 DIABETES MELLITUS WITHOUT COMPLICATIONS Status: Chronic Qualifiers: Diabetes mellitus type: type 2 Diabetes mellitus complication status: without complication Comment: continue insulin sliding scale and accuchecks (5) HLD (hyperlipidemia) Code(s): E78.5 - HYPERLIPIDEMIA, UNSPECIFIED Status: Chronic Qualifiers: Hyperlipidemia type: unspecified Qualified Code(s): E78.5 - Hyperlipidemia , unspecified Comment: continue statin (6) HTN (hypertension) Code(s): I10 - ESSENTIAL (PRIMARY) HYPERTENSION Status: Chronic Qualifiers: Comment: reasonable control (7) Hypothyroidism Code(s): E03.9 - HYPOTHYROIDISM, UNSPECIFIED Status: Chronic Comment: cont levothyroxine - Plan continue antibiotics, PT/OT, out of bed/ambulate * . Oncology consulted fro pancytopenia, lymphoma and lung cancer. Review of Systems - Review of Systems Constitutional: weakness Respiratory: Cough, Sputum, Wheezing. negative: Dry, Shortness of Breath, Hemoptysis, SOB with Excertion, Pleuritic Pain Cardiovascular: negative: chest pain, palpitations, orthopnea, paroxysmal nocturnal dyspnea, edema, light headedness - Medications/Allergies Allergies/Adverse Reactions: Allergies Allergy/AdvReac Type Severity Reaction Status Date / Time Latex, Natural Rubber Allergy Verified 09/17/18 14:02 milk Allergy Verified 09/17/18 14:02 Penicillins Allergy Verified 09/30/18 02:11 Medications: Current Medications Acetaminophen (Tylenol) 650 mg PO Q4H PRN PRN Reason: Headache/Fever/Mild Pain (1-3) Last Admin: 10/24/18 17:28 Dose: 650 mg Albuterol/Ipratropium (Duoneb) 3 ml NEB B3AA-CO PRN PRN Reason: SOB &/or Wheezing Last Admin: 10/25/18 02:15 Dose: 3 ml Albuterol/Ipratropium (Duoneb) 3 ml NEB [id number] SANDRA Last Admin: 10/25/18 14:53 Dose: 3 ml Albuterol/Ipratropium (Duoneb) 3 ml NEB Q4H PRN PRN Reason: SOB/WHEEZE Alprazolam (Xanax) 0.25 mg PO QIDPRN PRN PRN Reason: Anxiety Amlodipine Besylate (Norvasc) 10 mg PO DAILY SANDRA Last Admin: 10/25/18 08:22 Dose: 10 mg Atorvastatin Calcium (Lipitor) 20 mg PO HS [facility] Last Admin: 10/24/18 19:52 Dose: 20 mg Bisacodyl (Dulcolax) 10 mg AL DAILYPRN PRN PRN Reason: Constipation Carvedilol (Coreg) 6.25 mg PO BID [facility] Last Admin: 10/25/18 08:23 Dose: 6.25 mg Clonidine (Catapres) 0.1 mg PO BID [facility] Last Admin: 10/25/18 08:22 Dose: 0.1 mg Coenzyme Q10 (Coenzyme Q10) 10 mg PO TID [facility] Dextrose/Water (Dextrose 50%) 25 gm SLOW IVP PRN PRN PRN Reason: Hypoglycemia Ferrous Sulfate (Feosol) 325 mg PO BID [facility] Last Admin: 10/25/18 08:22 Dose: 325 mg Glucagon (Glucagon) 1 mg IM PRN PRN PRN Reason: Hypoglycemia Guaifenesin (Mucinex) 600 mg PO BID [facility] Last Admin: 10/25/18 08:23 Dose: 600 mg Hydralazine HCl (Apresoline) 25 mg PO TID [facility] Last Admin: 10/25/18 14:45 Dose: 25 mg Vancomycin HCl 1 gm/ Device 200 mls @ 200 mls/hr IVPB Q24H [facility] Last Admin: 10/25/18 11:30 Dose: 200 mls Levofloxacin 750 mg/ Device 150 mls @ 100 mls/hr IVPB Q24HR [facility] Last Admin: 10/25/18 11:29 Dose: 150 mls Sodium Chloride (Normal Saline 0.9%) 1,000 mls @ 70 mls/hr IV .[id number] [facility] Last Admin: 10/25/18 05:02 Dose: Not Given Dextrose/Water (D5w) 1,000 mls @ 0 mls/hr IV .Q0M PRN PRN Reason: Hypoglycemia Meropenem 1 gm/ Device 50 mls @ 100 mls/hr IVPB Q8HR [facility] Last Admin: 10/25/18 14:45 Dose: 50 mls Insulin Human Lispro (Humalog) 0 units SC .MILD SLIDING SCALE PRN PRN Reason: Mild Correctional Scale Levothyroxine Sodium (Synthroid) 12.5 mcg PO 0600 [facility] Last Admin: 10/25/18 05:01 Dose: 12.5 mcg Loratadine (Claritin) 10 mg PO DAILY [facility] Last Admin: 10/25/18 08:22 Dose: 10 mg Methylprednisolone Sodium Succinate (Solu-Medrol) 20 mg IVP Q6HR [facility] Last Admin: 10/25/18 11:29 Dose: 20 mg Miscellaneous Medication (Pharmacy To Dose) 1 each IVPB PRN PRN PRN Reason: Pharmacy to dose Mometasone Furoate (Asmanex) 1 puff INH 1830 [facility] Last Admin: 10/24/18 19:36 Dose: 1 puff Pantoprazole Sodium (Protonix) 40 mg PO DAILY [facility] Last Admin: 10/25/18 08:23 Dose: 40 mg Saccharomyces Boulardii (Florastor) 250 mg PO DAILY [facility] Last Admin: 10/25/18 08:22 Dose: 250 mg Sterile Water (Bacteriostatic Water) 1 ml FS PRN PRN PRN Reason: RECONSTITUTION Tamsulosin HCl (Flomax) 0.4 mg PO DAILY [facility] Last Admin: 10/25/18 08:22 Dose: 0.4 mg
[2018-10-25] MEDS: HumaLOG 300 UNITS/3 ML VIAL SC PRN ×2 (17:40→20:38)
[2018-10-25] MEDS: Mometasone Furoate 30 PUFF 220 MCG INH SCH (18:26)
--- NOTE | 2018-10-25 20:09 | PRG ---
DATE OF SERVICE: 10/25/2018 OBJECTIVE: VITAL SIGNS: Mr. Sanchez's heart rates in the 80s to 90s, blood pressure 120/65, respiratory rate is 18, and oximetry is 98% on 2 L. GENERAL: He says he feels much better than he felt yesterday. RESPIRATORY: He still has crackles at his lung bases, more on the right. HEART: Regular rhythm. ABDOMEN: Soft and nontender. LABORATORY DATA: White count today is 600, hemoglobin 8.1, and platelets 90,000. Sodium 128, potassium 4.7, chloride 94, bicarb 29, BUN 32, and creatinine 1.17. IMPRESSION: 1. Pneumonia. 2. Pancytopenia, secondary to chemotherapy. 3. Squamous cell carcinoma. He has no history of chronic obstructive pulmonary disease. He says his breathing is improving. He did have a thoracentesis for pleural effusion that did not show malignant cells, although I suspect that the effusion is related to his malignancy. He also has B-cell lymphoma, diabetes, hypertension, and lipid disorder. He has had a coronary artery bypass in the past and insertion of a MediPort. We will continue with current antimicrobial therapy. He should remain on IV antimicrobial therapy until his neutropenia was resolved. Probably, he should be transferred down to the Oncology unit if a bed becomes available. Job ID: [id number]
[2018-10-25] MEDS: Atorvastatin Calcium 20 MG TAB PO SCH (20:29)
[2018-10-25] MEDS: ALPRAZolam 0.25 MG TAB PO PRN (20:31)
--- NOTE | 2018-10-26 02:01 | CON ---
DATE OF CONSULTATION: REASON FOR CONSULTATION: Lung cancer, leukopenia and fever. HISTORY OF PRESENT ILLNESS: This is an 83-year-old male who was recently diagnosed with squamous cell carcinoma of the right lower lobe. 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 The patient received radiation therapy for 2 weeks. He was given one dose of weekly carboplatin and Taxol on 10/20/2018. The patient has been admitted on 10/24 with a fever of 102. Chest x-ray showed right pleural effusion. He has been cultured and started on Levaquin, vancomycin and use of meropenem. His fevers seems to have improved, although he had 100 daily temperature today at 4 a.m. CURRENT MEDICATIONS: 1. Amlodipine. 2. Alprazolam. 3. DuoNeb. 4. Norvasc. 5. Lipitor. 6. Dulcolax. 7. Carvedilol. 8. Clonidine. 9. Hydralazine. 10. Levaquin 750 mg q. 24 hours. 11. Meropenem 1 g q.8 hours. 12. Protonix. 13. Vancomycin 1 g q.12 hours. PAST HISTORY: Type 2 diabetes, hypertension, coronary artery disease, congestive heart failure, hyperlipidemia, arthritis, asthma, hypothyroidism, peptic ulcer disease, gout and BPH. PAST SURGICAL HISTORY: Include appendectomy, coronary artery bypass graft surgery in 2002, cholecystectomy, knee replacement, carotid endarterectomy, stent in the lower extremities and TURP. SOCIAL HISTORY: The patient lives in [place]. He was in a prison prior to this hospitalization. He is a former smoker and social drinker. REVIEW OF SYSTEMS: As above. He denies pain. He generally feels bad. He also admits of anxiety and feels he has lost control over his life. PHYSICAL EXAMINATION: GENERAL: The patient appears younger than his chronologic age and is alert and oriented. VITAL SIGNS: Temperature 98.4, pulse 79, blood pressure 121/65. HEENT: Unremarkable. LYMPHATIC: Lymph nodes not palpable in cervical, supraclavicular, axillary, or inguinal area. CHEST: Vesicular breath sounds bilaterally. There is dullness to percussion at the right base. HEART: S1, S2. Regular rhythm. ABDOMEN: Soft without hepatosplenomegaly. EXTREMITIES: Without pedal edema or calf tenderness. LABORATORY DATA: CBC: WBC 600, hemoglobin 8.1, platelet 90,000. Chemistry: Sodium 128, potassium 4.7, creatinine 1.17. BNP 518. IMAGING: As mentioned above. 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 Currently, he is on triple antibiotics. The cultures so far are negative. Most likely, his chemo and radiation therapy will have to be withheld until the leukopenia improves. It also seems that the pleural fluid has increased compared to before. I will discuss his case with Dr. Yuen tomorrow. Job ID: [id number]
[2018-10-26] MEDS: Levothyroxine Sodium 25 MCG TAB PO SCH (05:25)
[2018-10-26] MEDS: methylPREDNISolone Sod Succ 40 MG VIAL IVP SCH ×4 (05:25→23:37)
[2018-10-26] MEDS: MEROPENEM 1 GM/50 ML 1 GM in Premix Bag 1 BAG IVPB SCH ×3 (05:26→22:43)
[2018-10-26] MEDS: HumaLOG 300 UNITS/3 ML VIAL SC PRN ×4 (05:31→21:23)
[2018-10-26 06:07] LABS: White Blood Cell (WBC) Count 0.4 thou/uL (4.8-10.8)
[2018-10-26 06:08] LABS: ALT (SGPT) 11 U/L (8-55); AST (SGOT) 14 U/L (5-34); Albumin 2.8 g/dL (3.4-4.8); Alkaline Phosphatase 47 U/L (40-150); Anion Gap 13 mmol/L (10-20); BUN (Urea Nitrogen) 42 mg/dL (8.4-25.7); Bilirubin, Total 0.2 mg/dL (0.2-1.2); Calc. Creatinine Clearance 40 mL/min (70-130); Calcium 8.6 mg/dL (7.8-10.44); Carbon Dioxide 27 mmol/L (23-31); Chloride 93 mmol/L (98-107); Estimated GFR-MDRD 49; Globulin 2.6 g/dL (2.4-3.5); Glucose 200 mg/dL (83-110); Potassium 4.9 mmol/L (3.5-5.1); Protein, Total 5.4 g/dL (5.8-8.1); Sodium 128 mmol/L (136-145)
[2018-10-26 06:25] LABS: Hemoglobin 8.1 g/dL (14.0-18.0); Mean Corpuscular HGB CONC 33.2 g/dL (32.0-36.0); Mean Corpuscular Hemoglobin 28.9 pg (27.0-31.0); Mean Platelet Volume 6.7 fL (7.4-10.4); Platelet Count 91 thou/uL (130-400); RBC Distribution Width 15.7 % (11.5-14.5); Red Blood Cell (RBC) Count 2.79 mill/uL (4.70-6.10)
[2018-10-26 06:37] LABS: Platelet Morphology Comment Appears Decreased
[2018-10-26] MEDS: Ubidecarenone 50 MG CAP PO SCH (07:37)
[2018-10-26] MEDS: guaiFENesin ER 600 MG TAB PO SCH ×2 (08:46→20:21)
[2018-10-26] MEDS: cloNIDine 0.1 MG TAB PO SCH ×2 (08:46→20:21)
[2018-10-26] MEDS: Saccharomyces boulardii 250 MG CAP PO SCH (08:46)
[2018-10-26] MEDS: Tamsulosin HCl 0.4 MG CAP PO SCH (08:46)
[2018-10-26] MEDS: Ferrous Sulfate 325 MG TAB PO SCH ×2 (08:46→20:21)
[2018-10-26] MEDS: Carvedilol 6.25 MG TAB PO SCH ×2 (08:46→20:24)
[2018-10-26] MEDS: Amlodipine 10 MG TAB PO SCH (08:47)
[2018-10-26] MEDS: Loratadine 10 MG TAB PO SCH (08:47)
[2018-10-26] MEDS: hydrALAZINE 25 MG TAB PO SCH ×3 (08:47→20:21)
--- NOTE | 2018-10-26 09:36 | PRG ---
DATE OF SERVICE: 10/26/2018 SUBJECTIVE: Alberto Sanchez is an 83-year-old gentleman, who is admitted to the hospital yesterday with weakness, shortness of breath, and cough. OBJECTIVE: VITAL SIGNS: Pulse 88, blood pressure 143/55, saturations 92% on 2 L, respiratory rate 18. CHEST: Decreased breath sounds. No wheezing. CARDIAC: Normal S1 and S2. No gallops. ABDOMEN: No masses. LABORATORY DATA: Platelet count 91. White count is 0.4, H and H 8 and 24. Sodium is 128, creatinine 1.39. ASSESSMENT: 1. Status post pancytopenia, status post chemotherapy. 2. Squamous cell carcinoma with severe deconditioning. PLAN: Culture so far negative. Continue broad-spectrum antibiotics, supportive care. We will follow. Job ID: [id number]
[2018-10-26 13:49] LABS: Vancomycin, Trough 11.6 ug/mL
[2018-10-26] MEDS ORDERED: Vancomycin HCl 1.5 GM in Sodium Chloride 0.9% 250 ML 300 ML IVPB SCH ×2 (14:30→15:00)
[2018-10-26] MEDS: Vancomycin HCl 1 GM in Premix Bag 1 BAG IVPB SCH (15:05)
[2018-10-26] MEDS: Mometasone Furoate 30 PUFF 220 MCG INH SCH (18:59)
--- NOTE | 2018-10-26 19:24 | PDOC.PN ---
- Subjective Encounter Start Date: 10/26/18 Encounter Start Time: 08:40 Pt seen for followup re: pneumonia. Feels much better. Cough+, minimal sputum. No fevers or chills. - Objective Resuscitation Status - Order Detail: 10/24/18 12:06 Resuscitation Status Routine Resuscitation Status: FULL: Full Resuscitation Discussed with: darin LAMB Reviewed: Yes Vital Signs & Weight: Vital Signs (12 hours) Temp Pulse Resp BP BP BP Pulse Ox 10/26/18 18:58 85 16 94 L 10/26/18 16:50 97.6 F 90 18 152/68 H 95 10/26/18 12:41 97.6 F 81 18 160/76 H 99 10/26/18 12:02 97.7 F 87 20 146/67 H 100 10/26/18 11:24 91 20 95 10/26/18 08:47 88 10/26/18 08:46 143/55 H 10/26/18 08:02 88 20 94 L 10/26/18 08:00 97.9 F 81 20 143/55 H 94 L Weight Weight 158 lb 8.198 oz I&O: 10/25/18 10/26/18 10/27/18 06:59 06:59 06:59 Intake Total 1000 800 Output Total 1300 Balance -300 800 Result Diagrams: 10/26/18 05:14 10/26/18 05:14 Additional Labs: Accuchecks 10/26/18 10/26/18 10/26/18 16:57 11:34 04:17 POC Glucose 269 H 216 H 221 H 10/25/18 19:57 POC Glucose 329 H Labs reviewed by me Phys Exam - Physical Examination Constitutional: NAD HEENT: moist MMs Neck: supple Decreased air entry R base Cardiovascular: RRR Gastrointestinal: soft Neurological: moves all 4 limbs Psychiatric: normal affect Dx/Plan (1) Pneumonia Code(s): J18.9 - PNEUMONIA, UNSPECIFIED ORGANISM Status: Acute Comment: Pt is on IV meropenem, levofloxacin and vancomycin. Will continue IV antibiotics for now. (2) COPD (chronic obstructive pulmonary disease) Status: Chronic Comment: Improving with PRN Duonebs (3) Diabetes mellitus Code(s): E11.9 - TYPE 2 DIABETES MELLITUS WITHOUT COMPLICATIONS Status: Chronic Qualifiers: Diabetes mellitus type: type 2 Diabetes mellitus complication status: without complication Comment: sugars high, switch to moderate insulin sliding scale (4) HLD (hyperlipidemia) Code(s): E78.5 - HYPERLIPIDEMIA, UNSPECIFIED Status: Chronic Qualifiers: Hyperlipidemia type: unspecified Qualified Code(s): E78.5 - Hyperlipidemia , unspecified Comment: continue atorvastatin (5) HTN (hypertension) Code(s): I10 - ESSENTIAL (PRIMARY) HYPERTENSION Status: Chronic Qualifiers: Comment: reasonable control (6) Hypothyroidism Code(s): E03.9 - HYPOTHYROIDISM, UNSPECIFIED Status: Chronic Comment: continue levothyroxine (7) Sepsis Code(s): A41.9 - SEPSIS, UNSPECIFIED ORGANISM Status: Resolved - Plan * . Review of Systems - Review of Systems Respiratory: Cough, Dry. negative: Shortness of Breath, Hemoptysis, SOB with Excertion, Pleuritic Pain, Sputum, Wheezing Cardiovascular: negative: chest pain, palpitations, orthopnea, paroxysmal nocturnal dyspnea, edema, light headedness - Medications/Allergies Allergies/Adverse Reactions: Allergies Allergy/AdvReac Type Severity Reaction Status Date / Time Latex, Natural Rubber Allergy Verified 09/17/18 14:02 milk Allergy Verified 09/17/18 14:02 Penicillins Allergy Verified 09/30/18 02:11 Medications: Current Medications Acetaminophen (Tylenol) 650 mg PO Q4H PRN PRN Reason: Headache/Fever/Mild Pain (1-3) Last Admin: 10/24/18 17:28 Dose: 650 mg Albuterol/Ipratropium (Duoneb) 3 ml NEB [id number] PRN PRN Reason: SOB &/or Wheezing Last Admin: 10/25/18 02:15 Dose: 3 ml Albuterol/Ipratropium (Duoneb) 3 ml NEB [id number] SANDRA Last Admin: 10/26/18 18:58 Dose: 3 ml Albuterol/Ipratropium (Duoneb) 3 ml NEB Q4H PRN PRN Reason: SOB/WHEEZE Alprazolam (Xanax) 0.25 mg PO QIDPRN PRN PRN Reason: Anxiety Last Admin: 10/25/18 20:31 Dose: 0.25 mg Amlodipine Besylate (Norvasc) 10 mg PO DAILY [facility] Last Admin: 10/26/18 08:47 Dose: 10 mg Atorvastatin Calcium (Lipitor) 20 mg PO HS [facility] Last Admin: 10/25/18 20:29 Dose: 20 mg Bisacodyl (Dulcolax) 10 mg MA DAILYPRN PRN PRN Reason: Constipation Carvedilol (Coreg) 6.25 mg PO BID [facility] Last Admin: 10/26/18 08:46 Dose: 6.25 mg Clonidine (Catapres) 0.1 mg PO BID [facility] Last Admin: 10/26/18 08:46 Dose: 0.1 mg Dextrose/Water (Dextrose 50%) 25 gm SLOW IVP PRN PRN PRN Reason: Hypoglycemia Ferrous Sulfate (Feosol) 325 mg PO BID [facility] Last Admin: 10/26/18 08:46 Dose: 325 mg Glucagon (Glucagon) 1 mg IM PRN PRN PRN Reason: Hypoglycemia Guaifenesin (Mucinex) 600 mg PO BID [facility] Last Admin: 10/26/18 08:46 Dose: 600 mg Hydralazine HCl (Apresoline) 25 mg PO TID [facility] Last Admin: 10/26/18 14:40 Dose: 25 mg Levofloxacin 750 mg/ Device 150 mls @ 100 mls/hr IVPB Q24HR [facility] Last Admin: 10/26/18 11:34 Dose: 150 mls Dextrose/Water (D5w) 1,000 mls @ 0 mls/hr IV .Q0M PRN PRN Reason: Hypoglycemia Meropenem 1 gm/ Device 50 mls @ 100 mls/hr IVPB Q8HR [facility] Last Admin: 10/26/18 14:40 Dose: 50 mls Vancomycin HCl 1.5 gm/ Sodium (Chloride) 300 mls @ 200 mls/hr IVPB Q24H [facility] Last Admin: 10/26/18 15:17 Dose: 300 mls Sodium Chloride (Normal Saline 0.9%) 1,000 mls @ 70 mls/hr IV .[id number] [facility] Insulin Human Lispro (Humalog) 0 units SC .MILD SLIDING SCALE PRN PRN Reason: Mild Correctional Scale Last Admin: 10/26/18 17:00 Dose: 4 unit Levothyroxine Sodium (Synthroid) 12.5 mcg PO 0600 [facility] Last Admin: 10/26/18 05:25 Dose: 12.5 mcg Loratadine (Claritin) 10 mg PO DAILY [facility] Last Admin: 10/26/18 08:47 Dose: 10 mg Methylprednisolone Sodium Succinate (Solu-Medrol) 20 mg IVP Q6HR [facility] Last Admin: 10/26/18 17:50 Dose: 20 mg Miscellaneous Medication (Pharmacy To Dose) 1 each IVPB PRN PRN PRN Reason: Pharmacy to dose Mometasone Furoate (Asmanex) 1 puff INH 1830 [facility] Last Admin: 10/26/18 18:59 Dose: 1 puff Pantoprazole Sodium (Protonix) 40 mg PO DAILY [facility] Last Admin: 10/26/18 08:46 Dose: 40 mg Saccharomyces Boulardii (Florastor) 250 mg PO DAILY [facility] Last Admin: 10/26/18 08:46 Dose: 250 mg Sodium Chloride (Flush - Normal Saline) 10 ml IVF Q12HR [facility] Last Admin: 10/26/18 08:47 Dose: 10 ml Sodium Chloride (Flush - Normal Saline) 10 ml IVF PRN PRN PRN Reason: Saline Flush Sterile Water (Bacteriostatic Water) 1 ml FS PRN PRN PRN Reason: RECONSTITUTION Tamsulosin HCl (Flomax) 0.4 mg PO DAILY [facility] Last Admin: 10/26/18 08:46 Dose: 0.4 mg Tbo-Filgrastim (Granix) 300 mcg SC DAILY [facility]
[2018-10-26] MEDS: Sodium Chloride 0.9% 1,000 ML IV SCH (20:20)
[2018-10-26] MEDS: Atorvastatin Calcium 20 MG TAB PO SCH (20:21)
[2018-10-26] MEDS: Acetaminophen 325 MG TAB PO PRN (22:55)
[2018-10-26] MEDS: ALPRAZolam 0.25 MG TAB PO PRN (23:37)
[2018-10-27] MEDS: MEROPENEM 1 GM/50 ML 1 GM in Premix Bag 1 BAG IVPB SCH (05:49)
[2018-10-27] MEDS: Levothyroxine Sodium 25 MCG TAB PO SCH (05:50)
[2018-10-27] MEDS: methylPREDNISolone Sod Succ 40 MG VIAL IVP SCH (05:50)
[2018-10-27] MEDS: HumaLOG 300 UNITS/3 ML VIAL SC PRN ×3 (06:16→17:00)
[2018-10-27 06:21] LABS: White Blood Cell (WBC) Count 0.5 thou/uL (4.8-10.8)
[2018-10-27 06:31] LABS: Anion Gap 15 mmol/L (10-20); BUN (Urea Nitrogen) 45 mg/dL (8.4-25.7); Calc. Creatinine Clearance 43 mL/min (70-130); Calcium 8.5 mg/dL (7.8-10.44); Carbon Dioxide 27 mmol/L (23-31); Chloride 95 mmol/L (98-107); Estimated GFR-MDRD 54; Glucose 177 mg/dL (83-110); Potassium 4.7 mmol/L (3.5-5.1); Sodium 132 mmol/L (136-145)
[2018-10-27 07:08] LABS: Anisocytosis SLIGHT = 6-15 cells (100X) (0-5/hpf); Hemoglobin 7.7 g/dL (14.0-18.0); Lymphocytes 84 % (21-51); MDiff Complete? YES; Mean Corpuscular HGB CONC 32.8 g/dL (32.0-36.0); Mean Corpuscular Hemoglobin 28.8 pg (27.0-31.0); Mean Corpuscular Volume 87.8 fL (78.0-98.0); Mean Platelet Volume 6.5 fL (7.4-10.4); Monocytes 14 % (0-10); Neutrophil 2 % (42-75); Platelet Count 94 thou/uL (130-400); Platelet Morphology Comment Appears Decreased; RBC Distribution Width 15.7 % (11.5-14.5); Red Blood Cell (RBC) Count 2.66 mill/uL (4.70-6.10)
[2018-10-27] MEDS: guaiFENesin ER 600 MG TAB PO SCH ×2 (09:10→21:31)
[2018-10-27] MEDS: cloNIDine 0.1 MG TAB PO SCH ×2 (09:10→21:30)
[2018-10-27] MEDS: hydrALAZINE 25 MG TAB PO SCH ×3 (09:10→21:31)
[2018-10-27] MEDS: Saccharomyces boulardii 250 MG CAP PO SCH (09:10)
[2018-10-27] MEDS: Loratadine 10 MG TAB PO SCH (09:10)
[2018-10-27] MEDS: Ferrous Sulfate 325 MG TAB PO SCH ×2 (09:10→21:29)
[2018-10-27] MEDS: Carvedilol 6.25 MG TAB PO SCH ×2 (09:10→21:30)
[2018-10-27] MEDS: Tamsulosin HCl 0.4 MG CAP PO SCH ×2 (09:11→21:31)
[2018-10-27] MEDS: Amlodipine 10 MG TAB PO SCH (09:11)
[2018-10-27] MEDS: TBO-Filgrastim 300 MCG/0.5 ML VIAL SC SCH (09:27)
--- NOTE | 2018-10-27 09:55 | PRG ---
DATE OF SERVICE: 10/27/2018 SUBJECTIVE: Alberto Sanchez this morning, is awake, alert, and responsive. He is weak and short of breath. OBJECTIVE: VITAL SIGNS: He is afebrile, pulse 81, blood pressure 147/65, saturations are 96% on 2 L. GENERAL: Denies any pain or discomfort. CHEST: Decreased breath sounds. No wheezing. CARDIAC: Normal S1, S2. No gallops or masses. LABORATORY DATA: White count 0.5, H and H are low, platelet count is decreased 94. Creatinine 1.27. IMPRESSION: Pancytopenia, status post chemotherapy, squamous cell carcinoma, severe deconditioning, severe chronic obstructive pulmonary disease. PLAN: All cultures are negative. Maxipime should be more than adequate for pancytopenia and sepsis without any Staph infection. Continue PT, supportive care, eventually placement. Job ID: [id number]
--- NOTE | 2018-10-27 09:56 | PRG ---
DATE OF SERVICE: 10/27/2018 SUBJECTIVE: Alberto Sanchez this morning is awake, alert, and responsive. OBJECTIVE: VITAL SIGNS: Maximum temperature 98, pulse 80, respiratory rate 18, and blood pressure 130/80. GENERAL: He is weak. CHEST: Decreased breath sounds. No wheezing. CARDIAC: Normal S1 and S2. No gallops. ABDOMEN: No masses. LABORATORY DATA: White count is 0.5, H and H are 7 and 23, and platelet count is low at 94. Lytes are normal. Creatinine 1.27. IMPRESSION: Pancytopenia, status post chemo. All cultures are negative. Job ID: [id number]
[2018-10-27] MEDS: Cefepime 2 GM in Sodium Chloride 0.9% 100 ML IVPB SCH ×2 (11:07→23:40)
[2018-10-27] MEDS: Sodium Chloride 0.9% 1,000 ML IV SCH (11:15)
[2018-10-27] MEDS: ALPRAZolam 0.25 MG TAB PO PRN ×2 (14:21→14:30)
--- NOTE | 2018-10-27 16:57 | PDOC.PN ---
- Subjective Encounter Start Date: 10/27/18 Encounter Start Time: 07:20 Pt seen for followup re: pneumonia. Feels better. had urinary retention overnight. - Objective Resuscitation Status - Order Detail: 10/24/18 12:06 Resuscitation Status Routine Resuscitation Status: FULL: Full Resuscitation Discussed with: patient ZAINAB Reviewed: Yes Vital Signs & Weight: Vital Signs (12 hours) Temp Pulse Resp BP BP BP Pulse Ox 10/27/18 14:30 83 145/66 H 10/27/18 13:55 83 18 98 10/27/18 11:14 111 H 18 98 10/27/18 11:11 97.5 F L 84 22 H 145/66 H 98 10/27/18 09:11 81 147/65 H 10/27/18 09:10 81 147/65 H 10/27/18 08:20 84 20 98 10/27/18 08:00 97 10/27/18 07:41 98.3 F 81 18 147/65 H 97 Weight Weight 158 lb 8.198 oz I&O: 10/26/18 10/27/18 10/28/18 06:59 06:59 06:59 Intake Total 1000 1679 Output Total 1300 800 Balance -300 879 Result Diagrams: 10/27/18 05:47 10/27/18 05:47 Additional Labs: Accuchecks 10/27/18 10/27/18 10/26/18 11:08 05:44 21:18 POC Glucose 190 H 205 H 316 H 10/26/18 16:57 POC Glucose 269 H Labs reviewed by me Phys Exam - Physical Examination Constitutional: NAD HEENT: moist MMs Neck: supple Respiratory: wheezing present Cardiovascular: RRR Gastrointestinal: non-tender, positive bowel sounds Neurological: moves all 4 limbs Psychiatric: normal affect Dx/Plan (1) Pneumonia Code(s): J18.9 - PNEUMONIA, UNSPECIFIED ORGANISM Status: Acute Comment: Pt has been switched to IV cefepime (2) Urinary retention Code(s): R33.9 - RETENTION OF URINE, UNSPECIFIED Status: Acute Comment: consult urology, PRN straight catheterization (3) COPD (chronic obstructive pulmonary disease) Status: Chronic Comment: Improving, pt receiving PRN Duonebs, also on prednisone (4) Diabetes mellitus Code(s): E11.9 - TYPE 2 DIABETES MELLITUS WITHOUT COMPLICATIONS Status: Chronic Qualifiers: Diabetes mellitus type: type 2 Diabetes mellitus complication status: without complication Comment: sugars still high, switch to aggressive insulin sliding scale (pt is on prednisone) (5) HLD (hyperlipidemia) Code(s): E78.5 - HYPERLIPIDEMIA, UNSPECIFIED Status: Chronic Qualifiers: Hyperlipidemia type: unspecified Qualified Code(s): E78.5 - Hyperlipidemia , unspecified Comment: on Lipitor (6) HTN (hypertension) Code(s): I10 - ESSENTIAL (PRIMARY) HYPERTENSION Status: Chronic Qualifiers: Comment: reasonable control (7) Hypothyroidism Code(s): E03.9 - HYPOTHYROIDISM, UNSPECIFIED Status: Chronic Comment: on levothyroxine (8) Sepsis Code(s): A41.9 - SEPSIS, UNSPECIFIED ORGANISM Status: Resolved - Plan * . Review of Systems - Review of Systems Respiratory: Cough, Sputum. negative: Dry, Shortness of Breath, Hemoptysis, SOB with Excertion, Pleuritic Pain, Wheezing Cardiovascular: negative: chest pain, palpitations, orthopnea, paroxysmal nocturnal dyspnea, edema, light headedness Genitourinary: Retention - Medications/Allergies Allergies/Adverse Reactions: Allergies Allergy/AdvReac Type Severity Reaction Status Date / Time Latex, Natural Rubber Allergy Verified 09/17/18 14:02 milk Allergy Verified 09/17/18 14:02 Penicillins Allergy Verified 09/30/18 02:11 Medications: Current Medications Acetaminophen (Tylenol) 650 mg PO Q4H PRN PRN Reason: Headache/Fever/Mild Pain (1-3) Last Admin: 10/26/18 22:55 Dose: 650 mg Albuterol/Ipratropium (Duoneb) 3 ml NEB [id number] [facility]DR[facility] Last Admin: 10/27/18 13:55 Dose: 3 ml Albuterol/Ipratropium (Duoneb) 3 ml NEB Q4H PRN PRN Reason: SOB/WHEEZE Last Admin: 10/27/18 03:22 Dose: 3 ml Alprazolam (Xanax) 0.25 mg PO QIDPRN PRN PRN Reason: Anxiety Last Admin: 10/27/18 14:30 Dose: 0.25 mg Amlodipine Besylate (Norvasc) 10 mg PO DAILY [facility] Last Admin: 10/27/18 09:11 Dose: 10 mg Atorvastatin Calcium (Lipitor) 20 mg PO HS [facility] Last Admin: 10/26/18 20:21 Dose: 20 mg Bisacodyl (Dulcolax) 10 mg DC DAILYPRN PRN PRN Reason: Constipation Carvedilol (Coreg) 6.25 mg PO BID [facility] Last Admin: 10/27/18 09:10 Dose: 6.25 mg Clonidine (Catapres) 0.1 mg PO BID [facility] Last Admin: 10/27/18 09:10 Dose: 0.1 mg Dextrose/Water (Dextrose 50%) 25 gm SLOW IVP PRN PRN PRN Reason: Hypoglycemia Ferrous Sulfate (Feosol) 325 mg PO BID [facility] Last Admin: 10/27/18 09:10 Dose: 325 mg Glucagon (Glucagon) 1 mg IM PRN PRN PRN Reason: Hypoglycemia Guaifenesin (Mucinex) 600 mg PO BID [facility] Last Admin: 10/27/18 09:10 Dose: 600 mg Hydralazine HCl (Apresoline) 25 mg PO TID [facility] Last Admin: 10/27/18 14:30 Dose: 25 mg Dextrose/Water (D5w) 1,000 mls @ 0 mls/hr IV .Q0M PRN PRN Reason: Hypoglycemia Sodium Chloride (Normal Saline 0.9%) 1,000 mls @ 70 mls/hr IV .[id number] [facility] Last Admin: 10/27/18 11:15 Dose: 1,000 mls Cefepime HCl 2 gm/ Sodium (Chloride) 100 mls @ 200 mls/hr IVPB 1100,2300 [facility] Last Admin: 10/27/18 11:07 Dose: 100 mls Insulin Human Lispro (Humalog) 0 units SC .MODERATE SLIDING SC PRN PRN Reason: Moderate Correctional Scale Last Admin: 10/27/18 17:00 Dose: 4 unit Levothyroxine Sodium (Synthroid) 12.5 mcg PO 0600 [facility] Last Admin: 10/27/18 05:50 Dose: 12.5 mcg Loratadine (Claritin) 10 mg PO DAILY [facility] Last Admin: 10/27/18 09:10 Dose: 10 mg Mometasone Furoate (Asmanex) 1 puff INH 1830 [facility] Last Admin: 10/26/18 18:59 Dose: 1 puff Pantoprazole Sodium (Protonix) 40 mg PO DAILY [facility] Last Admin: 10/27/18 09:10 Dose: 40 mg Prednisone (Prednisone) 20 mg PO QA-[facility] Saccharomyces Boulardii (Florastor) 250 mg PO DAILY [facility] Last Admin: 10/27/18 09:10 Dose: 250 mg Sodium Chloride (Flush - Normal Saline) 10 ml IVF Q12HR [facility] Last Admin: 10/27/18 09:11 Dose: 10 ml Sodium Chloride (Flush - Normal Saline) 10 ml IVF PRN PRN PRN Reason: Saline Flush Sterile Water (Bacteriostatic Water) 1 ml FS PRN PRN PRN Reason: RECONSTITUTION Tamsulosin HCl (Flomax) 0.4 mg PO DAILY [facility] Last Admin: 10/27/18 09:11 Dose: 0.4 mg Tbo-Filgrastim (Granix) 300 mcg SC DAILY [facility] Last Admin: 10/27/18 09:27 Dose: 300 mcg
[2018-10-27] MEDS: Mometasone Furoate 30 PUFF 220 MCG INH SCH (19:28)
[2018-10-27] MEDS: Atorvastatin Calcium 20 MG TAB PO SCH (21:29)
[2018-10-28] MEDS: Sodium Chloride 0.9% 1,000 ML IV SCH (03:42)
[2018-10-28] MEDS: Levothyroxine Sodium 25 MCG TAB PO SCH (07:09)
[2018-10-28] MEDS ORDERED: predniSONE 20 MG TAB PO SCH (08:00)
[2018-10-28] MEDS: cloNIDine 0.1 MG TAB PO SCH ×2 (08:27→20:03)
[2018-10-28] MEDS: hydrALAZINE 25 MG TAB PO SCH ×3 (08:27→20:05)
[2018-10-28] MEDS: Ferrous Sulfate 325 MG TAB PO SCH ×2 (08:27→20:05)
[2018-10-28] MEDS: guaiFENesin ER 600 MG TAB PO SCH ×2 (08:27→20:02)
[2018-10-28] MEDS: Amlodipine 10 MG TAB PO SCH (08:27)
[2018-10-28] MEDS: Tamsulosin HCl 0.4 MG CAP PO SCH ×2 (08:28→20:05)
[2018-10-28] MEDS: Carvedilol 6.25 MG TAB PO SCH ×2 (08:28→20:03)
[2018-10-28] MEDS: Loratadine 10 MG TAB PO SCH (08:28)
[2018-10-28] MEDS: predniSONE 20 MG TAB PO SCH (08:28)
[2018-10-28] MEDS: Saccharomyces boulardii 250 MG CAP PO SCH (08:28)
[2018-10-28] MEDS: Finasteride 5 MG TAB PO SCH (08:29)
[2018-10-28] MEDS: TBO-Filgrastim 300 MCG/0.5 ML VIAL SC SCH (08:36)
[2018-10-28 09:46] LABS: Band 2 % (5-11); Differential Comment Immature Cell(s); Eosinophils 2 % (0-10); Hemoglobin 7.6 g/dL (14.0-18.0); Lymphocytes 58 % (21-51); MDiff Complete? YES; Mean Corpuscular HGB CONC 32.2 g/dL (32.0-36.0); Mean Corpuscular Hemoglobin 28.5 pg (27.0-31.0); Mean Corpuscular Volume 88.5 fL (78.0-98.0); Mean Platelet Volume 6.5 fL (7.4-10.4); Monocytes 26 % (0-10); Neutrophil 2 % (42-75); Ovalocytes SLIGHT = 2-5 cells (100X) (0-1/hpf); Platelet Count 104 thou/uL (130-400); Platelet Morphology Comment Appears Decreased; Polychromasia SLIGHT = 2-3 cells (100X) (0-2/hpf); RBC Distribution Width 15.8 % (11.5-14.5); Reactive Lymphocytes 2 % (0-10); Red Blood Cell (RBC) Count 2.67 mill/uL (4.70-6.10); Reflex for Review?? NO; White Blood Cell (WBC) Count 1.7 thou/uL (4.8-10.8)
--- NOTE | 2018-10-28 09:56 | PRG ---
DATE OF SERVICE: 10/28/2018 SUBJECTIVE: This morning, he is awake and responsive. He says he had difficulty with breathing last night. He could not go to the bathroom. He was started on Flomax yesterday to which he is doing better. He has less cough, less shortness of breath. OBJECTIVE: CHEST: Reveals decreased breath sounds. No wheezing. CARDIAC: Normal S1 and S2. No gallops. ABDOMEN: No masses. ASSESSMENT: Chronic obstructive pulmonary disease; cancer, squamous cell carcinoma, status post chemotherapy, pancytopenia, afebrile. PLAN: Once his white count has come back to within the normal range, antibiotics can be discontinued. PT, supportive care. Baseline chest x-ray. Continue radiation. Job ID: [id number]
--- NOTE | 2018-10-28 10:09 | RAD ---
AP view chest history of cancer. AP view chest obtained on 10/28/2018. Comparison made to previous exam from 10/24/2018. AP view chest demonstrates sternotomy wires seen. There is a left jugular Mediport catheter in place. Severe right shoulder degenerative changes seen. Bilateral pleural effusions seen. Areas of airspace opacities seen in both lung bases. IMPRESSION: stable AP view of the chest.
[2018-10-28] MEDS ORDERED: Furosemide 20 MG/2 ML VIAL SLOW IVP SCH (10:45)
[2018-10-28] MEDS: Cefepime 2 GM in Sodium Chloride 0.9% 100 ML IVPB SCH ×2 (11:52→22:43)
[2018-10-28] MEDS: HumaLOG 300 UNITS/3 ML VIAL SC PRN ×2 (11:52→17:40)
--- NOTE | 2018-10-28 12:19 | PDOC.PN ---
- Subjective Encounter Start Date: 10/28/18 Encounter Start Time: 11:15 Subjective: feels better, sitting in chair -: has amb in hallway with PT -: says nebs are helping - Objective Resuscitation Status - Order Detail: 10/24/18 12:06 Resuscitation Status Routine Resuscitation Status: FULL: Full Resuscitation Discussed with: patient ZAINAB Reviewed: Yes Vital Signs & Weight: Vital Signs (12 hours) Temp Pulse Resp BP BP Pulse Ox 10/28/18 10:18 85 20 95 10/28/18 08:28 135/60 10/28/18 08:27 85 135/60 10/28/18 08:00 98.7 F 85 18 135/60 97 10/28/18 07:27 96 10/28/18 07:23 88 18 96 10/28/18 03:44 98.8 F 10/28/18 03:23 98 Weight Weight 158 lb 8.198 oz I&O: 10/27/18 10/28/18 10/29/18 06:59 06:59 06:59 Intake Total 1679 910 Output Total 800 Balance 879 910 Result Diagrams: 10/28/18 08:54 10/27/18 05:47 Additional Labs: Accuchecks 10/28/18 10/28/18 10/27/18 11:09 05:25 21:29 POC Glucose 162 H 129 H 184 H 10/27/18 16:54 POC Glucose 217 H Phys Exam - Physical Examination HEENT: PERRLA, moist MMs Neck: no JVD, supple Respiratory: no wheezing, no rales Cardiovascular: RRR, no significant murmur Gastrointestinal: soft, non-tender, positive bowel sounds Musculoskeletal: pulses present, edema present Neurological: non-focal, moves all 4 limbs Psychiatric: normal affect, A&O x 3 Dx/Plan (1) Pancytopenia Code(s): D61.818 - OTHER PANCYTOPENIA Status: Acute Comment: sec to chemo, resolving (2) Pneumonia Code(s): J18.9 - PNEUMONIA, UNSPECIFIED ORGANISM Status: Suspected Qualifiers: Pneumonia type: due to unspecified organism Comment: resolving (3) Pleural effusion Code(s): J90 - PLEURAL EFFUSION, NOT ELSEWHERE CLASSIFIED Status: Acute Comment: chronic and stable (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 - SMALL CELL B-CELL LYMPHOMA, UNSPECIFIED SITE Status: Chronic Qualifiers: Lymphoma site: unspecified region Qualified Code(s): C83.00 - Small cell B- cell lymphoma, unspecified site (5) Squamous cell carcinoma of lung Code(s): C34.90 - MALIGNANT NEOPLASM OF UNSP PART OF UNSP BRONCHUS OR LUNG Status: Acute Qualifiers: Laterality: right Qualified Code(s): C34.91 - Malignant neoplasm of unspecified part of right bronchus or lung Comment: on carboplatin, taxol, radiation rx (6) CAD (coronary artery disease) Code(s): I25.10 - ATHSCL HEART DISEASE OF [place] CORONARY ARTERY W/O ANG PCTRS Status: Chronic Qualifiers: Coronary Disease-Associated Artery/Lesion type: bypass graft [place] vs. transplanted heart: [place] heart Associated angina: without angina Qualified Code(s): I25.810 - Atherosclerosis of coronary artery bypass graft(s) without angina pectoris Comment: cont Coreg, statin (7) COPD (chronic obstructive pulmonary disease) Status: Chronic Qualifiers: COPD type: unspecified COPD Qualified Code(s): J44.9 - Chronic obstructive pulmonary disease, unspecified (8) Chronic diastolic heart failure Code(s): I50.32 - CHRONIC DIASTOLIC (CONGESTIVE) HEART FAILURE Status: Chronic Comment: compensated. cont lasix,BB,ASA (9) Diabetes mellitus Code(s): E11.9 - TYPE 2 DIABETES MELLITUS WITHOUT COMPLICATIONS Status: Chronic Qualifiers: Diabetes mellitus type: type 2 Diabetes mellitus complication status: without complication (10) HLD (hyperlipidemia) Code(s): E78.5 - HYPERLIPIDEMIA, UNSPECIFIED Status: Chronic Qualifiers: Hyperlipidemia type: unspecified Qualified Code(s): E78.5 - Hyperlipidemia , unspecified Comment: on Lipitor (11) HTN (hypertension) Code(s): I10 - ESSENTIAL (PRIMARY) HYPERTENSION Status: Chronic Qualifiers: Comment: reasonable control (12) Hypothyroidism Code(s): E03.9 - HYPOTHYROIDISM, UNSPECIFIED Status: Chronic Comment: on levothyroxine (13) SONIYA (acute kidney injury) Code(s): N17.9 - ACUTE KIDNEY FAILURE, UNSPECIFIED Status: Resolved - Plan hemostable -: is on cefepime, nebs, prednisone -: continue norvasc, coreg, clonidine, hydralazine,lipitor,flomax, proscar -: pancytopenia is slowly resolving -: likely dc plan in am * . Review of Systems - Medications/Allergies Allergies/Adverse Reactions: Allergies Allergy/AdvReac Type Severity Reaction Status Date / Time Latex, Natural Rubber Allergy Verified 09/17/18 14:02 milk Allergy Verified 09/17/18 14:02 Penicillins Allergy Verified 09/30/18 02:11 Medications: Current Medications Acetaminophen (Tylenol) 650 mg PO Q4H PRN PRN Reason: Headache/Fever/Mild Pain (1-3) Last Admin: 10/26/18 22:55 Dose: 650 mg Albuterol/Ipratropium (Duoneb) 3 ml NEB [id number] [facility]DR[facility] Last Admin: 10/28/18 10:18 Dose: 3 ml Albuterol/Ipratropium (Duoneb) 3 ml NEB Q4H PRN PRN Reason: SOB/WHEEZE Last Admin: 10/27/18 03:22 Dose: 3 ml Alprazolam (Xanax) 0.25 mg PO QIDPRN PRN PRN Reason: Anxiety Last Admin: 10/27/18 14:30 Dose: 0.25 mg Amlodipine Besylate (Norvasc) 10 mg PO DAILY [facility] Last Admin: 10/28/18 08:27 Dose: 10 mg Atorvastatin Calcium (Lipitor) 20 mg PO HS [facility] Last Admin: 10/27/18 21:29 Dose: 20 mg Bisacodyl (Dulcolax) 10 mg ND DAILYPRN PRN PRN Reason: Constipation Carvedilol (Coreg) 6.25 mg PO BID [facility] Last Admin: 10/28/18 08:28 Dose: 6.25 mg Clonidine (Catapres) 0.1 mg PO BID [facility] Last Admin: 10/28/18 08:27 Dose: 0.1 mg Dextrose/Water (Dextrose 50%) 25 gm SLOW IVP PRN PRN PRN Reason: Hypoglycemia Ferrous Sulfate (Feosol) 325 mg PO BID [facility] Last Admin: 10/28/18 08:27 Dose: 325 mg Finasteride (Proscar) 5 mg PO DAILY [facility] Last Admin: 10/28/18 08:29 Dose: 5 mg Furosemide (Lasix) 40 mg PO DAILY[facility] Furosemide (Lasix) 20 mg SLOW IVP NOW [facility] Stop: 10/28/18 12:45 Last Admin: 10/28/18 11:53 Dose: 20 mg Glucagon (Glucagon) 1 mg IM PRN PRN PRN Reason: Hypoglycemia Guaifenesin (Mucinex) 600 mg PO BID [facility] Last Admin: 10/28/18 08:27 Dose: 600 mg Hydralazine HCl (Apresoline) 25 mg PO TID [facility] Last Admin: 10/28/18 08:27 Dose: 25 mg Dextrose/Water (D5w) 1,000 mls @ 0 mls/hr IV .Q0M PRN PRN Reason: Hypoglycemia Cefepime HCl 2 gm/ Sodium (Chloride) 100 mls @ 200 mls/hr IVPB 1100,2300 [facility] Last Admin: 10/28/18 11:52 Dose: 100 mls Insulin Human Lispro (Humalog) 0 units SC .AGGRESSIVE SLIDING PRN PRN Reason: Aggressive Correctional Scale Last Admin: 10/28/18 11:52 Dose: 3 unit Levothyroxine Sodium (Synthroid) 12.5 mcg PO 0600 [facility] Last Admin: 10/28/18 07:09 Dose: 12.5 mcg Loratadine (Claritin) 10 mg PO DAILY [facility] Last Admin: 10/28/18 08:28 Dose: 10 mg Mometasone Furoate (Asmanex) 1 puff INH 1830 [facility] Last Admin: 10/27/18 19:28 Dose: 1 puff Pantoprazole Sodium (Protonix) 40 mg PO DAILY [facility] Last Admin: 10/28/18 08:28 Dose: 40 mg Prednisone (Prednisone) 20 mg PO QAM-WM [facility] Last Admin: 10/28/18 08:28 Dose: 20 mg Saccharomyces Boulardii (Florastor) 250 mg PO DAILY [facility] Last Admin: 10/28/18 08:28 Dose: 250 mg Sodium Chloride (Flush - Normal Saline) 10 ml IVF Q12HR [facility] Last Admin: 10/28/18 08:29 Dose: 10 ml Sodium Chloride (Flush - Normal Saline) 10 ml IVF PRN PRN PRN Reason: Saline Flush Sterile Water (Bacteriostatic Water) 1 ml FS PRN PRN PRN Reason: RECONSTITUTION Tamsulosin HCl (Flomax) 0.4 mg PO DAILY [facility] Last Admin: 10/28/18 08:28 Dose: 0.4 mg Tamsulosin HCl (Flomax) 0.4 mg PO HS [facility] Last Admin: 10/27/18 21:31 Dose: 0.4 mg Tbo-Filgrastim (Granix) 300 mcg SC DAILY [facility] Last Admin: 10/28/18 08:36 Dose: 300 mcg
[2018-10-28] MEDS: ALPRAZolam 0.25 MG TAB PO PRN (14:41)
--- NOTE | 2018-10-28 15:45 | CON ---
DATE OF CONSULTATION: 10/27/2018 REQUESTING PHYSICIAN: Wilman Sandoval MD. REASON FOR CONSULTATION: Urinary retention. HISTORY OF PRESENT ILLNESS: Mr. Sanchez is an 83-year-old male with past urologic history significant for BPH status post transurethral resection of the prostate in 2004 who currently is admitted for fever and a pleural effusion. 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 He is currently under chemo and radiation therapy. During this hospitalization during the night last night, the patient had voiding difficulty and bladder scan was performed this morning and he had over 800 mL of residual urine in the bladder. The patient was able to ambulate to the toilet and sat on the toilet and was able to void and felt better after he voided. Repeat bladder scan demonstrated a PVR of approximately 350 mL. Urology was consulted for urinary retention and incomplete bladder emptying. The patient states he has not had voiding difficulty at home. He does void 2-3 times at night. No frequency or urgency. He typically sits to void and since he has been in the hospital, he has been trying to void in a urinal laying down and feels this is contributing to his voiding difficulty. Currently, he is not any in any discomfort. He has not been on BPH medications at home. He has no other complaints. MEDICATIONS: 1. Amlodipine. 2. Alprazolam. 3. DuoNeb. 4. Norvasc. 5. Lipitor. 6. Carvedilol. 7. Clonidine. 8. Dulcolax. 9. Hydralazine. Currently as inpatient, he is on: 1. Levaquin. 2. Meropenem. 3. Vancomycin. 4. Protonix. PAST MEDICAL HISTORY: Type 2 diabetes, hypertension, coronary artery disease, congestive heart failure, hyperlipidemia, arthritis, asthma, hypothyroidism, peptic ulcer disease, gout, BPH. PAST SURGICAL HISTORY: Appendectomy, CABG in 2002, cholecystectomy, knee replacement, carotid endarterectomy. Lower extremity stenting and transurethral resection of the prostate. SOCIAL HISTORY: Currently lives in [place]. He was at a nursing facility prior to this hospitalization. He is a former smoker and social drinker. FAMILY HISTORY: Noncontributory. REVIEW OF SYSTEMS: A 12-point review of systems was performed. Other pertinent positives include fatigue and generally not feeling well. PHYSICAL EXAMINATION: VITAL SIGNS: Temperature is 98.4, pulse 79, blood pressure 121/65, respirations 18. GENERAL: He is awake and alert, in no apparent distress. HEENT: Normocephalic, atraumatic. NECK: Supple. No masses or lymphadenopathy. CARDIOVASCULAR: Regular rate and rhythm. PULMONARY: Breathing unlabored. ABDOMEN: Soft, nontender/nondistended. No masses or organomegaly. No suprapubic tenderness to palpation. No CVA tenderness. EXTREMITIES: Warm, well perfused. No edema. NEUROLOGIC: No focal deficits. LABORATORY DATA: Sodium 132, potassium 4.7, chloride 95, CO2 27, BUN 45, creatinine 1.27. ASSESSMENT: An 83-year-old male with multiple acute and chronic medical problems, now with incomplete bladder emptying, voiding difficulty with history of benign prostate hypertrophy. PLAN: I reviewed the natural history of BPH with the patient in detail. He has history of transurethral resection of the prostate. He is emptying his bladder relatively well, although does have an elevated postvoid residual. He is currently not in any discomfort and has normal renal function. At this point, I think it is in his best interest to avoid Noonan catheterization. I will start the patient on Flomax and finasteride. If he develops worsening voiding difficulty, a Noonan may be necessary, but given the fact that he is under neutropenic precautions, not leaving an indwelling Nonoan at this time again would likely be within his best interest and he can follow up with Urology as an outpatient, if he continues to have voiding difficulty. Thank you for allowing me to participate in the care of this patient. Job ID: [id number]
[2018-10-28] MEDS: Mometasone Furoate 30 PUFF 220 MCG INH SCH (19:10)
[2018-10-28] MEDS: Atorvastatin Calcium 20 MG TAB PO SCH (20:05)
[2018-10-29] MEDS: ALPRAZolam 0.25 MG TAB PO PRN ×2 (00:35→14:16)
[2018-10-29] MEDS: Levothyroxine Sodium 25 MCG TAB PO SCH (06:13)
[2018-10-29] MEDS: Carvedilol 6.25 MG TAB PO SCH ×2 (08:37→20:33)
[2018-10-29] MEDS: hydrALAZINE 25 MG TAB PO SCH ×3 (08:37→20:32)
[2018-10-29] MEDS: Tamsulosin HCl 0.4 MG CAP PO SCH ×2 (08:37→20:34)
[2018-10-29] MEDS: Furosemide 40 MG TAB PO SCH (08:37)
[2018-10-29] MEDS: Saccharomyces boulardii 250 MG CAP PO SCH (08:37)
[2018-10-29] MEDS: TBO-Filgrastim 300 MCG/0.5 ML VIAL SC SCH (08:37)
[2018-10-29] MEDS: predniSONE 20 MG TAB PO SCH (08:37)
[2018-10-29] MEDS: guaiFENesin ER 600 MG TAB PO SCH ×2 (08:37→20:33)
[2018-10-29] MEDS: Amlodipine 10 MG TAB PO SCH (08:38)
[2018-10-29] MEDS: Loratadine 10 MG TAB PO SCH (08:38)
[2018-10-29] MEDS: Ferrous Sulfate 325 MG TAB PO SCH ×2 (08:38→20:33)
[2018-10-29] MEDS: cloNIDine 0.1 MG TAB PO SCH ×2 (08:38→20:32)
[2018-10-29] MEDS: Finasteride 5 MG TAB PO SCH (08:38)
--- NOTE | 2018-10-29 09:32 | PRG ---
DATE OF SERVICE: 10/29/2018 SUBJECTIVE: This morning, he is still short of breath. OBJECTIVE: VITAL SIGNS: Saturations are 94%, blood pressure 128/61, pulse 108, temperature 98, I's and O's have been positive CHEST: Decreased breath sounds. Bilateral crackles. CARDIAC: Normal S1 and S2. No gallops. ABDOMEN: No masses. LABORATORY DATA: Labs pending. IMAGING STUDIES: X-ray shows bilateral pleural effusions. ASSESSMENT: Congestive heart failure, diastolic dysfunction, sepsis, pancytopenia, chronic obstructive pulmonary disease, lung cancer. PLAN: Lasix was initiated. Continue supportive care PT. Await results of the CBC. Job ID: [id number] MTDD
[2018-10-29 09:47] LABS: Band 4 % (5-11); Eosinophils 2 % (0-10); Hemoglobin 7.8 g/dL (14.0-18.0); Lymphocytes 80 % (21-51); MDiff Complete? YES; Mean Corpuscular Hemoglobin 29.8 pg (27.0-31.0); Mean Corpuscular Volume 87.6 fL (78.0-98.0); Mean Platelet Volume 6.5 fL (7.4-10.4); Monocytes 8 % (0-10); Neutrophil 6 % (42-75); Platelet Count 96 thou/uL (130-400); Platelet Morphology Comment Appears Decreased; Polychromasia SLIGHT = 2-3 cells (100X) (0-2/hpf); RBC Distribution Width 15.9 % (11.5-14.5); Red Blood Cell (RBC) Count 2.62 mill/uL (4.70-6.10); White Blood Cell (WBC) Count 2.2 thou/uL (4.8-10.8)
[2018-10-29] MEDS: Cefepime 2 GM in Sodium Chloride 0.9% 100 ML IVPB SCH ×2 (10:02→22:16)
[2018-10-29] MEDS: HumaLOG 300 UNITS/3 ML VIAL SC PRN ×2 (12:13→17:07)
--- NOTE | 2018-10-29 12:42 | PDOC.PN ---
- Subjective Encounter Start Date: 10/29/18 Encounter Start Time: 11:00 Subjective: c/o sob and lower extre edema -: is amb in room - Objective Resuscitation Status - Order Detail: 10/24/18 12:06 Resuscitation Status Routine Resuscitation Status: FULL: Full Resuscitation Discussed with: patient ZAINAB Reviewed: Yes Vital Signs & Weight: Vital Signs (12 hours) Temp Pulse Resp BP BP Pulse Ox Pulse Ox 10/29/18 10:49 97.6 F 93 18 127/62 94 L 10/29/18 10:08 90 18 95 10/29/18 09:13 95 10/29/18 08:38 108 H 128/61 10/29/18 08:37 108 H 128/61 10/29/18 08:00 93 L 10/29/18 07:33 98.0 F 108 H 20 128/61 93 L 10/29/18 07:23 70 18 10/29/18 02:26 62 20 99 Pulse Ox 10/29/18 10:49 10/29/18 10:08 10/29/18 09:13 93 L 10/29/18 08:38 10/29/18 08:37 10/29/18 08:00 10/29/18 07:33 10/29/18 07:23 10/29/18 02:26 Weight Weight 158 lb 8.198 oz I&O: 10/28/18 10/29/18 10/30/18 06:59 06:59 06:59 Intake Total 910 900 Balance 910 900 Result Diagrams: 10/29/18 06:07 10/27/18 05:47 Additional Labs: Accuchecks 10/29/18 10/29/18 10/28/18 10:35 06:07 20:05 POC Glucose 164 H 114 H 225 H 10/28/18 17:04 POC Glucose 163 H Phys Exam - Physical Examination HEENT: PERRLA, moist MMs Neck: no nodes, supple Respiratory: no wheezing rhonchi+, rales+ Cardiovascular: RRR, no significant murmur Gastrointestinal: soft, non-tender, positive bowel sounds Musculoskeletal: pulses present, edema present Neurological: non-focal, moves all 4 limbs Dx/Plan (1) Pancytopenia Code(s): D61.818 - OTHER PANCYTOPENIA Status: Acute Comment: sec to chemo, resolving (2) Pneumonia Code(s): J18.9 - PNEUMONIA, UNSPECIFIED ORGANISM Status: Suspected Qualifiers: Pneumonia type: due to unspecified organism Comment: resolving (3) Pleural effusion Code(s): J90 - PLEURAL EFFUSION, NOT ELSEWHERE CLASSIFIED Status: Acute Comment: chronic and stable (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 - SMALL CELL B-CELL LYMPHOMA, UNSPECIFIED SITE Status: Chronic Qualifiers: Lymphoma site: unspecified region Qualified Code(s): C83.00 - Small cell B- cell lymphoma, unspecified site (5) Squamous cell carcinoma of lung Code(s): C34.90 - MALIGNANT NEOPLASM OF UNSP PART OF UNSP BRONCHUS OR LUNG Status: Acute Qualifiers: Laterality: right Qualified Code(s): C34.91 - Malignant neoplasm of unspecified part of right bronchus or lung Comment: on carboplatin, taxol, radiation rx (6) CAD (coronary artery disease) Code(s): I25.10 - ATHSCL HEART DISEASE OF [place] CORONARY ARTERY W/O ANG PCTRS Status: Chronic Qualifiers: Coronary Disease-Associated Artery/Lesion type: bypass graft [place] vs. transplanted heart: [place] heart Associated angina: without angina Qualified Code(s): I25.810 - Atherosclerosis of coronary artery bypass graft(s) without angina pectoris Comment: cont Coreg, statin (7) COPD (chronic obstructive pulmonary disease) Status: Chronic Qualifiers: COPD type: unspecified COPD Qualified Code(s): J44.9 - Chronic obstructive pulmonary disease, unspecified (8) Chronic diastolic heart failure Code(s): I50.32 - CHRONIC DIASTOLIC (CONGESTIVE) HEART FAILURE Status: Chronic Comment: compensated. cont lasix,BB,ASA (9) Diabetes mellitus Code(s): E11.9 - TYPE 2 DIABETES MELLITUS WITHOUT COMPLICATIONS Status: Chronic Qualifiers: Diabetes mellitus type: type 2 Diabetes mellitus complication status: without complication (10) HLD (hyperlipidemia) Code(s): E78.5 - HYPERLIPIDEMIA, UNSPECIFIED Status: Chronic Qualifiers: Hyperlipidemia type: unspecified Qualified Code(s): E78.5 - Hyperlipidemia , unspecified Comment: on Lipitor (11) HTN (hypertension) Code(s): I10 - ESSENTIAL (PRIMARY) HYPERTENSION Status: Chronic Qualifiers: Comment: reasonable control (12) Hypothyroidism Code(s): E03.9 - HYPOTHYROIDISM, UNSPECIFIED Status: Chronic Comment: on levothyroxine (13) SONIYA (acute kidney injury) Code(s): N17.9 - ACUTE KIDNEY FAILURE, UNSPECIFIED Status: Resolved - Plan is slowly accumulating edema in lower extremities -: mac ley to [facility], got po lasix in am, give 1 more dose at 2pm iv -: he had iv lasix yesterday as well -: nebs, coreg, clonidine, hydralazine, lipitor, steroid, flomax and proscar -: on cefepime, pancytopenia is slowly resolving * . Prognosis guarded Review of Systems - Medications/Allergies Allergies/Adverse Reactions: Allergies Allergy/AdvReac Type Severity Reaction Status Date / Time Latex, Natural Rubber Allergy Verified 09/17/18 14:02 milk Allergy Verified 09/17/18 14:02 Penicillins Allergy Verified 09/30/18 02:11 Medications: Current Medications Acetaminophen (Tylenol) 650 mg PO Q4H PRN PRN Reason: Headache/Fever/Mild Pain (1-3) Last Admin: 10/26/18 22:55 Dose: 650 mg Albuterol/Ipratropium (Duoneb) 3 ml NEB [id number] [facility] Last Admin: 10/29/18 10:08 Dose: 3 ml Albuterol/Ipratropium (Duoneb) 3 ml NEB Q4H PRN PRN Reason: SOB/WHEEZE Last Admin: 10/27/18 03:22 Dose: 3 ml Alprazolam (Xanax) 0.25 mg PO QIDPRN PRN PRN Reason: Anxiety Last Admin: 10/29/18 00:35 Dose: 0.25 mg Amlodipine Besylate (Norvasc) 10 mg PO DAILY [facility] Last Admin: 10/29/18 08:38 Dose: 10 mg Atorvastatin Calcium (Lipitor) 20 mg PO HS [facility] Last Admin: 10/28/18 20:05 Dose: 20 mg Bisacodyl (Dulcolax) 10 mg [place] DAILYPRN PRN PRN Reason: Constipation Carvedilol (Coreg) 6.25 mg PO BID [facility] Last Admin: 10/29/18 08:37 Dose: 6.25 mg Clonidine (Catapres) 0.1 mg PO BID [facility] Last Admin: 10/29/18 08:38 Dose: 0.1 mg Dextrose/Water (Dextrose 50%) 25 gm SLOW IVP PRN PRN PRN Reason: Hypoglycemia Ferrous Sulfate (Feosol) 325 mg PO BID [facility] Last Admin: 10/29/18 08:38 Dose: 325 mg Finasteride (Proscar) 5 mg PO DAILY [facility] Last Admin: 10/29/18 08:38 Dose: 5 mg Furosemide (Lasix) 40 mg PO DAILY-AC [facility] Last Admin: 10/29/18 08:37 Dose: 40 mg Furosemide (Lasix) 40 mg SLOW IVP ONE [facility] Glucagon (Glucagon) 1 mg IM PRN PRN PRN Reason: Hypoglycemia Guaifenesin (Mucinex) 600 mg PO BID [facility] Last Admin: 10/29/18 08:37 Dose: 600 mg Hydralazine HCl (Apresoline) 25 mg PO TID [facility] Last Admin: 10/29/18 08:37 Dose: 25 mg Dextrose/Water (D5w) 1,000 mls @ 0 mls/hr IV .Q0M PRN PRN Reason: Hypoglycemia Cefepime HCl 2 gm/ Sodium (Chloride) 100 mls @ 200 mls/hr IVPB 1100,2300 [facility] Last Admin: 10/29/18 10:02 Dose: 100 mls Insulin Human Lispro (Humalog) 0 units SC .AGGRESSIVE SLIDING PRN PRN Reason: Aggressive Correctional Scale Last Admin: 10/29/18 12:13 Dose: 3 unit Levothyroxine Sodium (Synthroid) 12.5 mcg PO 0600 [facility] Last Admin: 10/29/18 06:13 Dose: 12.5 mcg Loratadine (Claritin) 10 mg PO DAILY [facility] Last Admin: 10/29/18 08:38 Dose: 10 mg Mometasone Furoate (Asmanex) 1 puff INH 1830 [facility] Last Admin: 10/28/18 19:10 Dose: 1 puff Pantoprazole Sodium (Protonix) 40 mg PO DAILY [facility] Last Admin: 10/29/18 08:37 Dose: 40 mg Prednisone (Prednisone) 20 mg PO QAM-WM [facility] Last Admin: 10/29/18 08:37 Dose: 20 mg Saccharomyces Boulardii (Florastor) 250 mg PO DAILY [facility] Last Admin: 10/29/18 08:37 Dose: 250 mg Sodium Chloride (Flush - Normal Saline) 10 ml IVF Q12HR [facility] Last Admin: 10/29/18 08:38 Dose: 10 ml Sodium Chloride (Flush - Normal Saline) 10 ml IVF PRN PRN PRN Reason: Saline Flush Sterile Water (Bacteriostatic Water) 1 ml FS PRN PRN PRN Reason: RECONSTITUTION Tamsulosin HCl (Flomax) 0.4 mg PO DAILY [facility] Last Admin: 10/29/18 08:37 Dose: 0.4 mg Tamsulosin HCl (Flomax) 0.4 mg PO HS [facility] Last Admin: 10/28/18 20:05 Dose: 0.4 mg Tbo-Filgrastim (Granix) 300 mcg SC DAILY [facility] Last Admin: 10/29/18 08:37 Dose: 300 mcg
[2018-10-29] MEDS ORDERED: Furosemide 40 MG/4 ML VIAL SLOW IVP SCH (14:00)
[2018-10-29] MEDS: Mometasone Furoate 30 PUFF 220 MCG INH SCH (18:29)
[2018-10-29] MEDS: Atorvastatin Calcium 20 MG TAB PO SCH (20:33)
[2018-10-30] MEDS: Acetaminophen 325 MG TAB PO PRN (05:25)
[2018-10-30] MEDS: Levothyroxine Sodium 25 MCG TAB PO SCH (05:25)
[2018-10-30 06:21] LABS: Band 2 % (5-11); Hemoglobin 7.8 g/dL (14.0-18.0); Hypochromia SLIGHT = 6-15 cells (100X) (0-5/hpf); Lymphocytes 76 % (21-51); MDiff Complete? YES; Mean Corpuscular HGB CONC 32.6 g/dL (32.0-36.0); Mean Corpuscular Hemoglobin 28.9 pg (27.0-31.0); Mean Corpuscular Volume 88.6 fL (78.0-98.0); Mean Platelet Volume 6.8 fL (7.4-10.4); Monocytes 12 % (0-10); Neutrophil 10 % (42-75); Nucleated RBC 1 % (0); Platelet Count 98 thou/uL (130-400); Platelet Morphology Comment Appears Decreased; RBC Distribution Width 16.2 % (11.5-14.5); White Blood Cell (WBC) Count 3.9 thou/uL (4.8-10.8)
[2018-10-30] MEDS: predniSONE 20 MG TAB PO SCH (08:18)
[2018-10-30] MEDS: Ferrous Sulfate 325 MG TAB PO SCH ×2 (08:18→20:01)
[2018-10-30] MEDS: Furosemide 40 MG TAB PO SCH (08:19)
[2018-10-30] MEDS: Tamsulosin HCl 0.4 MG CAP PO SCH ×3 (08:19→20:02)
[2018-10-30] MEDS: cloNIDine 0.1 MG TAB PO SCH ×2 (08:19→20:01)
[2018-10-30] MEDS: Saccharomyces boulardii 250 MG CAP PO SCH (08:19)
[2018-10-30] MEDS: Finasteride 5 MG TAB PO SCH (08:20)
[2018-10-30] MEDS: guaiFENesin ER 600 MG TAB PO SCH ×2 (08:20→20:01)
[2018-10-30] MEDS: Amlodipine 10 MG TAB PO SCH (08:20)
[2018-10-30] MEDS: hydrALAZINE 25 MG TAB PO SCH ×3 (08:20→20:02)
[2018-10-30] MEDS: Carvedilol 6.25 MG TAB PO SCH ×2 (08:20→20:02)
[2018-10-30] MEDS: Loratadine 10 MG TAB PO SCH (08:20)
[2018-10-30] MEDS ORDERED: Laxative Of Choice PO PRN (09:07)
[2018-10-30] MEDS: TBO-Filgrastim 300 MCG/0.5 ML VIAL SC SCH (09:36)
[2018-10-30] MEDS: Polyethylene Glycol 3350 17 GM Packet PO PRN (09:36)
--- NOTE | 2018-10-30 09:44 | PRG ---
DATE OF SERVICE: 10/30/2018 SUBJECTIVE: This morning, he is awake, alert, and responsive. He is less short of breath, though his sats are still low on a liter. OBJECTIVE: VITAL SIGNS: _02 sat 94 % blood pressure 140/65, resp 20_. His input and output apparently negative. CHEST: Decreased breath sounds. No wheezing. CARDIAC: Normal S1 and S2. No gallops. ABDOMEN: No masses. ASSESSMENT: 1. Squamous cell carcinoma. 2. Baseline CLL. 3. Pancytopenia from chemo, better. Bilateral pleural effusion from congestive heart failure. 4. Chronic obstructive pulmonary disease, end stage. 5. Benign prostatic hyperplasia. PLAN: Laxatives are given. I will continue diuretics. Supportive care. We will follow. Job ID: [id number] MTDD
[2018-10-30] MEDS: HumaLOG 300 UNITS/3 ML VIAL SC PRN ×2 (11:29→16:56)
--- NOTE | 2018-10-30 13:00 | PDOC.PN ---
- Subjective Encounter Start Date: 10/30/18 Encounter Start Time: 10:45 -: old records requested/rev Patient seen and examined. No new complaints. No overnight events - Objective Resuscitation Status - Order Detail: 10/24/18 12:06 Resuscitation Status Routine Resuscitation Status: FULL: Full Resuscitation Discussed with: patient ZAINAB Reviewed: Yes Vital Signs & Weight: Vital Signs (12 hours) Temp Pulse Resp BP BP Pulse Ox 10/30/18 12:05 98.0 F 84 18 133/55 L 94 L 10/30/18 10:30 80 12 10/30/18 08:20 82 142/65 H 10/30/18 08:19 142/65 H 10/30/18 08:00 97.6 F 85 18 122/58 L 94 L 10/30/18 06:30 82 12 10/30/18 06:26 98.5 F 10/30/18 05:20 100.6 F H 10/30/18 02:07 82 16 95 Weight Weight 158 lb 8.198 oz I&O: 10/29/18 10/30/18 10/31/18 06:59 06:59 06:59 Intake Total 900 1100 Balance 900 1100 Result Diagrams: 10/30/18 05:31 10/27/18 05:47 Additional Labs: Accuchecks 10/30/18 10/30/18 10/29/18 11:05 05:38 20:12 POC Glucose 174 H 121 H 241 H 10/29/18 16:45 POC Glucose 227 H Phys Exam - Physical Examination Constitutional: NAD HEENT: PERRLA, moist MMs, sclera anicteric Neck: no JVD, supple Respiratory: no wheezing, no rales, no rhonchi Cardiovascular: RRR, no significant murmur, no rub Gastrointestinal: soft, non-tender, no distention, positive bowel sounds Musculoskeletal: pulses present, edema present Neurological: non-focal, normal sensation Lymphatic: no nodes Psychiatric: normal affect, A&O x 3 Skin: no rash, normal turgor Dx/Plan (1) Acute on chronic diastolic (congestive) heart failure Code(s): I50.33 - ACUTE ON CHRONIC DIASTOLIC (CONGESTIVE) HEART FAILURE Status : Acute Comment: Improved with diuresis (2) PNA (pneumonia) Code(s): J18.9 - PNEUMONIA, UNSPECIFIED ORGANISM Status: Acute Qualifiers: Laterality: right Lung location: lower lobe of lung Comment: on Omnicef now. s/p IV ABx.al Cx negative (3) Pancytopenia Code(s): D61.818 - OTHER PANCYTOPENIA Status: Acute (4) Squamous cell carcinoma of lung Code(s): C34.90 - MALIGNANT NEOPLASM OF UNSP PART OF UNSP BRONCHUS OR LUNG Status: Acute Qualifiers: Laterality: right Qualified Code(s): C34.91 - Malignant neoplasm of unspecified part of right bronchus or lung Comment: on carboplatin, taxol, radiation rx (5) Urinary retention Code(s): R33.9 - RETENTION OF URINE, UNSPECIFIED Status: Acute Comment: consult urology, PRN straight catheterization (6) Anemia Code(s): D64.9 - ANEMIA, UNSPECIFIED Status: Chronic Qualifiers: Anemia type: unspecified type Qualified Code(s): D64.9 - Anemia, unspecified (7) Aortic stenosis Code(s): I35.0 - NONRHEUMATIC AORTIC (VALVE) STENOSIS Status: Chronic Comment: mild to moderate, with mild to moderate aortic regurgitation (8) CAD (coronary artery disease) Code(s): I25.10 - ATHSCL HEART DISEASE OF [place] CORONARY ARTERY W/O ANG PCTRS Status: Chronic Qualifiers: Coronary Disease-Associated Artery/Lesion type: bypass graft [place] vs. transplanted heart: [place] heart Associated angina: without angina Qualified Code(s): I25.810 - Atherosclerosis of coronary artery bypass graft(s) without angina pectoris Comment: cont Coreg, statin (9) COPD (chronic obstructive pulmonary disease) Status: Chronic Qualifiers: COPD type: unspecified COPD Qualified Code(s): J44.9 - Chronic obstructive pulmonary disease, unspecified (10) Diabetes mellitus Code(s): E11.9 - TYPE 2 DIABETES MELLITUS WITHOUT COMPLICATIONS Status: Chronic Qualifiers: Diabetes mellitus type: type 2 Diabetes mellitus complication status: without complication (11) HLD (hyperlipidemia) Code(s): E78.5 - HYPERLIPIDEMIA, UNSPECIFIED Status: Chronic Qualifiers: Hyperlipidemia type: unspecified Qualified Code(s): E78.5 - Hyperlipidemia , unspecified Comment: on Lipitor (12) HTN (hypertension) Code(s): I10 - ESSENTIAL (PRIMARY) HYPERTENSION Status: Chronic Qualifiers: Comment: reasonable control (13) Hypothyroidism Code(s): E03.9 - HYPOTHYROIDISM, UNSPECIFIED Status: Chronic Comment: on levothyroxine (14) Neutropenia Code(s): D70.9 - NEUTROPENIA, UNSPECIFIED Status: Chronic Comment: Chronic, unchanged, mild (15) Normocytic anemia Code(s): D64.9 - ANEMIA, UNSPECIFIED Status: Chronic (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 Code(s): C83.00 - SMALL CELL B-CELL LYMPHOMA, UNSPECIFIED SITE Status: Chronic Qualifiers: Lymphoma site: unspecified region Qualified Code(s): C83.00 - Small cell B- cell lymphoma, unspecified site (17) Pneumonia Code(s): J18.9 - PNEUMONIA, UNSPECIFIED ORGANISM Status: Suspected Qualifiers: Pneumonia type: due to unspecified organism Comment: resolving (18) SONIYA (acute kidney injury) Code(s): N17.9 - ACUTE KIDNEY FAILURE, UNSPECIFIED Status: Resolved (19) Sepsis Code(s): A41.9 - SEPSIS, UNSPECIFIED ORGANISM Status: Resolved - Plan cont current plan of care, continue antibiotics, respiratory therapy * continue po levaquin * director case working on placement * continue radiation therapy * medication reviewed as below * symptomatic treatment. Review of Systems - Review of Systems ENT: negative: Ear Pain, Ear Discharge, Nose Pain, Nose Discharge, Nose Congestion, Mouth Pain, Mouth Swelling, Throat Pain, Throat Swelling, Other Respiratory: negative: Cough, Dry, Shortness of Breath, Hemoptysis, SOB with Excertion, Pleuritic Pain, Sputum, Wheezing Cardiovascular: edema. negative: chest pain, palpitations, orthopnea, paroxysmal nocturnal dyspnea, light headedness, other Gastrointestinal: negative: Nausea, Vomiting, Abdominal Pain, Diarrhea, Constipation, Melena, Hematochezia, Other Genitourinary: negative: Dysuria, Frequency, Incontinence, Hematuria, Retention , Other Musculoskeletal: negative: Neck Pain, Shoulder Pain, Arm Pain, Back Pain, Hand Pain, Leg Pain, Foot Pain, Other Skin: negative: Rash, Lesions, James, Bruising, Other - Medications/Allergies Allergies/Adverse Reactions: Allergies Allergy/AdvReac Type Severity Reaction Status Date / Time Latex, Natural Rubber Allergy Verified 09/17/18 14:02 milk Allergy Verified 09/17/18 14:02 Penicillins Allergy Verified 09/30/18 02:11 Medications: Current Medications Acetaminophen (Tylenol) 650 mg PO Q4H PRN PRN Reason: Headache/Fever/Mild Pain (1-3) Last Admin: 10/30/18 05:25 Dose: 650 mg Albuterol/Ipratropium (Duoneb) 3 ml NEB [id number] [facility] Last Admin: 10/30/18 10:30 Dose: 3 ml Albuterol/Ipratropium (Duoneb) 3 ml NEB Q4H PRN PRN Reason: SOB/WHEEZE Last Admin: 10/27/18 03:22 Dose: 3 ml Alprazolam (Xanax) 0.25 mg PO QIDPRN PRN PRN Reason: Anxiety Last Admin: 10/29/18 14:16 Dose: 0.25 mg Amlodipine Besylate (Norvasc) 10 mg PO DAILY [facility] Last Admin: 10/30/18 08:20 Dose: 10 mg Atorvastatin Calcium (Lipitor) 20 mg PO HS [facility] Last Admin: 10/29/18 20:33 Dose: 20 mg Bisacodyl (Dulcolax) 10 mg [place] DAILYPRN PRN PRN Reason: Constipation Carvedilol (Coreg) 6.25 mg PO BID [facility] Last Admin: 10/30/18 08:20 Dose: 6.25 mg Clonidine (Catapres) 0.1 mg PO BID [facility] Last Admin: 10/30/18 08:19 Dose: 0.1 mg Dextrose/Water (Dextrose 50%) 25 gm SLOW IVP PRN PRN PRN Reason: Hypoglycemia Ferrous Sulfate (Feosol) 325 mg PO BID [facility] Last Admin: 10/30/18 08:18 Dose: 325 mg Finasteride (Proscar) 5 mg PO DAILY [facility] Last Admin: 10/30/18 08:20 Dose: 5 mg Furosemide (Lasix) 40 mg PO DAILY-AC [facility] Last Admin: 10/30/18 08:19 Dose: 40 mg Glucagon (Glucagon) 1 mg IM PRN PRN PRN Reason: Hypoglycemia Guaifenesin (Mucinex) 600 mg PO BID [facility] Last Admin: 10/30/18 08:20 Dose: 600 mg Hydralazine HCl (Apresoline) 25 mg PO TID [facility] Last Admin: 10/30/18 08:20 Dose: 25 mg Dextrose/Water (D5w) 1,000 mls @ 0 mls/hr IV .Q0M PRN PRN Reason: Hypoglycemia Insulin Human Lispro (Humalog) 0 units SC .AGGRESSIVE SLIDING PRN PRN Reason: Aggressive Correctional Scale Last Admin: 10/30/18 11:29 Dose: 3 unit Levofloxacin (Levaquin) 500 mg PO 0600 [facility] Last Admin: 10/30/18 06:25 Dose: 500 mg Levothyroxine Sodium (Synthroid) 12.5 mcg PO 0600 [facility] Last Admin: 10/30/18 05:25 Dose: 12.5 mcg Loratadine (Claritin) 10 mg PO DAILY [facility] Last Admin: 10/30/18 08:20 Dose: 10 mg Mometasone Furoate (Asmanex) 1 puff INH 1830 [facility] Last Admin: 10/29/18 18:29 Dose: 1 puff Pantoprazole Sodium (Protonix) 40 mg PO DAILY [facility] Last Admin: 10/30/18 08:19 Dose: 40 mg Polyethylene Glycol (Miralax) 17 gm PO DAILY PRN PRN Reason: Constipation Last Admin: 10/30/18 09:36 Dose: 17 gm Prednisone (Prednisone) 20 mg PO QAM-WM [facility] Last Admin: 10/30/18 08:18 Dose: 20 mg Saccharomyces Boulardii (Florastor) 250 mg PO DAILY [facility] Last Admin: 10/30/18 08:19 Dose: 250 mg Sodium Chloride (Flush - Normal Saline) 10 ml IVF Q12HR [facility] Last Admin: 10/30/18 08:21 Dose: 10 ml Sodium Chloride (Flush - Normal Saline) 10 ml IVF PRN PRN PRN Reason: Saline Flush Last Admin: 10/29/18 14:17 Dose: 10 ml Sterile Water (Bacteriostatic Water) 1 ml FS PRN PRN PRN Reason: RECONSTITUTION Tamsulosin HCl (Flomax) 0.4 mg PO DAILY [facility] Last Admin: 10/30/18 08:19 Dose: 0.4 mg Tamsulosin HCl (Flomax) 0.4 mg PO HS [facility] Last Admin: 10/29/18 20:34 Dose: 0.4 mg Tbo-Filgrastim (Granix) 300 mcg SC DAILY [facility] Last Admin: 10/30/18 09:36 Dose: 300 mcg
[2018-10-30] MEDS: Mometasone Furoate 30 PUFF 220 MCG INH SCH (18:51)
[2018-10-30] MEDS: Atorvastatin Calcium 20 MG TAB PO SCH (20:01)
[2018-10-31] MEDS: ALPRAZolam 0.25 MG TAB PO PRN ×2 (03:33→22:37)
[2018-10-31 04:10] LABS: Hemoglobin 7.7 g/dL (14.0-18.0); MDiff Complete? YES; Mean Corpuscular HGB CONC 32.4 g/dL (32.0-36.0); Mean Corpuscular Hemoglobin 28.8 pg (27.0-31.0); Mean Corpuscular Volume 88.9 fL (78.0-98.0); Mean Platelet Volume 7.1 fL (7.4-10.4); Platelet Count 92 thou/uL (130-400); RBC Distribution Width 16.7 % (11.5-14.5); Red Blood Cell (RBC) Count 2.68 mill/uL (4.70-6.10); White Blood Cell (WBC) Count 5.3 thou/uL (4.8-10.8)
[2018-10-31 04:11] LABS: Band 21 % (5-11); Eosinophils 1 % (0-10); Large Platelets SLIGHT; Lymphocytes 44 % (21-51); Metamyelocyte 2 % (0-0); Monocytes 6 % (0-10); Neutrophil 26 % (42-75); Platelet Morphology Comment Appears Decreased; RBC Morphology Normal
[2018-10-31] MEDS: Levothyroxine Sodium 25 MCG TAB PO SCH (05:42)
[2018-10-31] MEDS: Saccharomyces boulardii 250 MG CAP PO SCH (09:23)
[2018-10-31] MEDS: hydrALAZINE 25 MG TAB PO SCH ×3 (09:24→21:40)
[2018-10-31] MEDS: guaiFENesin ER 600 MG TAB PO SCH ×2 (09:24→21:41)
[2018-10-31] MEDS: Ferrous Sulfate 325 MG TAB PO SCH ×2 (09:24→21:41)
[2018-10-31] MEDS: Tamsulosin HCl 0.4 MG CAP PO SCH ×2 (09:24→21:41)
[2018-10-31] MEDS: Finasteride 5 MG TAB PO SCH (09:24)
[2018-10-31] MEDS: cloNIDine 0.1 MG TAB PO SCH ×2 (09:24→21:40)
[2018-10-31] MEDS: Loratadine 10 MG TAB PO SCH (09:24)
[2018-10-31] MEDS: predniSONE 20 MG TAB PO SCH (09:25)
[2018-10-31] MEDS: Amlodipine 10 MG TAB PO SCH (09:25)
[2018-10-31] MEDS: Carvedilol 6.25 MG TAB PO SCH ×2 (09:25→21:40)
[2018-10-31] MEDS: Furosemide 40 MG TAB PO SCH (09:25)
[2018-10-31] MEDS: TBO-Filgrastim 300 MCG/0.5 ML VIAL SC SCH (10:09)
--- NOTE | 2018-10-31 11:07 | PDOC.PN ---
- Subjective Encounter Start Date: 10/31/18 Encounter Start Time: 07:00 Patient seen and examined. No new complaints. No overnight events - Objective Resuscitation Status - Order Detail: 10/24/18 12:06 Resuscitation Status Routine Resuscitation Status: FULL: Full Resuscitation Discussed with: darin LAMB Reviewed: Yes Vital Signs & Weight: Vital Signs (12 hours) Temp Pulse Resp BP Pulse Ox 10/31/18 10:10 72 12 10/31/18 08:15 98.2 F 76 18 133/62 94 L 10/31/18 06:25 72 16 10/31/18 02:31 74 16 97 Weight Weight 158 lb 8.198 oz I&O: 10/30/18 10/31/18 11/01/18 06:59 06:59 06:59 Intake Total 1100 1700 Balance 1100 1700 Result Diagrams: 10/31/18 03:28 10/27/18 05:47 Additional Labs: Accuchecks 10/31/18 10/30/18 10/30/18 05:34 20:20 16:31 POC Glucose 97 158 H 190 H 10/30/18 11:05 POC Glucose 174 H Phys Exam - Physical Examination Constitutional: NAD HEENT: PERRLA, moist MMs, sclera anicteric Neck: no JVD, supple Respiratory: no wheezing, no rales, no rhonchi Cardiovascular: RRR, no rub SM+ Gastrointestinal: soft, non-tender, no distention, positive bowel sounds Musculoskeletal: edema present Neurological: non-focal, normal sensation, moves all 4 limbs Lymphatic: no nodes Psychiatric: normal affect, A&O x 3 Skin: no rash, normal turgor Dx/Plan (1) Acute on chronic diastolic (congestive) heart failure Code(s): I50.33 - ACUTE ON CHRONIC DIASTOLIC (CONGESTIVE) HEART FAILURE Status : Acute Comment: Improved with diuresis (2) PNA (pneumonia) Code(s): J18.9 - PNEUMONIA, UNSPECIFIED ORGANISM Status: Acute Qualifiers: Laterality: right Lung location: lower lobe of lung Comment: on Omnicef now. s/p IV ABx.al Cx negative (3) Pancytopenia Code(s): D61.818 - OTHER PANCYTOPENIA Status: Acute (4) Squamous cell carcinoma of lung Code(s): C34.90 - MALIGNANT NEOPLASM OF UNSP PART OF UNSP BRONCHUS OR LUNG Status: Acute Qualifiers: Laterality: right Qualified Code(s): C34.91 - Malignant neoplasm of unspecified part of right bronchus or lung Comment: on carboplatin, taxol, radiation rx (5) Urinary retention Code(s): R33.9 - RETENTION OF URINE, UNSPECIFIED Status: Acute Comment: consult urology, PRN straight catheterization (6) Anemia Code(s): D64.9 - ANEMIA, UNSPECIFIED Status: Chronic Qualifiers: Anemia type: unspecified type Qualified Code(s): D64.9 - Anemia, unspecified (7) Aortic stenosis Code(s): I35.0 - NONRHEUMATIC AORTIC (VALVE) STENOSIS Status: Chronic Comment: mild to moderate, with mild to moderate aortic regurgitation (8) CAD (coronary artery disease) Code(s): I25.10 - ATHSCL HEART DISEASE OF [place] CORONARY ARTERY W/O ANG PCTRS Status: Chronic Qualifiers: Coronary Disease-Associated Artery/Lesion type: bypass graft [place] vs. transplanted heart: [place] heart Associated angina: without angina Qualified Code(s): I25.810 - Atherosclerosis of coronary artery bypass graft(s) without angina pectoris Comment: cont Coreg, statin (9) COPD (chronic obstructive pulmonary disease) Status: Chronic Qualifiers: COPD type: unspecified COPD Qualified Code(s): J44.9 - Chronic obstructive pulmonary disease, unspecified (10) Diabetes mellitus Code(s): E11.9 - TYPE 2 DIABETES MELLITUS WITHOUT COMPLICATIONS Status: Chronic Qualifiers: Diabetes mellitus type: type 2 Diabetes mellitus complication status: without complication (11) HLD (hyperlipidemia) Code(s): E78.5 - HYPERLIPIDEMIA, UNSPECIFIED Status: Chronic Qualifiers: Hyperlipidemia type: unspecified Qualified Code(s): E78.5 - Hyperlipidemia , unspecified Comment: on Lipitor (12) HTN (hypertension) Code(s): I10 - ESSENTIAL (PRIMARY) HYPERTENSION Status: Chronic Qualifiers: Comment: reasonable control (13) Hypothyroidism Code(s): E03.9 - HYPOTHYROIDISM, UNSPECIFIED Status: Chronic Comment: on levothyroxine (14) Neutropenia Code(s): D70.9 - NEUTROPENIA, UNSPECIFIED Status: Resolved Comment: (15) Normocytic anemia Code(s): D64.9 - ANEMIA, UNSPECIFIED Status: Chronic (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 Code(s): C83.00 - SMALL CELL B-CELL LYMPHOMA, UNSPECIFIED SITE Status: Chronic Qualifiers: Lymphoma site: unspecified region Qualified Code(s): C83.00 - Small cell B- cell lymphoma, unspecified site (17) Pneumonia Code(s): J18.9 - PNEUMONIA, UNSPECIFIED ORGANISM Status: Suspected Qualifiers: Pneumonia type: due to unspecified organism Comment: resolving (18) SONIYA (acute kidney injury) Code(s): N17.9 - ACUTE KIDNEY FAILURE, UNSPECIFIED Status: Resolved (19) Sepsis Code(s): A41.9 - SEPSIS, UNSPECIFIED ORGANISM Status: Resolved - Plan cont current plan of care, continue antibiotics, PT/OT, 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 Review of Systems - Review of Systems Eyes: negative: Pain, Vision Change, Conjunctivae Inflammation, Eyelid Inflammation, Redness, Other ENT: negative: Ear Pain, Ear Discharge, Nose Pain, Nose Discharge, Nose Congestion, Mouth Pain, Mouth Swelling, Throat Pain, Throat Swelling, Other Respiratory: SOB with Excertion. negative: Cough, Dry, Shortness of Breath, Hemoptysis, Pleuritic Pain, Sputum, Wheezing Cardiovascular: edema. negative: chest pain, palpitations, orthopnea, paroxysmal nocturnal dyspnea, light headedness, other Gastrointestinal: negative: Nausea, Vomiting, Abdominal Pain, Diarrhea, Constipation, Melena, Hematochezia, Other Genitourinary: negative: Dysuria, Frequency, Incontinence, Hematuria, Retention , Other Musculoskeletal: negative: Neck Pain, Shoulder Pain, Arm Pain, Back Pain, Hand Pain, Leg Pain, Foot Pain, Other Skin: negative: Rash, Lesions, James, Bruising, Other - Medications/Allergies Allergies/Adverse Reactions: Allergies Allergy/AdvReac Type Severity Reaction Status Date / Time Latex, Natural Rubber Allergy Verified 09/17/18 14:02 milk Allergy Verified 09/17/18 14:02 Penicillins Allergy Verified 09/30/18 02:11 Medications: Current Medications Acetaminophen (Tylenol) 650 mg PO Q4H PRN PRN Reason: Headache/Fever/Mild Pain (1-3) Last Admin: 10/30/18 05:25 Dose: 650 mg Albuterol/Ipratropium (Duoneb) 3 ml NEB [id number] [facility] Last Admin: 10/31/18 10:10 Dose: 3 ml Albuterol/Ipratropium (Duoneb) 3 ml NEB Q4H PRN PRN Reason: SOB/WHEEZE Last Admin: 10/27/18 03:22 Dose: 3 ml Alprazolam (Xanax) 0.25 mg PO QIDPRN PRN PRN Reason: Anxiety Last Admin: 10/31/18 03:33 Dose: 0.25 mg Amlodipine Besylate (Norvasc) 10 mg PO DAILY [facility] Last Admin: 10/31/18 09:25 Dose: 10 mg Atorvastatin Calcium (Lipitor) 20 mg PO HS [facility] Last Admin: 10/30/18 20:01 Dose: 20 mg Bisacodyl (Dulcolax) 10 mg [place] DAILYPRN PRN PRN Reason: Constipation Carvedilol (Coreg) 6.25 mg PO BID [facility] Last Admin: 10/31/18 09:25 Dose: 6.25 mg Clonidine (Catapres) 0.1 mg PO BID [facility] Last Admin: 10/31/18 09:24 Dose: 0.1 mg Dextrose/Water (Dextrose 50%) 25 gm SLOW IVP PRN PRN PRN Reason: Hypoglycemia Ferrous Sulfate (Feosol) 325 mg PO BID [facility] Last Admin: 10/31/18 09:24 Dose: 325 mg Finasteride (Proscar) 5 mg PO DAILY [facility] Last Admin: 10/31/18 09:24 Dose: 5 mg Furosemide (Lasix) 40 mg PO DAILY-AC [facility] Last Admin: 10/31/18 09:25 Dose: 40 mg Glucagon (Glucagon) 1 mg IM PRN PRN PRN Reason: Hypoglycemia Guaifenesin (Mucinex) 600 mg PO BID [facility] Last Admin: 10/31/18 09:24 Dose: 600 mg Hydralazine HCl (Apresoline) 25 mg PO TID [facility] Last Admin: 10/31/18 09:24 Dose: 25 mg Dextrose/Water (D5w) 1,000 mls @ 0 mls/hr IV .Q0M PRN PRN Reason: Hypoglycemia Insulin Human Lispro (Humalog) 0 units SC .AGGRESSIVE SLIDING PRN PRN Reason: Aggressive Correctional Scale Last Admin: 06/14/19 16:56 Dose: 3 unit Levofloxacin (Levaquin) 500 mg PO 0600 [facility] Last Admin: 10/31/18 05:42 Dose: 500 mg Levothyroxine Sodium (Synthroid) 12.5 mcg PO 0600 [facility] Last Admin: 10/31/18 05:42 Dose: 12.5 mcg Loratadine (Claritin) 10 mg PO DAILY [facility] Last Admin: 10/31/18 09:24 Dose: 10 mg Mometasone Furoate (Asmanex) 1 puff INH 1830 [facility] Last Admin: 10/30/18 18:51 Dose: 1 puff Pantoprazole Sodium (Protonix) 40 mg PO DAILY [facility] Last Admin: 10/31/18 09:24 Dose: 40 mg Polyethylene Glycol (Miralax) 17 gm PO DAILY PRN PRN Reason: Constipation Last Admin: 10/30/18 09:36 Dose: 17 gm Prednisone (Prednisone) 20 mg PO QAM-WM [facility] Last Admin: 10/31/18 09:25 Dose: 20 mg Saccharomyces Boulardii (Florastor) 250 mg PO DAILY [facility] Last Admin: 10/31/18 09:23 Dose: 250 mg Sodium Chloride (Flush - Normal Saline) 10 ml IVF Q12HR [facility] Last Admin: 10/31/18 09:25 Dose: 10 ml Sodium Chloride (Flush - Normal Saline) 10 ml IVF PRN PRN PRN Reason: Saline Flush Last Admin: 10/29/18 14:17 Dose: 10 ml Sterile Water (Bacteriostatic Water) 1 ml FS PRN PRN PRN Reason: RECONSTITUTION Tamsulosin HCl (Flomax) 0.4 mg PO DAILY [facility] Last Admin: 10/31/18 09:24 Dose: 0.4 mg Tamsulosin HCl (Flomax) 0.4 mg PO HS [facility] Last Admin: 10/30/18 20:02 Dose: 0.4 mg Tbo-Filgrastim (Granix) 300 mcg SC DAILY [facility] Stop: 10/31/18 21:00 Last Admin: 10/31/18 10:09 Dose: 300 mcg
--- NOTE | 2018-10-31 12:23 | PRG ---
DATE OF SERVICE: 10/31/2018 DISCUSSION: Mr. Sanchez is sitting up in a chair, actually looks pretty good. He is wanting to go home. OBJECTIVE: VITAL SIGNS: Temperature 98.2, pulse 72, respirations 12, O2 saturation 94% on 2L, and blood pressure 133/62. HEENT: Unremarkable. NECK: Without adenopathy or JVD. PULMONARY: He has diminished breath sounds in both bases. CARDIOVASCULAR: Regular without murmur. ABDOMEN: Soft and nontender. EXTREMITIES: 2+ edema in his ankle region. LABORATORY DATA: White blood cell count 5.3, hematocrit 23.8, and platelet count 92. ASSESSMENT: 1. Chronic obstructive pulmonary disease - stable. 2. Anasarca from congestive heart failure and poor nutritional status. 3. Squamous cell carcinoma. 4. Chronic lymphocytic leukemia. PLAN: I reviewed orders. I agreed with continued administration of Levaquin, nebulization treatments, filgrastim, and increasing activity as tolerated. He is continuing on low-dose prednisone. Job ID: [id number]
[2018-10-31] MEDS: HumaLOG 300 UNITS/3 ML VIAL SC PRN (16:50)
[2018-10-31] MEDS: Mometasone Furoate 30 PUFF 220 MCG INH SCH (19:31)
[2018-10-31] MEDS: Atorvastatin Calcium 20 MG TAB PO SCH (21:40)
[2018-11-01] MEDS ORDERED: Melatonin 3 MG TAB PO SCH (00:30)
[2018-11-01] MEDS: Levothyroxine Sodium 25 MCG TAB PO SCH (05:37)
[2018-11-01 06:26] LABS: Band 18 % (5-11); Hemoglobin 7.7 g/dL (14.0-18.0); Lymphocytes 31 % (21-51); MDiff Complete? YES; Mean Corpuscular HGB CONC 31.6 g/dL (32.0-36.0); Mean Corpuscular Hemoglobin 28.4 pg (27.0-31.0); Mean Corpuscular Volume 89.8 fL (78.0-98.0); Mean Platelet Volume 6.7 fL (7.4-10.4); Metamyelocyte 1 % (0-0); Monocytes 8 % (0-10); Neutrophil 42 % (42-75); Platelet Count 106 thou/uL (130-400); Platelet Morphology Comment Appears Decreased; RBC Distribution Width 16.9 % (11.5-14.5); RBC Morphology Normal; White Blood Cell (WBC) Count 9.8 thou/uL (4.8-10.8)
[2018-11-01] MEDS: Finasteride 5 MG TAB PO SCH (08:00)
[2018-11-01] MEDS: Ferrous Sulfate 325 MG TAB PO SCH ×2 (08:00→20:12)
[2018-11-01] MEDS: Amlodipine 10 MG TAB PO SCH (08:00)
[2018-11-01] MEDS: Saccharomyces boulardii 250 MG CAP PO SCH (08:01)
[2018-11-01] MEDS: cloNIDine 0.1 MG TAB PO SCH ×2 (08:01→20:12)
[2018-11-01] MEDS: Tamsulosin HCl 0.4 MG CAP PO SCH ×2 (08:01→20:12)
[2018-11-01] MEDS: Loratadine 10 MG TAB PO SCH (08:01)
[2018-11-01] MEDS: Furosemide 40 MG TAB PO SCH (08:01)
[2018-11-01] MEDS: hydrALAZINE 25 MG TAB PO SCH ×3 (08:01→20:13)
[2018-11-01] MEDS: Carvedilol 6.25 MG TAB PO SCH ×2 (08:01→20:12)
[2018-11-01] MEDS: predniSONE 20 MG TAB PO SCH (08:01)
[2018-11-01] MEDS: guaiFENesin ER 600 MG TAB PO SCH ×2 (08:01→20:12)
[2018-11-01] MEDS: Polyethylene Glycol 3350 17 GM Packet PO PRN (08:08)
--- NOTE | 2018-11-01 11:18 | PDOC.PN ---
- Subjective Encounter Start Date: 11/01/18 Encounter Start Time: 07:00 pt uses oxygen, he has edema leg, his concern is about dyspnea, no fever - Objective Resuscitation Status - Order Detail: 10/24/18 12:06 Resuscitation Status Routine Resuscitation Status: FULL: Full Resuscitation Discussed with: patient ZAINAB Reviewed: Yes Vital Signs & Weight: Vital Signs (12 hours) Temp Pulse Resp BP BP Pulse Ox 11/01/18 10:31 80 12 11/01/18 08:01 80 142/65 H 11/01/18 08:00 98.4 F 83 18 130/78 94 L 11/01/18 06:10 80 18 11/01/18 03:04 96 Weight Weight 158 lb 8.198 oz I&O: 10/31/18 11/01/18 11/02/18 06:59 06:59 06:59 Intake Total 1700 1200 Balance 1700 1200 Result Diagrams: 11/01/18 05:50 10/27/18 05:47 Additional Labs: Accuchecks 11/01/18 10/31/18 10/31/18 05:50 20:19 16:14 POC Glucose 104 204 H 204 H Phys Exam - Physical Examination Constitutional: NAD HEENT: PERRLA, moist MMs, sclera anicteric Neck: no JVD, supple Respiratory: no wheezing, no rales, no rhonchi air entry reduced both side Cardiovascular: RRR, no significant murmur, no rub Gastrointestinal: soft, non-tender, no distention, positive bowel sounds Musculoskeletal: pulses present, edema present Neurological: non-focal, normal sensation, moves all 4 limbs Psychiatric: normal affect, A&O x 3 Skin: no rash, normal turgor Dx/Plan (1) Acute on chronic diastolic (congestive) heart failure Code(s): I50.33 - ACUTE ON CHRONIC DIASTOLIC (CONGESTIVE) HEART FAILURE Status : Acute Comment: (2) PNA (pneumonia) Code(s): J18.9 - PNEUMONIA, UNSPECIFIED ORGANISM Status: Acute Qualifiers: Laterality: right Lung location: lower lobe of lung Plan: on po levaquin Comment: (3) Pancytopenia Code(s): D61.818 - OTHER PANCYTOPENIA Status: Resolved (4) Squamous cell carcinoma of lung Code(s): C34.90 - MALIGNANT NEOPLASM OF UNSP PART OF UNSP BRONCHUS OR LUNG Status: Chronic Qualifiers: Laterality: right Qualified Code(s): C34.91 - Malignant neoplasm of unspecified part of right bronchus or lung Comment: on carboplatin, taxol, radiation rx (5) Urinary retention Code(s): R33.9 - RETENTION OF URINE, UNSPECIFIED Status: Resolved Comment: consult urology, PRN straight catheterization (6) Anemia Code(s): D64.9 - ANEMIA, UNSPECIFIED Status: Chronic Qualifiers: Anemia type: unspecified type Qualified Code(s): D64.9 - Anemia, unspecified (7) Aortic stenosis Code(s): I35.0 - NONRHEUMATIC AORTIC (VALVE) STENOSIS Status: Chronic Comment: mild to moderate, with mild to moderate aortic regurgitation (8) CAD (coronary artery disease) Code(s): I25.10 - ATHSCL HEART DISEASE OF [place] CORONARY ARTERY W/O ANG PCTRS Status: Chronic Qualifiers: Coronary Disease-Associated Artery/Lesion type: bypass graft [place] vs. transplanted heart: [place] heart Associated angina: without angina Qualified Code(s): I25.810 - Atherosclerosis of coronary artery bypass graft(s) without angina pectoris Comment: cont Coreg, statin (9) COPD (chronic obstructive pulmonary disease) Status: Chronic Qualifiers: COPD type: unspecified COPD Qualified Code(s): J44.9 - Chronic obstructive pulmonary disease, unspecified (10) Diabetes mellitus Code(s): E11.9 - TYPE 2 DIABETES MELLITUS WITHOUT COMPLICATIONS Status: Chronic Qualifiers: Diabetes mellitus type: type 2 Diabetes mellitus complication status: without complication (11) HLD (hyperlipidemia) Code(s): E78.5 - HYPERLIPIDEMIA, UNSPECIFIED Status: Chronic Qualifiers: Hyperlipidemia type: unspecified Qualified Code(s): E78.5 - Hyperlipidemia , unspecified Comment: on Lipitor (12) HTN (hypertension) Code(s): I10 - ESSENTIAL (PRIMARY) HYPERTENSION Status: Chronic Qualifiers: Comment: reasonable control (13) Hypothyroidism Code(s): E03.9 - HYPOTHYROIDISM, UNSPECIFIED Status: Chronic Comment: on levothyroxine (14) Neutropenia Code(s): D70.9 - NEUTROPENIA, UNSPECIFIED Status: Resolved Comment: (15) Normocytic anemia Code(s): D64.9 - ANEMIA, UNSPECIFIED Status: Chronic (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 Code(s): C83.00 - SMALL CELL B-CELL LYMPHOMA, UNSPECIFIED SITE Status: Chronic Qualifiers: Lymphoma site: unspecified region Qualified Code(s): C83.00 - Small cell B- cell lymphoma, unspecified site (17) SONIYA (acute kidney injury) Code(s): N17.9 - ACUTE KIDNEY FAILURE, UNSPECIFIED Status: Resolved (18) Sepsis Code(s): A41.9 - SEPSIS, UNSPECIFIED ORGANISM Status: Resolved - Plan cont current plan of care, continue antibiotics, respiratory therapy * I tried to call family on contact list but unable to reach * continue PO levaquin and prednisone * at this point, main issue is his placement, snu if possible, otherwise home with home health * medication reviewed as below * symptomatic treatment. Review of Systems - Review of Systems ENT: negative: Ear Pain, Ear Discharge, Nose Pain, Nose Discharge, Nose Congestion, Mouth Pain, Mouth Swelling, Throat Pain, Throat Swelling, Other Respiratory: SOB with Excertion. negative: Cough, Dry, Shortness of Breath, Hemoptysis, Pleuritic Pain, Sputum, Wheezing Cardiovascular: edema Gastrointestinal: negative: Nausea, Vomiting, Abdominal Pain, Diarrhea, Constipation, Melena, Hematochezia, Other Genitourinary: negative: Dysuria, Frequency, Incontinence, Hematuria, Retention , Other Musculoskeletal: negative: Neck Pain, Shoulder Pain, Arm Pain, Back Pain, Hand Pain, Leg Pain, Foot Pain, Other Skin: negative: Rash, Lesions, James, Bruising, Other - Medications/Allergies Allergies/Adverse Reactions: Allergies Allergy/AdvReac Type Severity Reaction Status Date / Time Latex, Natural Rubber Allergy Verified 09/17/18 14:02 milk Allergy Verified 09/17/18 14:02 Penicillins Allergy Verified 09/30/18 02:11 Medications: Current Medications Acetaminophen (Tylenol) 650 mg PO Q4H PRN PRN Reason: Headache/Fever/Mild Pain (1-3) Last Admin: 10/30/18 05:25 Dose: 650 mg Albuterol/Ipratropium (Duoneb) 3 ml NEB [id number] Last Admin: 11/01/18 10:31 Dose: 3 ml Albuterol/Ipratropium (Duoneb) 3 ml NEB Q4H PRN PRN Reason: SOB/WHEEZE Last Admin: 10/27/18 03:22 Dose: 3 ml Alprazolam (Xanax) 0.25 mg PO QIDPRN PRN PRN Reason: Anxiety Last Admin: 10/31/18 22:37 Dose: 0.25 mg Amlodipine Besylate (Norvasc) 10 mg PO DAILY [facility] Last Admin: 11/01/18 08:00 Dose: 10 mg Atorvastatin Calcium (Lipitor) 20 mg PO HS [facility] Last Admin: 10/31/18 21:40 Dose: 20 mg Bisacodyl (Dulcolax) 10 mg [place] DAILYPRN PRN PRN Reason: Constipation Carvedilol (Coreg) 6.25 mg PO BID [facility] Last Admin: 11/01/18 08:01 Dose: 6.25 mg Clonidine (Catapres) 0.1 mg PO BID [facility] Last Admin: 11/01/18 08:01 Dose: 0.1 mg Dextrose/Water (Dextrose 50%) 25 gm SLOW IVP PRN PRN PRN Reason: Hypoglycemia Ferrous Sulfate (Feosol) 325 mg PO BID [facility] Last Admin: 11/01/18 08:00 Dose: 325 mg Finasteride (Proscar) 5 mg PO DAILY [facility] Last Admin: 11/01/18 08:00 Dose: 5 mg Furosemide (Lasix) 40 mg PO DAILY-AC [facility] Last Admin: 11/01/18 08:01 Dose: 40 mg Glucagon (Glucagon) 1 mg IM PRN PRN PRN Reason: Hypoglycemia Guaifenesin (Mucinex) 600 mg PO BID [facility] Last Admin: 11/01/18 08:01 Dose: 600 mg Hydralazine HCl (Apresoline) 25 mg PO TID [facility] Last Admin: 11/01/18 08:01 Dose: 25 mg Dextrose/Water (D5w) 1,000 mls @ 0 mls/hr IV .Q0M PRN PRN Reason: Hypoglycemia Insulin Human Lispro (Humalog) 0 units SC .AGGRESSIVE SLIDING PRN PRN Reason: Aggressive Correctional Scale Last Admin: 10/31/18 16:50 Dose: 6 unit Levofloxacin (Levaquin) 500 mg PO 0600 [facility] Last Admin: 11/01/18 05:37 Dose: 500 mg Levothyroxine Sodium (Synthroid) 12.5 mcg PO 0600 [facility] Last Admin: 11/01/18 05:37 Dose: 12.5 mcg Loratadine (Claritin) 10 mg PO DAILY [facility] Last Admin: 11/01/18 08:01 Dose: 10 mg Mometasone Furoate (Asmanex) 1 puff INH 1830 [facility] Last Admin: 10/31/18 19:31 Dose: 1 puff Pantoprazole Sodium (Protonix) 40 mg PO DAILY [facility] Last Admin: 11/01/18 08:01 Dose: 40 mg Polyethylene Glycol (Miralax) 17 gm PO DAILY PRN PRN Reason: Constipation Last Admin: 11/01/18 08:08 Dose: 17 gm Prednisone (Prednisone) 20 mg PO QA-[facility] Last Admin: 11/01/18 08:01 Dose: 20 mg Saccharomyces Boulardii (Florastor) 250 mg PO DAILY [facility] Last Admin: 11/01/18 08:01 Dose: 250 mg Sodium Chloride (Flush - Normal Saline) 10 ml IVF Q12HR [facility] Last Admin: 11/01/18 08:01 Dose: 10 ml Sodium Chloride (Flush - Normal Saline) 10 ml IVF PRN PRN PRN Reason: Saline Flush Last Admin: 10/29/18 14:17 Dose: 10 ml Sterile Water (Bacteriostatic Water) 1 ml FS PRN PRN PRN Reason: RECONSTITUTION Tamsulosin HCl (Flomax) 0.4 mg PO DAILY [facility] Last Admin: 11/01/18 08:01 Dose: 0.4 mg Tamsulosin HCl (Flomax) 0.4 mg PO HS [facility] Last Admin: 10/31/18 21:41 Dose: 0.4 mg
--- NOTE | 2018-11-01 13:28 | PRG ---
DATE OF SERVICE: 11/01/2018 SUBJECTIVE: The patient is doing okay. He is somewhat worried about his disposition for discharge. OBJECTIVE: VITAL SIGNS: On exam, his temperature is 98.4, pulse 80, blood pressure 142/65, and O2 saturation 94% on 2 L. HEENT: Unremarkable. NECK: No adenopathy, JVD, or bruits. LUNGS: Clear anteriorly. CARDIAC: S1 and S2. Regular. ABDOMEN: Soft. EXTREMITIES: No edema. LABORATORY DATA: Today, white blood cell count 9.8, hematocrit 24.3, and platelet count 106. No chemistry was done today. ASSESSMENT: 1. Chronic obstructive pulmonary disease. 2. Anasarca from congestive heart failure and poor nutritional status. 3. Squamous cell carcinoma. 4. Chronic lymphocytic leukemia. PLAN: 1. Continue the antibiotics. These have been switched to oral antibiotics. 2. I agree with discontinuing the filgrastim. 3. Further disposition per hospitalist group. Job ID: [id number]
[2018-11-01] MEDS: HumaLOG 300 UNITS/3 ML VIAL SC PRN (16:41)
[2018-11-01] MEDS: Mometasone Furoate 30 PUFF 220 MCG INH SCH (19:40)
[2018-11-01] MEDS: Atorvastatin Calcium 20 MG TAB PO SCH (20:14)
[2018-11-01] MEDS: ALPRAZolam 0.25 MG TAB PO PRN (22:09)
[2018-11-02] MEDS: Levothyroxine Sodium 25 MCG TAB PO SCH (05:50)
[2018-11-02 06:29] LABS: Band 17 % (5-11); Eosinophils 1 % (0-10); Hemoglobin 7.9 g/dL (14.0-18.0); Lymphocytes 31 % (21-51); MDiff Complete? YES; Mean Corpuscular HGB CONC 31.8 g/dL (32.0-36.0); Mean Corpuscular Hemoglobin 28.8 pg (27.0-31.0); Mean Corpuscular Volume 90.5 fL (78.0-98.0); Mean Platelet Volume 6.6 fL (7.4-10.4); Metamyelocyte 4 % (0-0); Monocytes 4 % (0-10); Myelocyte 2 % (0-0); Neutrophil 41 % (42-75); Platelet Count 91 thou/uL (130-400); Platelet Morphology Comment Appears Decreased; RBC Distribution Width 16.9 % (11.5-14.5); Red Blood Cell (RBC) Count 2.73 mill/uL (4.70-6.10); White Blood Cell (WBC) Count 9.8 thou/uL (4.8-10.8)
--- NOTE | 2018-11-02 08:57 | PRG ---
DATE OF SERVICE: 11/02/2018 SUBJECTIVE: This morning, he is awake, alert, and responsive. OBJECTIVE: VITAL SIGNS: Temperature is 97, pulse 102, respirations 12, saturations are 92% on 1 L, blood pressure 148/69. CHEST: Decreased breath sounds bilateral. No wheezing. CARDIAC: Normal S1, S2_. IMPRESSION: 1. Status post chemotherapy, squamous cell carcinoma. 2. Chronic lymphocytic leukemia. 3. Chronic obstructive pulmonary disease. 4. Severe deconditioning. 5. Systolic congestive heart failure. PLAN: Pulmonary [place], continue present supportive care, PT. He needs placement. We will follow. Job ID: [id number] MTDD
[2018-11-02] MEDS: Furosemide 40 MG TAB PO SCH (09:15)
[2018-11-02] MEDS: Amlodipine 10 MG TAB PO SCH (09:15)
[2018-11-02] MEDS: predniSONE 20 MG TAB PO SCH (09:15)
[2018-11-02] MEDS: cloNIDine 0.1 MG TAB PO SCH ×2 (09:16→20:13)
[2018-11-02] MEDS: Carvedilol 6.25 MG TAB PO SCH ×2 (09:16→20:13)
[2018-11-02] MEDS: Ferrous Sulfate 325 MG TAB PO SCH ×2 (09:16→20:13)
[2018-11-02] MEDS: guaiFENesin ER 600 MG TAB PO SCH ×2 (09:16→20:14)
[2018-11-02] MEDS: Finasteride 5 MG TAB PO SCH (09:16)
[2018-11-02] MEDS: Saccharomyces boulardii 250 MG CAP PO SCH (09:17)
[2018-11-02] MEDS: hydrALAZINE 25 MG TAB PO SCH ×3 (09:17→20:14)
[2018-11-02] MEDS: Loratadine 10 MG TAB PO SCH (09:17)
[2018-11-02] MEDS: Tamsulosin HCl 0.4 MG CAP PO SCH ×2 (09:18→20:15)
[2018-11-02] MEDS ORDERED: Furosemide 40 MG/4 ML VIAL SLOW IVP SCH (11:00)
[2018-11-02] MEDS: HumaLOG 300 UNITS/3 ML VIAL SC PRN ×3 (11:16→20:12)
--- NOTE | 2018-11-02 11:34 | PDOC.PN ---
- Subjective Encounter Start Date: 11/02/18 Encounter Start Time: 07:00 pt has dyspnea on exertion, he has chronic oxygen use at home, he still has edema leg, so far [facility] has declined for placement - Objective Resuscitation Status - Order Detail: 10/24/18 12:06 Resuscitation Status Routine Resuscitation Status: FULL: Full Resuscitation Discussed with: patient ZAINAB Reviewed: Yes Vital Signs & Weight: Vital Signs (12 hours) Temp Pulse Resp BP BP Pulse Ox 11/02/18 10:42 101 H 20 93 L 11/02/18 09:17 106 H 149/100 H 11/02/18 09:16 149/100 H 11/02/18 09:15 106 H 149/100 H 11/02/18 08:00 92 L 11/02/18 07:57 97.8 F 102 H 12 148/69 H 92 L 11/02/18 07:52 82 20 95 11/02/18 03:38 96 Weight Weight 158 lb 8.198 oz I&O: 11/01/18 11/02/18 11/03/18 06:59 06:59 06:59 Intake Total 1200 750 Balance 1200 750 Result Diagrams: 11/02/18 05:58 10/27/18 05:47 Additional Labs: Accuchecks 11/02/18 11/02/18 11/01/18 10:54 05:58 20:10 POC Glucose 169 H 95 178 H 11/01/18 11/01/18 16:39 10:54 POC Glucose 226 H 158 H Phys Exam - Physical Examination Constitutional: NAD HEENT: PERRLA, moist MMs, sclera anicteric Neck: no JVD, supple Respiratory: no wheezing, no rhonchi bilateral coarse breath sound Cardiovascular: RRR, no significant murmur, no rub Gastrointestinal: soft, non-tender, no distention, positive bowel sounds Musculoskeletal: pulses present, edema present Neurological: non-focal, normal sensation, moves all 4 limbs Lymphatic: no nodes Psychiatric: normal affect, A&O x 3 Skin: no rash, normal turgor Dx/Plan (1) Acute on chronic diastolic (congestive) heart failure Code(s): I50.33 - ACUTE ON CHRONIC DIASTOLIC (CONGESTIVE) HEART FAILURE Status : Acute Comment: (2) PNA (pneumonia) Code(s): J18.9 - PNEUMONIA, UNSPECIFIED ORGANISM Status: Acute Qualifiers: Laterality: right Lung location: lower lobe of lung Comment: (3) Pancytopenia Code(s): D61.818 - OTHER PANCYTOPENIA Status: Resolved (4) Squamous cell carcinoma of lung Code(s): C34.90 - MALIGNANT NEOPLASM OF UNSP PART OF UNSP BRONCHUS OR LUNG Status: Chronic Qualifiers: Laterality: right Qualified Code(s): C34.91 - Malignant neoplasm of unspecified part of right bronchus or lung Comment: on carboplatin, taxol, radiation rx (5) Urinary retention Code(s): R33.9 - RETENTION OF URINE, UNSPECIFIED Status: Resolved Comment: consult urology, PRN straight catheterization (6) Anemia Code(s): D64.9 - ANEMIA, UNSPECIFIED Status: Chronic Qualifiers: Anemia type: unspecified type Qualified Code(s): D64.9 - Anemia, unspecified (7) Aortic stenosis Code(s): I35.0 - NONRHEUMATIC AORTIC (VALVE) STENOSIS Status: Chronic Comment: mild to moderate, with mild to moderate aortic regurgitation (8) CAD (coronary artery disease) Code(s): I25.10 - ATHSCL HEART DISEASE OF [place] CORONARY ARTERY W/O ANG PCTRS Status: Chronic Qualifiers: Coronary Disease-Associated Artery/Lesion type: bypass graft [place] vs. transplanted heart: [place] heart Associated angina: without angina Qualified Code(s): I25.810 - Atherosclerosis of coronary artery bypass graft(s) without angina pectoris Comment: cont Coreg, statin (9) COPD (chronic obstructive pulmonary disease) Status: Chronic Qualifiers: COPD type: unspecified COPD Qualified Code(s): J44.9 - Chronic obstructive pulmonary disease, unspecified (10) Diabetes mellitus Code(s): E11.9 - TYPE 2 DIABETES MELLITUS WITHOUT COMPLICATIONS Status: Chronic Qualifiers: Diabetes mellitus type: type 2 Diabetes mellitus complication status: without complication (11) HLD (hyperlipidemia) Code(s): E78.5 - HYPERLIPIDEMIA, UNSPECIFIED Status: Chronic Qualifiers: Hyperlipidemia type: unspecified Qualified Code(s): E78.5 - Hyperlipidemia , unspecified Comment: on Lipitor (12) HTN (hypertension) Code(s): I10 - ESSENTIAL (PRIMARY) HYPERTENSION Status: Chronic Qualifiers: Comment: reasonable control (13) Hypothyroidism Code(s): E03.9 - HYPOTHYROIDISM, UNSPECIFIED Status: Chronic Comment: on levothyroxine (14) Neutropenia Code(s): D70.9 - NEUTROPENIA, UNSPECIFIED Status: Resolved Comment: (15) Normocytic anemia Code(s): D64.9 - ANEMIA, UNSPECIFIED Status: Chronic (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 Code(s): C83.00 - SMALL CELL B-CELL LYMPHOMA, UNSPECIFIED SITE Status: Chronic Qualifiers: Lymphoma site: unspecified region Qualified Code(s): C83.00 - Small cell B- cell lymphoma, unspecified site (17) SONIYA (acute kidney injury) Code(s): N17.9 - ACUTE KIDNEY FAILURE, UNSPECIFIED Status: Resolved (18) Sepsis Code(s): A41.9 - SEPSIS, UNSPECIFIED ORGANISM Status: Resolved - Plan cont current plan of care, plan discussed w/ family, continue antibiotics, PT/OT , clinical social work therapist, respiratory therapy * spoke with son on phone and updated information * i will continue today lasix IV * counter [facility] is working on his placement * medication reviewed as below * symptomatic treatment. * high risk for readmission * continue radiation therapy Review of Systems - Review of Systems ENT: negative: Ear Pain, Ear Discharge, Nose Pain, Nose Discharge, Nose Congestion, Mouth Pain, Mouth Swelling, Throat Pain, Throat Swelling, Other Respiratory: Cough, Shortness of Breath, SOB with Excertion. negative: Dry, Hemoptysis, Pleuritic Pain, Sputum, Wheezing Cardiovascular: edema. negative: chest pain, palpitations, orthopnea, paroxysmal nocturnal dyspnea, light headedness, other Gastrointestinal: negative: Nausea, Vomiting, Abdominal Pain, Diarrhea, Constipation, Melena, Hematochezia, Other Genitourinary: negative: Dysuria, Frequency, Incontinence, Hematuria, Retention , Other Musculoskeletal: negative: Neck Pain, Shoulder Pain, Arm Pain, Back Pain, Hand Pain, Leg Pain, Foot Pain, Other Skin: negative: Rash, Lesions, James, Bruising, Other - Medications/Allergies Allergies/Adverse Reactions: Allergies Allergy/AdvReac Type Severity Reaction Status Date / Time Latex, Natural Rubber Allergy Verified 09/17/18 14:02 milk Allergy Verified 09/17/18 14:02 Penicillins Allergy Verified 09/30/18 02:11 Medications: Current Medications Acetaminophen (Tylenol) 650 mg PO Q4H PRN PRN Reason: Headache/Fever/Mild Pain (1-3) Last Admin: 10/30/18 05:25 Dose: 650 mg Albuterol/Ipratropium (Duoneb) 3 ml NEB [id number] [facility] Last Admin: 11/02/18 10:42 Dose: 3 ml Albuterol/Ipratropium (Duoneb) 3 ml NEB Q4H PRN PRN Reason: SOB/WHEEZE Last Admin: 10/27/18 03:22 Dose: 3 ml Alprazolam (Xanax) 0.25 mg PO QIDPRN PRN PRN Reason: Anxiety Last Admin: 11/01/18 22:09 Dose: 0.25 mg Amlodipine Besylate (Norvasc) 10 mg PO DAILY [facility] Last Admin: 11/02/18 09:15 Dose: 10 mg Atorvastatin Calcium (Lipitor) 20 mg PO HS [facility] Last Admin: 11/01/18 20:14 Dose: 20 mg Bisacodyl (Dulcolax) 10 mg IA DAILYPRN PRN PRN Reason: Constipation Carvedilol (Coreg) 6.25 mg PO BID [facility] Last Admin: 11/02/18 09:16 Dose: 6.25 mg Clonidine (Catapres) 0.1 mg PO BID [facility] Last Admin: 11/02/18 09:16 Dose: 0.1 mg Dextrose/Water (Dextrose 50%) 25 gm SLOW IVP PRN PRN PRN Reason: Hypoglycemia Ferrous Sulfate (Feosol) 325 mg PO BID [facility] Last Admin: 11/02/18 09:16 Dose: 325 mg Finasteride (Proscar) 5 mg PO DAILY [facility] Last Admin: 11/02/18 09:16 Dose: 5 mg Furosemide (Lasix) 40 mg SLOW IVP 0600,1400 [facility] Furosemide (Lasix) 40 mg SLOW IVP NOW [facility] Stop: 11/02/18 13:00 Last Admin: 11/02/18 11:17 Dose: 40 mg Glucagon (Glucagon) 1 mg IM PRN PRN PRN Reason: Hypoglycemia Guaifenesin (Mucinex) 600 mg PO BID [facility] Last Admin: 11/02/18 09:16 Dose: 600 mg Hydralazine HCl (Apresoline) 25 mg PO TID [facility] Last Admin: 11/02/18 09:17 Dose: 25 mg Dextrose/Water (D5w) 1,000 mls @ 0 mls/hr IV .Q0M PRN PRN Reason: Hypoglycemia Insulin Human Lispro (Humalog) 0 units SC .AGGRESSIVE SLIDING PRN PRN Reason: Aggressive Correctional Scale Last Admin: 11/02/18 11:16 Dose: 3 unit Levofloxacin (Levaquin) 500 mg PO 0600 [facility] Last Admin: 11/02/18 05:50 Dose: 500 mg Levothyroxine Sodium (Synthroid) 12.5 mcg PO 0600 [facility] Last Admin: 11/02/18 05:50 Dose: 12.5 mcg Loratadine (Claritin) 10 mg PO DAILY [facility] Last Admin: 11/02/18 09:17 Dose: 10 mg Mometasone Furoate (Asmanex) 1 puff INH 1830 [facility] Last Admin: 11/01/18 19:40 Dose: 1 puff Pantoprazole Sodium (Protonix) 40 mg PO DAILY [facility] Last Admin: 11/02/18 09:17 Dose: 40 mg Polyethylene Glycol (Miralax) 17 gm PO DAILY PRN PRN Reason: Constipation Last Admin: 11/01/18 08:08 Dose: 17 gm Prednisone (Prednisone) 20 mg PO QAM-WM [facility] Last Admin: 11/02/18 09:15 Dose: 20 mg Saccharomyces Boulardii (Florastor) 250 mg PO DAILY [facility] Last Admin: 11/02/18 09:17 Dose: 250 mg Sodium Chloride (Flush - Normal Saline) 10 ml IVF Q12HR [facility] Last Admin: 11/02/18 09:18 Dose: 10 ml Sodium Chloride (Flush - Normal Saline) 10 ml IVF PRN PRN PRN Reason: Saline Flush Last Admin: 10/29/18 14:17 Dose: 10 ml Sterile Water (Bacteriostatic Water) 1 ml FS PRN PRN PRN Reason: RECONSTITUTION Tamsulosin HCl (Flomax) 0.4 mg PO DAILY [facility] Last Admin: 11/02/18 09:18 Dose: 0.4 mg Tamsulosin HCl (Flomax) 0.4 mg PO HS [facility] Last Admin: 11/01/18 20:12 Dose: 0.4 mg
[2018-11-02 12:10] LABS: ALT (SGPT) 11 U/L (8-55); AST (SGOT) 11 U/L (5-34); Albumin 2.9 g/dL (3.4-4.8); Alkaline Phosphatase 69 U/L (40-150); Anion Gap 13 mmol/L (10-20); BUN (Urea Nitrogen) 52 mg/dL (8.4-25.7); Bilirubin, Total 0.3 mg/dL (0.2-1.2); Calc. Creatinine Clearance 37 mL/min (70-130); Calcium 8.3 mg/dL (7.8-10.44); Carbon Dioxide 29 mmol/L (23-31); Chloride 98 mmol/L (98-107); Estimated GFR-MDRD 45; Glucose 166 mg/dL (83-110); Protein, Total 4.9 g/dL (5.8-8.1); Sodium 135 mmol/L (136-145)
[2018-11-02] MEDS: Furosemide 40 MG/4 ML VIAL SLOW IVP SCH (14:32)
[2018-11-02] MEDS: ALPRAZolam 0.25 MG TAB PO PRN ×2 (14:32→22:29)
[2018-11-02] MEDS: Mometasone Furoate 30 PUFF 220 MCG INH SCH (18:32)
[2018-11-02] MEDS: Atorvastatin Calcium 20 MG TAB PO SCH (20:12)
[2018-11-03 04:33] LABS: ALT (SGPT) 11 U/L (8-55); AST (SGOT) 12 U/L (5-34); Alkaline Phosphatase 77 U/L (40-150); Anion Gap 13 mmol/L (10-20); BUN (Urea Nitrogen) 56 mg/dL (8.4-25.7); Bilirubin, Total 0.3 mg/dL (0.2-1.2); Calc. Creatinine Clearance 36 mL/min (70-130); Calcium 8.5 mg/dL (7.8-10.44); Carbon Dioxide 31 mmol/L (23-31); Chloride 97 mmol/L (98-107); Estimated GFR-MDRD 43; Globulin 2.1 g/dL (2.4-3.5); Glucose 126 mg/dL (83-110); Potassium 5.6 mmol/L (3.5-5.1); Protein, Total 5.1 g/dL (5.8-8.1); Sodium 135 mmol/L (136-145)
[2018-11-03 05:06] LABS: Band 13 % (5-11); Hemoglobin 7.9 g/dL (14.0-18.0); Hypochromia SLIGHT = 6-15 cells (100X) (0-5/hpf); Lymphocytes 19 % (21-51); MDiff Complete? YES; Mean Corpuscular HGB CONC 32.4 g/dL (32.0-36.0); Mean Corpuscular Hemoglobin 29.2 pg (27.0-31.0); Mean Corpuscular Volume 90.1 fL (78.0-98.0); Mean Platelet Volume 6.8 fL (7.4-10.4); Monocytes 2 % (0-10); Neutrophil 65 % (42-75); Platelet Count 90 thou/uL (130-400); Platelet Morphology Comment Appears Decreased; RBC Distribution Width 16.9 % (11.5-14.5); Reactive Lymphocytes 1 % (0-10); White Blood Cell (WBC) Count 9.7 thou/uL (4.8-10.8)
[2018-11-03] MEDS ORDERED: PACLitaxel 90 MG in Sodium Chloride 0.9% 250 ML 250 ML IVPB SCH (06:00)
[2018-11-03] MEDS ORDERED: DEXAMETHASONE IVP SCH (06:00)
[2018-11-03] MEDS ORDERED: CARBOPLATIN IVPB SCH ×2 (06:00→08:15)
[2018-11-03] MEDS ORDERED: SODIUM CHLORIDE 0.9% IVPB SCH ×2 (06:00→08:15)
[2018-11-03] MEDS ORDERED: ONDANSETRON IVP SCH (06:00)
[2018-11-03] MEDS ORDERED: SODIUM CHLORIDE 0.9% IVP SCH (06:00)
[2018-11-03] MEDS: Levothyroxine Sodium 25 MCG TAB PO SCH (06:22)
[2018-11-03] MEDS: Furosemide 40 MG/4 ML VIAL SLOW IVP SCH ×2 (06:23→13:12)
[2018-11-03] MEDS: Ferrous Sulfate 325 MG TAB PO SCH ×2 (08:28→20:19)
[2018-11-03] MEDS: Ciprofloxacin 500 MG TAB PO SCH (08:28)
[2018-11-03] MEDS: Saccharomyces boulardii 250 MG CAP PO SCH (08:28)
[2018-11-03] MEDS: Loratadine 10 MG TAB PO SCH (08:28)
[2018-11-03] MEDS: Finasteride 5 MG TAB PO SCH (08:28)
[2018-11-03] MEDS: guaiFENesin ER 600 MG TAB PO SCH ×2 (08:29→20:19)
[2018-11-03] MEDS: cloNIDine 0.1 MG TAB PO SCH ×2 (08:29→20:11)
[2018-11-03] MEDS: predniSONE 20 MG TAB PO SCH (08:29)
[2018-11-03] MEDS: Amlodipine 10 MG TAB PO SCH (08:29)
[2018-11-03] MEDS: Carvedilol 6.25 MG TAB PO SCH ×2 (08:29→20:19)
[2018-11-03] MEDS: Tamsulosin HCl 0.4 MG CAP PO SCH ×2 (08:30→20:20)
[2018-11-03] MEDS: hydrALAZINE 25 MG TAB PO SCH ×3 (08:30→20:11)
[2018-11-03] MEDS: Polyethylene Glycol 3350 17 GM Packet PO PRN (08:34)
[2018-11-03] MEDS ORDERED: Ondansetron 2MG/ML MDV 10 MG, Dexamethasone 10 MG in Sodium Chloride 0.9% 50 ML IVP SCH (08:45)
--- NOTE | 2018-11-03 09:45 | PRG ---
DATE OF SERVICE: 11/03/2018 SUBJECTIVE: lAberto Sanchez is an 83-year-old gentleman. This morning, he is better, he is less short of breath. OBJECTIVE: VITAL SIGNS: His saturations are 93% on 2 L, blood pressure 123/73, pulse 83, and respiratory rate 18. CHEST: Decreased breath sounds bilaterally without any wheezing. CARDIAC: Normal S1 and S2. No gallops. ABDOMEN: No masses. LABORATORY DATA: BUN and creatinine of 56 and 1.53, albumin is 3. His white count 9000, H and H 7 and 24, platelet count is 90. IMPRESSION: 1. Status post chemotherapy, pancytopenia, improved. 2. Baseline chronic lymphocytic leukemia. 3. Chronic obstructive pulmonary disease. 4. Congestive heart failure, azotemia. PLAN: Pulmonary [facility], disposition is being planned. Pulmonary will follow. Taper steroids. Job ID: [id number]
--- NOTE | 2018-11-03 09:52 | PDOC.PN ---
- Subjective Encounter Start Date: 11/03/18 Encounter Start Time: 07:00 Patient seen and examined. No new complaints. No overnight events - Objective Resuscitation Status - Order Detail: 10/24/18 12:06 Resuscitation Status Routine Resuscitation Status: FULL: Full Resuscitation Discussed with: patient ZAINAB Reviewed: Yes Vital Signs & Weight: Vital Signs (12 hours) Temp Pulse Resp BP BP Pulse Ox 11/03/18 08:30 83 129/73 11/03/18 08:29 83 129/73 11/03/18 08:06 93 L 11/03/18 08:04 80 18 93 L 11/03/18 08:00 97.9 F 83 18 129/73 94 L 11/02/18 22:12 92 18 95 Weight Weight 158 lb 8.198 oz I&O: 11/02/18 11/03/18 11/04/18 06:59 06:59 06:59 Intake Total 750 810 Balance 750 810 Result Diagrams: 11/03/18 04:00 11/03/18 04:00 Additional Labs: Accuchecks 11/02/18 11/02/18 11/02/18 19:47 16:21 10:54 POC Glucose 255 H 256 H 169 H Phys Exam - Physical Examination Constitutional: NAD HEENT: PERRLA, moist MMs, sclera anicteric Neck: no JVD, supple Respiratory: no wheezing, no rales, no rhonchi Cardiovascular: RRR, no significant murmur, no rub Gastrointestinal: soft, non-tender, no distention, positive bowel sounds Musculoskeletal: pulses present, edema present Neurological: non-focal, normal sensation, moves all 4 limbs Lymphatic: no nodes Psychiatric: normal affect, A&O x 3 Skin: no rash, normal turgor Dx/Plan (1) Acute on chronic diastolic (congestive) heart failure Code(s): I50.33 - ACUTE ON CHRONIC DIASTOLIC (CONGESTIVE) HEART FAILURE Status : Acute Comment: (2) PNA (pneumonia) Code(s): J18.9 - PNEUMONIA, UNSPECIFIED ORGANISM Status: Acute Qualifiers: Laterality: right Lung location: lower lobe of lung Comment: (3) Pancytopenia Code(s): D61.818 - OTHER PANCYTOPENIA Status: Resolved (4) Squamous cell carcinoma of lung Code(s): C34.90 - MALIGNANT NEOPLASM OF UNSP PART OF UNSP BRONCHUS OR LUNG Status: Chronic Qualifiers: Laterality: right Qualified Code(s): C34.91 - Malignant neoplasm of unspecified part of right bronchus or lung Comment: on carboplatin, taxol, radiation rx (5) Urinary retention Code(s): R33.9 - RETENTION OF URINE, UNSPECIFIED Status: Resolved Comment: consult urology, PRN straight catheterization (6) Anemia Code(s): D64.9 - ANEMIA, UNSPECIFIED Status: Chronic Qualifiers: Anemia type: unspecified type Qualified Code(s): D64.9 - Anemia, unspecified (7) Aortic stenosis Code(s): I35.0 - NONRHEUMATIC AORTIC (VALVE) STENOSIS Status: Chronic Comment: mild to moderate, with mild to moderate aortic regurgitation (8) CAD (coronary artery disease) Code(s): I25.10 - ATHSCL HEART DISEASE OF [place] CORONARY ARTERY W/O ANG PCTRS Status: Chronic Qualifiers: Coronary Disease-Associated Artery/Lesion type: bypass graft [place] vs. transplanted heart: [place] heart Associated angina: without angina Qualified Code(s): I25.810 - Atherosclerosis of coronary artery bypass graft(s) without angina pectoris Comment: cont Coreg, statin (9) COPD (chronic obstructive pulmonary disease) Status: Chronic Qualifiers: COPD type: unspecified COPD Qualified Code(s): J44.9 - Chronic obstructive pulmonary disease, unspecified (10) Diabetes mellitus Code(s): E11.9 - TYPE 2 DIABETES MELLITUS WITHOUT COMPLICATIONS Status: Chronic Qualifiers: Diabetes mellitus type: type 2 Diabetes mellitus complication status: without complication (11) HLD (hyperlipidemia) Code(s): E78.5 - HYPERLIPIDEMIA, UNSPECIFIED Status: Chronic Qualifiers: Hyperlipidemia type: unspecified Qualified Code(s): E78.5 - Hyperlipidemia , unspecified Comment: on Lipitor (12) HTN (hypertension) Code(s): I10 - ESSENTIAL (PRIMARY) HYPERTENSION Status: Chronic Qualifiers: Comment: reasonable control (13) Hypothyroidism Code(s): E03.9 - HYPOTHYROIDISM, UNSPECIFIED Status: Chronic Comment: on levothyroxine (14) Neutropenia Code(s): D70.9 - NEUTROPENIA, UNSPECIFIED Status: Resolved Comment: (15) Normocytic anemia Code(s): D64.9 - ANEMIA, UNSPECIFIED Status: Chronic (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 Code(s): C83.00 - SMALL CELL B-CELL LYMPHOMA, UNSPECIFIED SITE Status: Chronic Qualifiers: Lymphoma site: unspecified region Qualified Code(s): C83.00 - Small cell B- cell lymphoma, unspecified site (17) SONIYA (acute kidney injury) Code(s): N17.9 - ACUTE KIDNEY FAILURE, UNSPECIFIED Status: Resolved (18) Sepsis Code(s): A41.9 - SEPSIS, UNSPECIFIED ORGANISM Status: Resolved - Plan cont current plan of care, plan discussed w/ family, continue antibiotics, PT/OT , social services coordinator, respiratory therapy * today pt is getting chemotherapy as per oncology recommendation, he is getting daily radiation therapy, pt's son trying to find his placement but so far no success, pt can not be taken care of well at assisted living or in home set up, and he is at continuos high risk for readmission from his disease and treatment related complication. * pt prefers that he stay in hospital as long as possible and monitor his labs so he does not have to come back, I think this is not realistic goal from patient, I tried to explain his son and patient about next level of care as he now medically stable, being in hospital he is at risk for hospital related complications. Review of Systems - Review of Systems ENT: negative: Ear Pain, Ear Discharge, Nose Pain, Nose Discharge, Nose Congestion, Mouth Pain, Mouth Swelling, Throat Pain, Throat Swelling, Other Respiratory: SOB with Excertion. negative: Cough, Dry, Shortness of Breath, Hemoptysis, Pleuritic Pain, Sputum, Wheezing Cardiovascular: edema Gastrointestinal: negative: Nausea, Vomiting, Abdominal Pain, Diarrhea, Constipation, Melena, Hematochezia, Other Genitourinary: negative: Dysuria, Frequency, Incontinence, Hematuria, Retention , Other Musculoskeletal: negative: Neck Pain, Shoulder Pain, Arm Pain, Back Pain, Hand Pain, Leg Pain, Foot Pain, Other Skin: negative: Rash, Lesions, James, Bruising, Other - Medications/Allergies Allergies/Adverse Reactions: Allergies Allergy/AdvReac Type Severity Reaction Status Date / Time Latex, Natural Rubber Allergy Verified 09/17/18 14:02 milk Allergy Verified 09/17/18 14:02 Penicillins Allergy Verified 09/30/18 02:11 Medications: Current Medications Acetaminophen (Tylenol) 650 mg PO Q4H PRN PRN Reason: Headache/Fever/Mild Pain (1-3) Last Admin: 10/30/18 05:25 Dose: 650 mg Albuterol/Ipratropium (Duoneb) 3 ml NEB [id number] [facility] Last Admin: 11/03/18 08:04 Dose: 3 ml Albuterol/Ipratropium (Duoneb) 3 ml NEB Q4H PRN PRN Reason: SOB/WHEEZE Last Admin: 10/27/18 03:22 Dose: 3 ml Alprazolam (Xanax) 0.25 mg PO QIDPRN PRN PRN Reason: Anxiety Last Admin: 11/02/18 22:29 Dose: 0.25 mg Amlodipine Besylate (Norvasc) 10 mg PO DAILY [facility] Last Admin: 11/03/18 08:29 Dose: 10 mg Atorvastatin Calcium (Lipitor) 20 mg PO HS [facility] Last Admin: 11/02/18 20:12 Dose: 20 mg Bisacodyl (Dulcolax) 10 mg MT DAILYPRN PRN PRN Reason: Constipation Carvedilol (Coreg) 6.25 mg PO BID [facility] Last Admin: 11/03/18 08:29 Dose: 6.25 mg Ciprofloxacin (Cipro) 500 mg PO 1000 [facility] Last Admin: 11/03/18 08:28 Dose: 500 mg Clonidine (Catapres) 0.1 mg PO BID [facility] Last Admin: 11/03/18 08:29 Dose: 0.1 mg Dextrose/Water (Dextrose 50%) 25 gm SLOW IVP PRN PRN PRN Reason: Hypoglycemia Ferrous Sulfate (Feosol) 325 mg PO BID [facility] Last Admin: 11/03/18 08:28 Dose: 325 mg Finasteride (Proscar) 5 mg PO DAILY [facility] Last Admin: 11/03/18 08:28 Dose: 5 mg Furosemide (Lasix) 40 mg SLOW IVP 0600,1400 [facility] Last Admin: 11/03/18 06:23 Dose: 40 mg Glucagon (Glucagon) 1 mg IM PRN PRN PRN Reason: Hypoglycemia Guaifenesin (Mucinex) 600 mg PO BID [facility] Last Admin: 11/03/18 08:29 Dose: 600 mg Hydralazine HCl (Apresoline) 25 mg PO TID [facility] Last Admin: 11/03/18 08:30 Dose: 25 mg Dextrose/Water (D5w) 1,000 mls @ 0 mls/hr IV .Q0M PRN PRN Reason: Hypoglycemia Paclitaxel 90 mg/ Sodium (Chloride) 265 mls @ 265 mls/hr IVPB [facility] Carboplatin 120 mg/ Sodium (Chloride) 262 mls @ 349.333 mls/hr IVPB [facility] Stop: 11/03/18 18:00 Ondansetron HCl 10 mg/Dexamethasone 10 mg/ Sodium Chloride 56 mls @ 112 mls/hr IVP [facility] Insulin Human Lispro (Humalog) 0 units SC .AGGRESSIVE SLIDING PRN PRN Reason: Aggressive Correctional Scale Last Admin: 11/02/18 20:12 Dose: 9 unit Levothyroxine Sodium (Synthroid) 12.5 mcg PO 0600 [facility] Last Admin: 11/03/18 06:22 Dose: 12.5 mcg Loratadine (Claritin) 10 mg PO DAILY [facility] Last Admin: 11/03/18 08:28 Dose: 10 mg Mometasone Furoate (Asmanex) 1 puff INH 1830 [facility] Last Admin: 11/02/18 18:32 Dose: 1 puff Pantoprazole Sodium (Protonix) 40 mg PO DAILY [facility] Last Admin: 11/03/18 08:28 Dose: 40 mg Polyethylene Glycol (Miralax) 17 gm PO DAILY PRN PRN Reason: Constipation Last Admin: 11/03/18 08:34 Dose: 17 gm Saccharomyces Boulardii (Florastor) 250 mg PO DAILY [facility] Last Admin: 11/03/18 08:28 Dose: 250 mg Sodium Chloride (Flush - Normal Saline) 10 ml IVF Q12HR [facility] Last Admin: 11/03/18 08:30 Dose: 10 ml Sodium Chloride (Flush - Normal Saline) 10 ml IVF PRN PRN PRN Reason: Saline Flush Last Admin: 11/03/18 06:23 Dose: 10 ml Sterile Water (Bacteriostatic Water) 1 ml FS PRN PRN PRN Reason: RECONSTITUTION Tamsulosin HCl (Flomax) 0.4 mg PO DAILY [facility] Last Admin: 11/03/18 08:30 Dose: 0.4 mg Tamsulosin HCl (Flomax) 0.4 mg PO HS [facility] Last Admin: 11/02/18 20:15 Dose: 0.4 mg
[2018-11-03] MEDS: HumaLOG 300 UNITS/3 ML VIAL SC PRN ×3 (12:16→20:31)
[2018-11-03] MEDS: ALPRAZolam 0.25 MG TAB PO PRN ×2 (14:41→22:33)
[2018-11-03] MEDS: Mometasone Furoate 30 PUFF 220 MCG INH SCH (18:48)
[2018-11-03] MEDS: Atorvastatin Calcium 20 MG TAB PO SCH (20:19)
[2018-11-04] MEDS: Levothyroxine Sodium 25 MCG TAB PO SCH (06:27)
[2018-11-04] MEDS: Furosemide 40 MG/4 ML VIAL SLOW IVP SCH (06:27)
[2018-11-04 06:43] LABS: Hemoglobin 7.8 g/dL (14.0-18.0); Mean Corpuscular HGB CONC 32.1 g/dL (32.0-36.0); Mean Corpuscular Volume 90.3 fL (78.0-98.0); Mean Platelet Volume 8.9 fL (7.4-10.4); Platelet Count 72 thou/uL (130-400); Red Blood Cell (RBC) Count 2.71 mill/uL (4.70-6.10); White Blood Cell (WBC) Count 9.3 thou/uL (4.8-10.8)
[2018-11-04 07:01] LABS: Anion Gap 11 mmol/L (10-20); BUN (Urea Nitrogen) 63 mg/dL (8.4-25.7); Calc. Creatinine Clearance 34 mL/min (70-130); Calcium 8.3 mg/dL (7.8-10.44); Carbon Dioxide 33 mmol/L (23-31); Chloride 98 mmol/L (98-107); Estimated GFR-MDRD 41; Glucose 120 mg/dL (83-110); Potassium 5.8 mmol/L (3.5-5.1); Sodium 136 mmol/L (136-145)
[2018-11-04 07:49] LABS: Band 20 % (5-11); Differential Comment Immature Cell(s); Lymphocytes 20 % (21-51); MDiff Complete? YES; Metamyelocyte 3 % (0-0); Monocytes 8 % (0-10); Myelocyte 1 % (0-0); Neutrophil 39 % (42-75); Ovalocytes SLIGHT = 2-5 cells (100X) (0-1/hpf); Platelet Morphology Comment Appears Decreased; Polychromasia SLIGHT = 2-3 cells (100X) (0-2/hpf); Tear Drops SLIGHT = 2-5 cells (100X) (0-1/hpf)
[2018-11-04] MEDS: Polyethylene Glycol 3350 17 GM Packet PO PRN (09:04)
[2018-11-04] MEDS: Ferrous Sulfate 325 MG TAB PO SCH (09:04)
[2018-11-04] MEDS: Amlodipine 10 MG TAB PO SCH (09:04)
[2018-11-04] MEDS: hydrALAZINE 25 MG TAB PO SCH ×2 (09:05→14:56)
[2018-11-04] MEDS: Finasteride 5 MG TAB PO SCH (09:05)
[2018-11-04] MEDS: cloNIDine 0.1 MG TAB PO SCH (09:05)
[2018-11-04] MEDS: Saccharomyces boulardii 250 MG CAP PO SCH (09:05)
[2018-11-04] MEDS: Carvedilol 6.25 MG TAB PO SCH (09:06)
[2018-11-04] MEDS: Tamsulosin HCl 0.4 MG CAP PO SCH (09:06)
[2018-11-04] MEDS: guaiFENesin ER 600 MG TAB PO SCH (09:06)
[2018-11-04] MEDS: Loratadine 10 MG TAB PO SCH (09:06)
--- NOTE | 2018-11-04 09:27 | RAD ---
Exam: Chest one view HISTORY:Congestive heart failure Comparison: 10/28/2018 FINDINGS: Cardiac silhouette:Cardiomegaly. Atherosclerosis of the aorta. Lines and tubes: Stable left-sided Mediport catheter. Stable sternotomy wires. Pulmonary vessels: Slightly prominent Costophrenic angles: Bilateral pleural effusions, slightly progressed in the left lung base. LUNGS: Persistent bibasilar opacities. Pneumothorax: None Osseous abnormalities: Chronic changes to the left and right shoulder. IMPRESSION: Persistent and essentially stable congestive heart failure.
--- NOTE | 2018-11-04 09:35 | PRG ---
DATE OF SERVICE: 11/04/2018 SUBJECTIVE: This morning, he said he is feeling better. He is less short of breath, less cough, less wheezing. OBJECTIVE: VITAL SIGNS: Blood pressure 164/71, pulse 71, temperature 97, blood pressure is noted, [id number]%_ 2 L. CHEST: Decreased breath sounds. No wheezing. CARDIAC: Normal S1 and S2. No gallops. ABDOMEN: No masses. LABORATORY DATA: His creatinine is elevated to 1.62 from baseline 1.27, probably from excessive diuretics. White count 9000, H and H 7 and 24, platelet count 72. ASSESSMENT: 1. Status post chemotherapy, pancytopenia. 2. Underlying chronic lymphocytic leukemia. 3. Squamous cell carcinoma. 4. Renal failure. 5. Cardiomyopathy. PLAN: Switch over to p.o. Lasix. I will be hesitant to increase the dose of Lasix, may start slow dose, probably Aldactone. We will follow. Job ID: [id number] MTDD
--- NOTE | 2018-11-04 11:17 | PDOC.PN ---
- Subjective Encounter Start Date: 11/04/18 Encounter Start Time: 07:00 pt personally feels better, but he is adamant about any other discharge options , he is stable - Objective Resuscitation Status - Order Detail: 10/24/18 12:06 Resuscitation Status Routine Resuscitation Status: FULL: Full Resuscitation Discussed with: darin LAMB Reviewed: Yes Vital Signs & Weight: Vital Signs (12 hours) Temp Pulse Resp BP BP BP Pulse Ox 11/04/18 10:59 16 11/04/18 09:06 164/71 H 11/04/18 09:05 71 164/71 H 11/04/18 09:04 71 164/71 H 11/04/18 08:00 97.3 F L 71 18 164/71 H 95 11/04/18 07:36 16 11/04/18 02:34 88 16 11/03/18 23:45 98.3 F 76 16 145/66 H 92 L Weight Admit Weight 158 lb 8.16 oz Weight 158 lb 8.16 oz I&O: 11/03/18 11/04/18 11/05/18 06:59 06:59 06:59 Intake Total 810 1760 Balance 810 1760 Result Diagrams: 11/04/18 06:28 11/04/18 06:28 Additional Labs: Accuchecks 11/04/18 11/03/18 11/03/18 06:27 19:58 15:56 POC Glucose 129 H 207 H 259 H 11/03/18 12:02 POC Glucose 169 H Phys Exam - Physical Examination Constitutional: NAD HEENT: PERRLA, moist MMs, sclera anicteric Neck: no JVD, supple Respiratory: no wheezing, no rhonchi Cardiovascular: RRR, no significant murmur, no rub Gastrointestinal: soft, non-tender, no distention, positive bowel sounds Musculoskeletal: pulses present, edema present Neurological: non-focal, normal sensation, moves all 4 limbs Lymphatic: no nodes Psychiatric: normal affect, A&O x 3 Skin: no rash, normal turgor Dx/Plan (1) Acute on chronic diastolic (congestive) heart failure Code(s): I50.33 - ACUTE ON CHRONIC DIASTOLIC (CONGESTIVE) HEART FAILURE Status : Acute Comment: (2) PNA (pneumonia) Code(s): J18.9 - PNEUMONIA, UNSPECIFIED ORGANISM Status: Acute Qualifiers: Laterality: right Lung location: lower lobe of lung Comment: (3) Pancytopenia Code(s): D61.818 - OTHER PANCYTOPENIA Status: Resolved (4) Squamous cell carcinoma of lung Code(s): C34.90 - MALIGNANT NEOPLASM OF UNSP PART OF UNSP BRONCHUS OR LUNG Status: Chronic Qualifiers: Laterality: right Qualified Code(s): C34.91 - Malignant neoplasm of unspecified part of right bronchus or lung Comment: on carboplatin, taxol, radiation rx (5) Urinary retention Code(s): R33.9 - RETENTION OF URINE, UNSPECIFIED Status: Resolved Comment: consult urology, PRN straight catheterization (6) Anemia Code(s): D64.9 - ANEMIA, UNSPECIFIED Status: Chronic Qualifiers: Anemia type: unspecified type Qualified Code(s): D64.9 - Anemia, unspecified (7) Aortic stenosis Code(s): I35.0 - NONRHEUMATIC AORTIC (VALVE) STENOSIS Status: Chronic Comment: mild to moderate, with mild to moderate aortic regurgitation (8) CAD (coronary artery disease) Code(s): I25.10 - ATHSCL HEART DISEASE OF [place] CORONARY ARTERY W/O ANG PCTRS Status: Chronic Qualifiers: Coronary Disease-Associated Artery/Lesion type: bypass graft [place] vs. transplanted heart: [place] heart Associated angina: without angina Qualified Code(s): I25.810 - Atherosclerosis of coronary artery bypass graft(s) without angina pectoris Comment: cont Coreg, statin (9) COPD (chronic obstructive pulmonary disease) Status: Chronic Qualifiers: COPD type: unspecified COPD Qualified Code(s): J44.9 - Chronic obstructive pulmonary disease, unspecified (10) Diabetes mellitus Code(s): E11.9 - TYPE 2 DIABETES MELLITUS WITHOUT COMPLICATIONS Status: Chronic Qualifiers: Diabetes mellitus type: type 2 Diabetes mellitus complication status: without complication (11) HLD (hyperlipidemia) Code(s): E78.5 - HYPERLIPIDEMIA, UNSPECIFIED Status: Chronic Qualifiers: Hyperlipidemia type: unspecified Qualified Code(s): E78.5 - Hyperlipidemia , unspecified Comment: on Lipitor (12) HTN (hypertension) Code(s): I10 - ESSENTIAL (PRIMARY) HYPERTENSION Status: Chronic Qualifiers: Comment: reasonable control (13) Hypothyroidism Code(s): E03.9 - HYPOTHYROIDISM, UNSPECIFIED Status: Chronic Comment: on levothyroxine (14) Neutropenia Code(s): D70.9 - NEUTROPENIA, UNSPECIFIED Status: Resolved Comment: (15) Normocytic anemia Code(s): D64.9 - ANEMIA, UNSPECIFIED Status: Chronic (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 Code(s): C83.00 - SMALL CELL B-CELL LYMPHOMA, UNSPECIFIED SITE Status: Chronic Qualifiers: Lymphoma site: unspecified region Qualified Code(s): C83.00 - Small cell B- cell lymphoma, unspecified site (17) SONIYA (acute kidney injury) Code(s): N17.9 - ACUTE KIDNEY FAILURE, UNSPECIFIED Status: Resolved (18) Sepsis Code(s): A41.9 - SEPSIS, UNSPECIFIED ORGANISM Status: Resolved - Plan cont current plan of care, continue antibiotics, PT/OT, manager social media * pt has received chemotherapy yesterday * pt feels that he should stay in hospital for longer so he does not have to return back in case if he gets sick * I had kind conversation with him about discharge planning but he is adamant about any options at this time. * medication reviewed as below * symptomatic treatment Review of Systems - Review of Systems ENT: negative: Ear Pain, Ear Discharge, Nose Pain, Nose Discharge, Nose Congestion, Mouth Pain, Mouth Swelling, Throat Pain, Throat Swelling, Other Respiratory: negative: Cough, Dry, Shortness of Breath, Hemoptysis, SOB with Excertion, Pleuritic Pain, Sputum, Wheezing Cardiovascular: negative: chest pain, palpitations, orthopnea, paroxysmal nocturnal dyspnea, edema, light headedness, other Gastrointestinal: negative: Nausea, Vomiting, Abdominal Pain, Diarrhea, Constipation, Melena, Hematochezia, Other Genitourinary: negative: Dysuria, Frequency, Incontinence, Hematuria, Retention , Other Musculoskeletal: negative: Neck Pain, Shoulder Pain, Arm Pain, Back Pain, Hand Pain, Leg Pain, Foot Pain, Other Skin: negative: Rash, Lesions, James, Bruising, Other - Medications/Allergies Allergies/Adverse Reactions: Allergies Allergy/AdvReac Type Severity Reaction Status Date / Time Latex, Natural Rubber Allergy Verified 09/17/18 14:02 milk Allergy Verified 09/17/18 14:02 Penicillins Allergy Verified 09/30/18 02:11 Medications: Current Medications Acetaminophen (Tylenol) 650 mg PO Q4H PRN PRN Reason: Headache/Fever/Mild Pain (1-3) Last Admin: 10/30/18 05:25 Dose: 650 mg Albuterol/Ipratropium (Duoneb) 3 ml NEB [id number] [facility] Last Admin: 11/04/18 10:59 Dose: 3 ml Albuterol/Ipratropium (Duoneb) 3 ml NEB Q4H PRN PRN Reason: SOB/WHEEZE Last Admin: 10/27/18 03:22 Dose: 3 ml Amlodipine Besylate (Norvasc) 10 mg PO DAILY [facility] Last Admin: 11/04/18 09:04 Dose: 10 mg Atorvastatin Calcium (Lipitor) 20 mg PO HS [facility] Last Admin: 11/03/18 20:19 Dose: 20 mg Bisacodyl (Dulcolax) 10 mg [place] DAILYPRN PRN PRN Reason: Constipation Carvedilol (Coreg) 6.25 mg PO BID [facility] Last Admin: 11/04/18 09:06 Dose: 6.25 mg Ciprofloxacin (Cipro) 500 mg PO 1000 [facility] Last Admin: 11/03/18 08:28 Dose: 500 mg Clonidine (Catapres) 0.1 mg PO BID [facility] Last Admin: 11/04/18 09:05 Dose: 0.1 mg Dextrose/Water (Dextrose 50%) 25 gm SLOW IVP PRN PRN PRN Reason: Hypoglycemia Ferrous Sulfate (Feosol) 325 mg PO BID [facility] Last Admin: 11/04/18 09:04 Dose: 325 mg Finasteride (Proscar) 5 mg PO DAILY [facility] Last Admin: 11/04/18 09:05 Dose: 5 mg Furosemide (Lasix) 40 mg PO DAILY-AC [facility] Glucagon (Glucagon) 1 mg IM PRN PRN PRN Reason: Hypoglycemia Guaifenesin (Mucinex) 600 mg PO BID [facility] Last Admin: 11/04/18 09:06 Dose: 600 mg Hydralazine HCl (Apresoline) 25 mg PO TID [facility] Last Admin: 11/04/18 09:05 Dose: 25 mg Dextrose/Water (D5w) 1,000 mls @ 0 mls/hr IV .Q0M PRN PRN Reason: Hypoglycemia Paclitaxel 90 mg/ Sodium (Chloride) 265 mls @ 265 mls/hr IVPB WILLCALL [facility] Last Admin: 11/03/18 10:34 Dose: 265 mls Ondansetron HCl 10 mg/Dexamethasone 10 mg/ Sodium Chloride 56 mls @ 112 mls/hr IVP WILLCALL [facility] Last Admin: 11/03/18 09:41 Dose: 56 mls Insulin Human Lispro (Humalog) 0 units SC .AGGRESSIVE SLIDING PRN PRN Reason: Aggressive Correctional Scale Last Admin: 11/03/18 20:31 Dose: 6 unit Levothyroxine Sodium (Synthroid) 12.5 mcg PO 0600 [facility] Last Admin: 11/04/18 06:27 Dose: 12.5 mcg Loratadine (Claritin) 10 mg PO DAILY [facility] Last Admin: 11/04/18 09:06 Dose: 10 mg Mometasone Furoate (Asmanex) 1 puff INH 1830 [facility] Last Admin: 11/03/18 18:48 Dose: 1 puff Pantoprazole Sodium (Protonix) 40 mg PO DAILY [facility] Last Admin: 11/04/18 09:05 Dose: 40 mg Polyethylene Glycol (Miralax) 17 gm PO DAILY PRN PRN Reason: Constipation Last Admin: 11/04/18 09:04 Dose: 17 gm Saccharomyces Boulardii (Florastor) 250 mg PO DAILY [facility] Last Admin: 11/04/18 09:05 Dose: 250 mg Sodium Chloride (Flush - Normal Saline) 10 ml IVF Q12HR [facility] Last Admin: 11/04/18 09:06 Dose: 10 ml Sodium Chloride (Flush - Normal Saline) 10 ml IVF PRN PRN PRN Reason: Saline Flush Last Admin: 11/04/18 06:28 Dose: 10 ml Sodium Polystyrene Sulfonate (Kayexelate Oral Susp 15 Gm/60 Ml) 30 gm PO NOW [facility] Stop: 11/04/18 12:30 Sterile Water (Bacteriostatic Water) 1 ml FS PRN PRN PRN Reason: RECONSTITUTION Tamsulosin HCl (Flomax) 0.4 mg PO DAILY [facility] Last Admin: 11/04/18 09:06 Dose: 0.4 mg Tamsulosin HCl (Flomax) 0.4 mg PO HS [facility] Last Admin: 11/03/18 20:20 Dose: 0.4 mg
[2018-11-04] MEDS: Ciprofloxacin 500 MG TAB PO SCH (13:14)
[2018-11-04] MEDS: ALPRAZolam 0.25 MG TAB PO PRN (14:56)
[2018-11-04] MEDS ORDERED: Spironolactone 25 MG TAB PO SCH (17:00)
[2018-11-04] MEDS ORDERED: ALPRAZolam 0.25 MG TAB PO PRN (17:00)
[2018-11-04] MEDS ORDERED: Ondansetron ODT 8 MG TAB SL PRN (19:21)
[2018-11-04] MEDS ORDERED: Ondansetron PF 4 MG/2 ML Vial IVP PRN (19:21)
[2018-11-04] MEDS: Mometasone Furoate 30 PUFF 220 MCG INH SCH (19:27)
[2018-11-04] MEDS ORDERED: ALPRAZolam 0.25 MG TAB ONE (22:33)
[2018-11-05] MEDS: Carvedilol 6.25 MG TAB PO SCH ×3 (09:23→20:55)
[2018-11-05] MEDS: Atorvastatin Calcium 20 MG TAB PO SCH ×2 (09:23→20:55)
[2018-11-05] MEDS: hydrALAZINE 25 MG TAB PO SCH ×4 (09:24→20:55)
[2018-11-05] MEDS: guaiFENesin ER 600 MG TAB PO SCH ×3 (09:24→20:56)
[2018-11-05] MEDS: Ferrous Sulfate 325 MG TAB PO SCH ×3 (09:24→20:55)
[2018-11-05] MEDS: cloNIDine 0.1 MG TAB PO SCH ×3 (09:24→20:55)
[2018-11-05] MEDS: Tamsulosin HCl 0.4 MG CAP PO SCH ×3 (09:25→20:56)
[2018-11-05] MEDS: Levothyroxine Sodium 25 MCG TAB PO SCH (09:25)
[2018-11-05] MEDS: Polyethylene Glycol 3350 17 GM Packet PO PRN (09:35)
[2018-11-05] MEDS: Finasteride 5 MG TAB PO SCH (09:36)
[2018-11-05] MEDS: Amlodipine 10 MG TAB PO SCH (09:37)
[2018-11-05] MEDS: Loratadine 10 MG TAB PO SCH (09:39)
[2018-11-05] MEDS: Furosemide 40 MG TAB PO SCH (09:39)
[2018-11-05] MEDS: Saccharomyces boulardii 250 MG CAP PO SCH (09:40)
[2018-11-05] MEDS: Ciprofloxacin 500 MG TAB PO SCH (09:41)
--- NOTE | 2018-11-05 11:21 | PRG ---
DATE OF SERVICE: 11/05/2018 SUBJECTIVE: Alberto Sanchez seen this morning. He is awake, alert, responsive, less short of breath, sitting on the bedside. OBJECTIVE: VITAL SIGNS: Saturations are 96% on 2 L, pulse is 70, respirations 18, and blood pressure 130/80. CHEST: Decreased breath sounds bilaterally. CARDIAC: Normal S1 and S2. No gallops. ABDOMEN: No masses. LABORATORY DATA: Lab results pending. ASSESSMENT: 1. Bilateral pleural effusion, right greater than left congestive heart failure. 2. Chronic obstructive pulmonary disease. 3. Squamous cell carcinoma. 4. Chronic lymphocytic leukemia. 5. Pancytopenia. PLAN: Disposition as per Oncology. I have added Aldactone to his present regime. Follow up lab. Job ID: [id number]
--- NOTE | 2018-11-05 11:24 | PDOC.PN ---
- Subjective Encounter Start Date: 11/05/18 Encounter Start Time: 07:00 Patient seen and examined. No new complaints. No overnight events - Objective Resuscitation Status - Order Detail: 10/24/18 12:06 Resuscitation Status Routine Resuscitation Status: FULL: Full Resuscitation Discussed with: patient ZAINAB Reviewed: Yes Vital Signs & Weight: Vital Signs (12 hours) Temp Pulse Resp BP BP Pulse Ox 11/05/18 09:54 91 L 11/05/18 09:40 164/71 H 11/05/18 09:39 101 H 164/71 H 11/05/18 09:37 101 H 164/71 H 11/05/18 09:24 101 H 164/71 H 11/05/18 09:23 164/71 H 11/05/18 08:00 95 11/05/18 07:47 98.0 F 101 H 16 149/65 H 95 Weight Admit Weight 158 lb 8.16 oz Weight 158 lb 8.16 oz I&O: 11/04/18 11/05/18 11/06/18 06:59 06:59 06:59 Intake Total 1760 1000 Balance 1760 1000 Result Diagrams: 11/04/18 06:28 11/04/18 06:28 Additional Labs: Accuchecks 11/05/18 11/04/18 11/04/18 05:24 20:14 16:50 POC Glucose 126 H 189 H 130 H 11/04/18 12:08 POC Glucose 146 H Phys Exam - Physical Examination Constitutional: NAD HEENT: PERRLA, moist MMs, sclera anicteric Neck: no JVD, supple Respiratory: no rales, wheezing present Cardiovascular: RRR, no rub SM+ Gastrointestinal: soft, non-tender, no distention, positive bowel sounds obesity+ Musculoskeletal: pulses present, edema present Neurological: non-focal, normal sensation, moves all 4 limbs Lymphatic: no nodes Psychiatric: normal affect, A&O x 3 Skin: no rash, normal turgor Dx/Plan (1) Acute on chronic diastolic (congestive) heart failure Code(s): I50.33 - ACUTE ON CHRONIC DIASTOLIC (CONGESTIVE) HEART FAILURE Status : Acute Comment: (2) PNA (pneumonia) Code(s): J18.9 - PNEUMONIA, UNSPECIFIED ORGANISM Status: Resolved Qualifiers: Laterality: right Lung location: lower lobe of lung Comment: (3) Pancytopenia Code(s): D61.818 - OTHER PANCYTOPENIA Status: Resolved (4) Squamous cell carcinoma of lung Code(s): C34.90 - MALIGNANT NEOPLASM OF UNSP PART OF UNSP BRONCHUS OR LUNG Status: Chronic Qualifiers: Laterality: right Qualified Code(s): C34.91 - Malignant neoplasm of unspecified part of right bronchus or lung Comment: on carboplatin, taxol, radiation rx (5) Urinary retention Code(s): R33.9 - RETENTION OF URINE, UNSPECIFIED Status: Resolved Comment: (6) Anemia Code(s): D64.9 - ANEMIA, UNSPECIFIED Status: Chronic Qualifiers: Anemia type: unspecified type Qualified Code(s): D64.9 - Anemia, unspecified (7) Aortic stenosis Code(s): I35.0 - NONRHEUMATIC AORTIC (VALVE) STENOSIS Status: Chronic Qualifiers: Cardiac valve disease etiology: nonrheumatic Qualified Code(s): I35.0 - Nonrheumatic aortic (valve) stenosis Comment: mild to moderate, with mild to moderate aortic regurgitation (8) CAD (coronary artery disease) Code(s): I25.10 - ATHSCL HEART DISEASE OF [place] CORONARY ARTERY W/O ANG PCTRS Status: Chronic Qualifiers: Coronary Disease-Associated Artery/Lesion type: bypass graft [place] vs. transplanted heart: [place] heart Associated angina: without angina Qualified Code(s): I25.810 - Atherosclerosis of coronary artery bypass graft(s) without angina pectoris Comment: cont Coreg, statin (9) COPD (chronic obstructive pulmonary disease) Status: Chronic Qualifiers: COPD type: unspecified COPD Qualified Code(s): J44.9 - Chronic obstructive pulmonary disease, unspecified (10) Diabetes mellitus Code(s): E11.9 - TYPE 2 DIABETES MELLITUS WITHOUT COMPLICATIONS Status: Chronic Qualifiers: Diabetes mellitus type: type 2 Diabetes mellitus complication status: without complication (11) HLD (hyperlipidemia) Code(s): E78.5 - HYPERLIPIDEMIA, UNSPECIFIED Status: Chronic Qualifiers: Hyperlipidemia type: unspecified Qualified Code(s): E78.5 - Hyperlipidemia , unspecified Comment: (12) HTN (hypertension) Code(s): I10 - ESSENTIAL (PRIMARY) HYPERTENSION Status: Chronic Qualifiers: Comment: (13) Hypothyroidism Code(s): E03.9 - HYPOTHYROIDISM, UNSPECIFIED Status: Chronic Comment: on levothyroxine (14) Neutropenia Code(s): D70.9 - NEUTROPENIA, UNSPECIFIED Status: Resolved Comment: (15) Normocytic anemia Code(s): D64.9 - ANEMIA, UNSPECIFIED Status: Chronic (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 Code(s): C83.00 - SMALL CELL B-CELL LYMPHOMA, UNSPECIFIED SITE Status: Chronic Qualifiers: Lymphoma site: unspecified region Qualified Code(s): C83.00 - Small cell B- cell lymphoma, unspecified site (17) SONIYA (acute kidney injury) Code(s): N17.9 - ACUTE KIDNEY FAILURE, UNSPECIFIED Status: Resolved (18) Sepsis Code(s): A41.9 - SEPSIS, UNSPECIFIED ORGANISM Status: Resolved - Plan cont current plan of care, PT/OT, 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 * medication reviewed as below * symptomatic treatment Review of Systems - Review of Systems ENT: negative: Ear Pain, Ear Discharge, Nose Pain, Nose Discharge, Nose Congestion, Mouth Pain, Mouth Swelling, Throat Pain, Throat Swelling, Other Respiratory: SOB with Excertion. negative: Cough, Dry, Shortness of Breath, Hemoptysis, Pleuritic Pain, Sputum, Wheezing Cardiovascular: edema. negative: chest pain, palpitations, orthopnea, paroxysmal nocturnal dyspnea, light headedness, other Gastrointestinal: negative: Nausea, Vomiting, Abdominal Pain, Diarrhea, Constipation, Melena, Hematochezia, Other Genitourinary: negative: Dysuria, Frequency, Incontinence, Hematuria, Retention , Other Musculoskeletal: negative: Neck Pain, Shoulder Pain, Arm Pain, Back Pain, Hand Pain, Leg Pain, Foot Pain, Other Skin: negative: Rash, Lesions, James, Bruising, Other - Medications/Allergies Allergies/Adverse Reactions: Allergies Allergy/AdvReac Type Severity Reaction Status Date / Time Latex, Natural Rubber Allergy Verified 09/17/18 14:02 milk Allergy Verified 09/17/18 14:02 Penicillins Allergy Verified 09/30/18 02:11 Medications: Current Medications Acetaminophen (Tylenol) 650 mg PO Q4H PRN PRN Reason: Headache/Fever/Mild Pain (1-3) Last Admin: 10/30/18 05:25 Dose: 650 mg Albuterol/Ipratropium (Duoneb) 3 ml NEB [id number] [facility] Last Admin: 11/05/18 09:42 Dose: Not Given Albuterol/Ipratropium (Duoneb) 3 ml NEB Q4H PRN PRN Reason: SOB/WHEEZE Last Admin: 10/27/18 03:22 Dose: 3 ml Alprazolam (Xanax) 0.25 mg PO QID PRN PRN Reason: Anxiety Last Admin: 11/04/18 14:56 Dose: 0.25 mg Amlodipine Besylate (Norvasc) 10 mg PO DAILY [facility] Last Admin: 11/05/18 09:37 Dose: 10 mg Atorvastatin Calcium (Lipitor) 20 mg PO HS [facility] Last Admin: 11/05/18 09:23 Dose: Not Given Bisacodyl (Dulcolax) 10 mg [place] DAILYPRN PRN PRN Reason: Constipation Carvedilol (Coreg) 6.25 mg PO BID [facility] Last Admin: 11/05/18 09:40 Dose: 6.25 mg Ciprofloxacin (Cipro) 500 mg PO 1000 [facility] Last Admin: 11/05/18 09:41 Dose: 500 mg Clonidine (Catapres) 0.1 mg PO BID [facility] Last Admin: 11/05/18 09:37 Dose: 0.1 mg Dextrose/Water (Dextrose 50%) 25 gm SLOW IVP PRN PRN PRN Reason: Hypoglycemia Ferrous Sulfate (Feosol) 325 mg PO BID [facility] Last Admin: 11/05/18 09:40 Dose: 325 mg Finasteride (Proscar) 5 mg PO DAILY [facility] Last Admin: 11/05/18 09:36 Dose: 5 mg Furosemide (Lasix) 40 mg PO DAILY-AC [facility] Last Admin: 11/05/18 09:39 Dose: 40 mg Glucagon (Glucagon) 1 mg IM PRN PRN PRN Reason: Hypoglycemia Guaifenesin (Mucinex) 600 mg PO BID [facility] Last Admin: 11/05/18 09:40 Dose: 600 mg Hydralazine HCl (Apresoline) 25 mg PO TID [facility] Last Admin: 11/05/18 09:39 Dose: 25 mg Dextrose/Water (D5w) 1,000 mls @ 0 mls/hr IV .Q0M PRN PRN Reason: Hypoglycemia Paclitaxel 90 mg/ Sodium (Chloride) 265 mls @ 265 mls/hr IVPB WILLCALL [facility] Last Admin: 11/03/18 10:34 Dose: 265 mls Ondansetron HCl 10 mg/Dexamethasone 10 mg/ Sodium Chloride 56 mls @ 112 mls/hr IVP WILLCALL [facility] Last Admin: 11/03/18 09:41 Dose: 56 mls Insulin Human Lispro (Humalog) 0 units SC .AGGRESSIVE SLIDING PRN PRN Reason: Aggressive Correctional Scale Last Admin: 11/03/18 20:31 Dose: 6 unit Levothyroxine Sodium (Synthroid) 12.5 mcg PO 0600 [facility] Last Admin: 11/05/18 09:25 Dose: Not Given Loratadine (Claritin) 10 mg PO DAILY [facility] Last Admin: 11/05/18 09:39 Dose: 10 mg Mometasone Furoate (Asmanex) 1 puff INH 1830 [facility] Last Admin: 11/04/18 19:27 Dose: 1 puff Ondansetron HCl (Zofran Odt) 8 mg SL BID PRN PRN Reason: Nausea/Vomiting Ondansetron HCl (Zofran) 4 mg IVP Q6H PRN PRN Reason: Nausea/Vomiting Last Admin: 11/04/18 19:39 Dose: 4 mg Pantoprazole Sodium (Protonix) 40 mg PO DAILY [facility] Last Admin: 11/05/18 09:40 Dose: 40 mg Polyethylene Glycol (Miralax) 17 gm PO DAILY PRN PRN Reason: Constipation Last Admin: 11/05/18 09:35 Dose: 17 gm Saccharomyces Boulardii (Florastor) 250 mg PO DAILY [facility] Last Admin: 11/05/18 09:40 Dose: 250 mg Sodium Chloride (Flush - Normal Saline) 10 ml IVF Q12HR [facility] Last Admin: 11/05/18 09:43 Dose: 10 ml Sodium Chloride (Flush - Normal Saline) 10 ml IVF PRN PRN PRN Reason: Saline Flush Last Admin: 11/04/18 06:28 Dose: 10 ml Sterile Water (Bacteriostatic Water) 1 ml FS PRN PRN PRN Reason: RECONSTITUTION Tamsulosin HCl (Flomax) 0.4 mg PO DAILY [facility] Last Admin: 11/05/18 09:43 Dose: 0.4 mg Tamsulosin HCl (Flomax) 0.4 mg PO HS [facility] Last Admin: 11/05/18 09:25 Dose: Not Given
[2018-11-05] MEDS: HumaLOG 300 UNITS/3 ML VIAL SC PRN (11:35)
[2018-11-05 15:23] LABS: ALT (SGPT) 12 U/L (8-55); AST (SGOT) 17 U/L (5-34); Alkaline Phosphatase 67 U/L (40-150); Anion Gap 12 mmol/L (10-20); BUN (Urea Nitrogen) 75 mg/dL (8.4-25.7); Bilirubin, Total 0.3 mg/dL (0.2-1.2); Calc. Creatinine Clearance 32 mL/min (70-130); Calcium 8.1 mg/dL (7.8-10.44); Carbon Dioxide 36 mmol/L (23-31); Chloride 95 mmol/L (98-107); Estimated GFR-MDRD 38; Glucose 118 mg/dL (83-110); Sodium 138 mmol/L (136-145)
[2018-11-05 16:19] LABS: Hemoglobin 7.7 g/dL (14.0-18.0); Mean Corpuscular HGB CONC 31.9 g/dL (32.0-36.0); Mean Corpuscular Hemoglobin 28.8 pg (27.0-31.0); Mean Corpuscular Volume 90.5 fL (78.0-98.0); RBC Distribution Width 17.3 % (11.5-14.5); White Blood Cell (WBC) Count 5.2 thou/uL (4.8-10.8)
[2018-11-05 16:20] LABS: #Lymphocytes 1.5 thou/uL (1.20-3.40); #Monocytes 0.2 thou/uL (0.11-0.59); #Neutrophils 3.4 thou/uL (1.40-6.50); %Basophils 0.8 % (0.0-1.0); %Eosinophils 0.7 % (0.0-10.0); %Lymphocytes 28.9 % (21.0-51.0); %Monocytes 4.2 % (0.0-10.0); %Neutrophils 65.5 % (42.0-75.0); Mean Platelet Volume 7.4 fL (7.4-10.4); Platelet Count 66 thou/uL (130-400)
[2018-11-05 16:21] LABS: Platelet Morphology Comment Appears Decreased; Polychromasia SLIGHT = 2-3 cells (100X) (0-2/hpf)
[2018-11-05 16:35] LABS: Anion Gap 15 mmol/L (10-20); BUN (Urea Nitrogen) 73 mg/dL (8.4-25.7); Calc. Creatinine Clearance 31 mL/min (70-130); Calcium 7.7 mg/dL (7.8-10.44); Carbon Dioxide 32 mmol/L (23-31); Chloride 95 mmol/L (98-107); Estimated GFR-MDRD 37; Glucose 128 mg/dL (83-110); Potassium 4.9 mmol/L (3.5-5.1); Sodium 137 mmol/L (136-145)
[2018-11-05] MEDS: Mometasone Furoate 30 PUFF 220 MCG INH SCH (18:06)
[2018-11-05] MEDS: ALPRAZolam 0.25 MG TAB PO PRN (23:00)
[2018-11-06] MEDS: Levothyroxine Sodium 25 MCG TAB PO SCH (06:05)
[2018-11-06 07:02] LABS: #Lymphocytes 0.8 thou/uL (1.20-3.40); #Monocytes 0.1 thou/uL (0.11-0.59); #Neutrophils 1.4 thou/uL (1.40-6.50); %Basophils 0.3 % (0.0-1.0); %Eosinophils 0.5 % (0.0-10.0); %Lymphocytes 33.8 % (21.0-51.0); %Monocytes 4.3 % (0.0-10.0); Hemoglobin 7.2 g/dL (14.0-18.0); Mean Corpuscular HGB CONC 31.8 g/dL (32.0-36.0); Mean Platelet Volume 7.8 fL (7.4-10.4); Platelet Count 53 thou/uL (130-400); RBC Distribution Width 17.2 % (11.5-14.5); Red Blood Cell (RBC) Count 2.48 mill/uL (4.70-6.10); White Blood Cell (WBC) Count 2.3 thou/uL (4.8-10.8)
[2018-11-06 07:04] LABS: MDiff Complete? YES; Platelet Morphology Comment Appears Decreased; Tear Drops SLIGHT = 2-5 cells (100X) (0-1/hpf)
[2018-11-06 07:36] VITALS: TEMP 97.6
[2018-11-06] MEDS: Polyethylene Glycol 3350 17 GM Packet PO PRN (08:15)
[2018-11-06] MEDS: Saccharomyces boulardii 250 MG CAP PO SCH (08:15)
[2018-11-06] MEDS: Ferrous Sulfate 325 MG TAB PO SCH (08:15)
[2018-11-06] MEDS: cloNIDine 0.1 MG TAB PO SCH (08:15)
[2018-11-06] MEDS: Loratadine 10 MG TAB PO SCH (08:16)
[2018-11-06] MEDS: Tamsulosin HCl 0.4 MG CAP PO SCH (08:16)
[2018-11-06] MEDS: Carvedilol 6.25 MG TAB PO SCH (08:16)
[2018-11-06] MEDS: Amlodipine 10 MG TAB PO SCH (08:16)
[2018-11-06] MEDS: hydrALAZINE 25 MG TAB PO SCH (08:16)
[2018-11-06] MEDS: Ciprofloxacin 500 MG TAB PO SCH (08:16)
[2018-11-06] MEDS: Furosemide 40 MG TAB PO SCH (08:16)
[2018-11-06] MEDS: Finasteride 5 MG TAB PO SCH (08:16)
[2018-11-06] MEDS: guaiFENesin ER 600 MG TAB PO SCH (08:16)
[2018-11-06 08:21] VITALS: BP 164/71
--- NOTE | 2018-11-06 09:03 | PRG ---
DATE OF SERVICE: 11/06/2018 SUBJECTIVE: This morning, he is awake, alert, responsive, less short of breath, still weak. OBJECTIVE: VITAL SIGNS: Blood pressure 164/71, temperature 97, respiratory rate 18. His I's and O's have been consistently negative. CHEST: Decreased breath sounds. No wheezing. CARDIAC: Normal S1, S2. No gallops. ABDOMEN: No masses. LABORATORY DATA: H and H of 7 and 21, platelet count is 53,000, has decreased somewhat. His H and H have decreased a little bit. His BUN and creatinine are slightly elevated at 1.78 and BUN of 73. IMPRESSION: 1. Respiratory failure. 2. Congestive heart failure. 3. Chronic obstructive pulmonary disease. 4. Squamous cell carcinoma. 5. Renal failure aggravated by diuretics. PLAN: 1. We want to hold his diuretics for several days. Restart at a later time at lower dose. 2. Otherwise supportive care PT. Follow up in the office as needed. Job ID: [id number]
[2018-11-06 11:13] LABS: Red Blood Cell (RBC) Count 2.68 mill/uL (4.70-6.10)
[2018-11-06] MEDS: HumaLOG 300 UNITS/3 ML VIAL SC PRN (11:35)
--- NOTE | 2018-11-06 11:37 | DIS ---
DATE OF ADMISSION: 10/24/2018 DATE OF DISCHARGE: 11/06/2018 PRIMARY CARE PHYSICIAN: [facility] Call admission. DISCHARGE DISPOSITION: Home with home oxygen and home health for nursing home and PT. PRIMARY DISCHARGE DIAGNOSES: 1. Urinary retention, resolved. 2. Sepsis, resolved. 3. Pneumonia, improving. 4. Pancytopenia, resolved. 5. Acute kidney failure, improved. 6. Acute on diastolic heart failure, improving. 7. Hyperkalemia, improved. 8. Acute on chronic respiratory failure with hypoxia. SECONDARY DISCHARGE DIAGNOSES: 1. Anemia of chronic disease. 2. Aortic stenosis. 3. Coronary artery disease. 4. Chronic obstructive pulmonary disease. 5. Diabetes, type 2. 6. Normocytic anemia. 7. Hypothyroidism. 8. Squamous cell carcinoma of lung. 9. Small B-cell lymphoma. PRIMARY PROCEDURE/OPERATION: Chemotherapy while in hospital. RADIOLOGICAL INVESTIGATION: Chest x-ray. SIGNIFICANT LABORATORY DATA: WBC 2.3, hemoglobin 7.2, and platelet 53. Sodium 137, potassium 4.9, BUN 73, creatinine 1.78, and calcium 7.7. LFT normal. Urinalysis normal. Blood culture negative. DISCHARGE MEDICATIONS: 1. ProAir HFA q.4 hourly p.r.n. 2. Amlodipine 10 mg daily. 3. Lipitor 20 mg p.o. at bedtime. 4. Coreg 6.25 mg b.i.d. 5. Cetirizine 5 mg p.o. daily. 6. Clonidine 0.1 mg p.o. b.i.d. 7. Ferrous sulfate 325 mg b.i.d. 8. Flovent 50 mcg inhalation b.i.d. 9. Hydralazine 25 mg t.i.d. 10. Atarax 10 mg daily. 11. Levothyroxine 13 mcg p.o. daily. 12. Metformin 500 mg p.o. daily. 13. Protonix 40 mg daily. 14. Flomax 0.4 mg p.o. daily. 15. Coenzyme Q10 of 10 mg p.o. t.i.d. 16. Lasix 40 mg b.i.d. 17. Mucinex 600 mg p.o. b.i.d. 18. DuoNeb q.6 hourly. 19. Levaquin 500 mg p.o. daily for 5 days. 20. Prednisone 5 mg p.o. as directed. 21. Florastor 250 mg p.o. daily. CONTRAINDICATION: None. CODE STATUS: Full code. INPATIENT FLIGHT DIRECTOR: Oncology Group was following while in hospital. Pulmonary Group was following while in hospital. TEST RESULTS PENDING ON DISCHARGE: None. ALLERGIES: PENICILLIN. DISCHARGE PLAN: Posthospital, the patient is discharged home with home oxygen, with home health, with PT, OT, and nursing home at home. The patient will follow up with Heart Failure [facility] on November 23, 2018, at 3:20 p.m. The patient will follow up with Oncology on December 10, 2018, at 12:00 p.m. The patient has appointment with Dr. Hunt on November 09, 2018 at 3:15 p.m. HOSPITAL COURSE: An 83-year-old male with above-mentioned medical problem, who had prolonged hospital course. He was initially admitted by Dr. Latham. Please see his H and P for further details. He was admitted on October 24, 2018. At that time, the patient was having respiratory symptoms with cough and shortness of breath. He was having acute on chronic respiratory failure. He was having sepsis criteria. He had initially pneumonia. He also had a febrile neutropenia. He was receiving chemotherapy. He had acute kidney injury. He was admitted to medical floor. Oncology Group and Pulmonary Group were consulted during this admission. The patient was treated with broad-spectrum antibiotic therapy. He was also given Neupogen while in hospital for his neutropenia and eventually, his neutropenia and pancytopenia was improving. The patient was to change antibiotic therapy to p.o. levofloxacin. The patient is doing very well from infection perspective. His culture remained negative. The patient also had acute on chronic diastolic heart failure and that was treated with Lasix while in hospital. The patient also received chemotherapy while in the hospital. This patient stayed in the hospital longer because he was having lot of edema in his leg and he was having dyspnea, but with the treatment, the patient's condition improved to his baseline. There was challenging problem for his discharge planning. The patient wanted to go home with home health, but ultimately family was trying to arrange assisted living facility and detention, but because the patient is getting chemotherapy and radiation therapy and that is why the patient was not able to find any placement and finally family agreed with private pay for some extra help at home and we arranged oxygen before discharge. We arranged home health for nursing home and PT at home. This patient is at high risk for recurrent admission, but by the time of discharge, all consultants cleared him for discharge and he is stable. He is ambulatory. He is maintaining his saturation with oxygen and he is tolerating p.o. well. PHYSICAL EXAMINATION: I have seen and examined the patient at the bedside today. VITAL SIGNS: Currently, temperature 97.6, pulse 78, respiratory rate 16, saturation 91% on 2 L oxygen, and blood pressure 164/71. Weight 158 pounds. GENERAL: The patient is currently alert, awake, in no obvious acute distress. HEENT: Head; normocephalic, atraumatic. LUNGS: Grossly clear to auscultation without any rhonchi or rales. CARDIAC: S1 and S2 appears regular. Soft systolic murmur noted. No gallop. No rub. ABDOMEN: Soft. Obesity present. EXTREMITIES: Bilateral lower extremity pitting edema noted. Good distal pulsation. No calf tenderness. SKIN: No skin rash. HEMATOLOGICAL SYSTEM: No lymphadenopathy. NEUROLOGICAL: Grossly nonfocal examination. Overall, the patient is medically stable for discharge today. Job ID: [id number]
== END 2018-11-06 15:20 | disposition home health service (06) | DRG 871 ==
LOC: ERS 03:00 → T4-A 03:50 → ONC 10-26 12:48
PROVIDERS: ADMIT Hospitalist; ATTEND Hospitalist
DX: A41.9 Sepsis, unspecified organism (principal); J18.9 Pneumonia, unspecified organism; J96.21 Acute and chronic respiratory failure with hypoxia; I50.31 Acute diastolic (congestive) heart failure; N17.9 Acute kidney failure, unspecified; C34.90 Malignant neoplasm of unspecified part of unspecified bronchus or lung; C85.10 Unspecified B-cell lymphoma, unspecified site; J90 Pleural effusion, not elsewhere classified; E87.5 Hyperkalemia; I35.0 Nonrheumatic aortic (valve) stenosis; E11.9 Type 2 diabetes mellitus without complications; E03.9 Hypothyroidism, unspecified; Z66 Do not resuscitate; D70.1 Agranulocytosis secondary to cancer chemotherapy; T45.1X5A Adverse effect of antineoplastic and immunosuppressive drugs, initial encounter; N40.0 Benign prostatic hyperplasia without lower urinary tract symptoms; E78.5 Hyperlipidemia, unspecified; J44.9 Chronic obstructive pulmonary disease, unspecified; Z90.49 Acquired absence of other specified parts of digestive tract; Z95.1 Presence of aortocoronary bypass graft; Z88.0 Allergy status to penicillin; Z91.040 Latex allergy status; Z91.048 Other nonmedicinal substance allergy status
CPT/HCPCS: 36415; 36416; 71045; 77014; 77336; 77412; 77417; 80048; 80053; 80202; 81001; 82550; 83605; 83880; 84484; 85025; 87040; 93005; 94640; 94760; 96365; J0692; J1100; J1447; J1642; J1940; J1956; J2185; J2405; J2920; J3370; J3490; J7050; J7512; J7620; J9045; J9267; Q0162

== ENCOUNTER 2018-11-11 11:14 | Observation (INO) | payer MEDICARE, OTHER ==
--- NOTE | 2018-11-11 11:56 | RAD ---
CHEST 1 VIEW: HISTORY: Dyspnea. COMPARISON: Radiograph of 11/04/2018. FINDINGS: Mildly enlarging large right and moderate pleural effusion. Moderate edema, slightly worse. No pneu mothorax. Port catheter tip inferior SVC. Cardiac silhouette is similar. IMPRESSION: Worsening pulmonary edema and effusions. POS: [facility]
[2018-11-11 12:08] LABS: Hemoglobin 6.4 g/dL (14.0-18.0); Mean Corpuscular HGB CONC 33.4 g/dL (32.0-36.0); Mean Corpuscular Hemoglobin 30.5 pg (27.0-31.0); Mean Corpuscular Volume 91.4 fL (78.0-98.0); Mean Platelet Volume 8.3 fL (7.4-10.4); Platelet Count 71 thou/uL (130-400); RBC Distribution Width 17.6 % (11.5-14.5); Red Blood Cell (RBC) Count 2.08 mill/uL (4.70-6.10)
[2018-11-11 12:22] LABS: ALT (SGPT) 9 U/L (8-55); AST (SGOT) 16 U/L (5-34); Alkaline Phosphatase 58 U/L (40-150); Anion Gap 9 mmol/L (10-20); BUN (Urea Nitrogen) 55 mg/dL (8.4-25.7); Bilirubin, Total 0.3 mg/dL (0.2-1.2); CK (CPK) 15 U/L (30-200); Calc. Creatinine Clearance 0 mL/min (70-130); Calcium 8.2 mg/dL (7.8-10.44); Carbon Dioxide 34 mmol/L (23-31); Chloride 96 mmol/L (98-107); Estimated GFR-MDRD 33; Globulin 2.1 g/dL (2.4-3.5); Glucose 119 mg/dL (83-110); Potassium 5.3 mmol/L (3.5-5.1); Protein, Total 5.1 g/dL (5.8-8.1); Sodium 134 mmol/L (136-145)
[2018-11-11 12:49] LABS: Band 4 % (5-11); Eosinophils 2 % (0-10); Lymphocytes 62 % (21-51); MDiff Complete? YES; Monocytes 8 % (0-10); Neutrophil 24 % (42-75); Platelet Morphology Comment Appears Decreased; Polychromasia SLIGHT = 2-3 cells (100X) (0-2/hpf)
[2018-11-11] MEDS ORDERED: Furosemide 20 MG/2 ML VIAL ONE (13:45)
[2018-11-11] MEDS ORDERED: Dextrose 5% in Water 1,000 ML IV PRN (14:15)
[2018-11-11] MEDS ORDERED: HumaLOG 300 UNITS/3 ML VIAL SC PRN ×2 (14:15)
[2018-11-11] MEDS ORDERED: Dextrose 50% Abboject 50 ML SYRINGE SLOW IVP PRN (14:15)
[2018-11-11] MEDS ORDERED: Ondansetron PF 4 MG/2 ML Vial IVP PRN ×2 (14:19)
[2018-11-11] MEDS ORDERED: Nitroglycerin 0.4 MG TAB (25 Tab Bottle) SL PRN (14:19)
[2018-11-11] MEDS ORDERED: Calcium Carbonate 500 MG ChewTAB PO PRN (14:19)
[2018-11-11] MEDS ORDERED: Diabetic Tussin 200 MG/10 ML UDCUP PO PRN (14:19)
[2018-11-11] MEDS ORDERED: Bisacodyl 5 MG TAB PO PRN (14:19)
[2018-11-11] MEDS ORDERED: cloNIDine 0.1 MG TAB PO PRN (14:19)
[2018-11-11] MEDS ORDERED: Benzonatate 100 MG CAP PO PRN (14:19)
[2018-11-11] MEDS ORDERED: hydrALAZINE 20 MG/ML VIAL SLOW IVP PRN (14:19)
[2018-11-11] MEDS ORDERED: Senokot S 8.6-50 MG TAB PO PRN (14:19)
[2018-11-11] MEDS ORDERED: Acetaminophen 325 MG TAB PO PRN (14:19)
[2018-11-11] MEDS: Ferrous Sulfate 325 MG TAB PO SCH (16:24)
[2018-11-11 16:35] VITALS: BMI 26.5
[2018-11-11] MEDS ORDERED: Fluticasone Propionate [Flovent Diskus] 50 MCG INH SCH (18:30)
[2018-11-11] MEDS ORDERED: Atorvastatin Calcium 20 MG TAB PO SCH (21:00)
[2018-11-11] MEDS: Carvedilol 6.25 MG TAB PO SCH (21:32)
[2018-11-12 01:06] LABS: Hemoglobin 8.8 g/dL (14.0-18.0)
[2018-11-12] MEDS ORDERED: ALPRAZolam 0.25 MG TAB PO PRN (01:21)
[2018-11-12 04:50] LABS: Hemoglobin 8.7 g/dL (14.0-18.0); Mean Corpuscular HGB CONC 32.9 g/dL (32.0-36.0); Mean Corpuscular Hemoglobin 29.7 pg (27.0-31.0); Mean Corpuscular Volume 90.2 fL (78.0-98.0); Mean Platelet Volume 7.2 fL (7.4-10.4); Platelet Count 59 thou/uL (130-400); RBC Distribution Width 15.7 % (11.5-14.5); Red Blood Cell (RBC) Count 2.94 mill/uL (4.70-6.10); White Blood Cell (WBC) Count 0.9 thou/uL (4.8-10.8)
[2018-11-12 05:00] LABS: Anion Gap 15 mmol/L (10-20); BUN (Urea Nitrogen) 59 mg/dL (8.4-25.7); Calc. Creatinine Clearance 33 mL/min (70-130); Calcium 8.3 mg/dL (7.8-10.44); Carbon Dioxide 30 mmol/L (23-31); Chloride 94 mmol/L (98-107); Estimated GFR-MDRD 36; Glucose 133 mg/dL (83-110); Potassium 5.4 mmol/L (3.5-5.1); Sodium 134 mmol/L (136-145)
[2018-11-12 05:26] LABS: Band 4 % (5-11); Eosinophils 2 % (0-10); Lymphocytes 54 % (21-51); MDiff Complete? YES; Monocytes 18 % (0-10); Neutrophil 20 % (42-75); Platelet Morphology Comment Appears Decreased
[2018-11-12] MEDS ORDERED: Artificial Tear Sol 15 ML BOT EA EYE PRN (05:36)
[2018-11-12] MEDS ORDERED: LEVOTHYROXINE SODIUM 13 MCG PO SCH (06:00)
--- NOTE | 2018-11-12 07:50 | HP ---
PRIMARY CARE PHYSICIAN: None. CHIEF COMPLAINT: Generalized weakness and shortness of breath. HISTORY OF PRESENTING ILLNESS: Mr. Sanchez is an 83-year-old male who was recently discharged from our facility on 11/06/2018. He came back to the emergency room with above-mentioned complaint. History is mainly obtained by the patient himself who is a very poor historian, and the history is very sketchy. Case has been discussed with admitting ER physician. Electronic medical records have been reviewed. The patient was recently admitted to our facility from 10/24/2018 through 11/06/2018. During this time, he was admitted and treated for pneumonia, sepsis, and urinary retention. He was treated with broad-spectrum antibiotics. He was also treated for acute on chronic diastolic congestive heart failure in the hospital. He was eventually discharged to home with home health. He is on chemotherapy for his history of squamous cell carcinoma of lung. During this hospitalization, he was found to be pancytopenic because of chemotherapy and received Neupogen in the hospital Pulmonary Medicine and Oncology during this admission. Today, he came back to the ER from home for complaints of just generalized malaise and weakness. When I asked him, he keeps on saying that he was just feeling lots of anxiety. He states that he was supposed to get chemotherapy yesterday, but he canceled because he was just not feeling very well. EMS was called to his house, and they reported some wheezing and lethargy. He was given Solu-Medrol en route. Upon presentation to the ER, he was 100% on room air, otherwise hemodynamically stable. His chest x-ray suggested some pulmonary vascular congestion. His 12-lead EKG showed rate controlled atrial fibrillation. His blood work suggested anemia with hemoglobin of 6.4, which was 7.2 on 11/06/2018. WBC count is 1.0. The patient reports that he received Neupogen yesterday. His neutrophils are 24%. Serum chemistry showed creatinine at 1.94, which was 1.65 two days ago. BNP is not terribly elevated at 316, which was 518 on 10/24/2018. ER COURSE: The patient received one dose of 40 mg of IV Lasix. ER physician, Dr. Mcmillan consulted with his oncologist, Dr. Yuen. Dr. Yuen recommended admission under observation status for packed RBC transfusion of 2 units. PAST MEDICAL HISTORY: Please see H and P dictated by Dr. Mesfin Latham dated on 10/24/2018. No changes were done. PAST SURGICAL HISTORY: Please see H and P dictated by Dr. Mesfin Latham dated on 10/24/2018. No changes were done. SOCIAL HISTORY: Please see H and P dictated by Dr. Mesfin Latham dated on 10/24/2018. No changes were done. FAMILY HISTORY: Please see H and P dictated by Dr. Mesfin Latham dated on 10/24/2018. No changes were done. ALLERGIES: LATEX, MILK, AND PENICILLIN. HOME MEDICATIONS: He was discharged on the following medications on 11/06/2018. He reports that he was finished with the levofloxacin. Other medications include: 1. Albuterol inhaler p.r.n. 2. Amlodipine 10 mg daily. 3. Lipitor 20 mg daily. 4. Coreg 6.25 b.i.d. 5. Cetirizine p.r.n. 6. Clonidine 0.1 mg p.o. b.i.d. 7. Ferrous sulfate 325 mg b.i.d. 8. Hydralazine 25 t.i.d. 9. Atarax 10 mg daily. 10. levothyroxine unknown dose. 11. Metformin 500 mg daily. 12. Protonix 40 mg daily. 13. Flomax 0.4 mg daily. 14. Lasix 40 mg p.o. b.i.d. 15. Mucinex 600 mg p.o. b.i.d. 16. DuoNebs q.6 p.r.n. 17. Medrol Dosepak. 18. Florastor daily. REVIEW OF SYSTEMS: A 14-point review of systems was done. It is negative except for those mentioned in the History and Physical. LABORATORY DATA: As per HPI. Hemoglobin 6.4 with hematocrit of 19, platelet count of 71, WBCs 1.0, neutrophils 24%. Serum chemistry; sodium of 134, potassium 5.3, chloride 96, bicarb 34, BUN 55, and creatinine 1.94. BNP 316. Troponin is negative. Chest x-ray by my review shows mild pulmonary vascular congestion and bilateral small pleural effusions. A 12-lead EKG shows rate controlled atrial fibrillation. PHYSICAL EXAMINATION: VITAL SIGNS: Upon presentation, blood pressure 112/47, pulse of 90, saturating 100% on room air, respirations 42, and temperature 97.3. GENERAL: He appears pale, otherwise in no acute distress. He is awake, alert, and oriented x3, though he does appear tired and lethargic. HEENT: Mucous membrane is slightly dry. No oropharyngeal exudate or erythema. Head is normocephalic and atraumatic. Pupils are equal and reactive to light and accommodation. Extraocular movements intact. NECK: Supple without any lymphadenopathy, JVD, or bruit. CHEST: Clear to auscultation except for a few bibasilar crackles. Rate and rhythm are regular without any murmurs, rubs, or gallops. ABDOMEN: Soft, nontender, and nondistended. Positive bowel sounds. EXTREMITIES: Free of any cyanosis, clubbing, or edema. NEUROLOGIC: Nonfocal. SKIN: Free of any rashes or bruises. Feels warm and dry to touch. He has some skin breakdown in the scrotal area. IMPRESSION AND PLAN: 1. Acute on chronic anemia due to chemotherapy. The patient will be transfused 2 units of packed RBC. He has already received Lasix earlier in the ER. If needed, we will repeat the dose of the Lasix in between both the units. We will check H and H after transfusion in the morning. Most likely, his symptoms are feeling of shortness of breath, tiredness and weakness because of this anemia. We will request consultation with his oncologist while in the hospital as well. 2. Pancytopenia due to chemotherapy. We will recheck in the morning. He does not appear to have any evidence of infection at this time. He reports that he received a dose of Neupogen yesterday. 3. Acute on chronic renal insufficiency. The patient is on diuretics. We will avoid this any further. He also has potential for fluid overload, so we will avoid IV fluids as well. Avoid any other nephrotoxic medications and monitor him in the hospital with repeat renal function panel in the morning. 4. Recent pneumonia and sepsis. The patient has finished the course of antibiotic in the outpatient setting. We will continue with his Florastor in hospital. 5. Chronic diastolic congestive heart failure. The most recent echocardiogram was done on 10/09/2018, which showed aortic stenosis, mild to moderate and left ventricular hypertrophy. At this time, he has renal insufficiency, so we will hold any more Lasix. 6. History of coronary artery disease. Restart home medication of carvedilol and statin. 7. Hypertension, well controlled. We will restart home medications, slowly to avoid any significant lowering of blood pressure. Add p.r.n. antihypertensives as well. 8. Code status; full code. Discussed with the patient. 9. Deep venous thrombosis and gastrointestinal prophylaxis. DISPOSITION: Mr. Sanchez is currently being admitted under observation status for acute anemia due to chemotherapy. He will be transfused and monitored overnight with possible discharge back home in the morning if his H and H are stable. Further management will depend upon his clinical course. Job ID: [id number]
[2018-11-12] MEDS ORDERED: hydrALAZINE 25 MG TAB PO SCH (09:00)
[2018-11-12] MEDS ORDERED: guaiFENesin ER 600 MG TAB PO SCH (09:00)
[2018-11-12] MEDS ORDERED: Loratadine 10 MG TAB PO SCH (09:00)
[2018-11-12] MEDS ORDERED: Enoxaparin Sodium 40 MG/0.4 ML SYRINGE SC SCH (09:00)
[2018-11-12] MEDS ORDERED: predniSONE 5 MG TAB PO SCH (09:00)
[2018-11-12] MEDS ORDERED: Furosemide 40 MG TAB PO SCH (09:00)
[2018-11-12] MEDS ORDERED: Tamsulosin HCl 0.4 MG CAP PO SCH (09:00)
[2018-11-12] MEDS ORDERED: Saccharomyces boulardii 250 MG CAP PO SCH (09:00)
[2018-11-12] MEDS ORDERED: Cetirizine HCl 10 MG TAB PO SCH (09:00)
[2018-11-12] MEDS ORDERED: Amlodipine 10 MG TAB PO SCH (09:00)
--- NOTE | 2018-11-12 09:11 | PDOC.PN ---
- Subjective Encounter Start Date: 11/12/18 Encounter Start Time: 09:07 Feels ok. Feels like his breathing is doing well. He understands that he will not be on further chemo for the lung cancer. Dr. Yuen will be working on getting imbruvica for the CLL. He does not believe the home help was adequate and he and his family will be working on that. Dr. Yuen ok with him going home today. Spoke with is nurse. Renewed some of his other home meds. - Objective Resuscitation Status - Order Detail: 11/12/18 08:23 Resuscitation Status Routine Resuscitation Status: DNAR: NO Resuscitation Discussed with: patient Vital Signs & Weight: Vital Signs (12 hours) Temp Pulse Resp BP BP Pulse Ox 11/12/18 07:54 87 20 99 11/12/18 07:46 99 11/12/18 07:30 97.3 F L 94 20 145/67 H 96 11/12/18 04:37 98.1 F 84 16 140/91 H 95 11/12/18 02:40 95 22 H 96 11/12/18 00:29 97.7 F 86 16 142/66 H 96 11/12/18 00:27 99.0 F 74 18 102/46 L 94 L 11/11/18 21:32 147/65 H Weight Weight 169 lb 9 oz I&O: 11/11/18 11/12/18 11/13/18 06:59 06:59 06:59 Intake Total 1130 Balance 1130 Result Diagrams: 11/12/18 04:26 11/12/18 04:26 Additional Labs: Accuchecks 11/12/18 11/11/18 11/11/18 05:10 20:32 16:08 POC Glucose 127 H 175 H 151 H Phys Exam - Physical Examination Constitutional: NAD Scattered wheezes and rales, but mild and fair air exch. Cardiovascular: RRR, no rub II/IV high pitched systolic M. Gastrointestinal: soft, non-tender, no distention, positive bowel sounds Musculoskeletal: no edema Psychiatric: normal affect, A&O x 3 Dx/Plan (1) Lung cancer Code(s): C34.90 - MALIGNANT NEOPLASM OF UNSP PART OF UNSP BRONCHUS OR LUNG Status: Acute (2) CLL (chronic lymphocytic leukemia) Code(s): C91.90 - LYMPHOID LEUKEMIA, UNSPECIFIED NOT HAVING ACHIEVED REMISSION Status: Acute (3) Aortic stenosis Code(s): I35.0 - NONRHEUMATIC AORTIC (VALVE) STENOSIS Status: Chronic Qualifiers: Cardiac valve disease etiology: nonrheumatic Qualified Code(s): I35.0 - Nonrheumatic aortic (valve) stenosis Comment: mild to moderate, with mild to moderate aortic regurgitation (4) CAD (coronary artery disease) Code(s): I25.10 - ATHSCL HEART DISEASE OF [place] CORONARY ARTERY W/O ANG PCTRS Status: Chronic Qualifiers: Coronary Disease-Associated Artery/Lesion type: bypass graft [place] vs. transplanted heart: [place] heart Associated angina: without angina Qualified Code(s): I25.810 - Atherosclerosis of coronary artery bypass graft(s) without angina pectoris Comment: cont Coreg, statin (5) COPD (chronic obstructive pulmonary disease) Status: Chronic Qualifiers: COPD type: unspecified COPD Qualified Code(s): J44.9 - Chronic obstructive pulmonary disease, unspecified (6) Diabetes mellitus Code(s): E11.9 - TYPE 2 DIABETES MELLITUS WITHOUT COMPLICATIONS Status: Chronic Qualifiers: Diabetes mellitus type: type 2 Diabetes mellitus complication status: without complication (7) HLD (hyperlipidemia) Code(s): E78.5 - HYPERLIPIDEMIA, UNSPECIFIED Status: Chronic Qualifiers: Hyperlipidemia type: unspecified Qualified Code(s): E78.5 - Hyperlipidemia , unspecified Comment: (8) HTN (hypertension) Code(s): I10 - ESSENTIAL (PRIMARY) HYPERTENSION Status: Chronic Qualifiers: Comment: (9) Hypothyroidism Code(s): E03.9 - HYPOTHYROIDISM, UNSPECIFIED Status: Chronic Comment: on levothyroxine (10) Hyperkalemia Code(s): E87.5 - HYPERKALEMIA Status: Acute (11) Acute on chronic renal failure Code(s): N17.9 - ACUTE KIDNEY FAILURE, UNSPECIFIED; N18.9 - CHRONIC KIDNEY DISEASE, UNSPECIFIED Status: Acute (12) CKD (chronic kidney disease), stage III Code(s): N18.3 - CHRONIC KIDNEY DISEASE, STAGE 3 (MODERATE) Status: Acute - Plan * Discussed with Dr. Yuen and [place]. * His anemia is slightly better after the transfusion. * He feels ok. * He has 14 more XRT treatments including today. * Plan is to go to XRT this afternoon. * He is ok to discharge after XRT, but he and his family are concerned about the home care situation. * Discussed with Case Management. She will work with patient and family. * Resuming home lasix dose. Will likely lower the potassium. Has CKD. * Will monitor. - Discharge Day Patient offered the following for tobacco cessation: nicotine replacement
[2018-11-12] MEDS: Ferrous Sulfate 325 MG TAB PO SCH (10:24)
[2018-11-12] MEDS: Carvedilol 6.25 MG TAB PO SCH (10:24)
[2018-11-12 12:54] VITALS: BP 151/70; TEMP 97.4
--- NOTE | 2018-11-12 13:56 | CON ---
DATE OF CONSULTATION: 11/12/2018 HISTORY OF PRESENT ILLNESS: Mr. Sanchez is an 83-year-old male with recently diagnosed stage II non-small cell lung cancer with right lobar collapse secondary to the malignancy. He has been undergoing radiation with chemotherapy, but the chemotherapy has been somewhat intermittent due to pancytopenia, which is from chemotherapy as well as from an underlying diagnosis of atypical CLL. Two days prior to the admission, he presented to my office with a hemoglobin of 6.8, and it was recommended that he get a blood transfusion. He could not come to the office and his children called several times saying they could not bring him in. We encouraged him to come for the transfusion as well as Neupogen injections, but they could not bring him and on the day of admission, he presented to the emergency room with a hemoglobin of 6.4. He was also edematous with volume overload and was admitted for observation. Today, he complains of shortness of breath. He is getting a nebulizer treatment currently. He is weak and has been lying in the bed at home most of the time. He does have pain in his back as well as pain in his legs. He states that he was at home. Without his oxygen consumption, he could not work to take anything. He was off his oxygen for 10 to 12 hours. All of this contributed to his emergency room visit. PAST MEDICAL HISTORY: 1. Recent diagnosis of stage II non-small cell lung cancer, currently undergoing radiation with weekly chemotherapy. 2. Atypical CLL. 3. COPD. 4. Congestive heart failure, mostly diastolic. 5. Deconditioning. 6. Hypertension. 7. Diabetes mellitus. 8. Chronic renal insufficiency. CURRENT MEDICATIONS: 1. Tylenol p.r.n. 2. DuoNeb q.4 hours. 3. Xanax 0.25 mg p.o. daily p.r.n. 4. Norvasc 10 mg p.o. daily. 5. Lipitor 20 mg p.o. at bedtime. 6. Tessalon Perles. 7. Dulcolax p.r.n. 8. Tums p.r.n. 9. Coreg 6.25 mg p.o. b.i.d. 10. Clonidine 0.1 mg p.o. q.4 hours p.r.n. 11. Lovenox 40 mg subcu daily. 12. FeroSul 325 mg p.o. b.i.d. 13. Glucagon p.r.n. 14. Guaifenesin 200 mg p.o. q.4 hours p.r.n. cough. 15. Hydralazine 10 mg IV q.4 hours p.r.n. 16. Insulin lispro sliding scale. 17. Nitrostat 0.4 mg sublingual q.5h minutes p.r.n. 18. Zofran 4 mg IV q.6 hours p.r.n. 19. Fluticasone inhaler. 20. Levothyroxine 13 mcg p.o. daily. 21. Florastor 250 mg p.o. daily. 22. Senokot 2 tabs p.o. b.i.d. 23. Flomax 0.4 mg p.o. daily. ALLERGIES: LATEX, NATURAL RUBBER, MILK, AND PENICILLINS. SOCIAL HISTORY: He lives alone. His last year. He has 4 children, who are quite helpful, but they have not been able to take off work to take care of him. He denies recent tobacco use, but does have an extensive tobacco history with smoking. He denies alcohol use. FAMILY HISTORY: Negative. REVIEW OF SYSTEMS: Otherwise, 10-point review of systems is negative including no fevers. PHYSICAL EXAMINATION: VITAL SIGNS: Temperature 97.3, pulse 84 to 94, respirations 16 to 20, O2 saturation 96% on a Venturi mask, and pressure 145/67. GENERAL: He is elderly, getting a breathing treatment, currently in no acute distress. HEENT: Extraocular muscles are intact. Pupils are equal, round, and reactive to light. He has no oral cavity lesions. He does have poor dentition. NECK: Supple without lymphadenopathy. CARDIOVASCULAR: Regular rhythm. LUNGS: Bilateral scattered wheezes. ABDOMEN: Hypoactive bowel sounds. Soft and nontender. EXTREMITIES: 1 to 2+ pitting edema bilaterally. No clubbing or cyanosis. No petechiae. LABORATORY DATA: White blood cell count 0.9; hemoglobin 8.7, at presentation his hemoglobin was 6.4; and platelets 59,000. Sodium 134, potassium 5.4, chloride 94, CO2 of 30, BUN 59, creatinine 1.8, glucose 133, and calcium 8.3. IMAGING DATA: Chest x-ray done in the emergency room shows worsening pulmonary edema and bilateral effusions. ASSESSMENT: Mr. Sanchez is an 83-year-old male with, 1. Stage II non-small cell lung cancer, currently getting radiation with chemotherapy. 2. Pancytopenia secondary to chemotherapy and underlying atypical chronic lymphocytic leukemia. 3. Chronic obstructive pulmonary disease. 4. Congestive heart failure with an exacerbation. 5. Anemia, requiring a blood transfusion. 6. Chronic renal insufficiency. 7. Multiple psychosocial issues including living alone. PLAN: 1. He has already been transfused, I would not give him any more blood products at this time. 2. Hold Lovenox for platelets less than 50. 3. I have discussed the case with Dr. Hunt and I do not think that the patient will tolerate any further weekly chemotherapy, I think we will be herminia to complete the radiation course and Dr. Hunt will be over to assess him today to decide if we can continue radiation. 4. Ultimately, I think that he is somewhat of a placement issue. I am not sure that he can go home again and he will likely need to be placed in a retirement or in a skilled unit. I did discuss code status with the patient and he is adamant that he wants to be a DNR. 5. I think ultimately if we complete the radiation, he may rally and we will have to see how he is feeling at that time. I am attempting to get him Imbruvica as an outpatient for the CLL, we have met some resistance with this because he continues to be in the hospital and it has been difficult to get the drug paid for because he is hospitalized. We will continue to work on this. 6. We will follow with you. Job ID: [id number]
[2018-11-12] MEDS ORDERED: metFORMIN 500 MG TAB PO SCH (21:00)
--- NOTE | 2018-11-13 12:55 | EKG ---
Test Reason : Blood Pressure : / mmHG Vent. Rate : 089 BPM Atrial Rate : 312 BPM P-R Int : 000 ms QRS Dur : 146 ms QT Int : 382 ms P-R-T Axes : 000 089 010 degrees QTc Int : 464 ms Atrial flutter with variable A-V block Right bundle branch block Abnormal ECG No change from previous Confirmed by CAMILA MENCHACA, ALEX ([id number]), tape editor ALBERT KURTZ ([id number]) on 11/13/2018 12:55:18 PM Referred By: Confirmed By:ALEX JENSEN MD
== END 2018-11-12 16:46 | disposition home health service (06) ==
LOC: ERS 11:14 → ONC 13:20
PROVIDERS: ADMIT Internal Medicine; ATTEND Internal Medicine
DX: C34.90 Malignant neoplasm of unspecified part of unspecified bronchus or lung (principal); D64.81 Anemia due to antineoplastic chemotherapy; D61.810 Antineoplastic chemotherapy induced pancytopenia; J44.9 Chronic obstructive pulmonary disease, unspecified; C91.90 Lymphoid leukemia, unspecified not having achieved remission; I13.0 Hypertensive heart and chronic kidney disease with heart failure and stage 1 through stage 4 chronic kidney disease, or unspecified chronic kidney disease; E11.22 Type 2 diabetes mellitus with diabetic chronic kidney disease; N18.3 Chronic kidney disease, stage 3 (moderate); I50.32 Chronic diastolic (congestive) heart failure; N17.9 Acute kidney failure, unspecified; I35.0 Nonrheumatic aortic (valve) stenosis; E78.5 Hyperlipidemia, unspecified; E03.9 Hypothyroidism, unspecified; E87.5 Hyperkalemia; A41.9 Sepsis, unspecified organism; J18.9 Pneumonia, unspecified organism; I45.10 Unspecified right bundle-branch block; I25.10 Atherosclerotic heart disease of native coronary artery without angina pectoris; Z95.5 Presence of coronary angioplasty implant and graft; Z87.891 Personal history of nicotine dependence; Z88.0 Allergy status to penicillin; Z91.040 Latex allergy status; Z91.011 Allergy to milk products; Z91.048 Other nonmedicinal substance allergy status; Z79.4 Long term (current) use of insulin; Z79.899 Other long term (current) drug therapy
CPT/HCPCS: 36430; 71045; 77014; 77412; 80048; 80053; 82550; 82962 ×2; 83880; 84484; 85014; 85018; 85025 ×2; 86850; 86900; 86901; 86920; 93005; 94640 ×2; 96372; 96374; 96376; 97139; 99285; G0378 ×2; P9016; 36415; 36416; J1447; J1650; J1940; J7620

== ENCOUNTER 2018-11-13 20:25 | Inpatient (IN) | payer MEDICARE, OTHER ==
[2018-11-13 21:20] LABS: Hemoglobin 8.5 g/dL (14.0-18.0); Mean Corpuscular HGB CONC 31.5 g/dL (32.0-36.0); Mean Corpuscular Volume 92.3 fL (78.0-98.0); RBC Distribution Width 16.7 % (11.5-14.5); Red Blood Cell (RBC) Count 2.92 mill/uL (4.70-6.10); White Blood Cell (WBC) Count 2.6 thou/uL (4.8-10.8)
--- NOTE | 2018-11-13 21:40 | RAD ---
CHEST ONE VIEW: 11/13/18 COMPARISON: 11/11/18. HISTORY: Pain. FINDINGS: Stable sternotomy wires and left sided Port-A-Cath. There are pleural and parenchymal changes which c ontinue to obscure the heart border as well as the diaphragms. Stable atherosclerosis. No pneumothora x. IMPRESSION: No significant interval change. POS: [facility]
[2018-11-13 21:41] LABS: Band 20 % (5-11); Eosinophils 4 % (0-10); Hypochromia SLIGHT = 6-15 cells (100X) (0-5/hpf); Lymphocytes 40 % (21-51); MDiff Complete? YES; Mean Platelet Volume 6.8 fL (7.4-10.4); Monocytes 18 % (0-10); Neutrophil 18 % (42-75); Platelet Count 66 thou/uL (130-400); Platelet Morphology Comment Appears Decreased
[2018-11-13 21:46] LABS: Bilirubin Negative (Negative); Blood, Urine Negative (Negative); Clarity CLEAR (Clear); Glucose, Urine (Dipstick) Negative (Negative); Leukocyte Negative (Negative); Nitrite Negative (Negative); Protein, Urine (Dipstick) 100 mg/dL (Neg-Trace); Urobilinogen 0.2 mg/dL (0.2-1.0)
[2018-11-13 21:47] LABS: Bacteria/HPF None Seen HPF (None Seen); Hyaline Casts/LPF 0-3 HYALINE CAST LPF (0-3 Hyaline); Pathc Cast-AUWi Flag 0.13 (0-2.49); RBC/HPF 0-3 HPF (0-3); Squamous Epithelial None Seen HPF (0-3); WBC/HPF 0-3 HPF (0-3)
[2018-11-13 21:49] LABS: ALT (SGPT) 10 U/L (8-55); AST (SGOT) 11 U/L (5-34); Albumin 3.1 g/dL (3.4-4.8); Alkaline Phosphatase 61 U/L (40-150); Anion Gap 11 mmol/L (10-20); BUN (Urea Nitrogen) 59 mg/dL (8.4-25.7); Bilirubin, Total 0.5 mg/dL (0.2-1.2); Calc. Creatinine Clearance 0 mL/min (70-130); Calcium 8.1 mg/dL (7.8-10.44); Carbon Dioxide 35 mmol/L (23-31); Chloride 94 mmol/L (98-107); Estimated GFR-MDRD 35; Globulin 2.1 g/dL (2.4-3.5); Glucose 163 mg/dL (83-110); Magnesium 1.6 mg/dL (1.6-2.6); Potassium 4.8 mmol/L (3.5-5.1); Protein, Total 5.2 g/dL (5.8-8.1); Sodium 135 mmol/L (136-145)
--- NOTE | 2018-11-13 22:10 | CT ---
EXAM: Brain CT scan Without contrast: HISTORY: Altered mental status history of lung cancer worsening weakness COMPARISON: 09/11/2011 FINDINGS: Tiny punctate stable bilateral cortical calcifications. Small right basal ganglia stable lacunar infarct. Atrophy and chronic white matter ischemic change. No focal mass or midline shift. No intra or extra-axial hemorrhage. The visualized sinuses and mastoids are clear of acute process. IMPRESSION: No mass or bleed or other significant acute intracranial process.
[2018-11-13] MEDS ORDERED: Furosemide 40 MG/4 ML VIAL ONE (22:57)
[2018-11-13] MEDS ORDERED: methylPREDNISolone Sod Succ/PF 125 MG/2 ML VIAL ONE (23:17)
[2018-11-14] MEDS ORDERED: Ondansetron PF 4 MG/2 ML Vial IVP PRN (00:56)
[2018-11-14] MEDS ORDERED: Ondansetron ODT 4 MG TAB SL PRN (00:56)
[2018-11-14 01:29] LABS: Troponin I Less than 0.010 ng/mL (< 0.028)
[2018-11-14] MEDS ORDERED: Acetaminophen 325 MG TAB PO PRN (01:42)
[2018-11-14] MEDS ORDERED: Bisacodyl 10 MG SUPP PR PRN (01:42)
[2018-11-14] MEDS ORDERED: Senokot S 8.6-50 MG TAB PO PRN (01:42)
[2018-11-14] MEDS ORDERED: Guaifenesin DM 100-10/5 ML UDCUP PO PRN (01:42)
[2018-11-14 04:36] LABS: Anion Gap 12 mmol/L (10-20); BUN (Urea Nitrogen) 60 mg/dL (8.4-25.7); Calc. Creatinine Clearance 34 mL/min (70-130); Calcium 8.2 mg/dL (7.8-10.44); Carbon Dioxide 35 mmol/L (23-31); Chloride 93 mmol/L (98-107); Estimated GFR-MDRD 38; Glucose 165 mg/dL (83-110); Potassium 5.2 mmol/L (3.5-5.1); Sodium 135 mmol/L (136-145)
[2018-11-14 04:46] LABS: Band 12 % (5-11); Eosinophils 1 % (0-10); Hemoglobin 8.6 g/dL (14.0-18.0); Lymphocytes 54 % (21-51); MDiff Complete? YES; Mean Corpuscular HGB CONC 32.2 g/dL (32.0-36.0); Mean Corpuscular Hemoglobin 29.9 pg (27.0-31.0); Mean Corpuscular Volume 92.8 fL (78.0-98.0); Mean Platelet Volume 7.3 fL (7.4-10.4); Metamyelocyte 1 % (0-0); Monocytes 10 % (0-10); Neutrophil 21 % (42-75); Platelet Count 59 thou/uL (130-400); Platelet Morphology Comment Appears Decreased; RBC Distribution Width 16.5 % (11.5-14.5); RBC Morphology Normal; Reactive Lymphocytes 1 % (0-10); Red Blood Cell (RBC) Count 2.88 mill/uL (4.70-6.10); White Blood Cell (WBC) Count 1.4 thou/uL (4.8-10.8)
--- NOTE | 2018-11-14 05:14 | HP ---
REASON FOR ADMISSION: Acute on chronic respiratory failure with hypoxia, acute encephalopathy, and acute kidney injury. HISTORY OF PRESENTING ILLNESS: Please note majority of this history is obtained by talking to the patient's daughter, who is here at bedside as the patient is very lethargic and sleepy. Per family, the patient developed shortness of breath at around 4:00 p.m. His home health nurse checked his saturations it was less than 90%. It was more of fluctuating low saturations. The home health nurse called his son, and the patient was transported by EMS to the ER here. He had 1 unit of packed cell transfusion day before. Yesterday morning, the whole morning he was out. He had gone to see his primary care physician at [place] in the morning, then went out to lunch. When all of this got done, the patient developed more shortness of breath at home. He has been walking with a walker at home. He has been getting radiation therapy and he has been off chemotherapy for now and plans are to start him on immunotherapy likely. PAST MEDICAL AND SURGICAL HISTORY: Please note, the patient was discharged on . The patient has a history of stage II non-small cell lung cancer, currently undergoing radiation therapy. Atypical CLL, COPD, congestive heart failure, mostly diastolic, severe physical deconditioning, hypertension, diabetes mellitus type 2, chronic renal insufficiency, and CKD. Prior history of CABG, appendectomy, and cholecystectomy. PERSONAL HISTORY: Quit smoking and does not smoke now. Does not abuse alcohol or drugs. He lives alone and has [employer]. FAMILY HISTORY: Father has had history of diabetes and emphysema. Mother had multiple medical problems including hypertension. CURRENT MEDICATIONS: The patient is on, 1. Albuterol inhaler q.4 hourly p.r.n. 2. Norvasc 10 mg daily. 3. Atorvastatin 20 mg p.o. nightly. 4. Coreg 6.25 mg p.o. twice daily. 5. Zyrtec 5 mg daily. 6. Clonidine extended release 0.1 mg twice daily. 7. Ferrous sulfate 325 mg twice daily. 8. Flovent inhaler twice daily. 9. Hydralazine 25 mg three times daily. 10. Atarax 10 mg daily. 11. Levothyroxine 30 mcg daily. 12. Metformin 500 mg p.o. q.p.m. 13. Protonix 40 mg p.o. daily. 14. Flomax 0.4 mg p.o. daily. 15. Lasix 40 mg twice daily. 16. Coenzyme Q10 10 mg three times daily. 17. DuoNeb q.i.d. p.r.n. 18. Florastor 250 mg daily. ALLERGIES: ALLERGIC TO LATEX, NATURAL RUBBER, MILK, AND PENICILLIN. REVIEW OF SYSTEMS: CONSTITUTIONAL: Negative for weight loss or gain, ability to conduct usual activities. SKIN: Negative for rash, itching. EYES: Negative for double vision, pain. ENT/MOUTH: Negative for nose bleeding, neck stiffness, pain, tenderness. CARDIOVASCULAR: Negative for palpitations, dyspnea on exertion, orthopnea. RESPIRATORY: Negative for shortness of breath, wheezing, cough, hemoptysis, fever or night sweats. GASTROINTESTINAL: Negative for poor appetite, abdominal pain, heartburn, nausea , vomiting, constipation, or diarrhea. GENITOURINARY: Negative for urgency, frequency, dysuria, nocturia. MUSCULOSKELETAL: Negative for pain, swelling. NEUROLOGIC/PSYCHIATRIC: Negative for anxiety, depression. ALLERGY/IMMUNOLOGIC: Negative for skin rash, bleeding tendency. PHYSICAL EXAMINATION: GENERAL: The patient is an 83-year-old male, who is currently not in any acute distress, but he is very lethargic, and he is not fully oriented. VITAL SIGNS: Blood pressure 134/60, pulse 100 per minute, respiratory rate 20 per minute, temperature 98.5 degrees Fahrenheit, and saturating 97% on 4 L nasal cannula. NECK: Supple. No elevated JVD. HEENT: Eyes; extraocular muscles intact. Pupils are reacting to light. Oral cavity, mucous membranes are dry. No exudates or congestion. CARDIOVASCULAR SYSTEM: S1 and S2 heard. Tachycardic. RESPIRATORY SYSTEM: Air entry 1+ bilateral. No wheezes. ABDOMEN: Soft. Bowel sounds heard. No tenderness, rigidity, or guarding. EXTREMITIES: There is 2+ peripheral edema. No calf tenderness. VASCULAR SYSTEM: Peripheral pulses 1+ bilateral. No ischemic ulcerations or gangrene. CENTRAL NERVOUS SYSTEM: No gross focal deficits noted. Please note, the patient is very lethargic, but there is no focal sign seen. PSYCHIATRIC SYSTEM: No obvious hallucinations or delusions. LABORATORY DATA: EKG done shows atrial fibrillation at 105 beats per minute. There is RBBB seen with poor R-wave progression. QRS duration is 138 milliseconds. White count of 2.6, H and H 8.5 and 26, platelet count is 66 with 18% neutrophils, 40% lymphocytes, 18% monocytes, 4% eosinophils, and 20% bands. Serum bicarb 35, BUN 59, creatinine 1.8, serum glucose 163. Liver enzymes within normal limits. Albumin is 3.1. BNP 447. Troponin x2 negative. DIAGNOSTIC STUDIES: Chest x-ray done shows chronic lung changes when compared to 11/11/2018. There are no changes seen. CT brain without contrast done shows no mass or bleed. CLINICAL IMPRESSION AND PLAN: The patient will be admitted to Oncology floor with acute on chronic respiratory failure with hypoxia, severe deconditioning, and acute encephalopathy. Likely, the patient got exhausted from the trip he took in the morning yesterday to visit his primary care physician at [place] and also had gone out for lunch. Day before he had come for followup and received a unit of packed cell, which might have contributed for mild volume overload. The patient has had multiple hospitalizations here and likely has progressive decline in his physical condition with exertional dyspnea. We will place him on Lasix 40 mg q.12 hourly, DuoNebs q.i.d., continue his Flovent inhaler as before. We will also continue Norvasc, Lipitor, Coreg, clonidine, hydralazine, ferrous sulfate, Protonix, prednisone, Florastor, and Flomax as before. We will consult Dr. Geller his electrotype servicer and Dr. Restrepo, who is metal container maker for [facility]. 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 Have had prolonged talk and discussion with the patient's daughter who is here at bedside, who has come from [place] to visit him. The patient's son who lives here is the official pmwwz-[id number] for patient. The family will have a discussion with the patient regarding code status. He has been do not attempt to resuscitate in the past and also full code in the past. He apparently has advanced directives, which the family will try to bring. Meanwhile, the family says that he is mostly lucid, and they will try to ascertain what he really wants, when he is fully lucid and oriented in the morning. We will also make him wear GLORY hose for his lower extremities to help with his edema. Job ID: [id number] [facility]
[2018-11-14] MEDS: Furosemide 40 MG/4 ML VIAL SLOW IVP SCH ×2 (05:42→16:01)
[2018-11-14] MEDS ORDERED: LEVOTHYROXINE SODIUM 13 MCG PO SCH (09:00)
[2018-11-14] MEDS ORDERED: Cetirizine HCl 10 MG TAB PO SCH (09:00)
[2018-11-14] MEDS ORDERED: Non-Formulary Item 1 EACH (Fluticasone Propionate [Flovent Diskus] 50 MCG) IH SCH (09:00)
[2018-11-14] MEDS: Enoxaparin Sodium 30 MG/0.3 ML SYRINGE SC SCH (09:07)
[2018-11-14] MEDS: guaiFENesin ER 600 MG TAB PO SCH ×2 (09:08→20:46)
[2018-11-14] MEDS: predniSONE 5 MG TAB PO SCH (09:08)
[2018-11-14] MEDS: Saccharomyces boulardii 250 MG CAP PO SCH (09:08)
[2018-11-14] MEDS: Ferrous Sulfate 325 MG TAB PO SCH ×2 (09:09→16:01)
[2018-11-14] MEDS: Tamsulosin HCl 0.4 MG CAP PO SCH (09:10)
[2018-11-14] MEDS: Amlodipine 10 MG TAB PO SCH (09:10)
[2018-11-14] MEDS: Carvedilol 6.25 MG TAB PO SCH ×2 (09:10→20:46)
[2018-11-14] MEDS: Loratadine 10 MG TAB PO SCH (09:10)
[2018-11-14] MEDS: cloNIDine 0.1 MG TAB PO SCH ×2 (09:11→20:46)
[2018-11-14] MEDS: Famotidine 20 MG TAB PO SCH (09:11)
[2018-11-14] MEDS: hydrALAZINE 25 MG TAB PO SCH ×3 (09:13→20:47)
[2018-11-14] MEDS ORDERED: Dextrose 5% in Water 1,000 ML IV PRN (10:23)
[2018-11-14] MEDS ORDERED: Dextrose 50% Abboject 50 ML SYRINGE SLOW IVP PRN (10:23)
--- NOTE | 2018-11-14 10:25 | PDOC.EVN ---
Event Note - Event Note Event Note: Patient seen and examined, family at bedside. No change in plan of care from time of admission. Pending subspecialist evaluation. Will do ISS and accu checks for now. Case and plan d/w patient and family at length, they understood and agreed with this plan.
--- NOTE | 2018-11-14 12:50 | CON ---
DATE OF CONSULTATION: 11/14/2018 HISTORY OF PRESENT ILLNESS: Alberto Sanchez is an 83-year-old patient, who is well known to us, readmitted to the hospital with encephalopathy, shortness of breath, and cough. He clearly has multiple medical problems. In fact, he just left the hospital a week ago. At that time, we were not notified. He has had 2 rounds of chemotherapy for his squamous cell carcinoma. His x-ray shows large pleural effusion secondary to CHF, which has been tapped in the past. This morning, he is sleepy and lethargic, but denies any pain or discomfort. PAST MEDICAL HISTORY: Past medical history well extensively outlined. Squamous cell carcinoma, CLL, COPD, CHF, azotemia, marked weakness, weight loss, and asthma. PAST SURGICAL HISTORY: Appendix, bypass, cholecystectomy, MediPort insertion, and bronchoscopy. SOCIAL HISTORY: Tobacco, quit smoking 10 years ago. He is living at [facility]. ALLERGIES: PENICILLIN. MEDICATIONS: His medicines from home included; 1. Metformin 500. 2. Atarax 10. 3. Hydralazine 25. 4. Catapres 0.1. 5. Flomax 0.4. 6. Synthroid. 7. Prednisone. 8. Lasix 40 b.i.d. 9. Amlodipine 10. 10. Coreg 6.25. He is now back on Lasix and Coreg. He probably needs to be started on low-dose Aldactone. He probably needs cardiac input. PHYSICAL EXAMINATION: VITAL SIGNS: Blood pressure is 150/68, pulse 89, temperature 97, saturations are 93% on 4 L. 2+ edema. CHEST: Decreased breath sounds bilaterally, right greater than left. CARDIAC: Normal S1 and S2. No gallops. ABDOMEN: Massive. EXTREMITIES: Trace edema. NEUROLOGIC: He is awake and responsive. LABORATORY DATA: Creatinine is 1.73, BUN is 60. White count 1.5, H and H are 8 and 26, and platelet count is low at 59. IMAGING STUDIES: X-ray, bilateral pleural effusion. IMPRESSION: 1. Multiorgan failure. 2. Congestive heart failure. 3. Chronic obstructive pulmonary disease. 4. Lung cancer. 5. Renal failure. 6. Encephalopathy. 7. Pancytopenia from chemotherapy. PLAN: I discussed with the family member at the bedside today. His prognosis is grave. They need to consider making him a DNR. I may consider doing a thoracentesis to relieve some of his dyspnea. Pulmonary will follow. Consultation note, 70 minutes, 50% direct patient care. Job ID: [id number]
[2018-11-14] MEDS: HumaLOG 300 UNITS/3 ML VIAL SC PRN ×2 (13:06→16:42)
[2018-11-14] MEDS: Mometasone Furoate 120 PUFF 220 MCG INH SCH (19:38)
[2018-11-14] MEDS: ALPRAZolam 0.5 MG TAB PO PRN ×2 (20:47→22:13)
[2018-11-14] MEDS: Atorvastatin Calcium 20 MG TAB PO SCH (20:47)
[2018-11-15] MEDS: Furosemide 40 MG/4 ML VIAL SLOW IVP SCH (05:13)
[2018-11-15] MEDS: Tamsulosin HCl 0.4 MG CAP PO SCH (08:48)
[2018-11-15] MEDS: hydrALAZINE 25 MG TAB PO SCH ×3 (08:48→20:47)
[2018-11-15] MEDS: cloNIDine 0.1 MG TAB PO SCH ×2 (08:48→20:47)
[2018-11-15] MEDS: Saccharomyces boulardii 250 MG CAP PO SCH (08:48)
[2018-11-15] MEDS: guaiFENesin ER 600 MG TAB PO SCH ×2 (08:48→20:46)
[2018-11-15] MEDS: Carvedilol 6.25 MG TAB PO SCH ×2 (08:48→20:45)
[2018-11-15] MEDS: predniSONE 5 MG TAB PO SCH (08:49)
[2018-11-15] MEDS: Amlodipine 10 MG TAB PO SCH (08:49)
[2018-11-15] MEDS: Famotidine 20 MG TAB PO SCH (08:49)
[2018-11-15] MEDS: Ferrous Sulfate 325 MG TAB PO SCH ×2 (08:49→17:37)
[2018-11-15] MEDS: Loratadine 10 MG TAB PO SCH (08:50)
[2018-11-15] MEDS: Enoxaparin Sodium 30 MG/0.3 ML SYRINGE SC SCH (08:53)
--- NOTE | 2018-11-15 09:35 | RAD ---
PORTABLE CHEST: Date: 11/15/18 HISTORY: Respiratory distress. Congestive heart failure. COMPARISON: Prior day's exam. FINDINGS: Left-sided MediPort catheter is unchanged in position. Heart size is enlarged. Pleural and parenchyma l lung changes are similar to the prior examination. Given the differences in technique, I do not bianca reciate a definite change. Perhaps some slight clearing to the changes in the left base. IMPRESSION: Essentially stable exam. POS: [facility]
[2018-11-15 10:31] LABS: Hemoglobin 8.4 g/dL (14.0-18.0); Mean Corpuscular HGB CONC 31.9 g/dL (32.0-36.0); Mean Corpuscular Hemoglobin 29.7 pg (27.0-31.0); Mean Corpuscular Volume 92.9 fL (78.0-98.0); Mean Platelet Volume 6.4 fL (7.4-10.4); Platelet Count 61 thou/uL (130-400); RBC Distribution Width 16.4 % (11.5-14.5); Red Blood Cell (RBC) Count 2.85 mill/uL (4.70-6.10); White Blood Cell (WBC) Count 2.5 thou/uL (4.8-10.8)
[2018-11-15 10:42] LABS: BUN (Urea Nitrogen) 67 mg/dL (8.4-25.7); Calc. Creatinine Clearance 36 mL/min (70-130); Calcium 8.3 mg/dL (7.8-10.44); Estimated GFR-MDRD 40; Glucose 167 mg/dL (83-110); Phosphorus 3.8 mg/dL (2.3-4.7)
[2018-11-15 10:51] LABS: Anion Gap 16 mmol/L (10-20); Carbon Dioxide 34 mmol/L (23-31); Chloride 93 mmol/L (98-107); Potassium 4.5 mmol/L (3.5-5.1); Sodium 138 mmol/L (136-145)
[2018-11-15 11:37] LABS: Anisocytosis SLIGHT = 6-15 cells (100X) (0-5/hpf); Band 2 % (5-11); Elliptocytes SLIGHT = 2-5 cells (100X) (0-1/hpf); Eosinophils 6 % (0-10); Hypochromia SLIGHT = 6-15 cells (100X) (0-5/hpf); Lymphocytes 45 % (21-51); MDiff Complete? YES; Monocytes 14 % (0-10); Neutrophil 26 % (42-75); Polychromasia SLIGHT = 2-3 cells (100X) (0-2/hpf); Promyelocytes 1 % (0-0); Reactive Lymphocytes 6 % (0-10); Schistocytes SLIGHT = 2-5 cells (100X) (0-1/hpf)
--- NOTE | 2018-11-15 12:43 | PRG ---
DATE OF SERVICE: 11/15/2018 SUBJECTIVE: The patient is seen and examined at bedside. His daughter is present in the room during my visit. The patient is feeling somewhat better. His appetite is good. OBJECTIVE: VITAL SIGNS: Blood pressure is 130/62, pulse is 63, respiratory rate is 16, O2 saturation is 100% on 4 L by nasal cannula. GENERAL: He looks sick and tired. HEENT: His pupils are responding to light properly. Sclerae are nonicteric. Oral mucosa is moist. NECK: Supple. LUNGS: Breath sounds diminished at the right base with few crackles bilaterally. HEART: S1, S2 normal. No S3. No S4. Left upper chest MediPort is in place. ABDOMEN: Soft, nontender, nondistended. EXTREMITIES: 3+ peripheral edema similar bilateral in both lower extremities. NEUROLOGICAL EXAMINATION: He is alert and oriented x4. There are no any motor deficits. He is able to move his all 4 extremities. LABORATORY DATA: Showed a white count of 2.5, hemoglobin 8.4, hematocrit 26.4, platelet count 61,000. Sodium of 138, potassium 4.5, chloride 93, CO2 34, BUN 67, creatinine 1.63. Glycemia is ranging from 126 to 294. Albumin 3.0. Chest x-ray done this morning, personally reviewed, showed no changes with some pleural effusion of the right lung and some chronic pleural parenchymal lung changes. IMPRESSION: 1. Altered mental status improved to baseline. 2. Acute on chronic respiratory failure with hypoxia. 3. Pancytopenia. 4. Stage II non-small cell lung cancer, currently on radiation therapy. 5. Atypical chronic lymphocytic leukemia. 6. Chronic obstructive pulmonary disease. 7. Congestive heart failure, mostly diastolic. 8. Severe physical deconditioning. 9. Hypertension. 10. Diabetes mellitus type 2. 11. Chronic renal insufficiency. Apparently, the patient was switched from IV Lasix to p.o. small dose along with spironolactone small dose 12.5 mg once a day. He is going to continue on the rest of the regimen. The patient's appetite is fine. team will follow. Continue DuoNebs. Continue p.o. steroids. Continue DVT prophylaxis. Continue O2. Chute Worker Dr. Geller made decision not to do thoracocentesis on him because most likely, his pleural effusion is going to come back since this is related to CHF dysfunction. Job ID: [id number]
[2018-11-15 12:51] LABS: Creatinine, Urine 42.52 mg/dL (63-166)
--- NOTE | 2018-11-15 12:52 | PRG ---
DATE OF SERVICE: 11/15/2018 SUBJECTIVE: This morning, he is better, less short of breath. X-ray still shows a large right pleural effusion, it is probably a transudate from his CHF. OBJECTIVE: VITAL SIGNS: Pulse 63, respiratory rate 16, blood pressure 130/62. GENERAL: He feels stronger. CHEST: Decreased breath sounds in right lung. Left lung unremarkable. CARDIAC: Normal S1 and S2. No gallops. ABDOMEN: No masses. LABORATORY DATA: Creatinine 1.6, BUN is 67, glucose 126. White count 2.5, H and H 8 and 26, platelet count is 61. IMPRESSION: Acute on chronic respiratory failure, lung cancer, chronic obstructive pulmonary disease, chronic lymphocytic leukemia, congestive heart failure, severe deconditioning, post chemotherapy. PLAN: P.o. medications. He wants to go home. culture room worker involved in the next several days. Still a full code. Job ID: [id number]
[2018-11-15] MEDS: Furosemide 20 MG TAB PO SCH (14:00)
[2018-11-15] MEDS: HumaLOG 300 UNITS/3 ML VIAL SC PRN (17:36)
[2018-11-15] MEDS: Mometasone Furoate 120 PUFF 220 MCG INH SCH (19:55)
--- NOTE | 2018-11-15 20:18 | CON ---
DATE OF CONSULTATION: REASON FOR CONSULTATION: Lung cancer. HISTORY OF PRESENT ILLNESS: Mr. Sanchez is an 83-year-old gentleman, who has stage II non-small cell lung cancer of the right lobe. He is undergoing treatment with radiation. He did receive chemotherapy, but had multiple episodes of pancytopenia, which was due to the chemo and his underlying diagnosis of atypical CLL. Decision was made to stop chemotherapy earlier this week, but to continue with radiation. He has struggled throughout treatment and has required multiple hospitalizations. He was actually here on November 12, was discharged but returned within 12 hours of going home with altered mental status and shortness of breath. On this admission, he has been seen by Dr. Geller. He does continue to have a moderate pleural effusion, which apparently has not increased in size. There is no plan for a thoracentesis. He is feeling much better today, he denies any chest pain. Minimal shortness of breath. He is alert. Discussion was held at bedside with his daughter and the patient. PAST MEDICAL HISTORY: 1. Stage II non-small cell lung cancer. 2. Atypical CLL. 3. COPD. 4. Diastolic heart failure. 5. Hypertension. 6. Diabetes. 7. Chronic renal insufficiency. 8. Deconditioning. PAST SURGICAL HISTORY: 1. Appendectomy. 2. CABG. 3. Cholecystectomy. 4. Knee replacement. 5. Carotid endarterectomy. 6. Bilateral lower extremity stents. 7. TURP. ALLERGIES: TO LATEX, RUBBER, MILK, AND PENICILLINS. HOME MEDICATIONS: 1. Amlodipine. 2. Atorvastatin. 3. Coreg. 4. Zyrtec. 5. Clonidine. 6. Feosol. 7. Flovent. 8. Apresoline. 9. Atarax. 10. Levothyroxine. 11. Metformin. 12. Protonix. 13. Flomax. 14. Coenzyme Q. 15. Lasix. 16. DuoNeb. 17. Prednisone. 18. Florastor. FAMILY HISTORY: No history of malignancy. SOCIAL HISTORY: Lives alone. , 4 children. No recent alcohol or illicit drug use. Extensive history of tobacco use. REVIEW OF SYSTEMS: A 10-point review of systems is negative except for noted in HPI. PHYSICAL EXAMINATION: VITAL SIGNS: Temperature 98.2, pulse is 63, respiratory rate 16, BP is 130/62, he is 100% on 4 L nasal cannula. GENERAL: Chronically ill-appearing male, in no acute distress. HEENT: Normocephalic and atraumatic. Pupils are equal and reactive to light. NECK: Supple. CV: Regular rate and rhythm. LUNGS: He has bilateral scattered rhonchi and wheezing. ABDOMEN: Soft and nontender. Bowel sounds are positive. EXTREMITIES: He has 2+ bilateral lower extremity edema. SKIN: No rash. HEMATOLOGIC: Scattered bruising. NEUROLOGIC: Nonfocal. PSYCH: He is alert, oriented, and appropriate. PERTINENT LABS AND X-RAYS: Current WBCs are 2.5, hemoglobin 8.4, hematocrit 26.4, platelet count 61,000. He has 26% neutrophils, 2% bands, 45% lymphocytes. Sodium is 138, potassium 4.5, chloride 93, CO2 is 34, BUN is 67, creatinine 1.63, calcium is 8.3, phosphorus 3.8. Chest x-ray showed stable exam. ASSESSMENT: 1. Stage II non-small cell lung cancer, currently receiving radiation, but no chemotherapy. 2. Chronic obstructive pulmonary disease. 3. CLL. DISCUSSION: The patient has improved overnight with oxygen and supportive care. He states he has 1 week of radiation left. We will discuss with Dr. Hunt when treatment can end. Ideally, he will go to shelter facility at discharge , where he can recover and gain strength back over the next several weeks to return home. Plan to hold ibrutinib for his CLL until he has recovered from his radiation treatment and is back home. The case was discussed with Dr. Yuen and Dr. Colon. Thank you for the consult. Job ID: [id number] [facility]
[2018-11-15] MEDS: Atorvastatin Calcium 20 MG TAB PO SCH (20:45)
[2018-11-15] MEDS: ALPRAZolam 0.5 MG TAB PO PRN (22:54)
[2018-11-16] MEDS: Ferrous Sulfate 325 MG TAB PO SCH ×2 (08:59→16:17)
[2018-11-16] MEDS: predniSONE 5 MG TAB PO SCH (08:59)
[2018-11-16] MEDS: Amlodipine 10 MG TAB PO SCH (09:00)
[2018-11-16] MEDS: Spironolactone 25 MG TAB PO SCH (09:00)
[2018-11-16] MEDS: Carvedilol 6.25 MG TAB PO SCH ×2 (09:01→21:19)
[2018-11-16] MEDS: Enoxaparin Sodium 30 MG/0.3 ML SYRINGE SC SCH (09:02)
[2018-11-16] MEDS: Famotidine 20 MG TAB PO SCH (09:02)
[2018-11-16] MEDS: cloNIDine 0.1 MG TAB PO SCH ×2 (09:02→21:19)
[2018-11-16] MEDS: guaiFENesin ER 600 MG TAB PO SCH ×2 (09:03→21:19)
[2018-11-16] MEDS: Loratadine 10 MG TAB PO SCH (09:03)
[2018-11-16] MEDS: hydrALAZINE 25 MG TAB PO SCH ×3 (09:03→21:19)
[2018-11-16] MEDS: Furosemide 20 MG TAB PO SCH ×2 (09:03→14:19)
[2018-11-16] MEDS: Tamsulosin HCl 0.4 MG CAP PO SCH (09:04)
[2018-11-16] MEDS: Saccharomyces boulardii 250 MG CAP PO SCH (09:04)
[2018-11-16 09:22] LABS: BUN (Urea Nitrogen) 67 mg/dL (8.4-25.7); Calc. Creatinine Clearance 40 mL/min (70-130); Calcium 8.4 mg/dL (7.8-10.44); Estimated GFR-MDRD 45; Glucose 118 mg/dL (83-110)
[2018-11-16 09:31] LABS: Anion Gap 12 mmol/L (10-20); Carbon Dioxide 38 mmol/L (23-31); Chloride 97 mmol/L (98-107); Potassium 4.8 mmol/L (3.5-5.1); Sodium 142 mmol/L (136-145)
[2018-11-16 11:28] LABS: Band 10 % (5-11); Eosinophils 4 % (0-10); Hemoglobin 8.7 g/dL (14.0-18.0); Lymphocytes 57 % (21-51); MDiff Complete? YES; Mean Corpuscular HGB CONC 31.3 g/dL (32.0-36.0); Mean Corpuscular Hemoglobin 29.6 pg (27.0-31.0); Mean Corpuscular Volume 94.7 fL (78.0-98.0); Mean Platelet Volume 6.5 fL (7.4-10.4); Monocytes 14 % (0-10); Neutrophil 12 % (42-75); Platelet Count 65 thou/uL (130-400); Platelet Morphology Comment Appears Decreased; Polychromasia SLIGHT = 2-3 cells (100X) (0-2/hpf); RBC Distribution Width 16.7 % (11.5-14.5); Reactive Lymphocytes 3 % (0-10); Red Blood Cell (RBC) Count 2.93 mill/uL (4.70-6.10); White Blood Cell (WBC) Count 3.2 thou/uL (4.8-10.8)
[2018-11-16] MEDS: HumaLOG 300 UNITS/3 ML VIAL SC PRN ×3 (11:49→21:18)
--- NOTE | 2018-11-16 12:46 | PRG ---
DATE OF SERVICE: 11/16/2018 SUBJECTIVE: The patient is seen and examined at the bedside. The patient's daughter is present during my visit in the room. He could not sleep last night, so he is somewhat drowsy and feels tired this morning. Also, his urinary bladder was scanned and he retained more than 600 mL of urine in his bladder, so the Noonan catheter was placed this morning. OBJECTIVE: VITAL SIGNS: Blood pressure is 130/61, pulse is 110, respiratory rate is 18, temperature is 96.4, O2 saturation is on 3.5 by nasal cannula. His output was only 275 for the last 24 hours, but that is not adequate. HEENT: His head is atraumatic and normocephalic. He seems to be more short of breath and looks tired. His conjunctivae are palish. Sclerae are nonicteric. Oral mucosa is moist. NECK: Supple. LUNGS: Breath sounds diminished at both bases with some crackles bilaterally at both bases. HEART: S1, S2. Tachycardic. No S3. No S4. ABDOMEN: Soft, nontender. Bowel sounds are present. EXTREMITIES: 2+ peripheral edema similar bilaterally. RECTAL: Did not reveal presence of any prostate. LABORATORY DATA: Labs showed white count of 3.2, hemoglobin 8.7, hematocrit 27.8, platelet count is 65,000. Sodium 142, potassium 4.8, chloride 97, CO2 is 38, BUN 67, creatinine 1.49, glycemia is ranging from 123 to 205, calcium is 8.4. IMPRESSION: 1. Altered mental status improved to his baseline. 2. Apzvz-mv-bqsmjqr respiratory failure with hypoxemia. 3. Pancytopenia, improving, that is most likely from chemotherapy. 4. Stage II [id number]-yhdl lung cancer, currently on radiation therapy. 5. Atypical chronic lymphocytic leukemia. 6. Chronic obstructive pulmonary disease. 7. Congestive heart failure, mostly diastolic. 8. Severe physical deconditioning. 9. Hypertension. 10. Diabetes mellitus type 2. 11. Chronic renal insufficiency. DISCUSSION: The patient is going to continue his diuresis with Lasix orally along with spironolactone. Cardiology, Dr. Elam, will be consulted. We will continue his DuoNebs and steroids orally and inhaled. We will continue O2. We will continue Noonan catheter since he is retaining more than 600 mL of urine in his bladder. The patient is getting the radiation therapy by Dr. Hunt. Nury Lara is going to talk to Dr. Hunt regarding shortening of the course of radiation, so the patient can be transferred [facility] after the completion of the treatment to get PT and OT since he is severely deconditioned. Job ID: [id number]
--- NOTE | 2018-11-16 14:27 | PRG ---
DATE OF SERVICE: 11/16/2018 SUBJECTIVE: Alberto Sanchez is an 83-year-old gentleman. This morning, he looks weaker. OBJECTIVE: VITAL SIGNS: Saturations are 91% on 3 L, blood pressure 130/62, pulse 82, temperature 96. CHEST: Decreased breath sounds, bilateral rhonchi, crackles. CARDIAC: Normal S1 and S2. No gallops. ABDOMEN: No masses. LABORATORY DATA: His BUN and creatinine are 67 and 1.49. His last chest x-ray shows a large pleural effusion in the right side. IMPRESSION: 1. Multiorgan failure, respiratory failure. 2. Congestive heart failure, large pleural effusion. 3. Leukemia, chronic lymphocytic leukemia. 4. Squamous cell carcinoma, status post chemotherapy. 5. Azotemia, severe deconditioning. PLAN: The patient has made no resuscitation, DNR, which I agree. He needs comfort care. We will follow. Job ID: [id number]
[2018-11-16] MEDS: Mometasone Furoate 120 PUFF 220 MCG INH SCH (19:45)
--- NOTE | 2018-11-16 19:45 | CON ---
DATE OF CONSULTATION: HISTORY OF PRESENT ILLNESS: Alberto Sanchez is an 83-year-old white male, followed by Dr. Elam. He has a history of chronic diastolic heart failure. He now has been diagnosed as having squamous cell carcinoma of the lung and is undergoing radiation therapy. He was admitted on November 14 when he was found to be hypoxic with increased shortness of breath. He denied any chest discomfort. He has resumed his radiation therapy. Here, a chest x-ray does reveal findings consistent with right pleural effusion and increased pulmonary vascularity. Mr. Sanchez also admits to peripheral edema. PAST MEDICAL HISTORY: Chronic diastolic heart failure; coronary artery disease, status post CABG; asthma; squamous cell carcinoma of the lung; hypertension; hyperlipidemia; chronic anemia with chronic pancytopenia. Probably normal cardiac PET Sep, 2018. OPERATIONS: CABG, cholecystectomy. MEDICATIONS: 1. Metformin 500 mg b.i.d. 2. Carvedilol 6.25 b.i.d. 3. Flomax 0.4 daily. 4. Fluticasone 50 mcg, each side daily. 5. Iron 325 b.i.d. 6. Loratadine, amlodipine 10 mg daily. 7. Simvastatin 40 daily. 8. Synthroid 25 mcg daily. 9. Albuterol p.r.n. 10. Clonidine 0.1 b.i.d. 11. Furosemide 40 b.i.d. 12. Hydralazine 25 t.i.d. 13. DuoNeb. ALLERGIES: LATEX, MILK, AND PENICILLIN. SOCIAL HISTORY: He stopped smoking in his 50s. He does not drink. FAMILY HISTORY: Unremarkable. PHYSICAL EXAMINATION: VITAL SIGNS: Blood pressure 139/64, although at times, he may have pressures up in the 150s; pulse of 79, although in looking since he had been admitted, he does have some episodes of heart rates in the 110 to 117 range. HEENT: PERRL. NECK: Supple. CHEST: Reveals expiratory wheezing. CARDIOVASCULAR: S1 and S2 normal without any S3 or S4. There is a 2/6 systolic ejection murmur heard throughout the precordium. ABDOMEN: Normal bowel sounds without tenderness. EXTREMITIES: Reveal 1+ pretibial edema. NEUROLOGIC: Grossly intact. LABORATORY DATA: EKG showed new onset atrial fibrillation with rate of 105 and right bundle-branch block. Last EKG on October 25 showed that he was in sinus rhythm. Echocardiogram from October 09, 2018 revealed ejection fraction of 60% to 65% with moderate concentric left ventricular hypertrophy, moderate mitral regurgitation, mitral annular calcification, jkjr-wy-pepxpuvc aortic stenosis, eank-fg-tqmyhwrt aortic regurgitation, and kdlw-qc-eyvbrrof tricuspid regurgitation. Hemoglobin 8.7, hematocrit 27.0, white count 3200, platelets 65,000. Sodium 142 , potassium 4.8, chloride 97, carbon dioxide 38, BUN 67, creatinine 1.49. IMPRESSION: 1. Increased shortness of breath with chest x-ray showing right pleural effusion with increased pulmonary vascularity. 2. Acute on chronic diastolic heart failure. 3. New onset atrial fibrillation, which was not present on EKG, October 25, 2018. At times, he has heart rates in the 110 to 117. 4. Hypertension. 5. Diabetes. 6. Hypercholesterolemia. 7. Distant smoker. 8. Squamous cell carcinoma of the lung. 9. Status post coronary artery bypass graft. 10. Chronic kidney disease. PLAN: With episodes of poorly controlled ventricular response, I feel he should be moved to telemetry to document that his rate is controlled. Also, I will increase his carvedilol from 6.25 b.i.d. to t.i.d. Furosemide will be placed back to 40 mg b.i.d. p.o., which is his home dose. His renal function will be watched closely. With his pancytopenia, including thrombocytopenia and his generalized debilitated state, I am somewhat hesitant to anticoagulate him at this time. Job ID: [id number] [id number]
[2018-11-16] MEDS: Atorvastatin Calcium 20 MG TAB PO SCH (21:19)
[2018-11-16] MEDS: ALPRAZolam 0.5 MG TAB PO PRN (23:44)
[2018-11-17] MEDS ORDERED: Melatonin 3 MG TAB PO PRN (00:45)
[2018-11-17 06:10] LABS: BUN (Urea Nitrogen) 62 mg/dL (8.4-25.7); Calc. Creatinine Clearance 46 mL/min (70-130); Calcium 8.6 mg/dL (7.8-10.44); Estimated GFR-MDRD 53; Glucose 112 mg/dL (83-110)
[2018-11-17 06:19] LABS: Anion Gap 15 mmol/L (10-20); Carbon Dioxide 35 mmol/L (23-31); Chloride 98 mmol/L (98-107); Sodium 143 mmol/L (136-145)
[2018-11-17] MEDS ORDERED: predniSONE 5 MG TAB PO SCH (08:00)
[2018-11-17] MEDS: cloNIDine 0.1 MG TAB PO SCH ×2 (09:18→21:44)
[2018-11-17] MEDS: Ferrous Sulfate 325 MG TAB PO SCH ×2 (09:18→17:00)
[2018-11-17] MEDS: Spironolactone 25 MG TAB PO SCH (09:18)
[2018-11-17] MEDS: Loratadine 10 MG TAB PO SCH (09:19)
[2018-11-17] MEDS: Saccharomyces boulardii 250 MG CAP PO SCH (09:19)
[2018-11-17] MEDS: Amlodipine 10 MG TAB PO SCH (09:19)
[2018-11-17] MEDS: Famotidine 20 MG TAB PO SCH (09:19)
[2018-11-17] MEDS: hydrALAZINE 25 MG TAB PO SCH ×3 (09:20→21:46)
[2018-11-17] MEDS: Carvedilol 6.25 MG TAB PO SCH ×3 (09:20→21:43)
[2018-11-17] MEDS: Furosemide 40 MG TAB PO SCH ×2 (09:20→14:00)
[2018-11-17] MEDS: Tamsulosin HCl 0.4 MG CAP PO SCH (09:20)
[2018-11-17] MEDS: Enoxaparin Sodium 30 MG/0.3 ML SYRINGE SC SCH (09:21)
[2018-11-17] MEDS: guaiFENesin ER 600 MG TAB PO SCH ×2 (09:21→21:45)
--- NOTE | 2018-11-17 09:51 | PRG ---
DATE OF SERVICE: 11/17/2018 SUBJECTIVE: Alberto Sanchez appears lethargic, but arousable. OBJECTIVE: VITAL SIGNS: His blood pressure is 118/55, sats are 94% on 3 L, respiratory rate 24, pulse 105, and temperature 98. CHEST: No wheezing. CARDIAC: Normal S1 and S2. No gallops. ABDOMEN: No mass. LABORATORY DATA: Renal function is stable. IMPRESSION: 1. Congestive heart failure; bilateral pleural effusion, right greater than left. 2. Underlying chronic lymphocytic leukemia, hypothyroidism, severe deconditioning, and squamous cell carcinoma. PLAN: Pulmonary corral, continue supportive care, PT. We will follow. He is a DNR. Job ID: [id number]
[2018-11-17] MEDS ORDERED: Furosemide 40 MG/4 ML VIAL ONE (10:39)
[2018-11-17 10:46] LABS: Actual Bicarbonate (HCO3a) 41.7 mEq/L (22-28); Calcium, Ionized 1.18 mmol/L (1.12-1.30); Carboxyhemoglobin (COHb) 1.3 gm% (0.0-3.0); Hemoglobin (Hb) 9.2 g/dL (14.0-18.0); O2 Tension (PaO2) 75.4 mmHg (> 60.0); Potassium - ABG Lab 4.78 mmol/L (3.70-5.30)
[2018-11-17 10:48] LABS: CO2 Tension 97.2 mmHg (35.0-45.0); Puncture Site RRA; pH, Arterial 7.25 (7.35-7.45)
[2018-11-17] MEDS ORDERED: Furosemide 40 MG/4 ML VIAL SLOW IVP SCH ×2 (11:00→17:00)
--- NOTE | 2018-11-17 11:59 | RAD ---
PORTABLE CHEST: Date: 11/17/18 PROVIDED CLINICAL HISTORY: Shortness of breath. FINDINGS: Comparison with 11/15/18. Significant interval change with respect to the prior examination is not apparent. Vascular congestio n and bilateral air space disease persists. IMPRESSION: As above. POS: OFF
[2018-11-17] MEDS ORDERED: Morphine 4 MG/ML VIAL SLOW IVP PRN ×2 (13:36→14:33)
[2018-11-17] MEDS ORDERED: Lorazepam 2 MG/ML VIAL SLOW IVP PRN ×2 (13:37→14:33)
--- NOTE | 2018-11-17 14:23 | PRG ---
DATE OF SERVICE: 11/17/2018 SUBJECTIVE: The patient is seen and examined at the bedside. He has moved from Oncology floor to Telemetry by Dr. Martinez after he was consulted, he felt that he is going to need more cardiac care. OBJECTIVE: GENERAL: During my visit, his son is present in the room. The patient is in more respiratory distress, and he is much less interactive with me today than yesterday. He looks much sicker. He falls asleep quickly. I can wake him up and he answers questions quite appropriately, but it looks like he is in significant respiratory distress at this point. VITAL SIGNS: His blood pressure is 153/67, pulse is 84, respiratory rate is 24, O2 saturation is difficult to measure. He follows my commands, but he falls asleep quickly. LUNGS: Bilateral crackles in upper and lower lobes bilaterally. HEART: S1, S2 distant. No S3. No S4. ABDOMEN: Soft, nondistended. EXTREMITIES: 1+ peripheral edema similar bilaterally on both lower extremities. NEUROLOGICAL: Apparently, the patient is arousable, but falls asleep quickly and he follows my commands. He is able to move his all 4 extremities. There are no any motor deficits. LABORATORY DATA: We will obtain ABGs on him, and his sodium is 143, potassium 5.0, chloride 98, CO2 of 35, BUN 62, creatinine 1.28, glucose 112, and calcium 8.6. IMPRESSION: 1. Acute respiratory failure, worsened. The chest x-ray was just done, which shows worsening CHF with increased vascular congestion and bilateral airspace disease. The case was discussed with Dr. Geller, who does not want to be too aggressive with this patient since he has multiple medical problems and his prognosis is very poor, but the patient's son, who is in the room during my visit, wants him to have more treatment done and be more aggressive. He is DNR. He is not going to be intubated obviously, but we are going to move him to intensive care unit and use BiPAP. Most likely, he is retaining CO2 and it is affecting his mental status. Also, we will give him more Lasix since he is in worsened CHF. Yesterday, Lasix dose was increased to [address] Martinez, but to intensify that treatment, we will switch him to IV Lasix from p.o. We will continue DuoNeb. We will continue spironolactone. 2. Pancytopenia, that is related to his malignancy. 3. Stage II [id number] lung cancer. 4. Atypical chronic lymphocytic leukemia. 5. Chronic obstructive pulmonary disease. 6. Congestive heart failure. 7. Severe physical deconditioning. 8. Hypertension. 9. Diabetes mellitus type 2. 10. Chronic renal insufficiency. So, as mentioned above, he will be moved to intensive care unit. He is DNR, but will use BiPAP to improve his pulmonary status. We will intensify the treatment with IV diuretics and we will obtain ABGs in the next few hours to see how much progress he is making. Job ID: [id number]
[2018-11-17 16:21] LABS: Actual Bicarbonate (HCO3a) 41.1 mEq/L (22-28); Base Excess (BEa) 12.9 mEq/L (-2.0 to +3.0); Calcium, Ionized 1.18 mmol/L (1.12-1.30); Carboxyhemoglobin (COHb) 1.8 gm% (0.0-3.0); Hemoglobin (Hb) 9.3 g/dL (14.0-18.0); O2 Tension (PaO2) 89.7 mmHg (> 60.0); Potassium - ABG Lab 4.95 mmol/L (3.70-5.30); pH, Arterial 7.33 (7.35-7.45)
[2018-11-17 16:23] LABS: CO2 Tension 80.2 mmHg (35.0-45.0); Puncture Site RRA
--- NOTE | 2018-11-17 17:49 | PDOC.CTH ---
Cardiology Progress Note - Subjective Pt currently unresponsive. Pt transferred to ICU for closer observation. Rate currently controlled. - Objective Vital Signs Temp Pulse Resp BP Pulse Ox 11/17/18 14:12 78 23 H 93 L 11/17/18 12:00 85 11/17/18 11:08 84 24 H 153/67 H 93 L 11/17/18 10:58 107 H 24 H 11/17/18 09:20 105 H 11/17/18 09:19 105 H 11/17/18 07:40 92 L 11/17/18 07:33 105 H 24 H 11/17/18 07:14 98.4 F 91 20 118/55 L 93 L Admit Weight 169 lb 15.622 oz Weight 170 lb 9 oz 11/16/18 11/17/18 11/18/18 06:59 06:59 06:59 Intake Total 240 900 Output Total 1675 Balance 240 -775 - Physical Examination General/Neuro: NAD Neck: no JVD present Lungs: CTA, unlabored respirations Heart: PMI normal, RRR Abdomen: NT/ND, soft Extremities: + femoral B - Labs Result Diagrams: 11/16/18 08:52 11/17/18 05:33 Troponin/CKMB Troponin I Less than 0.010 ng/mL (< 0.028) 11/14/18 00:58 - Assessment/Plan Afib MS changes Lung cancer CAD s/p CABG Long discussion with son about pts status. Son states Mr. Sanchez said he is ready to go. Pt lost his less than one yr ago At this point, recommend continued CV care, comfort care Pt unlikely to survive hospitalization Prognosis very poor No further recommendations If status changes, please reconsult
[2018-11-17] MEDS: methylPREDNISolone Sod Succ 40 MG VIAL IVP SCH (21:41)
[2018-11-17] MEDS: Atorvastatin Calcium 20 MG TAB PO SCH (21:45)
[2018-11-18 04:44] LABS: BUN (Urea Nitrogen) 61 mg/dL (8.4-25.7); Calc. Creatinine Clearance 49 mL/min (70-130); Calcium 8.8 mg/dL (7.8-10.44); Estimated GFR-MDRD 58; Glucose 134 mg/dL (83-110)
[2018-11-18 04:52] LABS: Anion Gap 16 mmol/L (10-20); Carbon Dioxide 38 mmol/L (23-31); Chloride 93 mmol/L (98-107); Sodium 142 mmol/L (136-145)
[2018-11-18] MEDS: Furosemide 40 MG/4 ML VIAL SLOW IVP SCH ×2 (06:25→14:35)
[2018-11-18] MEDS: Mometasone Furoate 120 PUFF 220 MCG INH SCH ×2 (07:07→19:04)
[2018-11-18] MEDS: Saccharomyces boulardii 250 MG CAP PO SCH (08:31)
[2018-11-18] MEDS: Tamsulosin HCl 0.4 MG CAP PO SCH (08:31)
[2018-11-18] MEDS: Ferrous Sulfate 325 MG TAB PO SCH ×2 (08:31→16:49)
[2018-11-18] MEDS: Spironolactone 25 MG TAB PO SCH (08:31)
[2018-11-18] MEDS: Famotidine 20 MG TAB PO SCH (08:31)
[2018-11-18] MEDS: Loratadine 10 MG TAB PO SCH (08:31)
[2018-11-18] MEDS: guaiFENesin ER 600 MG TAB PO SCH ×2 (08:32→20:22)
[2018-11-18] MEDS: Carvedilol 6.25 MG TAB PO SCH ×3 (08:32→20:22)
[2018-11-18] MEDS: Enoxaparin Sodium 30 MG/0.3 ML SYRINGE SC SCH (08:33)
[2018-11-18] MEDS: methylPREDNISolone Sod Succ 40 MG VIAL IVP SCH ×2 (08:33→20:23)
--- NOTE | 2018-11-18 08:47 | PRG ---
DATE OF SERVICE: 11/18/2018 SUBJECTIVE: Alberto Sanchez, this morning, to my surprise awake, alert, and responsive. OBJECTIVE: VITAL SIGNS: Heart rate is 108, AFib; blood pressure is 100/64, saturations are 99%, and respirations 23. GENERAL: Awake, responsive. CHEST: Decreased breath sounds bilaterally. CARDIAC: AFib. ABDOMEN: Soft. NEUROLOGIC: He moves all 4 extremities. LABORATORY DATA: His BUN and creatinine are 61 and 1.23. IMPRESSION: 1. Congestive heart failure. 2. Bilateral pleural effusion. 3. Azotemia. 4. Chronic obstructive pulmonary disease. 5. Pancytopenia. 6. Leukemia, CLL. 7. Severe deconditioning. PLAN: Continue supportive care. This is being given to control his rhythm and rate. He is DNR. Continue supportive care. May consider doing a thoracentesis. Comfort care. We will follow. Job ID: [id number]
--- NOTE | 2018-11-18 09:02 | RAD ---
PORTABLE UPRIGHT FRONTAL CHEST RADIOGRAPH: DATE: 11/18/2018. COMPARISON: 11/17/2018. HISTORY: Congestive heart failure. FINDINGS: Stable postoperative clips overlie the neck on the right. There is atherosclerotic calcification in the aortic arch. Stable midline sternotomy wires. Stable left-sided Port-A-Cath. There is hazy density in both lung bases, right greater than left, with bilateral pleural effusions a nd bibasilar airspace disease. Stable perihilar airspace disease and pulmonary vascular congestion. Stable prominent bilateral shoulder degenerative change. IMPRESSION: Stable pleural and parenchymal opacity bilaterally suggesting pulmonary edema. Infectious pneumoniti s or aspiration cannot be excluded. No significant interval change. POS: [facility]
[2018-11-18] MEDS: Digoxin 0.5 MG/2 ML AMP SLOW IVP SCH (09:36)
--- NOTE | 2018-11-18 10:28 | OP ---
DATE OF PROCEDURE: 11/18/2018 PROCEDURE: Thoracentesis. INDICATION: Pleural effusion. DESCRIPTION OF PROCEDURE: After informed consent, posterior thorax was cleaned with chlorhexidine and 1% lidocaine was used to infiltrate the right 9th intercostal space, where the pleural cavity was entered in, 20 mL of pale yellow fluid was removed. Thereafter, using an 8-Greek catheter, 1800 mL was removed without difficulty. Pleural effusion is not being sent for any studies, because it has a known transudate from previous CHF. The patient tolerated the procedure well. Job ID: [id number]
[2018-11-18] MEDS: hydrALAZINE 25 MG TAB PO SCH ×3 (11:38→20:22)
[2018-11-18] MEDS: Amlodipine 10 MG TAB PO SCH (11:38)
[2018-11-18] MEDS: cloNIDine 0.1 MG TAB PO SCH ×2 (11:38→22:17)
--- NOTE | 2018-11-18 15:06 | PRG ---
DATE OF SERVICE: 11/18/2018 SUBJECTIVE: The patient is seen and examined at bedside. He is in ICU 8. He is sitting up with nasal cannula. His younger son came to visit him with his daughter. He looks significantly better than what he looked yesterday. OBJECTIVE: VITAL SIGNS: Blood pressure is 129/47, pulse is 104, respiratory rate is 30, O2 saturation is 97% on 3 L by nasal cannula. HEENT: His pupils are responding to light properly. Sclerae are nonicteric. NECK: Supple. LUNGS: Breath sounds diminished at both bases with bilateral crackles at both bases. HEART: S1 and S2. Tachycardic. No S3. No S4. ABDOMEN: Soft, nontender. EXTREMITIES: 1+ peripheral edema. NEUROLOGIC: He follows my commands. He moves his all 4 extremities. LABORATORY DATA: Labs showed sodium of 142, potassium 5.0, chloride 93, CO2 of 38, BUN 61, creatinine 1.2, glycemia is ranging from 134 to 180, calcium 8.8. IMPRESSION: 1. Acute respiratory failure with large pleural effusion on the right side, status post a transfer to intensive care unit on the patient's son request for BiPAP therapy. The patient also had thoracocentesis done by Dr. Geller, which improved significantly his pulmonary status. 2. Pancytopenia related to his malignancy. 3. Stage II [id number] lung cancer. 4. Atypical chronic lymphocytic leukemia. 5. Chronic obstructive pulmonary disease. 6. Congestive heart failure. 7. Severe physical deconditioning. 8. Hypertension. 9. Diabetes mellitus type 2. 10. Chronic renal insufficiency. DISCUSSION: The patient improved with BiPAP and thoracocentesis. We will continue his IV Lasix. The patient will remain DNR and apparently he had a run of atrial fibrillation, which was treated by Dr. Geller with digoxin 1 dose x1 and he is in sinus rhythm at this point. He is on nasal cannula 3 L, that is what we are going to continue. He will continue on his DuoNeb and steroids and diuretics. Job ID: [id number]
[2018-11-18] MEDS: HumaLOG 300 UNITS/3 ML VIAL SC PRN ×2 (16:53→22:18)
[2018-11-18] MEDS: Atorvastatin Calcium 20 MG TAB PO SCH (20:23)
[2018-11-19 06:04] LABS: BUN (Urea Nitrogen) 70 mg/dL (8.4-25.7); Calc. Creatinine Clearance 43 mL/min (70-130); Calcium 8.8 mg/dL (7.8-10.44); Estimated GFR-MDRD 49; Glucose 180 mg/dL (83-110)
[2018-11-19 06:13] LABS: Chloride 93 mmol/L (98-107); Potassium 4.7 mmol/L (3.5-5.1); Sodium 139 mmol/L (136-145)
[2018-11-19 06:15] LABS: Anion Gap 14 mmol/L (10-20); Carbon Dioxide 37 mmol/L (23-31)
[2018-11-19 06:22] LABS: Band 8 % (5-11); Hemoglobin 8.4 g/dL (14.0-18.0); Lymphocytes 56 % (21-51); MDiff Complete? YES; Mean Corpuscular HGB CONC 32.6 g/dL (32.0-36.0); Mean Corpuscular Hemoglobin 29.9 pg (27.0-31.0); Mean Corpuscular Volume 91.6 fL (78.0-98.0); Mean Platelet Volume 6.6 fL (7.4-10.4); Metamyelocyte 4 % (0-0); Monocytes 2 % (0-10); Neutrophil 30 % (42-75); Platelet Count 94 thou/uL (130-400); Platelet Morphology Comment Appears Decreased; RBC Distribution Width 16.3 % (11.5-14.5); Red Blood Cell (RBC) Count 2.82 mill/uL (4.70-6.10); White Blood Cell (WBC) Count 1.8 thou/uL (4.8-10.8)
[2018-11-19 07:28] VITALS: BMI 20.9
[2018-11-19] MEDS: HumaLOG 300 UNITS/3 ML VIAL SC PRN ×4 (07:54→21:51)
[2018-11-19] MEDS: Ferrous Sulfate 325 MG TAB PO SCH ×2 (08:57→16:46)
[2018-11-19] MEDS: Spironolactone 25 MG TAB PO SCH (08:57)
[2018-11-19] MEDS: Carvedilol 6.25 MG TAB PO SCH ×3 (08:59→21:40)
[2018-11-19] MEDS: Amlodipine 10 MG TAB PO SCH (08:59)
[2018-11-19] MEDS: Digoxin 0.5 MG/2 ML AMP SLOW IVP SCH (09:00)
[2018-11-19] MEDS: guaiFENesin ER 600 MG TAB PO SCH ×2 (09:01→20:12)
[2018-11-19] MEDS: Famotidine 20 MG TAB PO SCH (09:01)
[2018-11-19] MEDS: hydrALAZINE 25 MG TAB PO SCH ×3 (09:04→21:41)
[2018-11-19] MEDS: Loratadine 10 MG TAB PO SCH (09:05)
[2018-11-19] MEDS: methylPREDNISolone Sod Succ 40 MG VIAL IVP SCH ×2 (09:05→20:12)
[2018-11-19] MEDS: cloNIDine 0.1 MG TAB PO SCH ×2 (09:06→21:41)
[2018-11-19] MEDS: Saccharomyces boulardii 250 MG CAP PO SCH (09:06)
[2018-11-19] MEDS: Tamsulosin HCl 0.4 MG CAP PO SCH (09:06)
--- NOTE | 2018-11-19 09:12 | RAD ---
XR Chest 1 View Portable History: Congestive heart failure Comparison: Radiograph prior day Findings: Layering bilateral effusions. Port catheter tip at the inferior SVC. Heart size is enlarged . Mild pulmonary edema. No pneumothorax. Severe degenerative disease of the right shoulder. Impression: Similar examination of the chest.
--- NOTE | 2018-11-19 09:20 | PRG ---
DATE OF SERVICE: 11/19/2018 SUBJECTIVE: This morning, he is much better. Less short of breath. OBJECTIVE: VITAL SIGNS: Saturations 99% on 3 L, respirations 21, pulse 87, and blood pressure 130/70. His I's and O's have been consistently negative. CHEST: Decreased breath sounds. No wheezing. CARDIAC: Normal S1 and S2. No gallops. ABDOMEN: No masses. LABORATORY DATA: White count 1.8, H and H of 8 and 25, and platelet count is 94. His creatinine hs gone up 1.3, BUN is 70, and glucose 250. ASSESSMENT: 1. Acute on chronic respiratory failure. 2. Congestive heart failure. 3. Chronic obstructive pulmonary disease. 4. Chronic lymphocytic leukemia. 5. Bilateral pleural effusion, status post thoracentesis. 6. He is a do not resuscitate. PLAN: The patient can be transferred safely to Oncology floor. He is a DNR. Once again as noticed, his BUN and creatinine have been elevated, I would decrease his Lasix again. Comfort care. Supportive care. We will follow. Job ID: [id number]
[2018-11-19] MEDS: Digoxin 0.125 MG TAB PO SCH (09:37)
[2018-11-19] MEDS: Enoxaparin Sodium 30 MG/0.3 ML SYRINGE SC SCH (09:37)
[2018-11-19] MEDS: Furosemide 20 MG TAB PO SCH ×2 (09:37→13:49)
[2018-11-19] MEDS: Furosemide 40 MG/4 ML VIAL SLOW IVP SCH (11:57)
--- NOTE | 2018-11-19 16:30 | PRG ---
DATE OF SERVICE: 11/19/2018 SUBJECTIVE: The patient is seen and examined at the bedside. He is moved to Oncology floor by Dr. Geller. The family is visiting with him. He seems to be doing better in terms of his respirations. OBJECTIVE: VITAL SIGNS: Blood pressure is 121/60, pulse is 83, temperature 98.2, respirations 18, and O2 saturation is 96% on 3 L by nasal cannula. HEENT: His sclerae are nonicteric. Conjunctivae are palish. Oral mucosa is moist. NECK: Supple. LUNGS: Breath sounds significantly diminished at both bases with suspicion for bilateral pleural effusion. Bilateral crackles are present on both sides in upper and lower parts of both lungs. HEART: S1 and S2, normal. No S3. No S4. ABDOMEN: Soft and nontender. Bowel sounds are present. No organomegaly. EXTREMITIES: No clubbing, cyanosis, or edema. NEUROLOGIC: He follows my commands. He moves his all 4 extremities. There are no any motor deficits. LABORATORY DATA: Labs showed white count of 1.8, hemoglobin 8.4, hematocrit 25.8, platelet count is 94,000. Sodium of 139, potassium 4.0, chloride 93, CO2 of 37, BUN 70, creatinine 1.39. Glycemia is ranging from 180 to 264. X-ray of the chest showed bilateral pleural effusion. IMPRESSION: 1. Acute respiratory failure with large pleural effusion on the right side, which was tapped by Dr. Geller 2 days ago and now it is accumulating back on both sides. The patient was moved to the Oncology floor and Dr. Geller, his rabies inspector recommends supportive care and comfort measures. We will continue his O2, continue diuretics. 2. Pancytopenia related to his malignancy. 3. Stage II non-small cell lung cancer. 4. Atypical chronic lymphocytic leukemia. 5. Chronic obstructive pulmonary disease. 6. Congestive heart failure. 7. Severe physical deconditioning. 8. Hypertension. 9. Diabetes mellitus, type 2. 10. Chronic renal insufficiency. DISCUSSION: The patient is moved to Oncology floor. He remains DNR. He will get supportive care, comfort care, and his Lasix was decreased by Dr. Geller. We will continue O2. Job ID: [id number]
[2018-11-19] MEDS: Mometasone Furoate 120 PUFF 220 MCG INH SCH (19:04)
[2018-11-19] MEDS: Atorvastatin Calcium 20 MG TAB PO SCH (20:12)
[2018-11-19] MEDS: ALPRAZolam 0.5 MG TAB PO PRN (22:12)
[2018-11-20 06:11] LABS: BUN (Urea Nitrogen) 60 mg/dL (8.4-25.7); Calc. Creatinine Clearance 43 mL/min (70-130); Calcium 8.6 mg/dL (7.8-10.44); Estimated GFR-MDRD 53; Glucose 199 mg/dL (83-110)
[2018-11-20 06:20] LABS: Anion Gap 16 mmol/L (10-20); Carbon Dioxide 33 mmol/L (23-31); Chloride 93 mmol/L (98-107); Potassium 4.6 mmol/L (3.5-5.1); Sodium 137 mmol/L (136-145)
[2018-11-20] MEDS: HumaLOG 300 UNITS/3 ML VIAL SC PRN ×3 (06:48→17:12)
[2018-11-20 06:56] LABS: Anisocytosis SLIGHT = 6-15 cells (100X) (0-5/hpf); Band 8 % (5-11); Lymphocytes 50 % (21-51); MDiff Complete? YES; Mean Corpuscular HGB CONC 32.1 g/dL (32.0-36.0); Mean Corpuscular Hemoglobin 29.6 pg (27.0-31.0); Mean Corpuscular Volume 92.1 fL (78.0-98.0); Mean Platelet Volume 6.3 fL (7.4-10.4); Monocytes 5 % (0-10); Neutrophil 37 % (42-75); Platelet Count 93 thou/uL (130-400); Platelet Morphology Comment Appears Decreased; RBC Distribution Width 16.1 % (11.5-14.5); White Blood Cell (WBC) Count 1.5 thou/uL (4.8-10.8)
[2018-11-20] MEDS ORDERED: Boudreaux's Butt Paste 60 GM TUBE TOP PRN (08:59)
[2018-11-20] MEDS: Ferrous Sulfate 325 MG TAB PO SCH ×2 (09:01→16:37)
[2018-11-20] MEDS: Spironolactone 25 MG TAB PO SCH (09:02)
[2018-11-20] MEDS: Amlodipine 10 MG TAB PO SCH (09:03)
[2018-11-20] MEDS: Carvedilol 6.25 MG TAB PO SCH ×3 (09:07→21:15)
[2018-11-20] MEDS: cloNIDine 0.1 MG TAB PO SCH ×2 (09:08→21:15)
[2018-11-20] MEDS: Digoxin 0.125 MG TAB PO SCH (09:08)
[2018-11-20] MEDS: Enoxaparin Sodium 30 MG/0.3 ML SYRINGE SC SCH (09:22)
[2018-11-20] MEDS: Furosemide 20 MG TAB PO SCH ×2 (09:23→14:14)
[2018-11-20] MEDS: Famotidine 20 MG TAB PO SCH (09:23)
[2018-11-20] MEDS: hydrALAZINE 25 MG TAB PO SCH ×3 (09:23→21:15)
[2018-11-20] MEDS: guaiFENesin ER 600 MG TAB PO SCH ×2 (09:23→21:15)
[2018-11-20] MEDS: Loratadine 10 MG TAB PO SCH (09:24)
[2018-11-20] MEDS: methylPREDNISolone Sod Succ 40 MG VIAL IVP SCH ×2 (09:24→21:15)
[2018-11-20] MEDS: Tamsulosin HCl 0.4 MG CAP PO SCH (09:24)
[2018-11-20] MEDS: Saccharomyces boulardii 250 MG CAP PO SCH (09:24)
[2018-11-20] MEDS: Polyethylene Glycol 3350 17 GM Packet PO SCH (09:25)
[2018-11-20] MEDS: Digoxin 0.5 MG/2 ML AMP SLOW IVP SCH (12:04)
[2018-11-20] MEDS: Boudreaux's Butt Paste 60 GM TUBE TOP SCH ×2 (12:04→21:15)
--- NOTE | 2018-11-20 16:35 | PRG ---
DATE OF SERVICE: 11/20/2018 SUBJECTIVE: The patient is seen and examined at the bedside. The daughter is present in the room during my visit. He seems to be doing somewhat better. He plays some games on his tablet. His appetite is good. He is on normal bowel movements. OBJECTIVE: VITAL SIGNS: Blood pressure is 125/60, pulse is 85, respiratory rate is 18, O2 saturation is 97% on 3 L by nasal cannula, and temperature is 97.4. HEENT: His eyes are PERRLA. Sclerae are nonicteric. Oral mucosa is slightly dry. NECK: Supple. LUNGS: Breath sounds diminished at both bases with dullness on percussion in the right lower lobe. HEART: S1 and S2, normal. No S3. No S4. ABDOMEN: Soft and nontender. EXTREMITIES: No clubbing, cyanosis, or edema. NEUROLOGICAL: He is alert and oriented x3. There are no any motor deficits. LABORATORY DATA: Labs showed white count of 1.5, hemoglobin 8.0, hematocrit 24.9, and platelet count is 93,000. Sodium of 137, potassium 4.6, chloride 93, CO2 of 33, BUN 60, and creatinine 1.29. Glycemia is ranging from 156 to 264. IMPRESSION: 1. Acute respiratory failure with large pleural effusion on the right side, which was tapped with some reaccumulation of the fluid on the recent chest x-ray. 2. Congestive heart failure. 3. Pancytopenia. 4. Stage II non-small cell lung cancer. 5. Chronic lymphocytic leukemia. 6. Chronic obstructive pulmonary disease. 7. Severe physical deconditioning. 8. Hypertension. 9. Diabetes mellitus, type 2. PLAN: Plan is to discontinue his Noonan catheter today and see whether he can go through the voiding trial. If not, we will have to re-insert. We will notify Oncology Team/Hematology Team about his neutropenia. We will have him on neutropenic precautions at this point. He is not having any fever. If this does not get any better, we will have to put him on antibiotics and continue his DuoNeb, his IV steroids, and inhaled steroids. Continue sliding scale with insulin. Continue digoxin and carvedilol. We will continue his Flomax. Job ID: [id number]
[2018-11-20] MEDS: Mometasone Furoate 120 PUFF 220 MCG INH SCH (19:18)
[2018-11-20] MEDS: Atorvastatin Calcium 20 MG TAB PO SCH (21:15)
[2018-11-20] MEDS: ALPRAZolam 0.5 MG TAB PO PRN (22:48)
[2018-11-21 03:30] LABS: #Lymphocytes 0.5 thou/uL (1.20-3.40); #Monocytes 0.2 thou/uL (0.11-0.59); #Neutrophils 1.1 thou/uL (1.40-6.50); %Eosinophils 0.2 % (0.0-10.0); %Lymphocytes 26.4 % (21.0-51.0); %Monocytes 12.4 % (0.0-10.0); %Neutrophils 61.1 % (42.0-75.0); Mean Corpuscular HGB CONC 31.9 g/dL (32.0-36.0); Mean Corpuscular Hemoglobin 29.6 pg (27.0-31.0); Mean Corpuscular Volume 92.9 fL (78.0-98.0); Mean Platelet Volume 6.5 fL (7.4-10.4); Platelet Count 97 thou/uL (130-400); RBC Distribution Width 16.1 % (11.5-14.5); White Blood Cell (WBC) Count 1.8 thou/uL (4.8-10.8)
[2018-11-21 03:54] LABS: BUN (Urea Nitrogen) 62 mg/dL (8.4-25.7); Calc. Creatinine Clearance 40 mL/min (70-130); Calcium 8.6 mg/dL (7.8-10.44); Estimated GFR-MDRD 49; Glucose 204 mg/dL (83-110)
[2018-11-21 04:03] LABS: Anion Gap 14 mmol/L (10-20); Carbon Dioxide 35 mmol/L (23-31); Chloride 94 mmol/L (98-107); Potassium 4.9 mmol/L (3.5-5.1); Sodium 138 mmol/L (136-145)
[2018-11-21] MEDS: Enoxaparin Sodium 30 MG/0.3 ML SYRINGE SC SCH (08:29)
[2018-11-21] MEDS: Polyethylene Glycol 3350 17 GM Packet PO SCH (08:29)
[2018-11-21] MEDS: methylPREDNISolone Sod Succ 40 MG VIAL IVP SCH (08:29)
[2018-11-21] MEDS: guaiFENesin ER 600 MG TAB PO SCH ×2 (08:30→20:00)
[2018-11-21] MEDS: Furosemide 20 MG TAB PO SCH ×2 (08:30→15:25)
[2018-11-21] MEDS: hydrALAZINE 25 MG TAB PO SCH ×3 (08:30→20:01)
[2018-11-21] MEDS: Spironolactone 25 MG TAB PO SCH (08:30)
[2018-11-21] MEDS: Saccharomyces boulardii 250 MG CAP PO SCH (08:31)
[2018-11-21] MEDS: Carvedilol 6.25 MG TAB PO SCH ×3 (08:31→20:01)
[2018-11-21] MEDS: Tamsulosin HCl 0.4 MG CAP PO SCH (08:31)
[2018-11-21] MEDS: Amlodipine 10 MG TAB PO SCH (08:31)
[2018-11-21] MEDS: Ferrous Sulfate 325 MG TAB PO SCH ×2 (08:31→17:29)
[2018-11-21] MEDS: Digoxin 0.125 MG TAB PO SCH (08:31)
[2018-11-21] MEDS: Famotidine 20 MG TAB PO SCH (08:31)
[2018-11-21] MEDS: cloNIDine 0.1 MG TAB PO SCH ×2 (08:31→20:00)
[2018-11-21] MEDS: Boudreaux's Butt Paste 60 GM TUBE TOP SCH ×2 (08:32→20:01)
[2018-11-21] MEDS: Loratadine 10 MG TAB PO SCH (08:33)
[2018-11-21] MEDS: Digoxin 0.5 MG/2 ML AMP SLOW IVP SCH (10:12)
[2018-11-21] MEDS: HumaLOG 300 UNITS/3 ML VIAL SC PRN ×2 (13:11→17:29)
--- NOTE | 2018-11-21 13:50 | PRG ---
DATE OF SERVICE: 11/21/2018 SUBJECTIVE: The patient is seen and examined at the bedside. He walked yesterday and today. He feels somewhat better. His appetite is good. He eats everything. OBJECTIVE: VITAL SIGNS: Blood pressure is 126/58, pulse is 84, respiratory rate is 18, and O2 saturation is 96% on 3 L by nasal cannula. HEENT: His head is atraumatic and normocephalic. Sclerae nonicteric. Oral mucosa is moist. NECK: Supple. LUNGS: Bilateral rales and crackles at both bases. Breath sounds diminished significantly at both bases. There is pleural effusion, mostly on the right side. HEART: S1 and S2 normal. No S3. No S4. ABDOMEN: Soft, nontender, and nondistended. EXTREMITIES: No clubbing, cyanosis, or edema. NEUROLOGIC: He follows my commands. He moves his all 4 extremities. LABORATORY DATA: Labs showed white count of 1.8, hemoglobin 8.0, hematocrit 25.1, platelet count is 97,000. Sodium of 138, potassium 4.9, chloride 94, CO2 of 35, BUN 62, creatinine 1.37, and glycemia is ranging from 195 to 284. IMPRESSION: 1. Acute respiratory failure with large pleural effusion on the right side, status post thoracocentesis and reaccumulation of some oldest fluid back on recent chest x-ray. 2. Congestive heart failure. 3. Pancytopenia. 4. Stage II non-small cell lung cancer. 5. Chronic lymphocytic leukemia. 6. Chronic obstructive pulmonary disease. 7. Severe physical deconditioning. 8. Hypertension. 9. Diabetes mellitus type 2, not controlled. PLAN: The patient was seen by Dr. Calvo for his pancytopenia. He does not recommend any treatment at this point. He needs to get stronger before he can get any kind of treatment for his malignancies. Thus far, we are trying to obtain approval for a skilled versus rehab, where he can do PT. His white count is watched closely daily. We will continue his DuoNeb. We will change his IV steroids to p.o. prednisone and I am going to change his sliding scale since his glycemia is running above 200 most of the time. Continue digoxin and carvedilol orally and Flomax. Job ID: [id number]
[2018-11-21] MEDS: Mometasone Furoate 120 PUFF 220 MCG INH SCH (19:47)
[2018-11-21] MEDS: Insulin Glargine 10 UNITS in Pre-Filled Syringe 1 EACH SC SCH (20:01)
[2018-11-21] MEDS: Atorvastatin Calcium 20 MG TAB PO SCH (20:01)
[2018-11-21] MEDS: ALPRAZolam 0.5 MG TAB PO PRN (21:17)
--- NOTE | 2018-11-21 22:09 | EKG ---
Test Reason : Blood Pressure : / mmHG Vent. Rate : 105 BPM Atrial Rate : 101 BPM P-R Int : 000 ms QRS Dur : 138 ms QT Int : 310 ms P-R-T Axes : 000 098 014 degrees QTc Int : 409 ms Atrial fibrillation with rapid ventricular response Right bundle branch block Abnormal ECG Confirmed by YOLANDE SCHWARZ ([id number]), sports editor KATERINA CALL ([id number] on 11/21/2018 10:08:52 PM Referred By: Confirmed By:YOLANDE SCHWARZ
[2018-11-22 06:03] LABS: BUN (Urea Nitrogen) 64 mg/dL (8.4-25.7); Calc. Creatinine Clearance 45 mL/min (70-130); Estimated GFR-MDRD 55; Glucose 85 mg/dL (83-110)
[2018-11-22 06:12] LABS: Anion Gap 13 mmol/L (10-20); Carbon Dioxide 35 mmol/L (23-31); Chloride 96 mmol/L (98-107); Potassium 4.5 mmol/L (3.5-5.1); Sodium 139 mmol/L (136-145)
[2018-11-22 07:58] LABS: Band 13 % (5-11); Eosinophils 2 % (0-10); Hemoglobin 8.1 g/dL (14.0-18.0); Lymphocytes 48 % (21-51); MDiff Complete? YES; Mean Corpuscular HGB CONC 32.2 g/dL (32.0-36.0); Mean Corpuscular Hemoglobin 30.1 pg (27.0-31.0); Mean Corpuscular Volume 93.7 fL (78.0-98.0); Mean Platelet Volume 6.4 fL (7.4-10.4); Monocytes 2 % (0-10); Neutrophil 35 % (42-75); Platelet Count 107 thou/uL (130-400); Platelet Morphology Comment Appears Decreased; RBC Distribution Width 16.2 % (11.5-14.5); Red Blood Cell (RBC) Count 2.67 mill/uL (4.70-6.10); White Blood Cell (WBC) Count 2.7 thou/uL (4.8-10.8)
[2018-11-22] MEDS ORDERED: predniSONE 20 MG TAB PO SCH (08:00)
[2018-11-22] MEDS: Ferrous Sulfate 325 MG TAB PO SCH ×2 (08:42→17:11)
[2018-11-22] MEDS: Spironolactone 25 MG TAB PO SCH (08:43)
[2018-11-22] MEDS: Amlodipine 10 MG TAB PO SCH (08:43)
[2018-11-22] MEDS: Boudreaux's Butt Paste 60 GM TUBE TOP SCH ×2 (08:44→20:26)
[2018-11-22] MEDS: Digoxin 0.125 MG TAB PO SCH (08:45)
[2018-11-22] MEDS: Carvedilol 6.25 MG TAB PO SCH ×3 (08:45→20:21)
[2018-11-22] MEDS: Enoxaparin Sodium 30 MG/0.3 ML SYRINGE SC SCH (08:46)
[2018-11-22] MEDS: Famotidine 20 MG TAB PO SCH (08:46)
[2018-11-22] MEDS: Furosemide 20 MG TAB PO SCH ×2 (08:46→14:10)
[2018-11-22] MEDS: guaiFENesin ER 600 MG TAB PO SCH ×2 (08:47→20:21)
[2018-11-22] MEDS: Loratadine 10 MG TAB PO SCH (08:48)
[2018-11-22] MEDS: Saccharomyces boulardii 250 MG CAP PO SCH (08:48)
[2018-11-22] MEDS: Tamsulosin HCl 0.4 MG CAP PO SCH (08:48)
[2018-11-22] MEDS: Polyethylene Glycol 3350 17 GM Packet PO SCH (08:49)
[2018-11-22] MEDS: cloNIDine 0.1 MG TAB PO SCH ×2 (09:38→20:20)
[2018-11-22] MEDS: hydrALAZINE 25 MG TAB PO SCH (09:38)
[2018-11-22] MEDS: HumaLOG 300 UNITS/3 ML VIAL SC PRN ×3 (12:03→20:33)
[2018-11-22] MEDS ORDERED: hydrALAZINE 25 MG TAB PO SCH (15:00)
--- NOTE | 2018-11-22 15:50 | PRG ---
DATE OF SERVICE: 11/22/2018 SUBJECTIVE: The patient is seen and examined at the bedside. He is feeling better. His appetite is good. He did his walking in the hallway a couple of times today. He feels stronger. OBJECTIVE: VITAL SIGNS: Blood pressure is 118/60, pulse is 85, temperature is 97.3, respirations 18, and O2 saturation is 83 on nasal cannula of 3 L. SKIN: His skin looks better. HEENT: Eyes shows more colors today. His conjunctivae are palish. Oral mucosa is moist. NECK: Supple. LUNGS: Again, breath sounds significantly diminished at the right base with some crackles bilaterally in both bases. HEART: S1 and S2 normal. No S3. Systolic murmur present, 2/6, mostly at the left sternal border and the apex. ABDOMEN: Soft, nontender, and nondistended. EXTREMITIES: No clubbing or cyanosis. There is 1+ peripheral edema, similarly bilaterally on both lower extremities. NEUROLOGICAL: He is alert and oriented x4. There is no any motor or sensory deficit present. Cranial nerves are intact. LABORATORY DATA: White count of 2.7, hemoglobin 8.1, hematocrit 25.1, and platelet count 107. Sodium 139, potassium 4.5, chloride 96, CO2 of 35, BUN 64, and creatinine 1.24. His glycemia is ranging between 189 to 268. IMPRESSION: 1. Acute respiratory failure with large pleural effusion on the right side, status post thoracocentesis and reaccumulation of some of the fluid back on the recent chest x-ray. 2. Congestive heart failure. 3. Pancytopenia, improved. 4. Stage II non-small cell lung cancer. 5. Chronic lymphocytic leukemia. 6. Chronic obstructive pulmonary disease. 7. Severe physical deconditioning. 8. Hypertension. 9. Diabetes mellitus, type 2. Glycemia was not controlled because he was on a prednisone. PLAN: I am going to decrease his prednisone dose to 30 mg once a day. He will continue on inhaled steroids. He will continue on Lasix and spironolactone. Also, we will continue his insulin Lantus 10 units. This should cover his glycemia, although it is running on the higher side now, but since we are lowering the dose of prednisone, it should be getting better. His blood pressure is going to be monitored closely. We will continue Coreg and we have to hold amlodipine today, and if the blood pressure is running on the lower side, we will have to stop amlodipine and just continue Coreg. We will continue PT and he is approved by the rehab, so we will send him to the rehab tomorrow. He would like to talk to his oncologist, Dr. Yuen, who is coming back tomorrow. Job ID: [id number]
[2018-11-22] MEDS: Mometasone Furoate 120 PUFF 220 MCG INH SCH (19:38)
[2018-11-22] MEDS: Insulin Glargine 10 UNITS in Pre-Filled Syringe 1 EACH SC SCH (20:16)
[2018-11-22] MEDS: Atorvastatin Calcium 20 MG TAB PO SCH (20:26)
[2018-11-22] MEDS: ALPRAZolam 0.5 MG TAB PO PRN (22:00)
[2018-11-23 07:13] LABS: Anion Gap 10 mmol/L (10-20); BUN (Urea Nitrogen) 76 mg/dL (8.4-25.7); Calc. Creatinine Clearance 39 mL/min (70-130); Carbon Dioxide 36 mmol/L (23-31); Chloride 96 mmol/L (98-107); Estimated GFR-MDRD 48; Glucose 118 mg/dL (83-110); Potassium 4.6 mmol/L (3.5-5.1); Sodium 137 mmol/L (136-145)
[2018-11-23 07:21] LABS: Hemoglobin 7.7 g/dL (14.0-18.0); Mean Corpuscular HGB CONC 32.3 g/dL (32.0-36.0); Mean Corpuscular Hemoglobin 30.2 pg (27.0-31.0); Mean Corpuscular Volume 93.6 fL (78.0-98.0); Mean Platelet Volume 6.7 fL (7.4-10.4); Platelet Count 116 thou/uL (130-400); RBC Distribution Width 16.5 % (11.5-14.5); Red Blood Cell (RBC) Count 2.56 mill/uL (4.70-6.10); White Blood Cell (WBC) Count 3.2 thou/uL (4.8-10.8)
[2018-11-23] MEDS ORDERED: predniSONE 20 MG TAB PO SCH ×3 (08:00→09:45)
[2018-11-23] MEDS: Ferrous Sulfate 325 MG TAB PO SCH (08:05)
[2018-11-23] MEDS: Spironolactone 25 MG TAB PO SCH (08:06)
[2018-11-23] MEDS: Tamsulosin HCl 0.4 MG CAP PO SCH (08:07)
[2018-11-23] MEDS: Amlodipine 10 MG TAB PO SCH (08:07)
[2018-11-23] MEDS: Saccharomyces boulardii 250 MG CAP PO SCH (08:08)
[2018-11-23] MEDS: cloNIDine 0.1 MG TAB PO SCH (08:08)
[2018-11-23] MEDS: Digoxin 0.125 MG TAB PO SCH (08:08)
[2018-11-23] MEDS: Famotidine 20 MG TAB PO SCH (08:08)
[2018-11-23] MEDS: guaiFENesin ER 600 MG TAB PO SCH (08:09)
[2018-11-23] MEDS: Enoxaparin Sodium 30 MG/0.3 ML SYRINGE SC SCH (08:09)
[2018-11-23] MEDS: Loratadine 10 MG TAB PO SCH (08:09)
[2018-11-23] MEDS: Carvedilol 6.25 MG TAB PO SCH ×2 (08:09→14:17)
[2018-11-23] MEDS: Furosemide 20 MG TAB PO SCH ×2 (08:10→14:18)
[2018-11-23] MEDS: Polyethylene Glycol 3350 17 GM Packet PO SCH (08:10)
[2018-11-23] MEDS: Boudreaux's Butt Paste 60 GM TUBE TOP SCH (08:11)
[2018-11-23 08:47] LABS: Anisocytosis SLIGHT = 6-15 cells (100X) (0-5/hpf); Band 15 % (5-11); Eosinophils 1 % (0-10); Lymphocytes 24 % (21-51); MDiff Complete? YES; Metamyelocyte 1 % (0-0); Monocytes 9 % (0-10); Neutrophil 50 % (42-75); Ovalocytes SLIGHT = 2-5 cells (100X) (0-1/hpf); Platelet Morphology Comment Appears Decreased; Poikilocytosis SLIGHT = 6-15 cells (100X) (0-5/hpf); Polychromasia SLIGHT = 2-3 cells (100X) (0-2/hpf); Tear Drops SLIGHT = 2-5 cells (100X) (0-1/hpf)
--- NOTE | 2018-11-23 09:56 | PRG ---
DATE OF SERVICE: 11/23/2018 SUBJECTIVE: This morning, blood pressure 133/62, pulse 82, saturation 98% on 3 L, respiratory rate 18. His I's and O's have been consistently uneven. CHEST: Decreased breath sounds. No wheezing. CARDIAC: Normal S1 and S2. No gallops. ABDOMEN: No masses. LABORATORY DATA: White count 3.2; hemoglobin and hematocrit 7 and 23, platelet count is 116, improved; 50 segs; 15 bands. BUN and creatinine 76 and 1.4, glucose 130. IMPRESSION: Congestive heart failure, chronic obstructive pulmonary disease, lung cancer, azotemia, encephalopathy, supraventricular tachycardia. PLAN: He will be transferred today to rehab. Continue supportive care, PT. He is off all antibiotics. Continue follow lab in the rehab. Job ID: [id number]
[2018-11-23] MEDS: HumaLOG 300 UNITS/3 ML VIAL SC PRN (11:52)
[2018-11-23 12:05] VITALS: TEMP 97.7
--- NOTE | 2018-11-23 12:29 | DIS ---
DATE OF ADMISSION: 11/14/2018 DATE OF DISCHARGE: 11/23/2018 DIAGNOSIS AT THE TIME OF DISCHARGE: 1. Acute respiratory failure with large pleural effusion on the right side, status post thoracocentesis. 2. Congestive heart failure. 3. Pancytopenia, improved. 4. Stage II non-small cell lung cancer. 5. Supraventricular tachycardia, resolved. 6. Altered mental status. 7. Chronic obstructive pulmonary disease. 8. Severe physical deconditioning. 9. Hypertension. 10. Diabetes mellitus type 2. CONSULTANTS: 1. Dr. Geller, Pulmonary/Critical Care Service. 2. LOKESH Ann, for Dr. Yuen. 3. Dr. Tian Martinez, Cardiology Service. 4. Dr. Ignacio Elam, Cardiology Service. HOSPITAL COURSE: The patient is an 83-year-old male, who was admitted to the hospital with acute on chronic respiratory failure with hypoxia, acute encephalopathy, and acute kidney injury. The day before this admission, he had 1 unit of packed red blood cells transfused. The patient has stage II non small-cell lung cancer and he was undergoing radiation therapy. Also, he had COPD and atypical CLL along with congestive heart failure, which is mostly diastolic and severe deconditioning. At the time of admission to the hospital, his BUN was 59, creatinine 1.8. White cell count was 2.6, hemoglobin was 8.5 and hematocrit 26. Serum glucose was 163. BNP 447, and troponin I x2 were negative. Chest x-ray showed chronic lung changes. CT of the brain without contrast showed no mass or bleeding. The patient was admitted to Oncology floor with above-mentioned diagnosis. He was mg q.12 hours. He had multiple hospitalizations recently and he has progressively declined in his physical condition with exertional dyspnea. He was also placed on DuoNebs 4 times a day and Flovent. Tub Mender was consulted and oncologist was consulted. He was seen by Dr. Geller for Pulmonary consultation. He felt that the patient's prognosis was grave and recommended to continue on diuresis and he considered to do a thoracocentesis when the pleural effusion accumulates more in his pleural space on the right side. Also, he was seen by oncologist's PA, Nury Lara. His ibrutinib for his CLL was put on hold and discussion was done with Dr. Hunt regarding ending his radiation sooner, so the patient can go to the rehab to regain strength and come back for more immunology treatments for his CLL. Also, the patient was seen by Dr. Martinez for Cardiology evaluation and he recommended to increase his Coreg to three times a day and start increasing high dose of furosemide for better diuresis. His pancytopenia improved, then gradually got worse, then improved at the time of discharge. In the meantime, he deteriorated, his condition got worse after he was transferred to the Telemetry floor. He required CPAP treatment. He was moved to the Intensive Care Unit for that purpose and while there, he developed SVT, which was treated with digoxin by cell builder/Critical Care. He converted to sinus rhythm when after long discussion with the family, he was moved back to Oncology floor for somewhat less intensive treatment. He was changed to DNR, but he reversed that status at the time of discharge. He was treated with DuoNebs and while in the intensive care unit, he had right-sided thoracocentesis done by Dr. Geller, who drained approximately 2 L of transudative fluid from his right pleural cavity. Subsequently, he improved, although his chest x-ray followup showed some accumulation of the bilateral fluid. He was treated with more diuretics along with spironolactone and gradually, his condition improved. He still requires 3.5 L by nasal cannula, but he was accepted by the rehab today, so he is discharged there with recommendation to stay on 2000 calories ADA diet. ACTIVITIES: As tolerated. MEDICATIONS: At the time of discharge, 1. DuoNebs q.i.d. p.r.n. 2. Carvedilol 6.25 mg twice a day. 3. Atorvastatin 20 mg at bedtime. 4. Ferrous sulfate 325 mg twice a day. 5. Zyrtec 5 mg once a day. 6. Fluticasone 50 mcg twice a day. 7. Florastor 250 mg once daily. 8. Pantoprazole 40 mg daily. 9. Coenzyme Q10 10 mg 3 times a day. 10. Clonidine 0.1 mg twice a day. 11. Hydroxyzine 10 mg daily. 12. Prednisone 20 mg daily. 13. Two tablets of Senokot-S twice a day. 14. MiraLAX 17 g a day. 15. Glargine 10 units at bedtime subcutaneously. 16. Furosemide 20 mg twice a day. 17. Digoxin 0.125 mg daily. 18. Dulcolax p.r.n. 10 mg as needed. 19. Tylenol p.r.n. 650 q.4 hours as needed. 20. Xanax 0.5 mg q.12 p.r.n. as needed. He was seen and examined before he is discharged and the discharge time is more than 30 minutes. He needs to have BMP done in 1 week while in the rehab. Job ID: [id number]
[2018-11-23 14:19] VITALS: BP 139/65
[2018-11-24] MEDS ORDERED: predniSONE 20 MG TAB PO SCH (08:00)
== END 2018-11-23 14:45 | DRG 291 ==
LOC: ERS 20:25 → ONC 11-14 00:49 → OBSVTOIN 11-14 00:49 → 2NO 11-16 19:24 → CCU 11-17 11:50 → ONC 11-19 10:35
PROVIDERS: ADMIT Internal Medicine; ATTEND Internal Medicine
PROC: 0W9930Z Drainage of Right Pleural Cavity with Drainage Device, Percutaneous Approach (ICD-10-PCS; principal; 2018-11-18)
DX: I13.0 Hypertensive heart and chronic kidney disease with heart failure and stage 1 through stage 4 chronic kidney disease, or unspecified chronic kidney disease (principal); J96.21 Acute and chronic respiratory failure with hypoxia; D61.810 Antineoplastic chemotherapy induced pancytopenia; I50.33 Acute on chronic diastolic (congestive) heart failure; N17.9 Acute kidney failure, unspecified; C91.10 Chronic lymphocytic leukemia of B-cell type not having achieved remission; C34.90 Malignant neoplasm of unspecified part of unspecified bronchus or lung; J90 Pleural effusion, not elsewhere classified; I47.1 Supraventricular tachycardia; N18.9 Chronic kidney disease, unspecified; Z66 Do not resuscitate; E03.9 Hypothyroidism, unspecified; J44.9 Chronic obstructive pulmonary disease, unspecified; E11.22 Type 2 diabetes mellitus with diabetic chronic kidney disease; R79.89 Other specified abnormal findings of blood chemistry; I48.91 Unspecified atrial fibrillation; Z95.1 Presence of aortocoronary bypass graft; Z90.49 Acquired absence of other specified parts of digestive tract; Z87.891 Personal history of nicotine dependence; Z79.84 Long term (current) use of oral hypoglycemic drugs; Z91.040 Latex allergy status; Z88.0 Allergy status to penicillin; Z91.011 Allergy to milk products
CPT/HCPCS: 36415; 36416; 36430; 70450; 71045; 77014; 77336; 77412; 80048; 80053; 80069; 81003; 81015; 82550; 82570; 82805; 83735; 83880; 84156; 84300; 84484; 85025; 86850; 86900; 86901; 93005; 94640; 94660; 96372; 96374; 96375; 96376; G0378; J1160; J1447; J1642; J1650; J1815; J1940; J2920; J2930; J7512; J7620; P9016

== ENCOUNTER 2018-12-05 15:40 | Inpatient (IN) | payer MEDICARE, OTHER ==
[~2018-12-05 15:40] MED LIST changes: -CARBOPLATIN IVPB SCH; -DEXAMETHASONE SOD PHOSPHATE IVPB SCH; +ISOVUE-370 76%-LOCM 1 ML ONE; -ONDANSETRON IVPB SCH; -PACLitaxel 90 MG in Sodium Chloride 0.9% 250 ML 250 ML IVPB SCH; -SODIUM CHLORIDE 0.9% IVPB SCH; -[UNRECOGNIZED DRUG - OTHER] IVPB SCH
[2018-12-05 16:30] LABS: #Lymphocytes 0.2 thou/uL (1.20-3.40); #Monocytes 0.2 thou/uL (0.11-0.59); #Neutrophils 1.3 thou/uL (1.40-6.50); %Eosinophils 1.5 % (0.0-10.0); %Lymphocytes 13.8 % (21.0-51.0); %Monocytes 11.5 % (0.0-10.0); %Neutrophils 73.1 % (42.0-75.0); Hemoglobin 8.1 g/dL (14.0-18.0); Mean Corpuscular HGB CONC 30.1 g/dL (32.0-36.0); Mean Corpuscular Hemoglobin 28.5 pg (27.0-31.0); Mean Corpuscular Volume 94.9 fL (78.0-98.0); Mean Platelet Volume 7.3 fL (7.4-10.4); Platelet Count 93 thou/uL (130-400); RBC Distribution Width 16.6 % (11.5-14.5); Red Blood Cell (RBC) Count 2.85 mill/uL (4.70-6.10); White Blood Cell (WBC) Count 1.7 thou/uL (4.8-10.8)
[2018-12-05 16:33] LABS: ALT (SGPT) 10 U/L (8-55); AST (SGOT) 12 U/L (5-34); Alkaline Phosphatase 49 U/L (40-150); Anion Gap 13 mmol/L (10-20); BUN (Urea Nitrogen) 51 mg/dL (8.4-25.7); Bilirubin, Total 0.7 mg/dL (0.2-1.2); Calc. Creatinine Clearance 0 mL/min (70-130); Calcium 8.1 mg/dL (7.8-10.44); Carbon Dioxide 31 mmol/L (23-31); Chloride 98 mmol/L (98-107); Estimated GFR-MDRD 37; Globulin 2.4 g/dL (2.4-3.5); Glucose 185 mg/dL (83-110); Potassium 4.6 mmol/L (3.5-5.1); Protein, Total 5.4 g/dL (5.8-8.1); Sodium 137 mmol/L (136-145)
--- NOTE | 2018-12-05 17:01 | CT ---
CT ANGIOGRAM CHEST 12/05/18 COMPARISON: Chest CT 08/26/18. HISTORY: Shortness of breath. Assess for pulmonary embolism. TECHNIQUE: Serial axial CT imaging at 2.5 mm intervals through the chest with IV contrast using CT angiogram pro tocol. Coronal and sagittal 3D reformatted imaging obtained. FINDINGS: There is a left sided Port-A-Cath present. No axillary lymphadenopathy. Enlarged subcarinal lymph node noted measuring approximately 1.3 cm. Non specific subcentimeter lymph nodes are noted in the pretracheal region and AP window region. Nonspecific splenomegaly noted. Spleen measures 18 cm in AP dimension. Moderate sized right pleural effusion and small left pleural effusion, new when compared to 08/26/18. Midline sternotomy wires and mediastinal clips are present. There is extensive atherosclerotic calcif ication of the coronary arterial vasculature. There is also multifocal atherosclerotic calcification of the aortic arch and descending thoracic aorta. There is no [id number] for pulmonary embolism. There is an irregular mass in the medial aspect of the right lower lobe which probably invades the ri ght hilar structures, as seen on the 08/26/18 examination. This mass is estimated to measure in the 3. 4 x 3.6 cm range, slightly less conspicuous than 08/26/18 exam at which time it measured 3.9 x 3.7 cm. There is a probable adjacent pulmonary parenchymal mass in right lower lobe measuring 2 cm, similar when compared to prior imaging. There is adjacent volume loss or infiltrate within the right lower lo be. New focal peripheral area of pulmonary parenchymal opacity noted in the posterior superior right middle lobe. There is also course new interstitial and alveolar opacity within the inferior aspect of the right middle lobe. Within bilateral upper lobes is new interstitial prominence and nonspecific p atchy ground glass opacity. Similar patchy interstitial and alveolar opacity noted within the left lo wer lobe. Review of the osseous structures demonstrates prominent degenerative change within the shoulders. No discrete lytic or blastic bone lesion is identified. IMPRESSION: 1. No evidence for pulmonary arterial embolism. 2. New bilateral pleural effusions and new interstitial and alveolar opacity within both lungs, right greater than left. Findings may signify interval development of pulmonary edema and/or infectio us pneumonitis/aspiration. Right lower lobe mass lesions consistent with the patient's history of mal ignancy. Mild adenopathy in the chest may be metastatic or reactive in nature. Recommend short term follow-up imaging of the chest following treatment to document resolution of the new findings. POS: [facility]
--- NOTE | 2018-12-05 17:17 | RAD ---
Frontal radiograph chest: 12/05/2018 HISTORY: Short of breath, lung cancer FINDINGS: Bibasilar pleural and parenchymal opacity noted, right greater than left, better evaluated on recent CT exam. No pneumothorax. Midline sternotomy wires noted. There is atherosclerotic calcification of the aortic arch. CT injectable Port-A-Cath in place. Bibasilar interstitial and alveolar opacity, right greater than left. Findings suggest edema and/or i nfectious pneumonitis/aspiration. Please note, chest with much better assessed on CT angiogram performed recently on 12/05/2018. IMPRESSION: Portable chest radiograph as detailed above.
[2018-12-05] MEDS: Aztreonam 1 GM in Sodium Chloride 0.9% 100 ML IVPB SCH ×2 (18:30→19:31)
--- NOTE | 2018-12-05 21:48 | HP ---
PRIMARY CARE PHYSICIAN: Dr. Curtis Brizuela at the [facility]. CHIEF COMPLAINT: Coughing up blood. HISTORY OF PRESENT ILLNESS: Mr. Sanchez is a pleasant 83-year-old gentleman who has a history of stage II non-small cell lung cancer. He had been undergoing chemotherapy and radiation treatments, but he says his last treatment was about 5 weeks ago. He says that the treatments were "too hard" on his body and for that reason they stopped them. They plan to start him on a chemo pill, but needed insurance authorization and he has not started on that yet. He was recently treated and released from our hospital to the inpatient rehab. He was discharged to the inpatient rehab facility and says that he was feeling better and went home and he had been released on this past which was about 3 days ago. He says that last night he started to feel like something was going to come over him and was feeling a little bit weak and anxious. However, in the morning he started coughing and noticed that he was coughing up blood. For this reason, he was concerned. He also had a temperature up to 101.1 this morning, and for this reason, he came to the ER for evaluation. He denies having any chest pain. He is on oxygen and says he feels fine as long as he has the oxygen on. There was no nausea, no vomiting. During the evaluation in the ER, they did a CT scan of the chest which was negative for PE, but did show that he had an infiltrate in both lungs, the right more than on the left and it did demonstrate right lower lobe mass consistent with the patient's history of malignancy. The patient is being admitted for further evaluation and treatment. REVIEW OF SYSTEMS: CONSTITUTIONAL: The patient admits to some fever, but no chills, no night sweats, no weight loss. HEENT: He denies any headaches, no dizziness, no visual changes, no sore throat, no rhinorrhea, no neck pain, no adenopathy. PULMONARY: As the History of Present Illness. CARDIOVASCULAR: He denies any chest pain. There is no shortness of breath, no PND, no orthopnea, no lower extremity edema. GASTROINTESTINAL: No nausea, no vomiting, no change in bowels. GENITOURINARY: No urinary frequency or hematuria. No hesitancy. MUSCULOSKELETAL: No muscle pains, weakness, or joint pains. NEUROLOGIC: No focal weakness or numbness. No seizures. PSYCHIATRIC: No symptoms of anxiety or depression. SKIN AND INTEGUMENT: He does note some bruising on his arms, but no gum bleeding and no significant rashes. ENDOCRINE: No heat or cold intolerance. MUSCULOSKELETAL: No joint pains or muscle pains. PAST MEDICAL HISTORY: Significant for stage II non-small cell lung cancer, COPD, congestive heart failure with an ejection fraction estimated at 60% to 65%, hypertension, diabetes mellitus type 2, chronic kidney disease stage 4, chronic lymphocytic leukemia, as well as coronary artery disease. PAST SURGICAL HISTORY: He has had an appendectomy. He has had bypass surgery as well as a cholecystectomy. ALLERGIES: TO LATEX AND RUBBER, MILK WELL PENICILLIN. SOCIAL HISTORY: He is a former smoker, he quit 28 years ago. Denies any alcohol use. He is , has 4 children. He does have a medical power of defense attorney, but he cannot remember which child he designated. He also says that he would not want CPR, but would allow intubation. FAMILY HISTORY: Significant for heart disease and cancer. CURRENT MEDICATIONS: Include; 1. Carvedilol 6.25 mg twice daily. 2. Clonidine 0.1 mg twice a day. 3. Albuterol 1 puff q.6 as needed. 4. Prednisone 20 mg 3 tablets every 3 days. 5. Lasix 40 mg twice a day. 6. Levothyroxine 25 mcg daily. 7. Alprazolam 0.5 mg twice a day. 8. Atorvastatin 20 mg once daily. 9. Digoxin 0.125 mg daily. 10. Zyrtec 5 mg daily. 11. Iron sulfate 325 mg twice a day. 12. Fluticasone 50 mcg twice a day. 13. Pantoprazole 40 mg daily. 14. Florastor 250 mg daily. 15. Tradjenta 5 mg once a day. 16. Lantus insulin 10 units subcu daily. PHYSICAL EXAMINATION: GENERAL: He is alert and oriented. He appears to be in no acute distress. He is well developed and well nourished. VITAL SIGNS: Blood pressure is 146/53, heart rate 78, respiratory rate of 18, temperature is 98.8. HEENT: His pupils are equal, round, and reactive to light. Extraocular muscles are intact. His sclerae are anicteric. Throat, he has poor dentition. No erythema. No exudates. His tympanic membranes, pearly horn. There is no fluid behind the drums. No erythema in the external canal. NECK: There is no adenopathy, no bruits. LUNGS: He has bilateral wheezing and some rhonchi. Decreased breath sounds at the bases. CARDIOVASCULAR: He has a normal S1, S2. He has a grade 3/6 systolic murmur which is blowing in character. ABDOMEN: There is no abdominal pain. There is no organomegaly. It is positive for bowel sounds. No rebound or guarding. MUSCULOSKELETAL: There is no muscle pains or joint pains. NEUROLOGIC: His cranial nerves 2 through 12 are grossly intact. Muscle strength is intact. SKIN AND INTEGUMENT: He does have significant bruising on both of his upper extremities as well as some mild edema. LABORATORY RESULTS: Sodium is 137, potassium 4.6, chloride is 98, CO2 is 31, BUN of 51, creatinine 1.76, glucose is 185. White blood cell count is 1.7, hemoglobin is 8.1, hematocrit is 27.1, and platelet count is 93. CT angiogram was significant for bibasilar infiltrates. No pulmonary embolus. Chest x-ray shows bibasilar pleural opacity and increased pulmonary vascular markings, this is by my reading. ASSESSMENT: 1. This is a pleasant 83-year-old gentleman who presents with hemoptysis and fever. This is in the setting of stage II non-small cell lung cancer. He will be admitted to the Oncology unit. He will be treated for healthcare-acquired pneumonia. This is likely the cause of the hemoptysis in conjunction with the lung cancer. He will be treated with Levaquin and vancomycin. We will also consult Pulmonology to aid in both antibiotic choice and treatment going forward. 2. Stage II non-small cell lung cancer. The plan was for the patient to start oral chemotherapy. He sees Dr. Yuen. We will consult Oncology to see if this can be initiated while he is here in the hospital. 3. Mild [id number] diastolic heart failure. If his blood pressure permits, there were some evidence of possible volume overload, he may benefit from a dose of Lasix. 4. Diabetes mellitus. We will continue his home medications as well as place him on a sliding scale insulin. 5. Hypertension. Restart his home medications as well as p.r.n. medicines for elevated blood pressure. 6. Chronic kidney disease, stage 4. This appears to be clinically stable. We will keep a close eye on his renal function during his hospital stay. 7. Pancytopenia. This appears to be clinically stable and likely the result of his malignancy. 8. The patient will be placed on deep venous thrombosis as well as gastrointestinal prophylaxis. Job ID: [id number]
[2018-12-05 23:10] VITALS: BMI 25.5
[2018-12-05] MEDS ORDERED: cloNIDine 0.1 MG TAB PO PRN (23:56)
[2018-12-05] MEDS ORDERED: Dextrose 5% in Water 1,000 ML IV PRN (23:56)
[2018-12-05] MEDS ORDERED: HumaLOG 300 UNITS/3 ML VIAL SC PRN ×2 (23:56)
[2018-12-05] MEDS ORDERED: hydrALAZINE 20 MG/ML VIAL SLOW IVP PRN (23:56)
[2018-12-05] MEDS ORDERED: Dextrose 50% Abboject 50 ML SYRINGE SLOW IVP PRN (23:56)
[2018-12-05] MEDS ORDERED: Vancomycin HCl 1 GM in Premix Bag 1 BAG IVPB SCH (23:56)
[2018-12-05] MEDS ORDERED: Acetaminophen 325 MG TAB PO PRN (23:56)
[2018-12-05] MEDS ORDERED: Ondansetron ODT 4 MG TAB PO PRN (23:56)
[2018-12-05] MEDS ORDERED: Ondansetron PF 4 MG/2 ML Vial IVP PRN (23:56)
[2018-12-05] MEDS ORDERED: ALPRAZolam 0.5 MG TAB PO PRN (23:58)
[2018-12-06] MEDS ORDERED: Mometasone 100 MCG HFA INHALER INH SCH (00:15)
[2018-12-06] MEDS ORDERED: Atorvastatin Calcium 20 MG TAB PO SCH ×2 (00:15→21:00)
[2018-12-06] MEDS ORDERED: Heparin 5,000 UNITS/ML VIAL SC SCH (00:15)
[2018-12-06] MEDS ORDERED: Carvedilol 6.25 MG TAB PO SCH (00:15)
[2018-12-06] MEDS ORDERED: Furosemide 40 MG/4 ML VIAL SLOW IVP SCH (01:15)
[2018-12-06] MEDS ORDERED: Aztreonam 1 GM in Sodium Chloride 0.9% 100 ML IVPB SCH (06:00)
[2018-12-06] MEDS: Furosemide 40 MG/4 ML VIAL SLOW IVP SCH ×2 (06:24→14:53)
[2018-12-06] MEDS: Mometasone 100 MCG HFA INHALER INH SCH ×2 (07:24→18:12)
[2018-12-06 07:55] LABS: Anion Gap 12 mmol/L (10-20); BUN (Urea Nitrogen) 51 mg/dL (8.4-25.7); Calc. Creatinine Clearance 39 mL/min (70-130); Calcium 8.7 mg/dL (7.8-10.44); Carbon Dioxide 35 mmol/L (23-31); Chloride 97 mmol/L (98-107); Estimated GFR-MDRD 46; Glucose 96 mg/dL (83-110); Potassium 4.2 mmol/L (3.5-5.1); Sodium 140 mmol/L (136-145)
[2018-12-06 08:14] LABS: Anisocytosis SLIGHT = 6-15 cells (100X) (0-5/hpf); Band 19 % (5-11); Hemoglobin 7.3 g/dL (14.0-18.0); Lymphocytes 48 % (21-51); MDiff Complete? YES; Mean Corpuscular HGB CONC 31.4 g/dL (32.0-36.0); Mean Corpuscular Hemoglobin 29.5 pg (27.0-31.0); Monocytes 9 % (0-10); Neutrophil 22 % (42-75); Platelet Count 100 thou/uL (130-400); Platelet Morphology Comment Appears Decreased; Poikilocytosis SLIGHT = 6-15 cells (100X) (0-5/hpf); RBC Distribution Width 16.5 % (11.5-14.5); Red Blood Cell (RBC) Count 2.46 mill/uL (4.70-6.10); White Blood Cell (WBC) Count 1.3 thou/uL (4.8-10.8)
[2018-12-06 08:36] LABS: Digoxin 1.19 ng/mL (0.8-2.0)
[2018-12-06] MEDS ORDERED: Vancomycin HCl 1 GM in Premix Bag 1 BAG IVPB SCH (09:00)
[2018-12-06] MEDS ORDERED: Digoxin 0.125 MG TAB PO SCH (09:00)
[2018-12-06] MEDS: Carvedilol 6.25 MG TAB PO SCH ×2 (09:07→16:24)
[2018-12-06] MEDS: Heparin 5,000 UNITS/ML VIAL SC SCH ×2 (09:08→14:53)
--- NOTE | 2018-12-06 10:47 | PDOC.PN ---
- Subjective Encounter Start Date: 12/06/18 Encounter Start Time: 10:45 Mr. Sanchez was seen today in follow-up of healthcare associated pneumonia. He says he feels a little better. The cough has diminished some, but he is still coughing up some blood. He is anxious however to be discharged by tomorrow at 9am, so that he can make his appointment to have his dentures made. - Objective Resuscitation Status - Order Detail: 12/05/18 18:47 Resuscitation Status Routine Resuscitation Status: PRTL: Intubate only Discussed with: Discussed with the patient MAR Reviewed: Yes Vital Signs & Weight: Vital Signs (12 hours) Temp Pulse Resp BP BP Pulse Ox 12/06/18 09:07 74 164/79 H 12/06/18 03:53 97.5 F L 74 20 156/69 H 89 L 12/06/18 01:12 164/79 H 12/06/18 00:35 78 24 H 96 12/06/18 00:33 78 20 96 12/06/18 00:12 98.6 F 75 20 164/75 H 88 L Weight Weight 163 lb 4 oz Result Diagrams: 12/06/18 07:13 12/06/18 07:13 Additional Labs: Accuchecks 12/06/18 12/05/18 06:10 20:42 POC Glucose 110 160 H Phys Exam - Physical Examination HEENT: PERRLA + coarse breath sounds bilaterally Cardiovascular: RRR, no significant murmur, no rub Gastrointestinal: soft, non-tender, no distention, positive bowel sounds Musculoskeletal: no edema, pulses present Dx/Plan (1) Hemoptysis Code(s): R04.2 - HEMOPTYSIS Status: Acute (2) Healthcare-associated pneumonia Code(s): J18.9 - PNEUMONIA, UNSPECIFIED ORGANISM Status: Acute (3) Diabetes mellitus Code(s): E11.9 - TYPE 2 DIABETES MELLITUS WITHOUT COMPLICATIONS Status: Chronic Qualifiers: Diabetes mellitus type: type 2 Diabetes mellitus complication status: without complication (4) HLD (hyperlipidemia) Code(s): E78.5 - HYPERLIPIDEMIA, UNSPECIFIED Status: Chronic Qualifiers: Hyperlipidemia type: unspecified Qualified Code(s): E78.5 - Hyperlipidemia , unspecified Comment: (5) HTN (hypertension) Code(s): I10 - ESSENTIAL (PRIMARY) HYPERTENSION Status: Chronic Qualifiers: Comment: (6) Non-small cell carcinoma of left lung, stage 2 Code(s): C34.92 - MALIGNANT NEOPLASM OF UNSP PART OF LEFT BRONCHUS OR LUNG Status: Acute - Plan * Hemoptysis due to healthcare associated pneumonia in the setting of Non-small cell Cancer- continue Levaquin and Vancomycin. * DM- blood glucose is stable * HTN- blood pressure is a bit elevated- will continue home medications as well as PRN medication for elevated blood pressure * Non-small cell lung cancer- treatment as per Oncology * Await further recommendations from Pulmonology- hopefully he can be discharged home soon.
[2018-12-06] MEDS ORDERED: predniSONE 20 MG TAB PO SCH (16:00)
--- NOTE | 2018-12-06 16:26 | CON ---
DATE OF CONSULTATION: 12/06/2018 SERVICE: Pulmonary Medicine. REASON FOR CONSULT: Massive hemoptysis. HISTORY OF PRESENT ILLNESS: The patient is an 83-year-old white male with past medical history significant for squamous cell lung cancer. He had to interrupt chemotherapy secondary to frequent hospital admissions. He is undergoing radiation therapy. PET scan demonstrated a hot RLL mass and likely lymph node at R13. He underwent endoscopic bronchial ultrasound of R10, 7, and R4 which were without metastatic disease. The R13 node could not be identified. He has had several admissions to the hospital for COPD exacerbations and post obstructive pneumonias, most recently being discharged 2 weeks ago to a assisted facility. He was discharged home 3 days ago and was doing well until he had a coughing fit and started having coughing up sebastian blood. He did not have any fevers, chills, nausea, or vomiting. Prior to this event, he did not feel sick in anyway. Overnight, he has generated over 400 mL of hemoptysis. He is handling his airway quite well and in no distress. PAST MEDICAL HISTORY: 1. Squamous cell carcinoma of the lung. 2. Chronic lymphocytic leukemia. 3. COPD. 4. Chronic diastolic heart failure. 5. Hypertension. 6. Type 2 diabetes mellitus. 7. CKD 4. 8. Chronic lymphocytic leukemia. 9. Coronary artery disease. PAST SURGICAL HISTORY: 1. Appendectomy. 2. Coronary artery bypass graft surgery. 3. Cholecystectomy. 4. Bronchoscopy. 5. Endoscopic bronchial ultrasound. 6. Thoracentesis 7. Bone marrow biopsy. ALLERGIES: RUBBER, MILK, PENICILLIN. MEDICATIONS: List of the patient's inpatient medications were reviewed. SOCIAL HISTORY: He quit smoking 28 years ago. Prior to that, however, he had a greater than 40 pack-year history of smoking. He is and has 4 children. He has no exposure to chemicals, dust, asbestos, or tuberculosis. He is okay with intubation, but does not want any chest compressions. FAMILY HISTORY: Noncontributory. REVIEW OF SYSTEMS: General; head, eyes, ears, nose, and throat; cardiovascular, respiratory, GI, , musculoskeletal, neurologic, and skin are negative, except as mentioned in the HPI. PHYSICAL EXAMINATION: VITAL SIGNS: Afebrile, pulse 81, blood pressure 147/65, respirations 20, and saturation 96% on 2 L nasal cannula. GENERAL: The patient is awake and alert, in no apparent distress. LUNGS: Very good air entry. There are some rhonchi present, which are lateral on the right. There is a prolonged expiratory phase. No wheezing or crackles are appreciated today. HEART: Normal rate and regular. ABDOMEN: Soft, nontender, nondistended. Bowel sounds are positive. MUSCULOSKELETAL: No cyanosis or clubbing. There is no pitting in the bilateral lower extremities. NEUROLOGIC: Grossly nonfocal. LABORATORY DATA: WBC 1.3, hemoglobin 7.3, platelets 100,000. Neutrophil count is 22% on top of 19% bands. PH of 7.33, pCO2 of 80.2, pO2 of 89. Creatinine 1.46 , BUN 51. Basic metabolic profile is otherwise unremarkable. BNP 790, which is a historic high. Liver function studies were unremarkable. Urinalysis is unremarkable. Digoxin 1.19. Blood cultures x2 are unremarkable. IMAGING STUDIES: CTA of the chest demonstrates significant amounts of debris in the right bronchus intermedius. The opening to the right upper lobe is wide open. The airway into the right middle lobe has some debris at its takeoff, but the right middle lobe is largely open. There is a small infiltrate in the lateral segment of the right lower lobe. Infiltrate and/or malignancy cannot be entirely excluded. The right lower lobe has a large parenchymal mass. A large portion of the right lower lobe is atelectatic. I cannot see any obvious right lower lobe airways. Bilateral pleural effusions are present, it is greater on the right compared to the left. Scattered ground-glass opacifications that are layering, are present, consistent with possibly a volume overloaded state. His left atrium is quite enlarged, right atrium is generous. ASSESSMENT: 1. Massive hemoptysis. 2. Squamous cell carcinoma of the lung, stage II disease (negative endoscopic bronchial ultrasound of R10, 7, and R4). Negative thoracentesis for malignancy, positive PET scan with likely an R13 node, which was never sampled. 3. Chronic obstructive pulmonary disease with acute exacerbation, mild. DISCUSSION AND PLAN: I will put the patient on some antibiotics, steroids, and nebulized medications. I am going to reach out to Interventional Pulmonology to see if there is anything we may be able to offer this patient to help minimize these symptoms. At this time, he is handling his hemoptysis quite comfortably. If he fails to do so, he may require intubation. The family does appreciate that this is how many people with squamous cell carcinoma can pass away. That being said, we will see if we can prevent that from happening with more aggressive interventions. 70 minutes have been devoted to this patient in various activities. I personally reviewed all imaging studies and laboratory data noted within this document. For fifty percent of this time, I was interacting with the patient at the bedside or coordinating care with the care team. For the remainder of the time I was immediately available to the patient in the hospital unit. Job ID: [id number] [id number]
--- NOTE | 2018-12-06 16:28 | CON ---
DATE OF CONSULTATION: REASON FOR CONSULTATION: Lung cancer. HISTORY OF PRESENT ILLNESS: Mr. 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 He underwent treatment for his small-cell, but had to be discontinued secondary to toxicities and generalized weakness. He has been hospitalized for most of the past 6 weeks for a variety of symptoms including respiratory failure. He just completed rehab and was discharged on Friday. He presented to the emergency room yesterday with hemoptysis, underwent a chest CT angio, which showed no evidence of pulmonary embolism. There were new bilateral pleural effusions. The right lower lobe mass was still present. He did have a fever of 101.3. He was admitted for community-acquired pneumonia. He continues to have hemoptysis, but he does deny shortness of breath. No chest pain. He states he is feeling much stronger than he was at his last discharge from this facility approximately 2 weeks ago. PAST MEDICAL HISTORY: 1. Non-small cell lung cancer, squamous type, status post partial treatment with radiation and chemotherapy. 2. CLL. 3. Pancytopenia secondary to CLL and chemo. 4. COPD. 5. History of hemoptysis. 6. Diabetes mellitus 2. 7. Hypertension, coronary artery disease, congestive heart failure, hyperlipidemia, peptic ulcer, gout, BPH. PAST SURGICAL HISTORY: 1. Appendectomy. 2. CABG. 3. Cholecystectomy. 4. Knee replacement. 5. Carotid endarterectomy. 6. Stents in lower extremities. 7. TURP. ALLERGIES: TO LATEX, MILK, AND PENICILLIN. CURRENT MEDICATIONS: 1. Xanax p.r.n. 2. Lipitor. 3. Coreg. 4. Catapres. 5. Lanoxin. 6. Heparin. 7. Apresoline. 8. Humalog. 9. Levofloxacin. 10. Protonix. 11. Vancomycin. FAMILY HISTORY: Noncontributory. SOCIAL HISTORY: He is , lives alone. No alcohol, tobacco, or illicit drug use. REVIEW OF SYSTEMS: CONSTITUTIONAL: Positive for fever and chills. No night sweats or weight loss. EYES: No blurred or double vision. ENT: No pain, hoarseness, sore throat, or dysphagia. CV: No chest pain, palpitations, or syncope. RESPIRATORY: Positive for occasional shortness of breath, hemoptysis, and cough. GI: No nausea, vomiting, diarrhea, constipation, or abdominal pain. : No dysuria or hematuria. MUSCULOSKELETAL: Positive for back pain. SKIN: No rash. HEMATOLOGIC: No bruising, bleeding, or clotting. NEUROLOGIC: No headache, numbness, tingling, or seizure activity. PSYCH: Positive for anxiety. PHYSICAL EXAMINATION: VITAL SIGNS: Temperature 98.1, pulse is 81, respiratory rate 20, BP is 147/65. He is 96% on 2 L. GENERAL: This is a well-developed, well-nourished male, in no acute distress. HEENT: Normocephalic and atraumatic. Pupils are equal and reactive to light. Poor dentition. NECK: Supple. CV: Regular rate and rhythm. LUNGS: Clear anterior. He does have a wheeze. Positive hemoptysis. ABDOMEN: Soft and nontender. Bowel sounds are positive. EXTREMITIES: No clubbing, cyanosis, or edema. SKIN: No rash. HEMATOLOGIC: No petechiae or purpura. NEUROLOGIC: Nonfocal. PSYCH: He is alert, oriented, and appropriate. PERTINENT LABS AND X-RAYS: Current WBCs are 1.3, hemoglobin 7.3, hematocrit 23.1, platelet count is 100,000. He has 22% neutrophils, 19% bands, 48% lymphocytes. Sodium is 140, potassium 4.2, chloride 97, CO2 is 35, BUN is 51, creatinine 1.46, calcium 8.7, bilirubin 0.7, AST is 12, ALT is 10, alkaline phosphatase is 49. BNP is 790. Serum total protein 5.4, albumin 3.0, and globulin 2.4. Radiology, per HPI. ASSESSMENT: 1. Community-acquired pneumonia. 2. Hemoptysis. 3. Stage II non-small cell squamous lung cancer, partially treated with chemoradiation. 4. CLL, untreated. DISCUSSION: The patient has been started on antibiotics for pneumonia. Await Pulmonary's opinion regarding the pneumonia and hemoptysis as hemoptysis is likely from his tumor. His hemoglobin is low, but we will recheck in the morning and transfuse if it is less than 7. He has CLL and his pancytopenia is currently at baseline. The hope is to treat CLL with oral Imbruvica; however, it has been difficult to obtain as he has been in a facility for the last several weeks. We would continue physical therapy while in this facility in hopes of maintaining what he gained at rehab, and hopefully, he can be discharged in the next day or so. Thank you for the consult. Job ID: [id number]
[2018-12-06] MEDS ORDERED: EPINEPHrine 1 MG/10 ML Abboject SYRINGE ONE (16:43)
[2018-12-06] MEDS ORDERED: Lidocaine 1% PF 5 ML VIAL ONE (16:43)
[2018-12-06] MEDS ORDERED: Ondansetron PF 4 MG/2 ML Vial ONE (16:43)
[2018-12-06] MEDS ORDERED: PHENYLEPHRINE-NS 100 MCG/ML 10 ML SYRINGE ONE (16:43)
[2018-12-06] MEDS ORDERED: PROPOFOL 200 MG/20 ML VIAL ONE (16:43)
[2018-12-06] MEDS ORDERED: Glycopyrrolate 0.2 MG/ML 5 ML SYRINGE ONE (16:43)
[2018-12-06] MEDS ORDERED: Succinylcholine Chloride 20 MG/ML 10 ml SYRINGE FS ONE (16:43)
[2018-12-06 17:49] VITALS: TEMP 98.2
[2018-12-06] MEDS ORDERED: Vancomycin HCl 750 MG in Sodium Chloride 0.9% 250 ML 250 ML IVPB SCH (18:00)
[2018-12-06] MEDS ORDERED: Fentanyl 100 MCG/2 ML VIAL ONE (18:26)
[2018-12-06] MEDS ORDERED: Promethazine HCl 25 MG/ML VIAL IM PRN (19:57)
[2018-12-06] MEDS ORDERED: Ondansetron HCl/PF 4 MG/2 ML Vial IVP PRN (19:57)
[2018-12-06] MEDS ORDERED: Promethazine HCl 25 MG/ML VIAL SLOW IVP PRN (19:57)
--- NOTE | 2018-12-06 21:27 | OP ---
DATE OF PROCEDURE: 12/06/2018 SERVICE: Pulmonary Medicine. PROCEDURE PERFORMED: Fiberoptic bronchoscopy with visual airway inspection. PREPROCEDURE DIAGNOSES: 1. Massive hemoptysis. 2. Squamous cell carcinoma of the lung. POSTOPERATIVE DIAGNOSES: 1. Massive hemoptysis. 2. Squamous cell carcinoma of the lung. PROCEDURE DEVELOPMENT EDUCATOR: Moisés Balderas MD MEDICATIONS USED: For a list of medications, refer to Anesthesia documentation. Topical medications included 1 mL of epinephrine and 10 mL of water applied topically and in multiple aliquots. PREANESTHESIA ASSESSMENT: H and P had been performed. The patient's medications and allergies were reviewed. Informed consent was obtained after discussing risks and benefits, and rationale for performing the procedure as well as alternative options. DESCRIPTION OF PROCEDURE: Time-out was performed identifying correct procedure and patient with name and date of . A diagnostic fiberoptic bronchoscope was introduced through the 8.0 endotracheal tube. The bronchoscope was advanced into the trachea, where tracheobronchial tree inspection was carried out with clear identification of the left upper lobe, lingula, left lower lobe, right upper lobe, right middle lobe, right lower lobe. There was endobronchial growth, which was quite small on the membranous portion of the right mainstem bronchus before the takeoff of the right upper lobe. This was not bleeding and not previously identified. Distal to this, the right middle lobe, superior segment of right lower lobe and medial basal segment of the right lower lobe were clearly identified. Distal to that, where there should have been a trifurcation of the anterior lateral and posterior segments, there was endobronchial growth. There was active oozing in this region. Multiple clots were liberated, but I could not get the bleeding to stop. We used multiple aliquots of epinephrine. The bleeding slowed down but once again, it did not stop. The bronchoscope was subsequently removed from the patient and the procedure was terminated. FINDINGS: 1. Endobronchial growth in the membranous portion of the right mainstem bronchus prior to the takeoff of the right upper lobe, new since prior. 2. Endobronchial mass distal to the medial basal segment of the right lower lobe. Airways could be seen distal to it, but the bronchoscope could not advance beyond them. 3. Active oozing without pulsating vessels were identified from the endobronchial growth in the right lower lobe. SPECIMENS OBTAINED: None. COMPLICATIONS: None. ESTIMATED BLOOD LOSS: 10 mL. FLUOROSCOPY TIME: None. DISPOSITION: The patient will return to his room and await transfer to [facility], where additional diagnostic procedures will be considered. Job ID: [id number]
[2018-12-06 22:08] VITALS: BP 165/78
[2018-12-07] MEDS ORDERED: predniSONE 20 MG TAB PO SCH (08:00)
--- NOTE | 2018-12-07 15:27 | DIS ---
DATE OF ADMISSION: 12/05/2018 DATE OF DISCHARGE: 12/06/2018 PRIMARY CARE PHYSICIAN: Dr. Curtis Hilliard at the [facility]. DISCHARGE DISPOSITION: [facility] the [place]. DISCHARGE DIAGNOSES: 1. Hemoptysis. 2. Stage II non-small cell lung cancer. 3. Chronic obstructive pulmonary disease. 4. Congestive heart failure with chronic diastolic heart failure. EF is 60% to 65%. 5. Hypertension. 6. Diabetes mellitus, type 2. 7. Chronic kidney disease, stage 4. 8. Chronic lymphocytic leukemia. 9. Coronary artery disease. DISCHARGE MEDICATIONS: Include; 1. Atorvastatin 20 mg at bedtime. 2. Carvedilol 6.25 mg twice daily. 3. Zyrtec 5 mg daily. 4. Iron sulfate 325 mg twice a day. 5. Clonidine 0.1 mg twice a day. 6. Lasix 40 mg twice daily. 7. Hydroxyzine 10 mg daily. 8. Tradjenta 5 mg daily. 9. Protonix 40 mg daily. 10. Prednisone 10 mg a day. 11. Xanax 0.5 mg twice a day. 12. Digoxin 0.25 mg daily. 13. Lantus insulin 10 units subcu at bedtime. 14. DuoNeb q.i.d. as needed. 15. MiraLAX 17 g daily. 16. Florastor 250 mg daily. 17. Docusate sodium two tablets twice a day as needed. CODE STATUS: Intubate only. ALLERGIES: TO LATEX, MILK, AND PENICILLIN. PROCEDURES DONE DURING THE ADMISSION: The patient had a CT angiogram of the chest, which showed no evidence for pulmonary embolism. There were new bilateral pleural effusions and new interstitial and alveolar opacity within both lungs. The patient also had a bronchoscopy showing massive hemoptysis and squamous cell lung cancer. HOSPITAL COURSE: Mr. Sanchez is a pleasant 83-year-old gentleman who was recently diagnosed with non-small cell lung cancer. He has been undergoing chemotherapy as well as radiation therapy. He came to the emergency room after he developed hemoptysis as well as fever and cough. CT angiogram of the chest from the ER demonstrated evidence consistent with pneumonia. He was admitted and started on IV antibiotics. Given his extensive lung cancer history, Pulmonology was also consulted. Due to the massive hemoptysis, there was concern that he would require higher level of care and likely would need an interventional night shift manager. For this reason, [facility], and this was done under the guidance of our night shift manager. He was also seen by Oncology as well. Job ID: [id number]
--- NOTE | 2018-12-09 02:20 | PQF ---
[employer] Winform Viewer MORRO MONTGOMERY MD [id number] CLINICAL DOCUMENTATION CLARIFICATION FORM: POST DISCHARGE Addendum to original discharge summary date: ____ Late entry note date: __ DATE: 12/09/2018 ATTN: MORRO MONTGOMERY MD Please exercise your independent, professional judgment in responding to the clarification form. Clinical indicators are provided on the bottom of this form for your review Please check appropriate box(s): Conflicting documentation was noted in the Medical Record, please clarify if patient is being treated/monitored for: [ X ] Acute on chronic diastolic CHF [ ] Chronic diastolic heart failure [ ] Other diagnosis [ ] Unable to determine For continuity of documentation, please document condition throughout progress notes and discharge summary. Thank You. CLINICAL INDICATORS - SIGNS / SYMPTOMS/ LABS Mild Acute on chronic diastolic CHF-H&P, 12/05, Deep Kimble MD Hypertension. Restart his home meds as well as p.r.n medicines for elevated blood pressure -H&P, 12/05, Deep Kimble MD Some mild edema-H&P, 12/05, Deep Kimble MD BP: 146/53-H&P, 12/05, Deep Kimble MD PMH: CHF with an EF 60& to 65% -H&P, 12/05, Deep Kimble MD CHF with Chronic diastolic heart failure, EF 60& to 65%-DS, 12/06, Depe Kimble MD BNP: 790.4H-Laboratory, 12/06 There were new pleural effusions-DS, 12/06, Deep Kimble MD RISK FACTORS Hypertension-DS, 12/06, Deep Kimble MD CKD 4-DS, 12/06, Deep Kimble MD Stage II non small cell lung cancer-DS, 12/06, Deep Kimble MD TREATMENT Furosemide.IV-MAR, 12/06 [employer] Winform Viewer(This form is maintained as a part of the permanent medical record) 2014 [email or web address]. All Rights Reserved Rosita Jackson [not provided] [not provided] MTDD
== END 2018-12-06 21:20 | disposition short-term general hospital (02) | DRG 291 ==
LOC: ERS 15:40 → ONC 18:05 → OBSVTOIN 18:47
PROVIDERS: ADMIT Internal Medicine; ATTEND Internal Medicine
PROC: 0BJ08ZZ Inspection of Tracheobronchial Tree, Via Natural or Artificial Opening Endoscopic (ICD-10-PCS; principal; 2018-12-06)
DX: I13.0 Hypertensive heart and chronic kidney disease with heart failure and stage 1 through stage 4 chronic kidney disease, or unspecified chronic kidney disease (principal); J18.9 Pneumonia, unspecified organism; I50.33 Acute on chronic diastolic (congestive) heart failure; R04.2 Hemoptysis; C34.90 Malignant neoplasm of unspecified part of unspecified bronchus or lung; N18.4 Chronic kidney disease, stage 4 (severe); J90 Pleural effusion, not elsewhere classified; C91.10 Chronic lymphocytic leukemia of B-cell type not having achieved remission; J44.1 Chronic obstructive pulmonary disease with (acute) exacerbation; D61.818 Other pancytopenia; N40.0 Benign prostatic hyperplasia without lower urinary tract symptoms; I25.10 Atherosclerotic heart disease of native coronary artery without angina pectoris; Z96.659 Presence of unspecified artificial knee joint; E11.22 Type 2 diabetes mellitus with diabetic chronic kidney disease; Z79.4 Long term (current) use of insulin; Z88.8 Allergy status to other drugs, medicaments and biological substances; Z91.011 Allergy to milk products; Z88.0 Allergy status to penicillin; Z90.49 Acquired absence of other specified parts of digestive tract; Z95.1 Presence of aortocoronary bypass graft; Z87.11 Personal history of peptic ulcer disease
CPT/HCPCS: 36415; 36416; 71045; 71275; 80048; 80053; 80162; 83880; 85025; 86850; 86900; 86901; 87040; 94640; 96365; J0171; J1644; J1940; J1956; J2001; J2405; J2704; J3010; J3370; J3490; J7050; J7512; J7620; Q9966

== ENCOUNTER 2018-12-11 00:45 | Inpatient (IN) | payer MEDICARE, OTHER ==
[2018-12-11 01:29] LABS: Mean Corpuscular Volume 88.3 fL (78.0-98.0)
[2018-12-11 01:43] LABS: Band 5 % (5-11); Hemoglobin 7.9 g/dL (14.0-18.0); Lymphocytes 67 % (21-51); MDiff Complete? YES; Mean Corpuscular HGB CONC 32.6 g/dL (32.0-36.0); Mean Corpuscular Hemoglobin 28.8 pg (27.0-31.0); Mean Platelet Volume 7.1 fL (7.4-10.4); Metamyelocyte 1 % (0-0); Monocytes 16 % (0-10); Myelocyte 1 % (0-0); Neutrophil 10 % (42-75); Platelet Count 96 thou/uL (130-400); Platelet Morphology Comment Appears Decreased; Red Blood Cell (RBC) Count 2.75 mill/uL (4.70-6.10)
[2018-12-11 01:46] LABS: Anion Gap 13 mmol/L (10-20); BUN (Urea Nitrogen) 43 mg/dL (8.4-25.7); Calc. Creatinine Clearance 0 mL/min (70-130); Carbon Dioxide 32 mmol/L (23-31); Chloride 97 mmol/L (98-107); Estimated GFR-MDRD 52; Potassium 5.5 mmol/L (3.5-5.1); Sodium 136 mmol/L (136-145)
[2018-12-11 01:47] LABS: ALT (SGPT) 8 U/L (8-55); AST (SGOT) 19 U/L (5-34); Alkaline Phosphatase 48 U/L (40-150); Bilirubin, Total 0.7 mg/dL (0.2-1.2); Calcium 8.7 mg/dL (7.8-10.44); Globulin 2.7 g/dL (2.4-3.5); Glucose 127 mg/dL (83-110); Protein, Total 5.7 g/dL (5.8-8.1)
[2018-12-11 01:48] LABS: Actual Bicarbonate (HCO3v) 31 mEq/L (22-28); Analyzer IN Cardio ER; Base Excess 6.4 mEq/L (-2.0 to +3.0); Calcium, Ionized 1.02 mmol/L (1.16-1.32); Chloride (ABG LAB) 96 mmol/L (98-106); Hemoglobin (Hb) 8.7 g/dL (12.6-17.4); Potassium - ABG Lab 5.36 mmol/L (3.70-5.30); Sodium 132.6 mmol/L (133-146); pH (venous) 7.47 (7.32-7.43)
[2018-12-11] MEDS ORDERED: methylPREDNISolone Sod Succ/PF 125 MG/2 ML VIAL ONE (01:51)
[2018-12-11] MEDS ORDERED: Vancomycin HCl 1.25 GM in Sodium Chloride 0.9% 250 ML 250 ML IVPB SCH (03:15)
[2018-12-11] MEDS ORDERED: Azithromycin 500 MG VIAL ONE (03:30)
[2018-12-11] MEDS ORDERED: MEROPENEM 1 GM/50 ML 1 GM in Premix Bag 1 BAG IVPB SCH (03:30)
[2018-12-11 03:37] LABS: Bacteria/HPF None Seen HPF (None Seen); Bilirubin Negative (Negative); Blood, Urine Negative (Negative); Clarity Clear (Clear); Glucose, Urine (Dipstick) Normal (Negative); Leukocyte Negative Leu/uL (Negative); Nitrite Negative (Negative); Protein, Urine (Dipstick) 200 mg/dL (Neg-Trace); RBC/HPF 0-3 HPF (0-3); Squamous Epithelial None Seen HPF (0-3); Urobilinogen Normal mg/dL (Less than 2)
[2018-12-11 06:27] VITALS: BMI 24.0
--- NOTE | 2018-12-11 07:39 | CT ---
PRELIMINARY REPORT/[facility]/EMERGENCY AFTER HOURS PROCEDURE: EXAM: CT Angiography Chest With Contrast EXAM DATE/TIME: 12/11/2018 1:54 AM CLINICAL HISTORY: 83 years old, male; Dyspnea and shortness of breath; Patient HX: 83yo male with pmh of lung cancer and copd presents with hypoxia. Home health nurse called EMS for PT spo2 in high 80's on 4l nc, his baseline is 2l nc. PT reports SOB. Denies chest pain. TECHNIQUE: Imaging protocol: Axial computed tomographic angiography images of the chest with intravenous contrast using CT angiography protocol. 3D rendering: MIP reconstructed images were created and reviewed. COMPARISON: No relevant prior studies available. FINDINGS: Tubes, catheters and devices: Left chest wall port. Pulmonary arteries: Normal. No pulmonary emboli. Aorta: Unremarkable. No aortic aneurysm. No aortic dissection. Lungs: Extensive multifocal bilateral pneumonia versus pulmonary hemorrhage. Smooth interlobular septal thickening at the lung apices compatible with hydrostatic interstitial pulmonary edema/CHF. Compressive atelectasis of the entire right lower lobe and part of the left lower lobe. Pleural space: Large right pleural effusion. Small to moderate left pleural effusion. Heart: Aortic valve calcification. Mediastinum: Esophagus is unremarkable. Gallbladder and bile ducts: Prior cholecystectomy. Spleen: Borderline splenomegaly. Lymph nodes: Prominent mediastinal and hilar lymph nodes likely reactive. Bones/joints: Unremarkable. No acute fracture. Soft tissues: Unremarkable. IMPRESSION: 1. Extensive multifocal bilateral pneumonia versus pulmonary hemorrhage. 2. Smooth interlobular septal thickening at the lung apices compatible with hydrostatic interstitial pulmonary edema/CHF. 3. Large right pleural effusion. Small to moderate left pleural effusion. 4. Borderline splenomegaly. 5. Aortic valve calcification may indicate aortic valve stenosis. Consider correlation with echocardiography. Thank you for allowing us to participate in the care of your patient. Dictated and Authenticated by: Basil Oswald MD 12/11/2018 3:13 AM Central Time ([place] & [place]) FINAL REPORT CT PULMONARY ANGIOGRAM WITH IV CONTRAST AND 3-D POSTPROCESSING: FINDINGS/IMPRESSION: I agree with the preliminary report given by Dr. Basil Oswald of [facility]. . Transcribed Date/Time: 12/11/2018 7:48 AM
--- NOTE | 2018-12-11 07:55 | RAD ---
XR Chest 1 View Portable HISTORY: Dyspnea, lung cancer COMPARISON: 12/05/2018 FINDINGS: Changes of median sternotomy are again seen. The heart size normal. The aorta is tortuous. Left-sided Port-A-Cath remains in place. There is interval worsening of the right-sided pleural effusion. Patchy infiltrates have developed in the lung ryan bilaterally. No pneumothoraces are see n.
[2018-12-11] MEDS ORDERED: Cepastat Lozenges 1 LOZ PO PRN (08:13)
[2018-12-11] MEDS ORDERED: Dextrose 5% in Water 1,000 ML IV PRN (08:13)
[2018-12-11] MEDS ORDERED: Senokot S 8.6-50 MG TAB PO PRN (08:13)
[2018-12-11] MEDS ORDERED: Calcium Carbonate 500 MG ChewTAB PO PRN (08:13)
[2018-12-11] MEDS ORDERED: Diabetic Tussin 200 MG/10 ML UDCUP PO PRN (08:13)
[2018-12-11] MEDS ORDERED: HumaLOG 300 UNITS/3 ML VIAL SC PRN (08:13)
[2018-12-11] MEDS ORDERED: Sodium Chloride 0.65% Nasal 44 ML BOT EA NARE PRN (08:13)
[2018-12-11] MEDS ORDERED: Artificial Tears 18 DROP/0.9 ML EA EYE PRN (08:13)
[2018-12-11] MEDS ORDERED: Loratadine 10 MG TAB PO PRN (08:13)
[2018-12-11] MEDS ORDERED: Bisacodyl 10 MG SUPP PR PRN (08:13)
[2018-12-11] MEDS ORDERED: Dextrose 50% Abboject 50 ML SYRINGE SLOW IVP PRN (08:13)
[2018-12-11] MEDS ORDERED: Acetaminophen 325 MG TAB PO PRN (08:13)
[2018-12-11] MEDS ORDERED: Loperamide HCl 2 MG CAP PO PRN (08:13)
[2018-12-11] MEDS: Famotidine 20 MG TAB PO SCH (09:55)
[2018-12-11] MEDS: Saccharomyces boulardii 250 MG CAP PO SCH (09:55)
[2018-12-11] MEDS: Fluticasone Propionate Nasal Spray 16 gm Bottle NASAL SCH (09:56)
[2018-12-11] MEDS: guaiFENesin ER 600 MG TAB PO SCH ×2 (09:56→20:09)
[2018-12-11] MEDS: Famotidine/PF 20 mg/2ml Vial SLOW IVP SCH (09:57)
[2018-12-11] MEDS: hydrALAZINE 20 MG/ML VIAL SLOW IVP PRN ×2 (10:02→21:40)
[2018-12-11] MEDS ORDERED: ISOVUE-370 76%-LOCM 1 ML ONE (11:41)
[2018-12-11] MEDS: HumaLOG 300 UNITS/3 ML VIAL SC PRN ×2 (12:56→17:50)
[2018-12-11] MEDS: cloNIDine 0.1 MG TAB PO PRN ×2 (13:12→20:09)
--- NOTE | 2018-12-11 15:25 | CON ---
DATE OF CONSULTATION: HISTORY OF PRESENT ILLNESS: Alberto Sanchez, 83-year-old gentleman, who was readmitted to the hospital after he was sent to [facility] for massive pulmonary hemorrhage. He had a procedure done to control the bleeding, apparently embolization of his bronchial artery, though he is unclear exactly what happened there. He is unable to give any history. He was unhappy with his care. There, he is unhappy with my care. He states you are not doing enough for me. Therefore, he is going to see Dr. Balderas on Friday. He is still coughing some purulent sputum and bloody sputum. He denies any chest pain, chills, or sweats. He is weak. He was told that he needs some kind of cardiac evaluation. Cardiology is to be consulted. When he came home, home health nurse noticed his sats were in the 80s on 4 L. He was short of breath. He was placed on a non-rebreather and transferred to [facility]. PAST MEDICAL HISTORY: Recurrent hemoptysis, recently massive, requiring bronchial artery embolization; diabetes; end-stage COPD; squamous cell carcinoma, unresectable; congestive heart failure; recurrent pleural effusion, status post chemo radiation. PAST SURGICAL HISTORY: Extensive surgery outlined before includes bypass, cholecystectomy, appendix. SOCIAL HISTORY: Former smoker. HOME MEDICATIONS: Includes, 1. Prednisone 10. 2. Hydralazine 25. 3. Catapres. 4. Protonix. 5. Tradjenta. 6. Synthroid. 7. Lasix 40. 8. DuoNeb. 9. Digoxin 0.25. 10. Xanax p.r.n. Since admission, he is started on meropenem and vancomycin. PHYSICAL EXAMINATION: VITAL SIGNS: Blood pressure 184/70, temperature 98, saturations on 3 L, pulse 90, respirations 18. CHEST: Decreased breath sounds. Bilateral crackles with rhonchi. CARDIAC: Normal S1 and S2. No gallops. ABDOMEN: No masses. LABORATORY DATA: White count 2000, H and H 7 and 24, platelet count 96, slight left shift. He has metamyelocytes, myelocytes. PO2 is adequate. BNP is 380. IMAGING STUDIES: X-ray shows bilateral pleural effusions. CAT scan yesterday showed extensive bilateral bronchopneumonia, pulmonary hemorrhage, left pleural effusion, splenomegaly. IMPRESSION: 1. Squamous cell carcinoma with hemoptysis, status post embolization. 2. Congestive heart failure, bilateral pleural effusions, severe deconditioning, pancytopenia, hemoptysis, baseline chronic lymphocytic leukemia. PLAN: He is on broad-spectrum antibiotics as outlined, which I would continue. He will benefit from low-dose steroids. Continue neb treatments, supportive care. We will notify Dr. Balderas. We will see him on Friday. This consultation note, 70 minutes, 50% direct patient care. Job ID: [id number]
[2018-12-11] MEDS ORDERED: Amlodipine 5 MG TAB PO SCH (15:45)
--- NOTE | 2018-12-11 15:49 | HP ---
PRIMARY CARE PHYSICIAN: [facility]. REASON FOR ADMISSION: Multifocal infiltration, altered mental status, acute respiratory failure. HISTORY OF PRESENT ILLNESS: An 83-year-old male, who has underlying history of squamous cell carcinoma of lung, who was recently admitted in our hospital on December 07, 2018. During that admission, the patient had a bronchoscopy by Dr. Balderas and subsequently this patient was transferred to [facility] for higher level of care. The patient does not able to provide any details at [facility], but he reports that his artery was cauterized in his lung. He was having intermittent hemoptysis, but he did not have any chest pain. He was discharged to home from [facility], where he was found with increasing shortness of breath. His oxygen saturation was in 70s even with his 2 L of oxygen, which he normally uses at home. The patient was also complaining of shortness of breath. He was slightly confused when he arrived to emergency room. He was not able to provide any good detailed history. He was admitted to telemetry floor. In the emergency room, this patient had a CT angiography which did not show any pulmonary embolism, but it did show extensive multifocal bilateral pneumonia versus pulmonary hemorrhage, large right pleural effusion and moderate left pleural effusion, aortic valve calcification. REVIEW OF SYSTEMS: CONSTITUTIONAL: Negative for weight loss or gain, ability to conduct usual activities. SKIN: Negative for rash, itching. EYES: Negative for double vision, pain. ENT/MOUTH: Negative for nose bleeding, neck stiffness, pain, tenderness. CARDIOVASCULAR: Negative for palpitations, dyspnea on exertion, orthopnea. RESPIRATORY: Negative for shortness of breath, wheezing, cough, hemoptysis, fever or night sweats. GASTROINTESTINAL: Negative for poor appetite, abdominal pain, heartburn, nausea , vomiting, constipation, or diarrhea. GENITOURINARY: Negative for urgency, frequency, dysuria, nocturia. MUSCULOSKELETAL: Negative for pain, swelling. NEUROLOGIC/PSYCHIATRIC: Negative for anxiety, depression. ALLERGY/IMMUNOLOGIC: Negative for skin rash, bleeding tendency. Please see my HPI for pertinent positives and negatives. All other review of systems reviewed and negative except as mentioned in HPI. EMERGENCY ROOM COURSE: The patient received meropenem, azithromycin, vancomycin , DuoNeb therapy x3, Solu-Medrol 125 mg. PAST MEDICAL HISTORY: COPD/asthma, diabetes type 2, coronary artery disease, squamous cell carcinoma of lung, hypertension, dyslipidemia, chronic diastolic heart failure, gastroesophageal reflux disease, hypothyroidism.. PAST SURGICAL HISTORY: Appendicectomy, CABG, cholecystectomy, bronchoscopy. ALLERGY: PCN. SOCIAL HISTORY: The patient currently lives at home. He is former smoker. He quit smoking more than 10 years ago. He denies any alcohol abuse. FAMILY HISTORY: No strong family history of premature coronary artery disease, stroke, or cancer. PSYCHIATRIC HISTORY: Anxiety and depression. CURRENT HOME MEDICATIONS: 1. Lipitor 20 mg p.o. at bedtime. 2. Coreg 12.5 mg twice daily. 3. Clonidine 0.1 mg b.i.d. 4. Ferrous sulfate 325 mg b.i.d. 5. Flovent inhalation b.i.d. 6. Lasix 40 mg b.i.d. 7. Hydralazine 25 mg t.i.d. 8. Synthroid 25 mcg p.o. daily. 9. Tradjenta 5 mg daily. 10. Protonix 40 mg p.o. daily. 11. Prednisone 10 mg daily. 12. Xanax 0.5 mg p.o. q.12 hourly. 13. Digoxin 0.125 mg p.o. daily. 14. Lantus 10 units subcu at bedtime. 15. DuoNeb q.6 hourly. 16. MiraLAX 17 g daily. 17. Florastor 250 mg daily. 18. Senokot 2 tablets twice daily p.r.n. PHYSICAL EXAMINATION: VITAL SIGNS: On arrival, blood pressure 166/55, pulse 76, respiratory rate 24, saturation 92% on 4 to 3 L oxygen. Weight 72.1 kg. GENERAL: The patient is currently alert, awake, mild short of breath. HEENT: Head; normocephalic, atraumatic. Eyes; pupils round, reactive to light. Extraocular muscles are intact. ENT; oropharynx within normal limits. Moist mucous membranes. No oral lesion. No pharyngeal erythema. No exudate. NECK: Supple. No JVD. LUNGS: Bilateral coarse breath sound. Wheezing present. CARDIAC: S1 and S2, slightly appears irregular. No murmur. No gallop. No rub. ABDOMEN: Soft. Bowel sounds are present. Nontender. Nondistended. No organomegaly. No mass. No suprapubic tenderness. BACK: Unremarkable. No CVA tenderness. EXTREMITIES: Upper extremity; passive movement of all joints are normal. Lower extremity, no edema. Good distal pulsation. SKIN: No skin rash. HEMATOLOGICAL SYSTEM: No lymphadenopathy. NEUROLOGIC: Grossly nonfocal examination. SIGNIFICANT LABORATORY DATA: EKG showing right bundle-branch block pattern, nonspecific ST-T changes. CT chest showed extensive multifocal bilateral pneumonia versus pulmonary hemorrhage, large right pleural effusion and moderate left pleural effusion, borderline splenomegaly, aortic wall calcification. Chest x-ray reported as MediPort in place, sternotomy, patchy infiltration noted bilaterally. CBC; WBC 2.0, hemoglobin 7.9, platelets 96 with bandemia. D-dimer 2.46. VBG; pH 7.47, CO2 of 43.3, O2 143.0, bicarb 31. BMP; sodium 136, potassium 5.5, chloride 97, carbon dioxide 32, BUN 43, creatinine 1.31, glucose 127, calcium 8.7. LFT; AST 19, ALT 8, alkaline phosphatase 48, albumin 3.0. BNP 380, troponin 0.050. Urinalysis, unremarkable. ASSESSMENT: 1. Acute on chronic respiratory failure with hypoxia, likely due to multifocal pulmonary infiltration. 2. Bilateral multifocal pneumonia versus pulmonary hemorrhage. 3. Acute on chronic diastolic heart failure. 4. Pancytopenia. 5. Chronic kidney disease, stage 3. 6. Mild hyperkalemia. 7. Demand ischemia of myocardium secondary to type 2 myocardial infarction. 8. Healthcare-associated pneumonia suspected. 9. History of chronic lymphocytic leukemia, hypothyroidism, hypertension, physical deconditioning, coronary artery disease, aortic wall sclerosis. 10. Atrial flutter. PLAN: 1. Full admission to telemetry floor, pulmonary consultation, empiric antibiotic therapy with meropenem 1 g IV q.12 hourly and vancomycin dose adjustment by pharmacy. DuoNeb therapy every 4 hourly, Mucinex 600 mg twice daily. We will resume the patient's selected home medication. Oncology group will be consulted and Pulmonary group will be consulted. Palliative Care will be consulted given his history of lung cancer and goal of care. 2. DVT prophylaxis; SCD boots, no Lovenox because of low platelet count. 3. GI prophylaxis. Pepcid 20 mg daily. CODE STATUS: The patient is cardiac, only chemical code. No intubation. DISPOSITION: Plan based on clinical course. We are expecting the patient's stay in hospital more than 2 midnights. The patient may need placement. Cardiology will be consulted for atrial flutter per patient's request. Job ID: [id number] MTDD
[2018-12-11] MEDS: Ferrous Sulfate 325 MG TAB PO SCH (16:43)
[2018-12-11] MEDS: MEROPENEM 1 GM/50 ML 1 GM in Premix Bag 1 BAG IVPB SCH (16:44)
[2018-12-11] MEDS: Mometasone Furoate 120 PUFF 220 MCG INH SCH (19:12)
[2018-12-11] MEDS: Atorvastatin Calcium 20 MG TAB PO SCH (20:09)
[2018-12-11] MEDS: Furosemide 40 MG TAB PO SCH (20:09)
[2018-12-11] MEDS: Carvedilol 6.25 MG TAB PO SCH (20:09)
[2018-12-11] MEDS: Insulin Glargine 10 UNITS in Pre-Filled Syringe 1 EACH SC SCH (20:10)
[2018-12-11] MEDS: hydrALAZINE 25 MG TAB PO SCH (20:10)
[2018-12-11] MEDS ORDERED: Melatonin 3 MG TAB PO PRN (21:28)
--- NOTE | 2018-12-11 21:59 | CON ---
DATE OF CONSULTATION: 12/11/2018 INDICATION FOR CONSULTATION: An 83-year-old gentleman with chronic atrial flutter. HISTORY OF PRESENT ILLNESS: This is a very unfortunate 83-year-old gentleman who has lung cancer. He has undergone chemo and radiation therapy. He developed pulmonary hemorrhage. This recently just this past week had been done at [facility] in [place], where he underwent a right intercostal bronchial artery embolization. At that time, he was noted to have atrial flutter. He was advised to undergo a Watchman device. However, he declined it at that time. His hemoglobin is only 7.9 yesterday prior to leaving [facility]. His hemoglobin was evaluated and was found to be less than 7. He was at home and apparently according to the waste/materials exchange specialist, his oxygen level was dropping down the 70s and 911 was called and he was brought to the hospital en route. Apparently, his oxygen levels were in the 90% range. Unfortunately, he also has a history of sleep apnea, but does have home O2. Since being here, he has denied any chest pain. He has continued to be in atrial flutter, indicates his heart rate is in the low 100s, but for the most part remains stable, but has underlying atrial flutter. He denied any cardiac complaints. His cardiac enzymes are unremarkable. Troponin I is 0.05. His BNP was 380 and the hemoglobin today is 7.9. PAST MEDICAL HISTORY: Significant for COPD, lung cancer, history of chemo and radiation therapy for the lung cancer. He has had history of stent placement for coronaries. He has had history of bypass surgery. He has diastolic dysfunction. He has squamous cell lung cancer, hypertension. He has hypercholesterolemia. He has pancytopenia. He has had an appendectomy, cholecystectomy. SOCIAL HISTORY: He has no alcohol or tobacco abuse at this time. He has smoked in the past. He has children, who are alive and well. FAMILY HISTORY: Noncontributory. ALLERGIES: HE IS ALLERGIC TO LATEX, MILK AND PENICILLIN. PRESENT MEDICATIONS: Prior to admission include: 1. Clonidine. 2. Prednisone. 3. Furosemide. 4. Atorvastatin. 5. Digoxin. 6. Ferrous sulfate. 7. Pantoprazole. 8. Lantus insulin. 9. Coreg. 10. Hydralazine. 11. Levothyroxine. 12. Tradjenta. 13. Aspirin. REVIEW OF SYSTEMS: Mainly he complains of some shortness of breath and fatigue. He denied any chest pain. He has no nausea, vomiting, or diarrhea. No complaints. No neurological complaints. PHYSICAL EXAMINATION: GENERAL: Reveals an elderly gentleman, blood pressure was 185/117, heart rates in the 60s to 100 with atrial flutter, respiratory rate 16 to 28, O2 saturation 95%, I believe he is on 2 L. HEENT: Shows head to be normocephalic and atraumatic. NECK: Carotid pulses are present. Did not any hear any bruits. CHEST: Diffuse scattered rhonchi. He has decreased breath sounds in the right mid base area. He did not hear any wheezing. CARDIOVASCULAR: Appears to be regular, but shows evidence of atrial flutter on the monitor. He has a systolic murmur of the aortic area radiating also to the apex, which is compatible with aortic valve sclerosis or some aortic valve stenosis, also probably mitral valve regurgitation. ABDOMEN: Soft and nontender. Positive bowel sounds are present. EXTREMITIES: Show no clubbing, cyanosis, or edema. Pedal pulses are present, but were decreased. NEUROLOGIC: The patient appears to be intact. He is somewhat hard of hearing. SKIN: Warm and dry. IMAGING: His EKG shows atrial flutter with a controlled ventricular response. Chest x-ray shows a right pleural effusion. LABORATORY DATA: As noted above. Creatinine is 1.3 with a BUN of 43. Blood sugar was 127, potassium was 5.5, sodium was 132. His BNP was 380. Troponin I of 0.05. Hemoglobin 7.9, WBC of 2.0. ASSESSMENT AND PLAN: 1. Lung cancer, which has been treated by chemotherapy and radiation therapy. He has had a recent embolization as noted above with the right intercostal bronchial artery. He was told by the oncologist that once he is able to walk back into the office, he can resume his treatments for his lung cancer, but at this time he is not a candidate. 2. Chronic anemia, which is now at 7.9. This makes us somewhat difficult to proceed with other interventions such as a Watchman device with a hemoglobin being less than 10. Also using the Watchman, he would require 3 months of oral anticoagulation and with anemia, I am uncertain in of continuation this. I would be somewhat skeptical at this time to proceed with any intervention in this gentleman. However, we will discuss this with the hydraulic punch press operator, perhaps now that he has had the ablation of the intercostal bronchial artery and perhaps no more pulmonary hemorrhage then this may improve. 3. His diabetes is being dealt with by the primary care service. 4. Hypertension. We will need to readjust his medications. We will need to re-evaluate, if he is on the same medications from home, but that he was previously taken in order to lower the blood pressure to at least at the 140s to 150 range systolically. 5. Coronary artery disease, which appears to be stable at this time. 6. Chronic renal insufficiency. This is also stable. He appears to be somewhat mildly prerenal with a BUN of 43 and creatinine of 1.3. 7. Right effusion, which may be superimposed on his lung cancer. 8. Pancytopenia with white blood cell count of 2.0 and he has been placed on precautions. We are more than happy to follow the patient with you, this 83-year-old gentleman, but we will discuss his case with hydraulic punch press operator to see whether or not how to best proceed. I was somewhat hesitant to start him on oral anticoagulation at this time and certainly very hesitant to start to advise also a Watchman device in this gentleman at this time, but thus far the rate remains stable. Should he have rapid heart rate with atrial flutter, we can always add digoxin or diltiazem to lower the heart rate. At this time, we can also increase the Coreg to lower the blood pressure and could add Norvasc for the blood pressure, if necessary. Job ID: [id number]
--- NOTE | 2018-12-12 00:05 | CON ---
DATE OF CONSULTATION: 12/11/2018 HISTORY OF PRESENT ILLNESS: I am seeing Mr. Sanchez at our [facility] Telemetry Floor as an Electrophysiology government operations consultant regarding his typical appearing atrial flutter. His problems are: 1. Sustained typical atrial flutter now with controlled ventricular rates, noted on EKGs from last month, previously in sinus rhythm. 2. History of preserved LVEF, moderate LVH, twux-la-hxxltdyz aortic stenosis, mild-to- moderate aortic regurgitation and tricuspid regurgitation. Echo on 10/09/2018. 3. History of lung cancer and recent pulmonary hemorrhage requiring coil embolization. 4. History of coronary artery disease with prior bypass surgery. 5. Ydjpk-ur-htxjlov respiratory failure due to pulmonary infiltrations. 6. Jbowy-jg-spcthho diastolic heart failure. 7. History of pancytopenia related to recent chemotherapy. 8. History of chronic lymphocytic leukemia. 9. History of hypertension. 10. History of hypothyroidism. 11. Chronic kidney disease, stage 3. ALLERGIES: LATEX, RUBBER, MILK AND PENICILLINS. MEDICATIONS: At home included: 1. Iron. 2. Pantoprazole. 3. Fluticasone. 4. Clonidine. 5. Carvedilol 12.5 mg twice daily. 6. Lipitor. 7. Florastor. 8. Ipratropium. 9. Albuterol. 10. Tylenol. 11. Alprazolam. 12. Digoxin 0.125 mg daily. Polyethylene glycol. 13. Sennosides. 14. Insulin Glargine. 15. Phenylephrine. 16. Furosemide 4 mg twice daily. Linagliptin. 17. Prednisone. 18. Hydralazine. 19. Levothyroxine. SUBJECTIVE: Mr. Sanchez is somewhat of a limited historian. He was admitted with low oxygen saturations per EMS and also significantly progressing dyspnea. He has recently been discharged from [facility] after coil embolization for a pulmonary hemorrhage. Also he is noted to be in atrial flutter on current EKG and prior to that. On the other hand, the rates are relatively well controlled on the instituted AV roseline blocking regimen including carvedilol and digoxin. Currently denies PND or orthopnea. He has chronic dyspnea. No fever, chills, or cough. No stroke-like symptoms. The rest of the 12-point review of system otherwise unremarkable. PAST MEDICAL HISTORY: As above. SOCIAL HISTORY: The patient denies smoking, EtOH or drug abuse. He used to smoke in the past. Quit about 10 years ago. Denies drug abuse. FAMILY HISTORY: Not significant for any premature coronary artery disease, stroke or cancer. PHYSICAL EXAMINATION: VITAL SIGNS: Blood pressure is 185/117, previously 184/74, heart rate 89, respirations 28, temperature 97.3 degrees Fahrenheit. GENERAL: This is an elderly man in no apparent distress. NECK: Supple. Jugular veins not distended. CHEST: Coarse without crackles. Few rhonchi noted. HEART: Irregularly irregular. S1, S2 are variable. No murmur or gallop. ABDOMEN: Benign. Bowel sounds positive EXTREMITIES: Lower extremities without edema, clubbing, or cyanosis. SKIN: Extensive subcutaneous bruises in the upper and lower extremities. NEUROLOGIC: The patient is nonfocal MUSCULOSKELETAL: No joint deformity. SKIN: Without rash. DATABASE: EKG reviewed revealing typical appearing atrial flutter, right bundle-branch block, Q-waves in the septal area, nonspecific ST-T changes, rates of 94 beats per minute. Telemetry reviewed revealing atrial flutter that continued. LABORATORY DATA: White cell count is 2, hemoglobin is 7.9, platelet count is 96. The blood gas revealed a pH of 7.47, pO2 143, pCO2 43. Sodium 132, potassium 5.36. BUN is 42, creatinine 1.3. Troponin levels are 0.05. BNP is 380. IMAGING: Chest CT from 12/11/2018 shows extensive multifocal bilateral pneumonia versus pulmonary hemorrhage with interlobular septal thickening, large right parenchymal effusion, borderline splenomegaly, aortic valve calcification. ASSESSMENT AND PLAN: Mr. Sanchez is a pleasant 83-year-old man with prior history of smoking, now persisting atrial flutter, chronic lymphocytic leukemia and lung cancer with recent pulmonary hemorrhage. He has pancytopenia likely due to recent chemotherapy sessions. Now, he is admitted with progressive dyspnea, likely related to his pulmonary condition and possibly in addition with diastolic heart failure. On the other hand, he continues in atrial flutter and clearly he is not a candidate for anticoagulation with low platelet counts and also extensive bruising as well as low blood counts likely related to recent pulmonary hemorrhage. I have discussed the issues with his sons present at the time of my exam as well as Dr. Bermudez. This gentleman likely has typical atrial flutter, which circuit is relatively straight for to ablate, possibly a MACY guided cardioversion could be considered. On the other hand, his comorbidities and likely chance of concomitant atrial fibrillation even persisting after atrial ablation would make the results possibly 50% less effective. For now, on the other hand, his rates are controlled with a carvedilol, digoxin regimen. In short term, he is not a candidate for anticoagulation and I do not think Watchman device placement would be reasonable for the same reason. As I discussed with the sons rate control, should the rate control become difficult, a MACY guided ablation could be contemplated, but the risk needs to be weighed against the benefits. Dr. Rosado will be rounding for us on Friday and if it is felt that he could benefit from ablation, please contact him. Thank you again for letting me participate in the care of this patient. Job ID: [id number]
--- NOTE | 2018-12-12 00:24 | CON ---
DATE OF CONSULTATION: REASON FOR CONSULTATION: CLL. HISTORY OF PRESENT ILLNESS: An 83-year-old male with history of stage IIB lung cancer, status post chemotherapy and radiation and was currently pancytopenic secondary to CLL with multiple hospital admissions, now presenting to the hospital with SOB after recent discharge from [facility] where he received a blood transfusion yesterday and apparently had an artery cauterized in his lung and had intermittent hemoptysis. Apparently, his oxygen was in the 70s to 80s at home, so he was brought to the hospital and admitted to telemetry. Most of the history is acquired from the chart as the patient is a very poor historian. He had a CT angio in the ER that did not show pulmonary embolism, but did show extensive multifocal bilateral pneumonia versus potential pulmonary hemorrhage with a large right and moderate left pleural effusions. He denies any fevers or any significant pain. His neutrophil count is 300, hemoglobin is 10.9 , and platelets are 96. REVIEW OF SYSTEMS: Ten-point review of systems negative except as per HPI. PAST MEDICAL HISTORY: Lung cancer, CLL, COPD, diabetes, CAD, hypothyroidism, diastolic heart failure, hypertension, hyperlipidemia. PAST SURGICAL HISTORY: Appendectomy, CABG, cholecystectomy, bronchoscopy. SOCIAL HISTORY: Former smoker. Denies alcohol use. FAMILY HISTORY: No CAD, stroke, or cancer. CURRENT MEDICATIONS: Reviewed. ALLERGIES: LATEX, NATURAL RUBBER, MILK, AND PENICILLIN. PHYSICAL EXAMINATION: VITAL SIGNS: Temperature 97.9, pulse 91, respirations 19, saturating 92% on 3 L by nasal cannula, and blood pressure 185/77. PHYSICAL EXAMINATION: GENERAL APPEARANCE: The patient is lying in bed, asleep but easily arousable. HEENT: Normocephalic, atraumatic. NECK: Supple. LUNGS: Bilateral coarse breath sounds with mild wheezing. CARDIAC: S1, S2 with 2/6 systolic ejection murmur. ABDOMEN: Soft, nondistended, and nontender. EXTREMITIES: No edema. SKIN: No rash. NEUROLOGIC: Nonfocal grossly. LABORATORY DATA: White blood cells 2.0, absolute neutrophil count 300, hemoglobin 7.9, platelets 96. D-dimer 2.46. Sodium 132, potassium 5.3, creatinine 1.31. Troponin 0.05. BNP 380. IMAGING DATA: CT angio of the chest showed no PE, but did show extensive multifocal bilateral pneumonia versus pulmonary hemorrhage with a large right pleural effusion and a bnkoo-ww-lfhnnokp left colon effusion. ASSESSMENT AND PLAN: An 83-year-old male with pancytopenia secondary to chronic lymphocytic leukemia and history of chemotherapy and radiation, presenting to the hospital with hypoxia and found to have extensive multifocal pneumonia and pancytopenia with absolute neutrophil count of 300. Due to infection and neutrophil count, the patient does require Neupogen and would recommend to start this today with daily injections until absolute neutrophil count is greater than 1.0. We would recommend transfusions of packed red blood cells for hemoglobin less than 7. Thank you for this consult. Job ID: [id number] MTDD
[2018-12-12] MEDS: cloNIDine 0.1 MG TAB PO PRN ×2 (00:32→12:49)
[2018-12-12] MEDS: ALPRAZolam 0.25 MG TAB PO PRN ×2 (02:10→14:10)
[2018-12-12] MEDS: Vancomycin HCl 1 GM in Premix Bag 1 BAG IVPB SCH (02:11)
[2018-12-12] MEDS: MEROPENEM 1 GM/50 ML 1 GM in Premix Bag 1 BAG IVPB SCH ×2 (03:46→16:06)
[2018-12-12] MEDS: Levothyroxine Sodium 25 MCG TAB PO SCH (03:46)
[2018-12-12 08:11] LABS: Hemoglobin 6.7 g/dL (14.0-18.0); Mean Corpuscular HGB CONC 33.2 g/dL (32.0-36.0); Mean Corpuscular Hemoglobin 29.9 pg (27.0-31.0); Mean Corpuscular Volume 90.2 fL (78.0-98.0); Mean Platelet Volume 7.7 fL (7.4-10.4); Platelet Count 86 thou/uL (130-400); RBC Distribution Width 16.1 % (11.5-14.5); Red Blood Cell (RBC) Count 2.22 mill/uL (4.70-6.10); White Blood Cell (WBC) Count 1.4 thou/uL (4.8-10.8)
[2018-12-12 08:28] LABS: ALT (SGPT) Less than 7 U/L (8-55); AST (SGOT) 14 U/L (5-34); Albumin 2.7 g/dL (3.4-4.8); Alkaline Phosphatase 42 U/L (40-150); Anion Gap 10 mmol/L (10-20); BUN (Urea Nitrogen) 43 mg/dL (8.4-25.7); Bilirubin, Total 0.4 mg/dL (0.2-1.2); Calc. Creatinine Clearance 43 mL/min (70-130); Calcium 8.5 mg/dL (7.8-10.44); Carbon Dioxide 30 mmol/L (23-31); Chloride 98 mmol/L (98-107); Estimated GFR-MDRD 55; Globulin 2.5 g/dL (2.4-3.5); Glucose 103 mg/dL (83-110); Potassium 5.3 mmol/L (3.5-5.1); Protein, Total 5.2 g/dL (5.8-8.1); Sodium 133 mmol/L (136-145)
[2018-12-12] MEDS: Digoxin 0.125 MG TAB PO SCH (09:52)
[2018-12-12] MEDS: Polyethylene Glycol 3350 17 GM Packet PO SCH (09:52)
[2018-12-12] MEDS: hydrALAZINE 25 MG TAB PO SCH ×3 (09:53→20:41)
[2018-12-12] MEDS: Ferrous Sulfate 325 MG TAB PO SCH ×2 (09:53→17:48)
[2018-12-12] MEDS: guaiFENesin ER 600 MG TAB PO SCH ×2 (09:54→20:43)
[2018-12-12] MEDS: Carvedilol 6.25 MG TAB PO SCH ×2 (09:54→20:41)
[2018-12-12] MEDS: predniSONE 20 MG TAB PO SCH (09:54)
[2018-12-12] MEDS: Amlodipine 5 MG TAB PO SCH (09:54)
[2018-12-12] MEDS: Saccharomyces boulardii 250 MG CAP PO SCH (09:54)
[2018-12-12] MEDS: Fluticasone Propionate Nasal Spray 16 gm Bottle NASAL SCH (09:55)
[2018-12-12] MEDS: Furosemide 40 MG TAB PO SCH ×2 (09:55→20:43)
[2018-12-12] MEDS: Famotidine/PF 20 mg/2ml Vial SLOW IVP SCH (09:57)
[2018-12-12] MEDS: Famotidine 20 MG TAB PO SCH (10:01)
[2018-12-12] MEDS ORDERED: Prevnar 13-Val Conj/PF 0.5 ML SYRINGE IM ONE (10:45)
--- NOTE | 2018-12-12 11:47 | PDOC.HOSPP ---
- Subjective Subjective: Patient seen and examined. he did not sleep well last night, he is confused, son present bedside, No overnight events - Objective Vital Signs & Weight: Vital Signs (12 hours) Temp Pulse Resp BP BP Pulse Ox 12/12/18 11:33 97.5 F L 68 24 H 176/74 H 95 12/12/18 09:52 78 12/12/18 08:00 98.1 F 80 23 H 147/65 H 94 L 12/12/18 06:17 76 16 92 L 12/12/18 03:53 97.6 F 72 20 178/75 H 93 L 12/12/18 03:30 94 L 12/12/18 02:20 70 20 164/72 H 93 L 12/12/18 00:32 184/72 H Weight Weight 153 lb 12.8 oz I&O: 12/11/18 12/12/18 12/13/18 06:59 06:59 06:59 Intake Total 1530 0 Output Total 425 Balance 1105 0 Result Diagrams: 12/12/18 07:36 12/12/18 07:36 Additional Labs: Accuchecks 12/12/18 12/12/18 12/11/18 11:18 05:00 20:11 POC Glucose 107 133 H 217 H 12/11/18 17:14 POC Glucose 197 H EKG Reviewed by me: Yes (a flutter) ROS - Review of Systems All systems: All other ROS were reviewed and found negative. Eyes: denies: pain, vision change, conjunctivae inflammation, eyelid inflammation, redness, other ENT: denies: ear pain, ear discharge, nose pain, nose discharge, nose congestion , mouth pain, mouth swelling, throat pain, throat swelling, other Respiratory: reports: shortness of breath. denies: cough, dry, hemoptysis, SOB with excertion, pleuritic pain, sputum, wheezing, other Cardiovascular: denies: chest pain, palpitations, orthopnea, paroxysmal noc. dyspnea, edema, light headedness, other Gastrointestinal: denies: nausea, vomitting, abdominal pain, diarrhea, constipation, melena, hematochezia, other Genitourinary: denies: dysuria, frequency, incontinence, hematuria, retention, other Musculoskeletal: denies: neck pain, shoulder pain, arm pain, back pain, hand pain, leg pain, foot pain, other Skin: denies: rash, lesions, lamin, bruising, other Neurological: reports: weakness, confusion. denies: numbness, incoordination, change in speech, seizures, other - Medication Medications: Active Medications Generic Name Dose Route Start Last Admin Trade Name Freq PRN Reason Stop Dose Admin Albuterol/Ipratropium 3 ml 12/11/18 10:30 12/12/18 10:21 Duoneb NEB Not Given [id number] SANDRA Alprazolam 0.25 mg 12/11/18 15:36 12/12/18 02:10 Xanax PO 0.25 mg Q12H PRN Administration Anxiety Amlodipine Besylate 5 mg 12/12/18 09:00 12/12/18 09:54 Norvasc PO 5 mg DAILY SANDRA Administration Atorvastatin Calcium 20 mg 12/11/18 21:00 12/11/18 20:09 Lipitor PO 20 mg HS SANDRA Administration Carvedilol 12.5 mg 12/11/18 21:00 12/12/18 09:54 Coreg PO 12.5 mg BID SANDRA Administration Clonidine 0.1 mg 12/11/18 08:13 12/12/18 00:32 Catapres PO 0.1 mg Q4H PRN Administration SBP Greater Than 170 Digoxin 0.125 mg 12/12/18 09:00 12/12/18 09:52 Lanoxin PO 0.125 mg DAILY SANDRA Administration Famotidine 20 mg 12/11/18 09:00 12/12/18 09:57 Pepcid SLOW IVP Not Given Q24HR SANDRA Famotidine 20 mg 12/11/18 09:00 12/12/18 10:01 Pepcid PO 20 mg Q24HR SANDRA Administration Ferrous Sulfate 325 mg 12/11/18 17:00 12/12/18 09:53 Feosol PO 325 mg BID-WM SANDRA Administration Fluticasone Propionate 0 gm 12/11/18 09:00 12/12/18 09:55 Flonase Nasal [place] NASAL 2 spr DAILY SANDRA Administration Furosemide 40 mg 12/11/18 21:00 12/12/18 09:55 Lasix PO 40 mg BID SANDRA Administration Guaifenesin 600 mg 12/11/18 09:00 12/12/18 09:54 Mucinex PO 600 mg Q12HR SANDRA Administration Hydralazine HCl 10 mg 12/11/18 08:13 12/11/18 21:40 Apresoline SLOW IVP 10 mg Q4H PRN Administration SBP > 180 and HR < 70 Hydralazine HCl 25 mg 12/11/18 21:00 12/12/18 09:53 Apresoline PO 25 mg TID SANDRA Administration Meropenem 1 gm/ Device 50 mls @ 100 mls/hr 12/11/18 16:00 12/12/18 03:46 IVPB 50 mls 0400,1600 SANDRA Administration Vancomycin HCl 1 gm/ Device 200 mls @ 200 mls/hr 12/12/18 03:00 12/12/18 02: 11 IVPB 200 mls 0300 SANDRA Administration Insulin Glargine 10 units/ 0.1 mls @ 0 mls/hr 12/11/18 21:00 12/11/18 20:10 Miscellaneous Medication SC 0.1 mls HS SANDRA Administration Insulin Human Lispro 0 units 12/11/18 08:13 12/11/18 17:50 Humalog SC 2 unit .MODERATE SLIDING SC PRN Administration Moderate Correctional Scale Levothyroxine Sodium 25 mcg 12/12/18 06:00 12/12/18 03:46 Synthroid PO 25 mcg 0600 SANDRA Administration Melatonin 3 mg 12/11/18 21:28 12/11/18 21:32 Melatonin PO 3 mg HS PRN Administration Insomnia Mometasone Furoate 1 puff 12/11/18 18:30 12/11/18 19:12 Asmanex Twisthaler INH 1 puff 1830 SANDRA Administration Pantoprazole Sodium 40 mg 12/12/18 09:00 12/12/18 09:55 Protonix PO 40 mg DAILY SANDRA Administration Polyethylene Glycol 17 gm 12/12/18 09:00 12/12/18 09:52 Miralax PO 17 gm DAILY SANDRA Administration Prednisone 20 mg 12/12/18 08:00 12/12/18 09:54 Prednisone PO 20 mg QAM-WM SANDRA Administration Saccharomyces Boulardii 250 mg 12/11/18 09:00 12/12/18 09:54 Florastor PO 250 mg DAILY SANDRA Administration Senna/Docusate Sodium 2 tab 12/11/18 08:13 12/11/18 13:12 Senokot S PO 2 tab BID PRN Administration Constipation Tbo-Filgrastim 480 mcg 12/12/18 09:00 12/12/18 09:55 Granix SC 480 mcg DAILY SANDRA Administration - Exam NAD, awake alert ENT: normocephalic atraumatic, no oropharyngeal lesions Neck: symmetric, no JVD Heart: irregular, murmur present, III/IV Respiratory: rales, wheezes Gastrointestinal: soft, non-tender, non-distended, normal bowel sounds Extremities: no cyanosis, no clubbing Skin: normal turgor, no lesions Neurological: CN's grossly intact, no focal deficits Musculoskeletal: normal tone, normal strength Hosp A/P (1) Acute on chronic respiratory failure with hypoxia Code(s): J96.21 - ACUTE AND CHRONIC RESPIRATORY FAILURE WITH HYPOXIA Status: Acute (2) Acute on chronic diastolic (congestive) heart failure Code(s): I50.33 - ACUTE ON CHRONIC DIASTOLIC (CONGESTIVE) HEART FAILURE Status : Acute (3) Atrial flutter Code(s): I48.92 - UNSPECIFIED ATRIAL FLUTTER Status: Chronic (4) Healthcare-associated pneumonia Code(s): J18.9 - PNEUMONIA, UNSPECIFIED ORGANISM Status: Acute (5) Hyperkalemia Code(s): E87.5 - HYPERKALEMIA Status: Acute (6) Neutropenia Code(s): D70.9 - NEUTROPENIA, UNSPECIFIED Status: Acute (7) Pancytopenia Code(s): D61.818 - OTHER PANCYTOPENIA Status: Acute (8) Type 2 myocardial infarction Code(s): I21.A1 - MYOCARDIAL INFARCTION TYPE 2 Status: Acute (9) Aortic stenosis Code(s): I35.0 - NONRHEUMATIC AORTIC (VALVE) STENOSIS Status: Chronic Qualifiers: Cardiac valve disease etiology: nonrheumatic Qualified Code(s): I35.0 - Nonrheumatic aortic (valve) stenosis (10) CAD (coronary artery disease) Code(s): I25.10 - ATHSCL HEART DISEASE OF [place] CORONARY ARTERY W/O ANG PCTRS Status: Chronic Qualifiers: Coronary Disease-Associated Artery/Lesion type: bypass graft [place] vs. transplanted heart: [place] heart Associated angina: without angina Qualified Code(s): I25.810 - Atherosclerosis of coronary artery bypass graft(s) without angina pectoris (11) CKD (chronic kidney disease), stage III Code(s): N18.3 - CHRONIC KIDNEY DISEASE, STAGE 3 (MODERATE) Status: Chronic (12) CLL (chronic lymphocytic leukemia) Code(s): C91.90 - LYMPHOID LEUKEMIA, UNSPECIFIED NOT HAVING ACHIEVED REMISSION Status: Chronic (13) COPD (chronic obstructive pulmonary disease) Status: Chronic Qualifiers: COPD type: unspecified COPD Qualified Code(s): J44.9 - Chronic obstructive pulmonary disease, unspecified (14) HLD (hyperlipidemia) Code(s): E78.5 - HYPERLIPIDEMIA, UNSPECIFIED Status: Chronic Qualifiers: Hyperlipidemia type: unspecified Qualified Code(s): E78.5 - Hyperlipidemia , unspecified (15) HTN (hypertension) Code(s): I10 - ESSENTIAL (PRIMARY) HYPERTENSION Status: Chronic Qualifiers: (16) Hypothyroidism Code(s): E03.9 - HYPOTHYROIDISM, UNSPECIFIED Status: Chronic (17) Normocytic anemia Code(s): D64.9 - ANEMIA, UNSPECIFIED Status: Chronic (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 Code(s): C83.00 - SMALL CELL B-CELL LYMPHOMA, UNSPECIFIED SITE Status: Chronic Qualifiers: Lymphoma site: unspecified region Qualified Code(s): C83.00 - Small cell B- cell lymphoma, unspecified site (19) Squamous cell carcinoma of lung Code(s): C34.90 - MALIGNANT NEOPLASM OF UNSP PART OF UNSP BRONCHUS OR LUNG Status: Chronic Qualifiers: Laterality: right Qualified Code(s): C34.91 - Malignant neoplasm of unspecified part of right bronchus or lung - Plan old records reviewed/req, plan discussed w/ family, continue antibiotics, PT/OT , social worker psychiatric, respiratory therapy today transfuse 1 unit prbc continue empiric antibiotic medication reviewed as below symptomatic treatment will need placement discussed with son best candidate for hospice, palliative care on case
[2018-12-12 11:53] LABS: Anisocytosis SLIGHT = 6-15 cells (100X) (0-5/hpf); Hypochromia MODERATE=16-30 cells (100X) (0-5/hpf); Large Platelets SLIGHT; Lymphocytes 47 % (21-51); MDiff Complete? YES; Monocytes 32 % (0-10); Myelocyte 1 % (0-0); Neutrophil 16 % (42-75); Platelet Morphology Comment Appears Decreased; Tear Drops SLIGHT = 2-5 cells (100X) (0-1/hpf)
[2018-12-12] MEDS: Metoclopramide HCl 10 MG/2 ML VIAL IVP PRN (14:02)
--- NOTE | 2018-12-12 15:57 | PDOC.CTH ---
Cardiology Progress Note - Subjective The pt seen and examined. No overnight events. No cardiac complaints. - Objective Vital Signs Temp Pulse Resp BP BP Pulse Ox 12/12/18 13:55 97.4 F L 24 H 12/12/18 12:49 175/75 H 12/12/18 11:34 97.4 F L 26 H 12/12/18 11:33 97.5 F L 68 24 H 176/74 H 95 12/12/18 11:20 97.5 F L 24 H 12/12/18 09:54 94 L 12/12/18 09:52 78 12/12/18 08:00 98.1 F 80 23 H 147/65 H 94 L 12/12/18 06:17 76 16 92 L Weight 153 lb 12.8 oz 12/11/18 12/12/18 12/13/18 06:59 06:59 06:59 Intake Total 1530 350 Output Total 425 Balance 1105 350 - Physical Examination General/Neuro: alert & oriented x3 Neck: no JVD present Lungs: other: (diminished at bases) Heart: other: (irregular) Abdomen: soft Extremities: other: - Telemetry Telemetry Rhythm: Aflutter 60s - Labs Result Diagrams: 12/12/18 07:36 12/12/18 07:36 Troponin/CKMB Troponin I 0.050 ng/mL (< 0.028) H 12/11/18 01:14 - Assessment/Plan 1. Chronic aflutter - unable to tolerate OAC for now due to hx of puml hemorrhage with s/p Rt intercstal brancheal artery embolization; stable HR with Coreg with Digoxin 2. Acute on Chronic diastolic HF - stable with Bblocker and Lasix; not on NANCY/ ARB due to hx of CKD 3. Acute on chronic respiratory failure 2/2 hx of COPD and hx of Squamous cell carcinoma Lung ca with chemo and radiation - 4. CAD with hx of CABG and stent placement in past - On bblocker, statin; not on ASA or Plavix due to hx of bleeding 5. CKD - 6. HTN - stable; 7. HLD - on Statin 8. Neutropenia 9. COPD 10. Hypothyroidism 11. Normocytic anemia - 1 unit PRBC today MAR reviewed Pt. seen and eval. by me. I agree with the A/P by the ENVIRONMENTAL HEALTH SAFETY MANAGER. family is considering code [email or web address] Review of Systems - Review of Systems Constitutional: reports: weakness EENTM: reports: no symptoms reported Respiratory: reports: SOB with excertion Cardiac (ROS): reports: no symptoms reported ABD/GI: reports: no symptoms reported : reports: no symptoms reported
[2018-12-12] MEDS: diphenhydrAMINE 25 MG CAP PO PRN (17:47)
[2018-12-12] MEDS: Mometasone Furoate 120 PUFF 220 MCG INH SCH (18:29)
[2018-12-12] MEDS: Atorvastatin Calcium 20 MG TAB PO SCH (20:41)
[2018-12-12] MEDS: HYDROcodone/Acetaminophen 5/325 mg Tablet PO PRN (20:41)
[2018-12-12] MEDS: Insulin Glargine 10 UNITS in Pre-Filled Syringe 1 EACH SC SCH (20:44)
[2018-12-13] MEDS: ALPRAZolam 0.25 MG TAB PO PRN (01:00)
[2018-12-13] MEDS: diphenhydrAMINE 25 MG CAP PO PRN ×3 (01:00→16:15)
[2018-12-13 02:39] LABS: Vancomycin, Trough 15.5 ug/mL
[2018-12-13] MEDS: MEROPENEM 1 GM/50 ML 1 GM in Premix Bag 1 BAG IVPB SCH ×2 (03:02→16:06)
[2018-12-13] MEDS: Vancomycin HCl 1 GM in Premix Bag 1 BAG IVPB SCH (03:11)
[2018-12-13 06:13] LABS: Band 22 % (5-11); Elliptocytes SLIGHT = 2-5 cells (100X) (0-1/hpf); Hemoglobin 8.3 g/dL (14.0-18.0); Lymphocytes 22 % (21-51); MDiff Complete? YES; Mean Corpuscular HGB CONC 33.4 g/dL (32.0-36.0); Mean Corpuscular Volume 89.7 fL (78.0-98.0); Monocytes 8 % (0-10); Neutrophil 47 % (42-75); Platelet Count 112 thou/uL (130-400); Platelet Morphology Comment Appears Decreased; RBC Distribution Width 15.6 % (11.5-14.5); Reactive Lymphocytes 1 % (0-10); Red Blood Cell (RBC) Count 2.78 mill/uL (4.70-6.10); White Blood Cell (WBC) Count 7.9 thou/uL (4.8-10.8)
[2018-12-13 06:15] LABS: Anion Gap 11 mmol/L (10-20); BUN (Urea Nitrogen) 48 mg/dL (8.4-25.7); Calc. Creatinine Clearance 43 mL/min (70-130); Calcium 8.6 mg/dL (7.8-10.44); Carbon Dioxide 30 mmol/L (23-31); Chloride 95 mmol/L (98-107); Estimated GFR-MDRD 55; Glucose 86 mg/dL (83-110); Potassium 5.4 mmol/L (3.5-5.1); Sodium 131 mmol/L (136-145)
[2018-12-13] MEDS: Levothyroxine Sodium 25 MCG TAB PO SCH (06:16)
[2018-12-13] MEDS: HYDROcodone/Acetaminophen 5/325 mg Tablet PO PRN (06:51)
[2018-12-13] MEDS: Ferrous Sulfate 325 MG TAB PO SCH ×2 (09:25→16:05)
[2018-12-13] MEDS: Polyethylene Glycol 3350 17 GM Packet PO SCH (09:25)
[2018-12-13] MEDS: Fluticasone Propionate Nasal Spray 16 gm Bottle NASAL SCH (09:25)
[2018-12-13] MEDS: Digoxin 0.125 MG TAB PO SCH (09:25)
[2018-12-13] MEDS: hydrALAZINE 25 MG TAB PO SCH ×2 (09:26→16:05)
[2018-12-13] MEDS: Carvedilol 6.25 MG TAB PO SCH (09:26)
[2018-12-13] MEDS: Furosemide 40 MG TAB PO SCH (09:26)
[2018-12-13] MEDS: Amlodipine 5 MG TAB PO SCH (09:26)
[2018-12-13] MEDS: Saccharomyces boulardii 250 MG CAP PO SCH (09:26)
[2018-12-13] MEDS: predniSONE 20 MG TAB PO SCH (09:26)
[2018-12-13] MEDS: Famotidine/PF 20 mg/2ml Vial SLOW IVP SCH (09:27)
[2018-12-13] MEDS: guaiFENesin ER 600 MG TAB PO SCH (09:27)
[2018-12-13] MEDS: Famotidine 20 MG TAB PO SCH (09:30)
--- NOTE | 2018-12-13 10:08 | PDOC.HOSPP ---
- Subjective Subjective: Patient seen and examined. No overnight events pt wants to , he had no good sleep - Objective Vital Signs & Weight: Vital Signs (12 hours) Temp Pulse Resp BP BP Pulse Ox 12/13/18 09:26 68 190/79 H 12/13/18 09:25 68 12/13/18 06:32 84 18 90 L 12/13/18 02:12 98.0 F 66 18 159/69 H 12/13/18 00:20 85 16 90 L Weight Weight 153 lb 12.8 oz Most Recent Monitor Data NIBP 188/79 I&O: 12/12/18 12/13/18 12/14/18 06:59 06:59 06:59 Intake Total 1530 2370 Output Total 425 1490 Balance 1105 880 Result Diagrams: 12/13/18 05:36 12/13/18 05:36 Additional Labs: Accuchecks 12/13/18 12/12/18 12/12/18 05:38 20:19 17:04 POC Glucose 97 227 H 155 H 12/12/18 11:18 POC Glucose 107 EKG Reviewed by me: Yes ROS - Review of Systems All systems: All other ROS were reviewed and found negative. Constitutional: reports: weakness, malaise. denies: fever, chills, sweats, other Respiratory: reports: shortness of breath, SOB with excertion. denies: cough, dry, hemoptysis, pleuritic pain, sputum, wheezing, other Cardiovascular: denies: chest pain, palpitations, orthopnea, paroxysmal noc. dyspnea, edema, light headedness, other Gastrointestinal: denies: nausea, vomitting, abdominal pain, diarrhea, constipation, melena, hematochezia, other Genitourinary: denies: dysuria, frequency, incontinence, hematuria, retention, other Musculoskeletal: denies: neck pain, shoulder pain, arm pain, back pain, hand pain, leg pain, foot pain, other - Medication Medications: Active Medications Generic Name Dose Route Start Last Admin Trade Name Freq PRN Reason Stop Dose Admin Hydrocodone Bitart/Acetaminophen 1 tab 12/11/18 08:13 12/13/18 06:51 [place] 5/325 PO 1 tab Q4H PRN Administration Moderate Pain (4-6) Albuterol/Ipratropium 3 ml 12/11/18 10:30 12/13/18 09:57 Duoneb NEB Not Given [id number] SANDRA Alprazolam 0.25 mg 12/11/18 15:36 12/13/18 01:00 Xanax PO 0.25 mg Q12H PRN Administration Anxiety Amlodipine Besylate 5 mg 12/12/18 09:00 12/13/18 09:26 Norvasc PO 5 mg DAILY SANDRA Administration Atorvastatin Calcium 20 mg 12/11/18 21:00 12/12/18 20:41 Lipitor PO 20 mg HS SANDRA Administration Carvedilol 12.5 mg 12/11/18 21:00 12/13/18 09:26 Coreg PO 12.5 mg BID SANDRA Administration Clonidine 0.1 mg 12/11/18 08:13 12/12/18 12:49 Catapres PO 0.1 mg Q4H PRN Administration SBP Greater Than 170 Digoxin 0.125 mg 12/12/18 09:00 12/13/18 09:25 Lanoxin PO 0.125 mg DAILY SANDRA Administration Diphenhydramine HCl 25 mg 12/12/18 16:54 12/13/18 06:51 Benadryl PO 25 mg Q6H PRN Administration Itching & Insomnia Famotidine 20 mg 12/11/18 09:00 12/13/18 09:27 Pepcid SLOW IVP Not Given Q24HR SANDRA Famotidine 20 mg 12/11/18 09:00 12/13/18 09:30 Pepcid PO 20 mg Q24HR SANDRA Administration Ferrous Sulfate 325 mg 12/11/18 17:00 12/13/18 09:25 Feosol PO 325 mg BID-WM SANDRA Administration Fluticasone Propionate 0 gm 12/11/18 09:00 12/13/18 09:25 Flonase Nasal Reubens NASAL 2 spr DAILY SANDRA Administration Furosemide 40 mg 12/11/18 21:00 12/13/18 09:26 Lasix PO 40 mg BID SANDRA Administration Guaifenesin 600 mg 12/11/18 09:00 12/13/18 09:27 Mucinex PO 600 mg Q12HR SANDRA Administration Hydralazine HCl 10 mg 12/11/18 08:13 12/11/18 21:40 Apresoline SLOW IVP 10 mg Q4H PRN Administration SBP > 180 and HR < 70 Hydralazine HCl 25 mg 07/26/19 21:00 12/13/18 09:26 Apresoline PO 25 mg TID SANDRA Administration Meropenem 1 gm/ Device 50 mls @ 100 mls/hr 12/11/18 16:00 12/13/18 03:02 IVPB 50 mls 0400,1600 SANDRA Administration Vancomycin HCl 1 gm/ Device 200 mls @ 200 mls/hr 12/12/18 03:00 12/13/18 03: 11 IVPB 200 mls 0300 SANDRA Administration Insulin Glargine 10 units/ 0.1 mls @ 0 mls/hr 12/11/18 21:00 12/12/18 20:44 Miscellaneous Medication SC 0.1 mls HS SANDRA Administration Insulin Human Lispro 0 units 12/11/18 08:13 12/11/18 17:50 Humalog SC 2 unit .MODERATE SLIDING SC PRN Administration Moderate Correctional Scale Levothyroxine Sodium 25 mcg 12/12/18 06:00 12/13/18 06:16 Synthroid PO 25 mcg 0600 SANDRA Administration Melatonin 3 mg 12/11/18 21:28 12/11/18 21:32 Melatonin PO 3 mg HS PRN Administration Insomnia Metoclopramide HCl 10 mg 12/11/18 08:17 12/12/18 14:02 Reglan IVP 10 mg Q6H PRN Administration Nausea/Vomiting Mometasone Furoate 1 puff 12/11/18 18:30 12/12/18 18:29 Asmanex Twisthaler INH 1 puff 1830 SANDRA Administration Pantoprazole Sodium 40 mg 12/12/18 09:00 12/13/18 09:26 Protonix PO 40 mg DAILY SANDRA Administration Polyethylene Glycol 17 gm 12/12/18 09:00 12/13/18 09:25 Miralax PO 17 gm DAILY SANDRA Administration Prednisone 20 mg 12/12/18 08:00 12/13/18 09:26 Prednisone PO 20 mg QAM-WM SANDRA Administration Saccharomyces Boulardii 250 mg 12/11/18 09:00 12/13/18 09:26 Florastor PO 250 mg DAILY SANDRA Administration Senna/Docusate Sodium 2 tab 12/11/18 08:13 12/11/18 13:12 Senokot S PO 2 tab BID PRN Administration Constipation Tbo-Filgrastim 480 mcg 12/12/18 09:00 12/12/18 09:55 Granix SC 480 mcg DAILY SANDRA Administration - Exam NAD, ill appearing Eye: PERRL, anicteric sclera ENT: normocephalic atraumatic, no oropharyngeal lesions Neck: symmetric, no JVD, no Thyromegaly Heart: no gallops, no rubs, irregular, murmur present, III/IV Respiratory: no wheezes, no ronchi Gastrointestinal: soft, non-tender, non-distended, normal bowel sounds Extremities: no cyanosis, no clubbing, no edema Skin: normal turgor, no lesions Neurological: CN's grossly intact, normal sensation to touch Musculoskeletal: normal tone, normal strength Psychiatric: normal affect Hosp A/P (1) Acute on chronic respiratory failure with hypoxia Code(s): J96.21 - ACUTE AND CHRONIC RESPIRATORY FAILURE WITH HYPOXIA Status: Acute (2) Acute on chronic diastolic (congestive) heart failure Code(s): I50.33 - ACUTE ON CHRONIC DIASTOLIC (CONGESTIVE) HEART FAILURE Status : Acute (3) Atrial flutter Code(s): I48.92 - UNSPECIFIED ATRIAL FLUTTER Status: Chronic (4) Healthcare-associated pneumonia Code(s): J18.9 - PNEUMONIA, UNSPECIFIED ORGANISM Status: Acute (5) Hyperkalemia Code(s): E87.5 - HYPERKALEMIA Status: Acute (6) Neutropenia Code(s): D70.9 - NEUTROPENIA, UNSPECIFIED Status: Acute (7) Pancytopenia Code(s): D61.818 - OTHER PANCYTOPENIA Status: Acute (8) Type 2 myocardial infarction Code(s): I21.A1 - MYOCARDIAL INFARCTION TYPE 2 Status: Acute (9) Aortic stenosis Code(s): I35.0 - NONRHEUMATIC AORTIC (VALVE) STENOSIS Status: Chronic Qualifiers: Cardiac valve disease etiology: nonrheumatic Qualified Code(s): I35.0 - Nonrheumatic aortic (valve) stenosis (10) CAD (coronary artery disease) Code(s): I25.10 - ATHSCL HEART DISEASE OF [place] CORONARY ARTERY W/O ANG PCTRS Status: Chronic Qualifiers: Coronary Disease-Associated Artery/Lesion type: bypass graft [place] vs. transplanted heart: [place] heart Associated angina: without angina Qualified Code(s): I25.810 - Atherosclerosis of coronary artery bypass graft(s) without angina pectoris (11) CKD (chronic kidney disease), stage III Code(s): N18.3 - CHRONIC KIDNEY DISEASE, STAGE 3 (MODERATE) Status: Chronic (12) CLL (chronic lymphocytic leukemia) Code(s): C91.90 - LYMPHOID LEUKEMIA, UNSPECIFIED NOT HAVING ACHIEVED REMISSION Status: Chronic (13) COPD (chronic obstructive pulmonary disease) Status: Chronic Qualifiers: COPD type: unspecified COPD Qualified Code(s): J44.9 - Chronic obstructive pulmonary disease, unspecified (14) HLD (hyperlipidemia) Code(s): E78.5 - HYPERLIPIDEMIA, UNSPECIFIED Status: Chronic Qualifiers: Hyperlipidemia type: unspecified Qualified Code(s): E78.5 - Hyperlipidemia , unspecified (15) HTN (hypertension) Code(s): I10 - ESSENTIAL (PRIMARY) HYPERTENSION Status: Chronic Qualifiers: (16) Hypothyroidism Code(s): E03.9 - HYPOTHYROIDISM, UNSPECIFIED Status: Chronic (17) Normocytic anemia Code(s): D64.9 - ANEMIA, UNSPECIFIED Status: Chronic (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 Code(s): C83.00 - SMALL CELL B-CELL LYMPHOMA, UNSPECIFIED SITE Status: Chronic Qualifiers: Lymphoma site: unspecified region Qualified Code(s): C83.00 - Small cell B- cell lymphoma, unspecified site (19) Squamous cell carcinoma of lung Code(s): C34.90 - MALIGNANT NEOPLASM OF UNSP PART OF UNSP BRONCHUS OR LUNG Status: Chronic Qualifiers: Laterality: right Qualified Code(s): C34.91 - Malignant neoplasm of unspecified part of right bronchus or lung - Plan old records reviewed/req, social media project manager out of hospital DNR paper signed pt and son agreed with home hospice for comfort care prognosis poor he will resume his home meds along with doxy for 7 days further comfort care as per home hospice team medication reviewed as below symptomatic treatment
--- NOTE | 2018-12-13 11:10 | DIS ---
DATE OF ADMISSION: 12/11/2018 DATE OF DISCHARGE: 12/13/2018 PRIMARY CARE PHYSICIAN: LA Howard. DISCHARGE DISPOSITION: Home with Home Hospice. PRIMARY DISCHARGE DIAGNOSES: 1. Healthcare-associated pneumonia. 2. Acute on chronic diastolic congestive heart failure. 3. Acute on chronic respiratory failure with hypoxia. 4. Hyperkalemia. 5. Neutropenia. 6. Pancytopenia. 7. Type 2 myocardial infarction. 8. Atrial flutter. SECONDARY DISCHARGE DIAGNOSES: 1. Squamous cell carcinoma of lung. 2. Small B-cell lymphoma. 3. Normocytic anemia. 4. Hypothyroidism. 5. Hypertension. 6. Dyslipidemia. 7. Chronic obstructive pulmonary disease. 8. Chronic respiratory failure. 9. Chronic lymphocytic leukemia. 10. Chronic kidney disease, stage 3. 11. Coronary artery disease. 12. Aortic stenosis. 13. Chronic diastolic heart failure, stage C. 14. Diabetes type 2. PRIMARY PROCEDURE/OPERATION: None. RADIOLOGICAL INVESTIGATION: 1. CT angiography showed multifocal infiltration. 2. Chest x-ray showed multifocal infiltration. SIGNIFICANT LABORATORY DATA: Hemoglobin 8.3. D-dimer 2.46. Sodium 131, potassium 5.4, BUN 48, creatinine 1.24, calcium 8.6. AST 14, ALT less than 7, alkaline phosphatase 42. Albumin 2.7. Urinalysis unremarkable. Blood culture and urine culture negative. DISCHARGE MEDICATIONS: The patient is discharged to home on following medications. Further discharge medications will be deferred to Hospice Team. Continue following medications: 1. Lipitor 20 mg p.o. at bedtime. 2. Coreg 12.5 mg twice daily. 3. Clonidine 0.1 mg p.o. b.i.d. 4. Ferrous sulfate 325 mg b.i.d. 5. Flovent inhalation b.i.d. 6. Lasix 40 mg b.i.d. 7. Hydralazine 25 mg t.i.d. 8. Levothyroxine 25 mcg p.o. daily. 9. Trajenta 5 mg p.o. daily. 10. Protonix 40 mg p.o. daily. 11. Prednisone 10 mg p.o. daily. 12. Doxycycline 100 mg b.i.d. for 7 days. 13. Xanax 0.25 mg b.i.d. p.r.n. 14. Digoxin 0.125 mg p.o. daily. 15. Lantus 10 units subcu bedtime. 16. DuoNeb q.6 hourly and p.r.n. 17. MiraLAX 17 g p.o. daily. 18. Florastor 250 mg daily. 19. Senokot 2 tablets twice daily. CONTRAINDICATION: None. CODE STATUS: DNR. INPATIENT DETASSELER: 1. Dr. Geller was following while in hospital. 2. Dr. Miranda was consulted for atrial flutter. 3. Cardiology was consulted for diastolic heart failure. 4. Dr. Daniel Booker consulted for pancytopenia and cancer. TEST RESULTS PENDING ON DISCHARGE: None. ALLERGIES: 1. PENICILLIN. 2. LATEX. DISCHARGE PLAN: Post hospital, the patient is discharged to home with Home Hospice. Subsequently, the patient will follow up with Hospice Team as instructed. HOSPITAL COURSE: An 83-year-old male, who was recently admitted in our hospital for hemoptysis. During that admission, the patient had bronchoscopy by Dr. 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 He was transferred to [facility] where he had cauterization of endobronchial vessel, and subsequently, this patient was discharged to home. After going home, immediately the patient was brought to emergency room because he was feeling more short of breath. He was feeling more weak and tired. On admission, he was having acute on chronic respiratory failure with hypoxia secondary to diastolic heart failure as well as multifocal pneumonia. His chest x-ray showed multifocal infiltration, and CT angiography confirmed multifocal infiltration with congestion. He was treated with Lasix. He was given empiric antibiotic therapy with vancomycin and meropenem. During this admission, we consulted Cardiology, Pulmonology, and Oncology. Oncology recommended to start Neupogen for his pancytopenia. We also transfused 1 unit of blood for his anemia. Cardiology consulted Electrophysiology for atrial flutter, and the patient was not a candidate for any chronic anticoagulation because of hemoptysis and thrombocytopenia, and that is why he was not a candidate for any ablation, Watchman device, or cardioversion. This patient was not doing well while in hospital, and he was tired with his chronic medical problem. He decided to go home with Home Hospice. Initially, he was kept on chemical code and subsequently, he changed his mind to be a DNR. Palliative Care Team was following while in hospital, and the patient was ultimately planned for discharge to home with Home Hospice. Once hospice arrangement is done, then this patient will be discharged to home with comfort care only. This patient's prognosis is extremely poor. Family okay with going to Hospice Care. Please see my progress note from today for further detail. Job ID: [id number]
--- NOTE | 2018-12-13 14:49 | PDOC.CTH ---
Cardiology Progress Note - Subjective The pt seen and examined. No overnight events. No cardiac complaints. - Objective Vital Signs Temp Pulse Resp BP BP Pulse Ox 12/13/18 12:35 86 20 90 L 12/13/18 12:00 97.3 F L 69 20 169/68 H 96 12/13/18 09:26 68 190/79 H 12/13/18 09:25 68 12/13/18 09:20 98.3 F 68 20 190/79 H 92 L 12/13/18 06:32 84 18 90 L Weight 153 lb 12.8 oz 12/12/18 12/13/18 12/14/18 06:59 06:59 06:59 Intake Total 1530 2370 Output Total 425 1490 Balance 1105 880 - Physical Examination General/Neuro: alert & oriented x3 Neck: no JVD present Lungs: other: (very diminished, Rt>Lt) Heart: RRR Abdomen: soft Extremities: other: (No edema) - Telemetry Telemetry Rhythm: Aflutter - Labs Result Diagrams: 12/13/18 05:36 12/13/18 05:36 Troponin/CKMB Troponin I 0.050 ng/mL (< 0.028) H 12/11/18 01:14 - Assessment/Plan 1. Chronic aflutter - unable to tolerate OAC for now due to hx of puml hemorrhage with s/p Rt intercstal brancheal artery embolization; stable HR with Coreg with Digoxin 2. Acute on Chronic diastolic HF - stable with Bblocker and Lasix; not on NANCY/ ARB due to hx of CKD 3. Acute on chronic respiratory failure 2/2 hx of COPD and hx of Squamous cell carcinoma Lung ca with chemo and radiation - 4. CAD with hx of CABG and stent placement in past - On bblocker, statin; not on ASA or Plavix due to hx of bleeding 5. CKD - 6. HTN - elevated; will increase Norvasc 5mg from qd to BID (RN will call Dr Meraz since the med is not on discharge med list) 7. HLD - on Statin 8. Neutropenia 9. COPD 10. Hypothyroidism 11. Normocytic anemia - 1 unit PRBC today MAR reviewed * the pt will be d/c home with Hospice. * Dr Elam pt Review of Systems - Review of Systems Constitutional: reports: weakness EENTM: reports: no symptoms reported Respiratory: reports: no symptoms reported Cardiac (ROS): reports: no symptoms reported ABD/GI: reports: no symptoms reported
[2018-12-13] MEDS: Metoclopramide HCl 10 MG/2 ML VIAL IVP PRN (16:11)
[2018-12-13] MEDS: HumaLOG 300 UNITS/3 ML VIAL SC PRN (17:30)
[2018-12-13 18:16] VITALS: BP 146/60; TEMP 97.6
== END 2018-12-13 17:40 | disposition hospice, home (50) | DRG 280 ==
LOC: ERS 00:45 → 2NO 05:59
PROVIDERS: ADMIT Hospitalist; ATTEND Hospitalist
PROC: 30233N1 Transfusion of Nonautologous Red Blood Cells into Peripheral Vein, Percutaneous Approach (ICD-10-PCS; principal; 2018-12-12)
DX: I13.0 Hypertensive heart and chronic kidney disease with heart failure and stage 1 through stage 4 chronic kidney disease, or unspecified chronic kidney disease (principal); I50.33 Acute on chronic diastolic (congestive) heart failure; I21.A1 Myocardial infarction type 2; J18.9 Pneumonia, unspecified organism; J96.21 Acute and chronic respiratory failure with hypoxia; D61.810 Antineoplastic chemotherapy induced pancytopenia; J44.0 Chronic obstructive pulmonary disease with (acute) lower respiratory infection; I48.92 Unspecified atrial flutter; C91.10 Chronic lymphocytic leukemia of B-cell type not having achieved remission; C34.91 Malignant neoplasm of unspecified part of right bronchus or lung; Z66 Do not resuscitate; Y95 Nosocomial condition; E87.5 Hyperkalemia; D63.1 Anemia in chronic kidney disease; E03.9 Hypothyroidism, unspecified; E78.5 Hyperlipidemia, unspecified; N18.3 Chronic kidney disease, stage 3 (moderate); I25.10 Atherosclerotic heart disease of native coronary artery without angina pectoris; E11.22 Type 2 diabetes mellitus with diabetic chronic kidney disease; K21.9 Gastro-esophageal reflux disease without esophagitis; I35.0 Nonrheumatic aortic (valve) stenosis; Z88.0 Allergy status to penicillin; Z91.040 Latex allergy status; Z79.01 Long term (current) use of anticoagulants; Z90.49 Acquired absence of other specified parts of digestive tract; Z79.82 Long term (current) use of aspirin; Z79.899 Other long term (current) drug therapy; Z79.52 Long term (current) use of systemic steroids; Z79.4 Long term (current) use of insulin; Z87.891 Personal history of nicotine dependence; Z95.1 Presence of aortocoronary bypass graft
CPT/HCPCS: 36415; 36416; 36430; 71045; 71275; 80048; 80053; 80202; 81003; 81015; 82805; 83605; 83880; 84484; 85025; 85379; 86850; 86900; 86901; 87040; 87086; 93005; 94640; 94664; 96365; 96366; 96368; 96375; J0360; J0456; J1447; J1815; J2185; J2765; J2930; J3370; J7050; J7512; J7620; P9016; Q0163; Q9966